=== PATIENT | male | born 1960 | race Caucasian/White ===

== ENCOUNTER 2016-12-27 08:27 | Inpatient (IN) | payer OTHER ==
[2016-12-27] VITALS (23 sets, daily range): BP systolic 111–192; BP diastolic 61–87; PULSE 52–73; RESP 11–21; Ht 154.9 cm; Wt 79.0 kg
[~2016-12-27] VITALS: Ht 154.9 cm; Wt 79.0 kg
[2016-12-27] MEDS ORDERED: LANT3I SC (08:35)
[2016-12-27] MEDS ORDERED: INSU200I SQ (08:36)
[2016-12-27] MEDS ORDERED: METO-448 PO (08:37)
[2016-12-27] MEDS ORDERED: LOSA50TA6 PO (08:37)
[2016-12-27] MEDS ORDERED: ASPI-664 PO (08:37)
[2016-12-27] MEDS ORDERED: METF1000 PO (08:38)
--- NOTE | 2016-12-27 10:00 | RADRPT ---
PROCEDURE: XR Chest 1 View. CLINICAL INDICATION: Abnormal breath sounds, preop. TECHNIQUE: AP view of the chest was obtained. COMPARISON: None. FINDINGS: The cardiomediastinal silhouette is within normal limits. Elevated right hemidiaphragm is identified . Atelectasis is noted at the lung bases. No consolidations are identified. No pneumothorax is seen . Osseous structures are intact. IMPRESSION: Elevated right hemidiaphragm. Atelectasis at the lung bases. RPTAT: AA .Pato Friedman MD, MD Date Time Electronically viewed and signed by .Pato Friedman MD, on 12/27/2016 10:00 .P/
[2016-12-27] MEDS ORDERED: LIDOCAINE 1% (MDV) 20 ML INJ ONE (10:04)
[2016-12-27] MEDS ORDERED: HEPARIN 1000 UNITS/NS (A-LINE) 1,000 ML ONE (10:04)
[2016-12-27] MEDS ORDERED: HEPARIN 1000 UNITS/ML 10 ML INJ ONE (10:04)
[2016-12-27] MEDS ORDERED: MIDAZOLAM 1 MG/ML 2 ML INJ ONE (10:05)
[2016-12-27] MEDS ORDERED: FENTAnyl 50 MCG/ML VIAL ONE (10:05)
[2016-12-27] MEDS ORDERED: VERAPAMIL 5 MG INJ ONE (10:05)
[2016-12-27] MEDS ORDERED: NITROGLYCERIN (IC) 100 MCG/ML INJ ONE (10:05)
[2016-12-27] MEDS: SOD CHLORIDE 0.9% 1,000 ML IV SCH ×2 (10:54→23:43)
--- NOTE | 2016-12-27 11:03 | OPR ---
Date/Time of Note Date/Time of Note DATE: 12/27/16 TIME: 10:56 Operative Report Procedure Date: Dec 27, 2016 Preoperative Diagnosis Coronary artery disease Postoperative Diagnosis Coronary artery disease Operation/Procedure Performed Left heart Catheterization Surgeon see signature line Feed Mixer none Anesthesia Type: moderate sedation Estimated Blood Loss: minimal Transfusion none Specimen none Grafts/Implants none Complications none Pt Condition Post Procedure: stable Disposition: PACU Indications Chest pain Positive stress test Class IV angina Procedure Description DESCRIPTION OF PROCEDURE: The patient placed on pet care assistant, pulse oximetry and supplemental oxygen as necessary. The right wrist was prepped and draped in a sterile fashion and infiltrated with 1% lidocaine. Via the Seldinger technique, the right radia artery was accessed. A 6-Hungarian sheath was inserted and through this the right coronary catheter and left coronary catheter and pigtail were advanced into the right coronary artery and left coronary artery and the left ventricle. Placement confirmed by fluoroscopy and hemodynamics. CATHETERIZATION FINDINGS: 1. Left main: 90% distal disease. 2. LAD: Large caliber vessel with no significant disease. 3. Circumflex: proximal to mid 70-80% diffuse disease 4. Obtuse marginal: Medium caliber vessel with no significant disease. 5. RCA: Large dominant vessel with distal 90% stent re-stenosis; promient left to right collaterals via PDA HEMODYNAMICS: LVEDP 20. 10mmHg gradient on pigtail pull back. TOTAL CONTRAST: 27cc FLUOROSCOPY TIME: 3.0 minutes. COMPLICATIONS: None. FINAL RESULTS: Multi-vessel obstructive coronary artery disease with left main involvement. RECOMMENDATIONS: Admit CABG evaluation (Dr. Pereira notified) Monitor kidney function post cardiac cath as patient high risk for contrast nephropathy given DM. Dr. Dima Coello notified ALISON VICKERS Dec 27, 2016 11:03
--- NOTE | 2016-12-27 11:03 | OPR ---
Date/Time of Note Date/Time of Note DATE: 12/27/16 TIME: 10:56 Operative Report Procedure Date: Dec 27, 2016 Preoperative Diagnosis Coronary artery disease Postoperative Diagnosis Coronary artery disease Operation/Procedure Performed Left heart Catheterization Surgeon see signature line Career Technical Supervisor none Anesthesia Type: moderate sedation Estimated Blood Loss: minimal Transfusion none Specimen none Grafts/Implants none Complications none Pt Condition Post Procedure: stable Disposition: PACU Indications Chest pain Positive stress test Class IV angina Procedure Description DESCRIPTION OF PROCEDURE: The patient placed on school lunch monitor, pulse oximetry and supplemental oxygen as necessary. The right wrist was prepped and draped in a sterile fashion and infiltrated with 1% lidocaine. Via the Seldinger technique, the right radia artery was accessed. A 6-Tamazight sheath was inserted and through this the right coronary catheter and left coronary catheter and pigtail were advanced into the right coronary artery and left coronary artery and the left ventricle. Placement confirmed by fluoroscopy and hemodynamics. CATHETERIZATION FINDINGS: 1. Left main: 90% distal disease. 2. LAD: Large caliber vessel with no significant disease. 3. Circumflex: proximal to mid 70-80% diffuse disease 4. Obtuse marginal: Medium caliber vessel with no significant disease. 5. RCA: Large dominant vessel with distal 90% stent re-stenosis; promient left to right collaterals via PDA HEMODYNAMICS: LVEDP 20. 10mmHg gradient on pigtail pull back. TOTAL CONTRAST: 27cc FLUOROSCOPY TIME: 3.0 minutes. COMPLICATIONS: None. FINAL RESULTS: Multi-vessel obstructive coronary artery disease with left main involvement. RECOMMENDATIONS: Admit CABG evaluation (Dr. Pereira notified) Monitor kidney function post cardiac cath as patient high risk for contrast nephropathy given DM. Dr. Dima Coello notified ALISON VICKERS Dec 27, 2016 11:03
--- NOTE | 2016-12-27 11:03 | OPR ---
Date/Time of Note Date/Time of Note DATE: 12/27/16 TIME: 10:56 Operative Report Procedure Date: Dec 27, 2016 Preoperative Diagnosis Coronary artery disease Postoperative Diagnosis Coronary artery disease Operation/Procedure Performed Left heart Catheterization Surgeon see signature line Nursing Secretary none Anesthesia Type: moderate sedation Estimated Blood Loss: minimal Transfusion none Specimen none Grafts/Implants none Complications none Pt Condition Post Procedure: stable Disposition: PACU Indications Chest pain Positive stress test Class IV angina Procedure Description DESCRIPTION OF PROCEDURE: The patient placed on general internist and physician leader, pulse oximetry and supplemental oxygen as necessary. The right wrist was prepped and draped in a sterile fashion and infiltrated with 1% lidocaine. Via the Seldinger technique, the right radia artery was accessed. A 6-Czech sheath was inserted and through this the right coronary catheter and left coronary catheter and pigtail were advanced into the right coronary artery and left coronary artery and the left ventricle. Placement confirmed by fluoroscopy and hemodynamics. CATHETERIZATION FINDINGS: 1. Left main: 90% distal disease. 2. LAD: Large caliber vessel with no significant disease. 3. Circumflex: proximal to mid 70-80% diffuse disease 4. Obtuse marginal: Medium caliber vessel with no significant disease. 5. RCA: Large dominant vessel with distal 90% stent re-stenosis; promient left to right collaterals via PDA HEMODYNAMICS: LVEDP 20. 10mmHg gradient on pigtail pull back. TOTAL CONTRAST: 27cc FLUOROSCOPY TIME: 3.0 minutes. COMPLICATIONS: None. FINAL RESULTS: Multi-vessel obstructive coronary artery disease with left main involvement. RECOMMENDATIONS: Admit CABG evaluation (Dr. Pereira notified) Monitor kidney function post cardiac cath as patient high risk for contrast nephropathy given DM. Dr. Dima Coello notified ALISON VICKERS Dec 27, 2016 11:03
--- NOTE | 2016-12-27 15:42 | CONS ---
Date/Time of Note Date/Time of Note DATE: 12/27/16 TIME: 15:40 Assessment/Plan Assessment/Plan Chief Complaint/Hosp Course 1. severe angina 2. severe multivessel CAD: including LM disease 3. HTN 4. DM 5. Dyslipidemia 6/ hx RI 7/ HX PCI 8/ Moderate carotid stenosis cont home cardiac meds check carotid u/s and echo awaiting CABG will start lovenox for now until CABG is done Thank you for this referral. We will continue to follow along with you. ROMMEL JIMÉNEZ MD [facility] Problems: Consultation Date/Type/Reason Admit Date/Time Dec 27, 2016 at 11:23 Date of Consultation: Dec 27, 2016 Type of Consultation: CARDIOLOGY Reason for Consultation CAD Referring Provider: LEONARDA CHAMPION MD Hx of Present Illness CC: anginal s/p magalis angio HPI: This is a very pleasant 69-year-old gentleman with history of coronary artery disease status post PCI and RI about a year and a half ago who underwent diagnostic angiography by Dr. jordana Triana due to exertional chest pain and abnormal stress test. His coronary angiogram has shown multivessel disease including the left main coronary artery disease and patient has been admitted for a coronary artery bypass graft. This point he denies any chest pain or pressure to me what his Tuesday when he walks he gets chest pain anteriorly become severe if he walks a lot. Discussed with Dr. 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 His old records reviewed. Allergies no known drug allergies Past medical history history of coronary artery disease status post MIs of hypertension diabetes dyslipidemia history of peripheral vascular disease and moderate carotid stenosis. meds reviewed social has quit smoking 20 years ago family hx: Multiple family members with coronary artery disease. Review of system: As above only. Social History Smoking Status: Former smoker Exam/Review of Systems Vital Signs Vitals Vital Signs Date Time Temp Pulse Resp B/P Pulse Ox O2 Delivery O2 Flow Rate FiO2 12/27/16 15:20 98.0 64 17 153/74 99 12/27/16 14:12 Room Air Exam General: no acute distress HEENT: NC/AT. pupils are equal. round. NECK: NO JVD. no stridor. CV: RRR. systolic murmur; no gallop or rubs. PULM: no wheezing or rhonchi. GI: SOFT, NT, ND, no rebound or guarding Extremity: trace B/L LE edema. no clubbing. neuro: awake and alert, OX3. Psych: calm and pleasant rectal: deferred : normal male magalis angio 12/27/16: 1. Left main: 90% distal disease. 2. LAD: Large caliber vessel with no significant disease. 3. Circumflex: proximal to mid 70-80% diffuse disease 4. Obtuse marginal: Medium caliber vessel with no significant disease. 5. RCA: Large dominant vessel with distal 90% stent re-stenosis; promient left to right collaterals via PDA Results Result Diagram: 12/27/1692112/27/16921 Results 24 hrs Laboratory Tests Test 12/27/16 09:22 White Blood Count 8.0 Red Blood Count 4.63 L Hemoglobin 12.3 L Hematocrit 38.0 L Mean Corpuscular Volume 82.1 Mean Corpuscular Hemoglobin 26.6 L Mean Corpuscular Hemoglobin Concent 32.4 Red Cell Distribution Width 13.9 Platelet Count 323 Mean Platelet Volume 9.3 Neutrophils % 49.0 Lymphocytes % 41.1 Monocytes % 7.0 Eosinophils % 2.0 Basophils % 0.6 Nucleated Red Blood Cells % 0.0 Neutrophils # 3.9 Lymphocytes # 3.3 H Monocytes # 0.6 Eosinophils # 0.2 Basophils # 0.1 Nucleated Red Blood Cells # 0.0 Prothrombin Time 14.3 H Prothrombin Time Ratio 1.1 INR International Normalized Ratio 1.11 Activated Partial Thromboplast Time 33.8 Sodium Level 144 Potassium Level 4.3 Chloride Level 109 Carbon Dioxide Level 24 Anion Gap 15 Blood Urea Nitrogen 13 Creatinine 0.94 Glucose Level 132 Bedside Glucose 130 Calcium Level 8.7 Total Bilirubin 0.3 Direct Bilirubin 0.00 Indirect Bilirubin 0.3 Aspartate Amino Transf (AST/SGOT) 31 Alanine Aminotransferase (ALT/SGPT) 49 Alkaline Phosphatase 66 Total Protein 7.8 Albumin 4.7 Globulin 3.10 Albumin/Globulin Ratio 1.51 Medications Medications Current Medications Miscellaneous Information HOLD all METFORMIN ... ONCE XX ; Start 12/27/16 at 11 :00; Stop 12/29/16 at 10:59 Sodium Chloride (NS) 1,000 ml @ 75 mls/hr [id number] IV Last administered on t 10:54; Admin Dose 75 MLS/HR; Start 12/27/16 at 10:54; Stop 12/28/16 at 00:13 ROMMEL JIMÉNEZ MD Dec 27, 2016 15:42
--- NOTE | 2016-12-27 15:42 | CONS ---
Date/Time of Note Date/Time of Note DATE: 12/27/16 TIME: 15:40 Assessment/Plan Assessment/Plan Chief Complaint/Hosp Course 1. severe angina 2. severe multivessel CAD: including LM disease 3. HTN 4. DM 5. Dyslipidemia 6/ hx PR 7/ HX PCI 8/ Moderate carotid stenosis cont home cardiac meds check carotid u/s and echo awaiting CABG will start lovenox for now until CABG is done Thank you for this referral. We will continue to follow along with you. ROMMEL JIMÉNEZ MD [facility] Problems: Consultation Date/Type/Reason Admit Date/Time Dec 27, 2016 at 11:23 Date of Consultation: Dec 27, 2016 Type of Consultation: CARDIOLOGY Reason for Consultation CAD Referring Provider: LEONARDA CHAMPION MD Hx of Present Illness CC: anginal s/p magalis angio HPI: This is a very pleasant 69-year-old gentleman with history of coronary artery disease status post PCI and PR about a year and a half ago who underwent diagnostic angiography by Dr. jordana Triana due to exertional chest pain and abnormal stress test. His coronary angiogram has shown multivessel disease including the left main coronary artery disease and patient has been admitted for a coronary artery bypass graft. This point he denies any chest pain or pressure to me what his Tuesday when he walks he gets chest pain anteriorly become severe if he walks a lot. Discussed with Dr. Christianson who is the patient's seat pack inspector. His old records reviewed. Allergies no known drug allergies Past medical history history of coronary artery disease status post MIs of hypertension diabetes dyslipidemia history of peripheral vascular disease and moderate carotid stenosis. meds reviewed social has quit smoking 20 years ago family hx: Multiple family members with coronary artery disease. Review of system: As above only. Social History Smoking Status: Former smoker Exam/Review of Systems Vital Signs Vitals Vital Signs Date Time Temp Pulse Resp B/P Pulse Ox O2 Delivery O2 Flow Rate FiO2 12/27/16 15:20 98.0 64 17 153/74 99 12/27/16 14:12 Room Air Exam General: no acute distress HEENT: NC/AT. pupils are equal. round. NECK: NO JVD. no stridor. CV: RRR. systolic murmur; no gallop or rubs. PULM: no wheezing or rhonchi. GI: SOFT, NT, ND, no rebound or guarding Extremity: trace B/L LE edema. no clubbing. neuro: awake and alert, OX3. Psych: calm and pleasant rectal: deferred : normal male magalis angio 12/27/16: 1. Left main: 90% distal disease. 2. LAD: Large caliber vessel with no significant disease. 3. Circumflex: proximal to mid 70-80% diffuse disease 4. Obtuse marginal: Medium caliber vessel with no significant disease. 5. RCA: Large dominant vessel with distal 90% stent re-stenosis; promient left to right collaterals via PDA Results Result Diagram: 12/27/1692112/27/16921 Results 24 hrs Laboratory Tests Test 12/27/16 09:22 White Blood Count 8.0 Red Blood Count 4.63 L Hemoglobin 12.3 L Hematocrit 38.0 L Mean Corpuscular Volume 82.1 Mean Corpuscular Hemoglobin 26.6 L Mean Corpuscular Hemoglobin Concent 32.4 Red Cell Distribution Width 13.9 Platelet Count 323 Mean Platelet Volume 9.3 Neutrophils % 49.0 Lymphocytes % 41.1 Monocytes % 7.0 Eosinophils % 2.0 Basophils % 0.6 Nucleated Red Blood Cells % 0.0 Neutrophils # 3.9 Lymphocytes # 3.3 H Monocytes # 0.6 Eosinophils # 0.2 Basophils # 0.1 Nucleated Red Blood Cells # 0.0 Prothrombin Time 14.3 H Prothrombin Time Ratio 1.1 INR International Normalized Ratio 1.11 Activated Partial Thromboplast Time 33.8 Sodium Level 144 Potassium Level 4.3 Chloride Level 109 Carbon Dioxide Level 24 Anion Gap 15 Blood Urea Nitrogen 13 Creatinine 0.94 Glucose Level 132 Bedside Glucose 130 Calcium Level 8.7 Total Bilirubin 0.3 Direct Bilirubin 0.00 Indirect Bilirubin 0.3 Aspartate Amino Transf (AST/SGOT) 31 Alanine Aminotransferase (ALT/SGPT) 49 Alkaline Phosphatase 66 Total Protein 7.8 Albumin 4.7 Globulin 3.10 Albumin/Globulin Ratio 1.51 Medications Medications Current Medications Miscellaneous Information HOLD all METFORMIN ... ONCE XX ; Start 12/27/16 at 11 :00; Stop 12/29/16 at 10:59 Sodium Chloride (NS) 1,000 ml @ 75 mls/hr [id number] IV Last administered on t 10:54; Admin Dose 75 MLS/HR; Start 12/27/16 at 10:54; Stop 12/28/16 at 00:13 ROMMEL JIMÉNEZ MD Dec 27, 2016 15:42
--- NOTE | 2016-12-27 15:42 | CONS ---
Date/Time of Note Date/Time of Note DATE: 12/27/16 TIME: 15:40 Assessment/Plan Assessment/Plan Chief Complaint/Hosp Course 1. severe angina 2. severe multivessel CAD: including LM disease 3. HTN 4. DM 5. Dyslipidemia 6/ hx [place] 7/ HX PCI 8/ Moderate carotid stenosis cont home cardiac meds check carotid u/s and echo awaiting CABG will start lovenox for now until CABG is done Thank you for this referral. We will continue to follow along with you. ROMMEL JIMÉNEZ MD [facility] Problems: Consultation Date/Type/Reason Admit Date/Time Dec 27, 2016 at 11:23 Date of Consultation: Dec 27, 2016 Type of Consultation: CARDIOLOGY Reason for Consultation CAD Referring Provider: LEONARDA CHAMPION MD Hx of Present Illness CC: anginal s/p magalis angio HPI: This is a very pleasant 69-year-old gentleman with history of coronary artery disease status post PCI and [place] about a year and a half ago who underwent diagnostic angiography by Dr. jordana Triana due to exertional chest pain and abnormal stress test. His coronary angiogram has shown multivessel disease including the left main coronary artery disease and patient has been admitted for a coronary artery bypass graft. This point he denies any chest pain or pressure to me what his Tuesday when he walks he gets chest pain anteriorly become severe if he walks a lot. Discussed with Dr. Christianson who is the patient's marketing communication manager. His old records reviewed. Allergies no known drug allergies Past medical history history of coronary artery disease status post MIs of hypertension diabetes dyslipidemia history of peripheral vascular disease and moderate carotid stenosis. meds reviewed social has quit smoking 20 years ago family hx: Multiple family members with coronary artery disease. Review of system: As above only. Social History Smoking Status: Former smoker Exam/Review of Systems Vital Signs Vitals Vital Signs Date Time Temp Pulse Resp B/P Pulse Ox O2 Delivery O2 Flow Rate FiO2 12/27/16 15:20 98.0 64 17 153/74 99 12/27/16 14:12 Room Air Exam General: no acute distress HEENT: NC/AT. pupils are equal. round. NECK: NO JVD. no stridor. CV: RRR. systolic murmur; no gallop or rubs. PULM: no wheezing or rhonchi. GI: SOFT, NT, ND, no rebound or guarding Extremity: trace B/L LE edema. no clubbing. neuro: awake and alert, OX3. Psych: calm and pleasant rectal: deferred : normal male magalis angio 12/27/16: 1. Left main: 90% distal disease. 2. LAD: Large caliber vessel with no significant disease. 3. Circumflex: proximal to mid 70-80% diffuse disease 4. Obtuse marginal: Medium caliber vessel with no significant disease. 5. RCA: Large dominant vessel with distal 90% stent re-stenosis; promient left to right collaterals via PDA Results Result Diagram: 12/27/1692112/27/16921 Results 24 hrs Laboratory Tests Test 12/27/16 09:22 White Blood Count 8.0 Red Blood Count 4.63 L Hemoglobin 12.3 L Hematocrit 38.0 L Mean Corpuscular Volume 82.1 Mean Corpuscular Hemoglobin 26.6 L Mean Corpuscular Hemoglobin Concent 32.4 Red Cell Distribution Width 13.9 Platelet Count 323 Mean Platelet Volume 9.3 Neutrophils % 49.0 Lymphocytes % 41.1 Monocytes % 7.0 Eosinophils % 2.0 Basophils % 0.6 Nucleated Red Blood Cells % 0.0 Neutrophils # 3.9 Lymphocytes # 3.3 H Monocytes # 0.6 Eosinophils # 0.2 Basophils # 0.1 Nucleated Red Blood Cells # 0.0 Prothrombin Time 14.3 H Prothrombin Time Ratio 1.1 INR International Normalized Ratio 1.11 Activated Partial Thromboplast Time 33.8 Sodium Level 144 Potassium Level 4.3 Chloride Level 109 Carbon Dioxide Level 24 Anion Gap 15 Blood Urea Nitrogen 13 Creatinine 0.94 Glucose Level 132 Bedside Glucose 130 Calcium Level 8.7 Total Bilirubin 0.3 Direct Bilirubin 0.00 Indirect Bilirubin 0.3 Aspartate Amino Transf (AST/SGOT) 31 Alanine Aminotransferase (ALT/SGPT) 49 Alkaline Phosphatase 66 Total Protein 7.8 Albumin 4.7 Globulin 3.10 Albumin/Globulin Ratio 1.51 Medications Medications Current Medications Miscellaneous Information HOLD all METFORMIN ... ONCE XX ; Start 12/27/16 at 11 :00; Stop 12/29/16 at 10:59 Sodium Chloride (NS) 1,000 ml @ 75 mls/hr [id number] IV Last administered on t 10:54; Admin Dose 75 MLS/HR; Start 12/27/16 at 10:54; Stop 12/28/16 at 00:13 ROMMEL JIMÉNEZ MD Dec 27, 2016 15:42
--- NOTE | 2016-12-27 15:58 | RADRPT ---
PROCEDURE: US carotid arteries. CLINICAL INDICATION: Preoperative for CABG. TECHNIQUE: Multiple sonographic images of the carotid arteries and vertebral arteries were obtaine d utilizing rizvi scale, duplex, and color-flow imaging. The images were reviewed on a PACS workstati on. COMPARISON: No prior studies are available for comparison. FINDINGS: Evaluation of the right carotid bifurcation region reveals mild to moderate atherosclerotic disease with turbulent flow noted. Rizvi-scale imaging demonstrates a stenosis measuring approximately 65%. Evaluation of the left carotid bifurcation region reveals mild atherosclerotic disease. There is antegrade flow within the vertebral arteries bilaterally. RIGHT CAROTID MEASUREMENTS: Common Carotid [id number] (cm/sec) Internal Carotid Artery 86 (cm/sec) External Carotid Artery 118 (cm/sec) Vertebral Artery 64 (cm/sec) Internal Carotid/Common Carotid1.3 LEFT CAROTID MEASUREMENTS: Common Carotid [id number] (cm/sec) Internal Carotid Artery 64 (cm/sec) External Carotid Artery 153 (cm/sec) Vertebral Artery 36 (cm/sec) Internal Carotid/Common Carotid0.7 Validated velocity measurements with angiographic measurements. Velocity criteria are extrapolated f rom diameter data as defined by the Society of Radiologists in Ultrasound Consensus Conference. Radi ology 2003; 229;340-346. This study does indirectly reference the measurement of the distal ICA mychal meter as the denominator for stenosis measurement. IMPRESSION: 1. A possible moderate stenosis of the right internal carotid artery. Correlation with CT angiogram of the cervical carotid arteries is advised. 2. Less than 50% stenosis of the left internal carotid artery. 3. Normal antegrade flow in the vertebral arteries bilaterally. RPTAT: QQ SRU Consensus Conference Criteria for the Diagnosis of Carotid Artery Stenosis* Degree of Stenosis, % ICA PSV, cm/sec Plaque Estimate, % ICA/CCA PSV Ratio Normal <125 None <2.0 <50 <125 <50 <2.0 50 69 125-230 >50 2.0-4.0 >70 but less than near occlusion >230 >50 <4.0 Near occlusion High, low, or undetectable Visible Variable Total occlusion Undetectable Visible, no detectable lumen Not applicable *Cartoid artery stenosis: rizvi-scale and Doppler US diagnosis. Society of Radiologists in Ultrasound Consensus Conference. Radiology 2003; 229: 340-346 .Angel Luis Ta MD, MD Date Time Electronically viewed and signed by .Angel Luis Ta MD, on 12/27/2016 15:58 .R/
[2016-12-27] MEDS: ASPIRIN (EC) 81 MG TAB PO SCH (16:00)
--- NOTE | 2016-12-27 17:08 | RADRPT ---
Echocardiogram Report Patient Name: MARGE LAWRENCE Gender: Male Date: 1960 Study Date: 27-Dec-2016 Mobile Home Installer: Steve Garcia [facility] Location: [address] Ref. Physician: ROMMEL LANDRY Quality: Adequate Procedures: Transthoracic echocardiogram with complete 2D, M-Mode, and doppler examination. Indications: CAD, pre-op. 2D/M Mode Doppler Measurement Value Normal Ranges Measurement Value Normal Ranges LVIDd 2D 4.4 3.5 - 5.6 cm AV Peak [place] 1.5 m/sec LVIDs 2D 2.8 2.1 - 4.1 cm AV Peak PG 8.0 mmHg FS 2D 35.5 % LVOT Peak [place] 1.0 m/sec LVPWd 2D 1.2 0.6 - 1.1 cm LVOT Peak PG 4.0 mmHg IVSd 2D 1.2 0.6 - 1.1 cm MV E Peak [place] 1.0 m/sec IVS/LVPW 2D 1.0 MV A Peak [place] 1.2 m/sec AoR Diam 2D 2.3 2.0 - 3.7 cm MV E/A 0.9 LA/Ao 2D 2 0 - 1 MV Decel Time 123 msec EDV 2D 86.4 cm3 MV E/A 0.9 ESV 2D 23.1 cm3 TR Peak [place] 2.7 m/sec LA Dimen 2D 3.7 2.3 - 4.0 cm TR Peak PG 28.0 mmHg RVSP 38.0 mmHg Findings Left Ventricle: Lower limits of normal systolic function. Normal left ventricular cavity size. Left ventricular wall thickness upper limits of normal. Ejection fraction is visually estimated at 50 %. Tissue Doppler/Mitral Doppler indices are consistent with impaired relaxation (Stage I diastolic dysfunction). These segments of the LV are hypokinetic apex. Right Ventricle: Normal right ventricular size. Normal right ventricular systolic function. Left Atrium: The left atrium is normal in size. Right Atrium: The right atrium is normal in size. Mitral Valve: Mild mitral leaflet calcification. Mild mitral annular calcification. Trace mitral regurgitation. Aortic Valve: No significant aortic stenosis. Aortic cusps appear mildly calcified. Trace aortic valve regurgitation. Tricuspid Valve: Normal appearance of the tricuspid valve. Estimated peak PA systolic pressure 38 mmHg. There is mild tricuspid regurgitation. Pulmonic Valve: Pulmonic valve not well visualized. There is trace pulmonic regurgitation. Pericardium: Normal pericardium with no significant pericardial effusion. Aorta: Normal aortic root. IVC: The IVC is not well visualized. Conclusions 1.Lower limits of normal systolic function. Normal left ventricular cavity size. Left ventricular wall thickness upper limits of normal. Ejection fraction is visually estimated at 50 %. Tissue Doppler/Mitral Doppler indices are consistent with impaired relaxation (Stage I diastolic dysfunction). These segments of the LV are hypokinetic apex. 2.Mild mitral leaflet calcification. Mild mitral annular calcification. Trace mitral regurgitation. 3.No significant aortic stenosis. Aortic cusps appear mildly calcified. Trace aortic valve regurgitation. 4.Normal appearance of the tricuspid valve. Estimated peak PA systolic pressure 38 mmHg. There is mild tricuspid regurgitation. Electronically Signed By: Rommel Landry 27-Dec-2016 17:07:32 -0700 Patient Name: MARGE LAWRENCE Study Date: 27-Dec-2016 [id number]
--- NOTE | 2016-12-27 17:08 | RADRPT ---
Echocardiogram Report Patient Name: MARGE LAWRENCE Gender: Male Date: 1960 Study Date: 27-Dec-2016 Powertrain Design Engineer: Steve Garcia [facility] Location: [address] Ref. Physician: ROMMEL LANDRY Quality: Adequate Procedures: Transthoracic echocardiogram with complete 2D, M-Mode, and doppler examination. Indications: CAD, pre-op. 2D/M Mode Doppler Measurement Value Normal Ranges Measurement Value Normal Ranges LVIDd 2D 4.4 3.5 - 5.6 cm AV Peak [place] 1.5 m/sec LVIDs 2D 2.8 2.1 - 4.1 cm AV Peak PG 8.0 mmHg FS 2D 35.5 % LVOT Peak [place] 1.0 m/sec LVPWd 2D 1.2 0.6 - 1.1 cm LVOT Peak PG 4.0 mmHg IVSd 2D 1.2 0.6 - 1.1 cm MV E Peak [place] 1.0 m/sec IVS/LVPW 2D 1.0 MV A Peak [place] 1.2 m/sec AoR Diam 2D 2.3 2.0 - 3.7 cm MV E/A 0.9 LA/Ao 2D 2 0 - 1 MV Decel Time 123 msec EDV 2D 86.4 cm3 MV E/A 0.9 ESV 2D 23.1 cm3 TR Peak [place] 2.7 m/sec LA Dimen 2D 3.7 2.3 - 4.0 cm TR Peak PG 28.0 mmHg RVSP 38.0 mmHg Findings Left Ventricle: Lower limits of normal systolic function. Normal left ventricular cavity size. Left ventricular wall thickness upper limits of normal. Ejection fraction is visually estimated at 50 %. Tissue Doppler/Mitral Doppler indices are consistent with impaired relaxation (Stage I diastolic dysfunction). These segments of the LV are hypokinetic apex. Right Ventricle: Normal right ventricular size. Normal right ventricular systolic function. Left Atrium: The left atrium is normal in size. Right Atrium: The right atrium is normal in size. Mitral Valve: Mild mitral leaflet calcification. Mild mitral annular calcification. Trace mitral regurgitation. Aortic Valve: No significant aortic stenosis. Aortic cusps appear mildly calcified. Trace aortic valve regurgitation. Tricuspid Valve: Normal appearance of the tricuspid valve. Estimated peak PA systolic pressure 38 mmHg. There is mild tricuspid regurgitation. Pulmonic Valve: Pulmonic valve not well visualized. There is trace pulmonic regurgitation. Pericardium: Normal pericardium with no significant pericardial effusion. Aorta: Normal aortic root. IVC: The IVC is not well visualized. Conclusions 1.Lower limits of normal systolic function. Normal left ventricular cavity size. Left ventricular wall thickness upper limits of normal. Ejection fraction is visually estimated at 50 %. Tissue Doppler/Mitral Doppler indices are consistent with impaired relaxation (Stage I diastolic dysfunction). These segments of the LV are hypokinetic apex. 2.Mild mitral leaflet calcification. Mild mitral annular calcification. Trace mitral regurgitation. 3.No significant aortic stenosis. Aortic cusps appear mildly calcified. Trace aortic valve regurgitation. 4.Normal appearance of the tricuspid valve. Estimated peak PA systolic pressure 38 mmHg. There is mild tricuspid regurgitation. Electronically Signed By: Rommel Landry 27-Dec-2016 17:07:32 -0700 Patient Name: MARGE LAWRENCE Study Date: 27-Dec-2016 [id number]
--- NOTE | 2016-12-27 17:08 | RADRPT ---
Echocardiogram Report Patient Name: MARGE LAWRENCE Gender: Male Date: 1960 Study Date: 27-Dec-2016 Pick Up Operator: Steve Garcia [facility] Location: [address] Ref. Physician: ROMMEL LANDRY Quality: Adequate Procedures: Transthoracic echocardiogram with complete 2D, M-Mode, and doppler examination. Indications: CAD, pre-op. 2D/M Mode Doppler Measurement Value Normal Ranges Measurement Value Normal Ranges LVIDd 2D 4.4 3.5 - 5.6 cm AV Peak [place] 1.5 m/sec LVIDs 2D 2.8 2.1 - 4.1 cm AV Peak PG 8.0 mmHg FS 2D 35.5 % LVOT Peak [place] 1.0 m/sec LVPWd 2D 1.2 0.6 - 1.1 cm LVOT Peak PG 4.0 mmHg IVSd 2D 1.2 0.6 - 1.1 cm MV E Peak [place] 1.0 m/sec IVS/LVPW 2D 1.0 MV A Peak [place] 1.2 m/sec AoR Diam 2D 2.3 2.0 - 3.7 cm MV E/A 0.9 LA/Ao 2D 2 0 - 1 MV Decel Time 123 msec EDV 2D 86.4 cm3 MV E/A 0.9 ESV 2D 23.1 cm3 TR Peak [place] 2.7 m/sec LA Dimen 2D 3.7 2.3 - 4.0 cm TR Peak PG 28.0 mmHg RVSP 38.0 mmHg Findings Left Ventricle: Lower limits of normal systolic function. Normal left ventricular cavity size. Left ventricular wall thickness upper limits of normal. Ejection fraction is visually estimated at 50 %. Tissue Doppler/Mitral Doppler indices are consistent with impaired relaxation (Stage I diastolic dysfunction). These segments of the LV are hypokinetic apex. Right Ventricle: Normal right ventricular size. Normal right ventricular systolic function. Left Atrium: The left atrium is normal in size. Right Atrium: The right atrium is normal in size. Mitral Valve: Mild mitral leaflet calcification. Mild mitral annular calcification. Trace mitral regurgitation. Aortic Valve: No significant aortic stenosis. Aortic cusps appear mildly calcified. Trace aortic valve regurgitation. Tricuspid Valve: Normal appearance of the tricuspid valve. Estimated peak PA systolic pressure 38 mmHg. There is mild tricuspid regurgitation. Pulmonic Valve: Pulmonic valve not well visualized. There is trace pulmonic regurgitation. Pericardium: Normal pericardium with no significant pericardial effusion. Aorta: Normal aortic root. IVC: The IVC is not well visualized. Conclusions 1.Lower limits of normal systolic function. Normal left ventricular cavity size. Left ventricular wall thickness upper limits of normal. Ejection fraction is visually estimated at 50 %. Tissue Doppler/Mitral Doppler indices are consistent with impaired relaxation (Stage I diastolic dysfunction). These segments of the LV are hypokinetic apex. 2.Mild mitral leaflet calcification. Mild mitral annular calcification. Trace mitral regurgitation. 3.No significant aortic stenosis. Aortic cusps appear mildly calcified. Trace aortic valve regurgitation. 4.Normal appearance of the tricuspid valve. Estimated peak PA systolic pressure 38 mmHg. There is mild tricuspid regurgitation. Electronically Signed By: Rommel Landry 27-Dec-2016 17:07:32 -0700 Patient Name: MARGE LAWRENCE Study Date: 27-Dec-2016 [id number]
[2016-12-27] MEDS: METOPROLOL 25 MG TAB PO SCH (20:23)
[2016-12-27] MEDS: ENOXAPARIN 80 MG/0.8 ML SYG SC SCH (20:29)
--- NOTE | 2016-12-27 20:50 | CONS ---
DATE OF ADMISSION: 12/27/2016 DATE OF CONSULTATION: 12/27/2016 REASON FOR CONSULTATION: Evaluation for coronary artery bypass grafting. HISTORY OF PRESENT ILLNESS: A 56-year-old male with history of previous MIs, coronary artery diseas e, status post PCI, had chest pain, underwent an angiogram today, which was positive for left main d isease in addition to right coronary artery disease, both 90%. PAST MEDICAL HISTORY: Hypertension, hyperlipidemia, diabetes, dyslipidemia, history of [place], coronary artery disease. PAST SURGICAL HISTORY: PCI. ALLERGIES: NONE. SOCIAL HISTORY: Positive for smoking for 20 years. PHYSICAL EXAMINATION: VITAL SIGNS: Blood pressure is 153/74, pulse is 80, respirations 18. CARDIOVASCULAR: Normal S1, S2. LUNGS: Clear. ABDOMEN: Soft. EXTREMITIES: Warm. LABORATORY VALUES: Significant for a hemoglobin of 12.3, white count 88, platelet count 233. Karie l coagulation factors and a creatinine of 0.94. IMPRESSION: Coronary artery disease. RECOMMENDATIONS: We will proceed with coronary artery bypass grafting. Risks, benefits, complicati ons, alternative therapies explained to the patient. Risks and benefits that were explained to the patient included but not limited to bleeding, infection, stroke, heart attack, , respiratory fa ilure, wound infection, wound dehiscence, and others. All questions answered. Dictated By: TAYLOR FUENTES/AI Conf#: [id number] DID#: [id number]
--- NOTE | 2016-12-27 20:50 | CONS ---
DATE OF ADMISSION: 12/27/2016 DATE OF CONSULTATION: 12/27/2016 REASON FOR CONSULTATION: Evaluation for coronary artery bypass grafting. HISTORY OF PRESENT ILLNESS: A 56-year-old male with history of previous MIs, coronary artery diseas e, status post PCI, had chest pain, underwent an angiogram today, which was positive for left main d isease in addition to right coronary artery disease, both 90%. PAST MEDICAL HISTORY: Hypertension, hyperlipidemia, diabetes, dyslipidemia, history of [place], coronary artery disease. PAST SURGICAL HISTORY: PCI. ALLERGIES: NONE. SOCIAL HISTORY: Positive for smoking for 20 years. PHYSICAL EXAMINATION: VITAL SIGNS: Blood pressure is 153/74, pulse is 80, respirations 18. CARDIOVASCULAR: Normal S1, S2. LUNGS: Clear. ABDOMEN: Soft. EXTREMITIES: Warm. LABORATORY VALUES: Significant for a hemoglobin of 12.3, white count 88, platelet count 233. Karie l coagulation factors and a creatinine of 0.94. IMPRESSION: Coronary artery disease. RECOMMENDATIONS: We will proceed with coronary artery bypass grafting. Risks, benefits, complicati ons, alternative therapies explained to the patient. Risks and benefits that were explained to the patient included but not limited to bleeding, infection, stroke, heart attack, , respiratory fa ilure, wound infection, wound dehiscence, and others. All questions answered. Dictated By: TAYLOR FUENTES/AI Conf#: [id number] DID#: [id number]
--- NOTE | 2016-12-27 20:50 | CONS ---
DATE OF ADMISSION: 12/27/2016 DATE OF CONSULTATION: 12/27/2016 REASON FOR CONSULTATION: Evaluation for coronary artery bypass grafting. HISTORY OF PRESENT ILLNESS: A 56-year-old male with history of previous MIs, coronary artery diseas e, status post PCI, had chest pain, underwent an angiogram today, which was positive for left main d isease in addition to right coronary artery disease, both 90%. PAST MEDICAL HISTORY: Hypertension, hyperlipidemia, diabetes, dyslipidemia, history of [place], coronary artery disease. PAST SURGICAL HISTORY: PCI. ALLERGIES: NONE. SOCIAL HISTORY: Positive for smoking for 20 years. PHYSICAL EXAMINATION: VITAL SIGNS: Blood pressure is 153/74, pulse is 80, respirations 18. CARDIOVASCULAR: Normal S1, S2. LUNGS: Clear. ABDOMEN: Soft. EXTREMITIES: Warm. LABORATORY VALUES: Significant for a hemoglobin of 12.3, white count 88, platelet count 233. Karie l coagulation factors and a creatinine of 0.94. IMPRESSION: Coronary artery disease. RECOMMENDATIONS: We will proceed with coronary artery bypass grafting. Risks, benefits, complicati ons, alternative therapies explained to the patient. Risks and benefits that were explained to the patient included but not limited to bleeding, infection, stroke, heart attack, , respiratory fa ilure, wound infection, wound dehiscence, and others. All questions answered. Dictated By: TAYLOR FUENTES/AI Conf#: [id number] DID#: [id number]
[2016-12-28] VITALS (39 sets, daily range): BP systolic 87–169; BP diastolic 52–82; PULSE 50–128; RESP 14–29; TEMP 96.7–102.5
[2016-12-28] MEDS ORDERED: NITROGLYCERIN 50 MG/D5W 250 ML BTL ONE (07:00)
[2016-12-28] MEDS ORDERED: DOPamine-D5W 1.6 MG/ML 250 ML ONE (07:00)
[2016-12-28] MEDS ORDERED: INSULIN REGULAR, HUMAN 100 UNIT/1 ML 3ML VIAL ONE (07:00)
[2016-12-28] MEDS ORDERED: DEXTROSE 50% 50 ML SYRINGE ONE (07:00)
[2016-12-28] MEDS ORDERED: GELATIN SIZE 100 SPONGE ONE (07:21)
[2016-12-28] MEDS ORDERED: THROMBIN 5000 UNIT VIAL ONE (07:21)
[2016-12-28] MEDS ORDERED: VANCOMYCIN 1 GM INJ ONE ×2 (07:21→08:03)
[2016-12-28] MEDS ORDERED: HEPARIN 1000 UNITS/ML 10 ML INJ ONE ×5 (07:21→13:59)
[2016-12-28] MEDS ORDERED: PAPAVERINE 60 MG INJ ONE (08:03)
[2016-12-28] MEDS: ASPIRIN (EC) 81 MG TAB PO SCH (09:00)
[2016-12-28] MEDS: METOPROLOL 25 MG TAB PO SCH ×2 (09:00→21:00)
[2016-12-28] MEDS ORDERED: INSULIN HUMAN REGULAR 100 UNIT in SOD CHLORIDE 0.9% 99 ML IV SCH (09:00)
[2016-12-28] MEDS ORDERED: PHENYLephrine 20MG IN 250 ML 250 ML IV SCH (09:00)
[2016-12-28] MEDS: LOSARTAN 50 MG TAB PO SCH (09:00)
[2016-12-28] MEDS: ENOXAPARIN 80 MG/0.8 ML SYG SC SCH ×2 (09:00→21:00)
[2016-12-28] MEDS ORDERED: EPINEPHrine 4 MG in DEXTROSE 5% 246 ML IV SCH (09:00)
[2016-12-28] MEDS ORDERED: MIDAZOLAM 5 ML ONE ×3 (09:29→16:06)
[2016-12-28] MEDS ORDERED: POTASSIUM CHLORIDE 40 MEQ INJ ONE (09:30)
[2016-12-28] MEDS ORDERED: ALBUMIN HUMAN 25% 200 ML ONE (09:31)
[2016-12-28] MEDS ORDERED: PHENYLephrine 10 MG INJ ONE ×2 (09:31→09:32)
[2016-12-28] MEDS ORDERED: LIDOCAINE 100 MG SYRINGE ONE (09:32)
[2016-12-28] MEDS ORDERED: MAGNESIUM SULFATE (MG) 50% 10 ML INJ ONE (09:33)
[2016-12-28] MEDS ORDERED: PHENYLephrine (100 MCG/ML) 5ML SYG ONE ×2 (09:34→11:49)
[2016-12-28] MEDS ORDERED: NA BICARBONATE 8.4% 50 ML SYG ONE (09:34)
[2016-12-28] MEDS ORDERED: CA CHLORIDE 10% 10 ML SYRINGE ONE (09:35)
[2016-12-28] MEDS ORDERED: AMINOCAPROIC ACID 5 GM INJ ONE ×4 (09:37→13:19)
[2016-12-28] MEDS ORDERED: MANNITOL 20% 250 ML IV ONE (09:51)
[2016-12-28] MEDS ORDERED: FUROSEMIDE 20 MG INJ ONE (10:50)
[2016-12-28] MEDS ORDERED: CEFAZOLIN 1 GM INJ ONE ×2 (10:55→13:19)
[2016-12-28] MEDS ORDERED: ETOMIDATE 20 MG INJ ONE (14:01)
[2016-12-28] MEDS ORDERED: LIDOCAINE 2% (SDV) 5 ML INJ ONE (14:01)
[2016-12-28] MEDS ORDERED: ROCURONIUM 50 MG INJ ONE (14:01)
[2016-12-28] MEDS ORDERED: PROTAMINE 250 MG INJ ONE (14:04)
--- NOTE | 2016-12-28 14:56 | RADRPT ---
Vent Rate: 53 bpm RR Interval: 0 msec ID Interval: 142 msec QRS Duration: 88 msec QT Interval: 426 msec QTC Interval: 399 msec P-R-T [place]: 48 - 12 - -4 degrees Sinus bradycardia with sinus arrhythmia Nonspecific T wave abnormality Abnormal ECG Electronically Signed By: Duran Rasheed [id number]
--- NOTE | 2016-12-28 14:56 | RADRPT ---
Vent Rate: 53 bpm RR Interval: 0 msec MD Interval: 142 msec QRS Duration: 88 msec QT Interval: 426 msec QTC Interval: 399 msec P-R-T [place]: 48 - 12 - -4 degrees Sinus bradycardia with sinus arrhythmia Nonspecific T wave abnormality Abnormal ECG Electronically Signed By: Duran Rasheed [id number]
--- NOTE | 2016-12-28 14:56 | RADRPT ---
Vent Rate: 53 bpm RR Interval: 0 msec CA Interval: 142 msec QRS Duration: 88 msec QT Interval: 426 msec QTC Interval: 399 msec P-R-T [place]: 48 - 12 - -4 degrees Sinus bradycardia with sinus arrhythmia Nonspecific T wave abnormality Abnormal ECG Electronically Signed By: Duran Rasheed [id number]
[2016-12-28] MEDS ORDERED: MILRINONE 20MG in D5W 100 ML IV SCH (15:00)
--- NOTE | 2016-12-28 16:32 | RADRPT ---
PROCEDURE: XR Chest AP portable CLINICAL INDICATION: Post CABG TECHNIQUE: An AP portable radiograph of the chest was submitted. COMPARISON: 12/27/2016 FINDINGS: Support Hardware: Since the previous study, the patient has been intubated with the tube tip at the level of superior T3. A right jugular [place]-Quiana catheter is evident with the tip projecting to the m ain pulmonary artery segment. A catheter is seen extend from the low with the tip projecting to the left pulmonary artery. Cardiovascular: There is new metallic sternal wiring. The heart size has increased and is now mildly enlarged while the pulmonary vasculature appears unremarkable. Lung Manning: A poor inspiratory effort compresses lung parenchyma exaggerating the pulmonary interst itial markings and subsegmental atelectasis is seen at the lung bases. Pleural Spaces: No pleural fluid accumulation or pneumothorax is evident. Osseous Structures: The osseous structures appear intact. Soft Tissues: The soft tissues appear unremarkable. IMPRESSION: 1. Interval intubation with the tube tip at the level of the inferior T3. 2. A right jugular [place]-Quiana catheter is evident with the tip in the main pulmonary artery. A katie ter appears to extend superiorly from below with the tip projecting to the left pulmonary artery. 3. Interval midline sternotomy with the heart size increased and mildly enlarged but with the pulmo nary vasculature upper normal. 4. Poor inspiratory effort with subsegmental atelectasis now seen at the lung bases. Physician Michael Date Time Electronically viewed and signed by Physician Michael on 12/28/2016 16:31 /
--- NOTE | 2016-12-28 16:32 | RADRPT ---
PROCEDURE: XR Chest AP portable CLINICAL INDICATION: Post CABG TECHNIQUE: An AP portable radiograph of the chest was submitted. COMPARISON: 12/27/2016 FINDINGS: Support Hardware: Since the previous study, the patient has been intubated with the tube tip at the level of superior T3. A right jugular [place]-Quiana catheter is evident with the tip projecting to the m ain pulmonary artery segment. A catheter is seen extend from the low with the tip projecting to the left pulmonary artery. Cardiovascular: There is new metallic sternal wiring. The heart size has increased and is now mildly enlarged while the pulmonary vasculature appears unremarkable. Lung Manning: A poor inspiratory effort compresses lung parenchyma exaggerating the pulmonary interst itial markings and subsegmental atelectasis is seen at the lung bases. Pleural Spaces: No pleural fluid accumulation or pneumothorax is evident. Osseous Structures: The osseous structures appear intact. Soft Tissues: The soft tissues appear unremarkable. IMPRESSION: 1. Interval intubation with the tube tip at the level of the inferior T3. 2. A right jugular [place]-Quiana catheter is evident with the tip in the main pulmonary artery. A katie ter appears to extend superiorly from below with the tip projecting to the left pulmonary artery. 3. Interval midline sternotomy with the heart size increased and mildly enlarged but with the pulmo nary vasculature upper normal. 4. Poor inspiratory effort with subsegmental atelectasis now seen at the lung bases. Physician Michael Date Time Electronically viewed and signed by Physician Michael on 12/28/2016 16:31 /
--- NOTE | 2016-12-28 16:32 | RADRPT ---
PROCEDURE: XR Chest AP portable CLINICAL INDICATION: Post CABG TECHNIQUE: An AP portable radiograph of the chest was submitted. COMPARISON: 12/27/2016 FINDINGS: Support Hardware: Since the previous study, the patient has been intubated with the tube tip at the level of superior T3. A right jugular [place]-Quiana catheter is evident with the tip projecting to the m ain pulmonary artery segment. A catheter is seen extend from the low with the tip projecting to the left pulmonary artery. Cardiovascular: There is new metallic sternal wiring. The heart size has increased and is now mildly enlarged while the pulmonary vasculature appears unremarkable. Lung Manning: A poor inspiratory effort compresses lung parenchyma exaggerating the pulmonary interst itial markings and subsegmental atelectasis is seen at the lung bases. Pleural Spaces: No pleural fluid accumulation or pneumothorax is evident. Osseous Structures: The osseous structures appear intact. Soft Tissues: The soft tissues appear unremarkable. IMPRESSION: 1. Interval intubation with the tube tip at the level of the inferior T3. 2. A right jugular [place]-Quiana catheter is evident with the tip in the main pulmonary artery. A katie ter appears to extend superiorly from below with the tip projecting to the left pulmonary artery. 3. Interval midline sternotomy with the heart size increased and mildly enlarged but with the pulmo nary vasculature upper normal. 4. Poor inspiratory effort with subsegmental atelectasis now seen at the lung bases. Physician Michael Date Time Electronically viewed and signed by Physician Michael on 12/28/2016 16:31 /
[2016-12-28] MEDS ORDERED: DOPamine-D5W 1.6 MG/ML 250 ML IV SCH ×2 (17:00→17:30)
[2016-12-28] MEDS ORDERED: FENTAnyl 50 MCG/ML VIAL IV PRN ×2 (17:00)
[2016-12-28] MEDS ORDERED: MEPERIDINE 25 MG INJ IV PRN (17:00)
[2016-12-28] MEDS ORDERED: ONDANSETRON 4 MG INJ IV PRN ×2 (17:00→17:30)
[2016-12-28] MEDS ORDERED: morphine (1 MG/ML) 10ML SYRINGE IV PRN ×3 (17:00)
[2016-12-28] MEDS ORDERED: EPHEDrine SULFATE 50 MG/5 ML SYG IV PRN (17:00)
[2016-12-28] MEDS ORDERED: DIPHENHYDRAMINE 50 MG INJ IV PRN (17:00)
[2016-12-28] MEDS ORDERED: NITROGLYCERIN 50 MG/D5W (PMX) 250 ML IV SCH ×2 (17:00→17:30)
[2016-12-28] MEDS ORDERED: POTASSIUM CHLORIDE 40 MEQ, CALCIUM CHLORIDE 10% 1 GM in DEXTROSE 5%-0.225% NACL 1,000 ML IV SCH (17:01)
[2016-12-28] MEDS ORDERED: ALBUMIN HUMAN 5% 250 ML ONE (17:29)
[2016-12-28] MEDS ORDERED: MAGNESIUM SULFATE 1 GM/D5W 100 ML IVPB PRN (17:30)
[2016-12-28] MEDS ORDERED: DEXTROSE 50% 50 ML SYRINGE IV PRN ×2 (17:30)
[2016-12-28] MEDS ORDERED: HYDROmorphONE 0.5 MG/0.5 ML SYG IV PRN (17:30)
[2016-12-28] MEDS: ACCU-CHEK XX SCH ×7 (17:30→23:44)
[2016-12-28] MEDS: HYDROmorphONE 0.5 MG/0.5 ML SYG IV PRN ×4 (17:55→22:44)
[2016-12-28] MEDS ORDERED: NORepinephrine 8MG/250 ML (PMX 250 ML ONE (17:56)
--- NOTE | 2016-12-28 17:57 | CONS ---
Date/Time of Note Date/Time of Note DATE: 12/28/16 TIME: 17:52 Consult Date/Type/Reason Admit Date/Time Dec 27, 2016 at 11:23 Initial Consult Date 12/27/16 Type of Consultation: CARDIOLOGY Ordering Provider: LEONARDA CHAMPION MD Subjective cardiology follow up note/ critical care note: S: D/W staff and rhythm was reviewed. pt s/p CABG and is intubated on multiple pressors now. pt is in ICU. O: General: S/P intubation on vent HEENT: NC/AT. pupils are equal. round. NECK: s/p IJ PA catheter placement. no stridor. CV: RRR. systolic murmur; no gallop or rubs. PULM: no wheezing or rhonchi. GI: SOFT, NT, ND, no rebound or guarding Extremity: trace B/L LE edema. no clubbing. neuro: sedated. chest : s/p chest tube. Psych: calm and pleasant rectal: deferred : normal male magalis angio 12/27/16: 1. Left main: 90% distal disease. 2. LAD: Large caliber vessel with no significant disease. 3. Circumflex: proximal to mid 70-80% diffuse disease 4. Obtuse marginal: Medium caliber vessel with no significant disease. 5. RCA: Large dominant vessel with distal 90% stent re-stenosis; prominent left to right collaterals via PDA ECHO: 1. Lower limits of normal systolic function. Normal left ventricular cavity size. Left ventricular wall thickness upper limits of normal. Ejection fraction is visually estimated at 50 %. Tissue Doppler/Mitral Doppler indices are consistent with impaired relaxation (Stage I diastolic dysfunction). These segments of the LV are hypokinetic apex. 2. Mild mitral leaflet calcification. Mild mitral annular calcification. Trace mitral regurgitation. 3. No significant aortic stenosis. Aortic cusps appear mildly calcified. Trace aortic valve regurgitation. 4. Normal appearance of the tricuspid valve. Estimated peak PA systolic pressure 38 mmHg. There is mild tricuspid regurgitation. Objective Vital Signs Date Time Temp Pulse Resp B/P Pulse Ox O2 Delivery O2 Flow Rate FiO2 12/28/16 17:37 100 50 12/28/16 16:32 106 17 12/28/16 08:01 97.9 169/82 12/27/16 14:12 Room Air Intake and Output 1012/27/16 12/28/16 15:00 23:00 07:00 Intake Total 440 ml 300 ml Output Total 400 ml Balance 40 ml 300 ml Results/Medications Result Diagram: 12/28/1623 12/28/1623 Results 24 hrs Laboratory Tests Test 12/28/16 07:23 12/28/16 08:29 12/28/16 16:33 12/28/16 17:05 White Blood Count 7.2 Red Blood Count 4.40 L Hemoglobin 11.9 L Hematocrit 36.4 L Mean Corpuscular Volume 82.7 Mean Corpuscular Hemoglobin 27.0 L Mean Corpuscular Hemoglobin Concent 32.7 Red Cell Distribution Width 13.9 Platelet Count 299 Mean Platelet Volume 9.4 Neutrophils % 44.5 Lymphocytes % 46.0 Monocytes % 6.9 Eosinophils % 1.7 Basophils % 0.6 Nucleated Red Blood Cells % 0.0 Neutrophils # 3.2 Lymphocytes # 3.3 H Monocytes # 0.5 Eosinophils # 0.1 Basophils # 0.0 Nucleated Red Blood Cells # 0.0 Prothrombin Time 13.7 Prothrombin Time Ratio 1.1 INR International Normalized Ratio 1.05 Sodium Level 143 Potassium Level 4.2 Chloride Level 109 Carbon Dioxide Level 25 Anion Gap 13 Blood Urea Nitrogen 12 Creatinine 0.82 Glucose Level 109 Calcium Level 8.8 Magnesium Level 2.0 Total Bilirubin 0.3 Direct Bilirubin 0.00 Indirect Bilirubin 0.3 Aspartate Amino Transf (AST/SGOT) 28 Alanine Aminotransferase (ALT/SGPT) 48 Alkaline Phosphatase 64 Creatine Kinase 93 Creatine Kinase Index 0.7 Creatinine Kinase MB (Mass) 0.62 Troponin I < 0.012 B-Type Natriuretic Peptide 170 H Total Protein 7.3 Albumin 3.7 # Globulin 3.60 H Albumin/Globulin Ratio 1.02 Triglycerides Level 218 H Cholesterol Level 135 LDL Cholesterol, Calculated 60 HDL Cholesterol 31 Cholesterol/HDL Ratio 4.3 Thyroid Stimulating Hormone (TSH) 4.500 Free Thyroxine 0.78 Bedside Glucose 117 109 Blood Gas Specimen Source [facility] Arterial Blood Date Drawn 12/28/2016 4:55:37 PM Arterial Blood pH (Temp corrected) 7.475 H Arterial Blood pCO2 (Temp correct) 31.9 L Arterial Blood pO2 (Temp corrected) 106.4 H Arterial Blood HCO3 23.0 Arterial Blood Base Excess 0 Arterial Blood Oxygen Saturation 97.5 Yuniel Test N/A Arterial Blood Gas Puncture Site A-Line Arterial Blood Carboxyhemoglobin 0.3 Arterial Blood Methemoglobin 0.5 Mixed Venous Blood PO2 34.9 Mixed Venous Blood O2 Saturation 73.0 Mixed Venous Blood Total Hemoglobin 9.3 Mixed Venous Blood Oxyhemoglobin 72.2 Mixed Venous Bld Carboxyhemoglobin 0.3 Mixed Venous Blood Methemoglobin 0.8 Blood Gas A-a O2 Differential 358.4 H Oxyhemoglobin Percent 96.7 Total Hemoglobin 11.4 L Blood Gas Temperature 37.0 Blood Gas Respiration Rate 14.0 Blood Gas Actual Respiration Rate 17 Blood Gas Modality VENT - AC FiO2 70.0 Blood Gas Tidal Volume 500.0 Blood Gas Low PEEP Setting 5.0 Blood Gas Notified Whom M.D. Blood Gas Notified Time 12/28/2016 5:13:41 PM Test 12/28/16 17:19 White Blood Count Pending Red Blood Count Pending Hemoglobin Pending Hematocrit Pending Mean Corpuscular Volume Pending Mean Corpuscular Hemoglobin Pending Mean Corpuscular Hemoglobin Concent Pending Red Cell Distribution Width Pending Platelet Count Pending Mean Platelet Volume Pending Medications Current Medications Miscellaneous Information (* Miscellaneous Pharmacy Order) HOLD all METFORMIN ... ONCE XX ; Start 12/27/16 at 11:00; Stop 12/29/16 at 10:59 Losartan Potassium (Cozaar) 50 mg DAILY PO ; Start 12/28/16 at 09:00 Metoprolol Tartrate (Lopressor) 25 mg BID PO Last administered on 12/27/16 20 :23; Admin Dose 25 MG; Start 12/27/16 at 21:00 Enoxaparin Sodium 80 mg 80 mg Q12 SC Last administered on 12/27/16 20:29; Admin Dose 80 MG; Start 12/27/16 at 21:00 Milrinone Lactate 100 ml @ 8.888 mls/ hr TITRATE IV ; Start 12/28/16 at 15:00 Potassium Chloride/Calcium Chloride/Dextrose/ Sodium Chloride (KCl/Ca Chloride/ D5-1/4ns) 1,030 ml @ 60 mls/hr [id number] IV ; Start 12/28/16 at 17:01 Hydromorphone HCl (Dilaudid) 0.2 mg Q15M PRN IV PAIN LEVEL 1-5; Start at 17:30 Hydromorphone HCl (Dilaudid) 0.4 mg Q15M PRN IV PAIN LEVEL 6-10; Start at 17:30 Hydromorphone HCl (Dilaudid) 0.2 mg Q1H PRN IV PAIN LEVEL 1-5; Start 12/28/16 at 17:30 Hydromorphone HCl (Dilaudid) 0.4 mg Q1H PRN IV PAIN LEVEL 6-10; Start at 17:30 Oxycodone/ Acetaminophen (Percocet (5/ 325)) 1 tab Q3H PRN PO PAIN LEVEL 1-5; Start 12/28/16 at 17:30 Oxycodone/ Acetaminophen (Percocet (5/ 325)) 2 tab Q3H PRN PO PAIN LEVEL 6-10; Start 12/28/16 at 17:30 Ondansetron HCl (Zofran Inj) 4 mg Q6H PRN IV NAUSEA AND/OR VOMITING; Start at 17:30 Famotidine (Pepcid Iv) 20 mg BID@08,20 IV ; Start 12/28/16 at 20:00 Aspirin (Aspirin) 325 mg DAILY PO ; Start 12/29/16 at 09:00 Acetaminophen (Tylenol Tab) 650 mg Q3H PRN PO ELEVATED TEMPERATURE; Start at 17:30 Acetaminophen 650 mg 650 mg Q3H PRN [place] ELEVATED TEMPERATURE; Start 12/28/16 at 17:30 Magnesium Sulfate/ Dextrose (Magnesium Sulfate 1 Gm/D5W) 100 ml @ 100 mls/hr PRN PRN IVPB PENDING LAB VALUE; Start 12/28/16 at 17:30 Diagnostic Test (Pha) (Accu-Chek) 1 ea Q1H XX ; Start 12/28/16 at 17:30 Dextrose (D50w Syringe) 25 ml Q15M PRN IV Till BS 80 mg/dL or above x2; Start 12/28/16 at 17:30 Dextrose 50 ml 50 ml Q15M PRN IV Till BS 80 mg/dL or above x2; Start 12/28/16 at 17:30 Albumin Human 250 ml @ 250 mls/hr PRN PRN IV NOTE; Start 12/28/16 at 17:30 Assessment/Plan Chief Complaint/Hosp Course 1. resp failure: s/p intubation post op now: 2. 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 HTN 4. DM 5. Dyslipidemia 6/ hx [place] 7/ HX PCI 8/ Moderate carotid stenosis 9. shock cont post op care will add levophed as needed. replace lytes prn vent support for now. cont ICU care more than 38 min of critical care time was spent in management and treatment of this critically ill patient excluding any procedures. Thank you for this referral. We will continue to follow along with you. ROMMEL JIMÉNEZ MD [facility] Problems: ROMMEL JIMÉNEZ MD Dec 28, 2016 17:57
[2016-12-28] MEDS: ALBUMIN HUMAN 5% 250 ML IV PRN (17:58)
[2016-12-28] MEDS ORDERED: NORepinephrine 8MG/250 ML (PMX 250 ML IV SCH (18:00)
--- NOTE | 2016-12-28 18:12 | OPR ---
Date/Time of Note Date/Time of Note DATE: 12/28/16 TIME: 18:06 Operative Report Procedure Date: Dec 28, 2016 Preoperative Diagnosis CAD Postoperative Diagnosis same Operation/Procedure Performed CABG times 4 PELAEZ to LAD SVG to PDA to TERE SVG to OM Surgeon see signature line Software Engineering Manager Dr Dorene Worthington Anesthesia Type: general Anesthesiologist: KENDALL RUIZ MD Estimated Blood Loss: none Transfusion none Specimen none Grafts/Implants none Tubes/Drains CT Complications none Pt Condition Post Procedure: critical Disposition: PACU Procedure Description dictated TAYLOR JACQUES MD Dec 28, 2016 18:12
--- NOTE | 2016-12-28 18:12 | OPR ---
Date/Time of Note Date/Time of Note DATE: 12/28/16 TIME: 18:06 Operative Report Procedure Date: Dec 28, 2016 Preoperative Diagnosis CAD Postoperative Diagnosis same Operation/Procedure Performed CABG times 4 PELAEZ to LAD SVG to PDA to TERE SVG to OM Surgeon see signature line Inside Channel Account Manager Dr Dorene Worthington Anesthesia Type: general Anesthesiologist: KENDALL RUIZ MD Estimated Blood Loss: none Transfusion none Specimen none Grafts/Implants none Tubes/Drains CT Complications none Pt Condition Post Procedure: critical Disposition: PACU Procedure Description dictated ATYLOR JACQUES MD Dec 28, 2016 18:12
[2016-12-28] MEDS: POTASSIUM CHLORIDE 50 ML IVPB PRN ×3 (19:00→22:10)
[2016-12-28] MEDS: ACETAMINOPHEN 650 MG SUPP PR PRN (19:15)
[2016-12-28] MEDS: FAMOTIDINE 20 MG INJ IV SCH (20:39)
[2016-12-28] MEDS: INSULIN HUMAN REGULAR 100 UNIT in SOD CHLORIDE 0.9% 99 ML IV SCH (23:20)
[2016-12-29] VITALS (70 sets, daily range): BP systolic 90–133; BP diastolic 56–105; PULSE 99–115; RESP 10–34; TEMP 100.9–102.2
[2016-12-29] MEDS: ACETAMINOPHEN 650 MG SUPP PR PRN (00:30)
[2016-12-29] MEDS: ACCU-CHEK XX SCH ×24 (01:07→23:39)
[2016-12-29] MEDS: HYDROmorphONE 0.5 MG/0.5 ML SYG IV PRN ×2 (01:51→07:27)
--- NOTE | 2016-12-29 02:48 | OPR ---
DATE OF OPERATION: PREOPERATIVE DIAGNOSIS: Coronary artery disease. POSTOPERATIVE DIAGNOSIS: Coronary artery disease. PROCEDURE: Coronary artery bypass grafting. 1. PELAEZ to left anterior descending. 2. Saphenous vein graft to the obtuse marginal branch of the circumflex. 3. Saphenous vein graft to the PDA. 4. Saphenous vein graft to the TERE in a sequential fashion. 5. Thymectomy. 6. Coronary endarterectomy, LAD. 7. Coronary thrombectomy, circumflex/obtuse marginal branch. 8. Saphenous vein harvest from the left lower extremity using endoscopic technique. SURGEON: Taylor Pereira MD METROLOGY SPECIALIST: Ezra Catherine SECOND METROLOGY SPECIALIST: Tatyana ANESTHESIA: General, Dr. Shah CONSENT: Risks, benefits, complications, alternative therapies, high-risk nature of the operation f ully explained to the patient and the family, consent obtained. OPERATIVE TECHNIQUE: The patient was placed in supine position, prepped and draped in usual sterile fashion. Time-out was called, antibiotics were given. Sternotomy incision was made simultaneously with endoscopically removing the saphenous vein from the left lower extremity. The sternum was ope skip. Left internal mammary artery was harvested using titanium clips and electrocautery. Thymectom y was done to gain access to the aorta. The patient was fully heparinized. Pericardium opened. Ca nnulation sutures of 3-0 Prolene with pledgets applied to distal ascending aorta, mid ascending aort a, body of the right atrium, right atrial appendage. After adequate documentation of ACT, aorta was cannulated, followed by 2-stage venous cannula, antegrade and retrograde cardioplegic cannula. Pat ient was placed on a cardiopulmonary bypass. Crossclamp applied. Heart was arrested using anterior and retrograde cardioplegia given every 15 to 20 minutes, supplemented by topical slush to the surf misha of the heart. We proceeded with the above . Saphenous vein was used in a sequential fashi on for the PDA and TERE. Saphenous vein was used in a single graft for obtuse marginal branch of the circumflex. Left internal mammary was anastomosed to the LAD through its diagonal branch because t he diagonal branch appeared to be larger than the LAD, but they both communicated. All distal anast omoses were done to 8 mm longitudinal coronary arteriotomy, end-to-side fashion, 6-0 Prolene continu ous suture technique. The proximal 2 anastomoses were done, same crossclamp, 4.5 mm punches, 6-0 Pr olene in continuous suture technique. All distal anastomoses were done with 7-0 Prolene. Crossclam p removed, grafts were deaired. The circumflex graft appeared to not be completely pulsatile. A sm all opening was made. Thrombectomy of the graft was done using a 2-Danish Yoselyn catheter. He greyson eared to be completely pulsatile. The graft was closed using a [id number]-[id number] 7-0 Prolene. The patient came off cardiopulmonary bypass without any difficulties. Protamine given, cannulas rem edith, sutures tied. Two ventricular pacing wires through the mediastinal chest was there applied, b rought out through a lower stab wound, secured to skin using silk sutures. The sternum was closed u sing a gqfarz-[id number] cable system x4. Linea alba and the deep tissues were irrigated using antibi otic solution and closed in 2 layers of 2-0 Vicryl suture for the deep and 4-0 Monocryl suture for r unning subcuticular skin closure. The leg was closed in a similar fashion. Patient tolerated proce dure well. Dictated By: TAYLOR PEREIRA MD FM/NTS Conf#: [id number] DID#: [id number] CC: EZRA CATHERINE; ALISON VICKERS MD;*EndCC*
--- NOTE | 2016-12-29 02:48 | OPR ---
DATE OF OPERATION: PREOPERATIVE DIAGNOSIS: Coronary artery disease. POSTOPERATIVE DIAGNOSIS: Coronary artery disease. PROCEDURE: Coronary artery bypass grafting. 1. PELAEZ to left anterior descending. 2. Saphenous vein graft to the obtuse marginal branch of the circumflex. 3. Saphenous vein graft to the PDA. 4. Saphenous vein graft to the TERE in a sequential fashion. 5. Thymectomy. 6. Coronary endarterectomy, LAD. 7. Coronary thrombectomy, circumflex/obtuse marginal branch. 8. Saphenous vein harvest from the left lower extremity using endoscopic technique. SURGEON: Taylor Pereira MD YARD CRANE OPERATOR: Ezra Catherine SECOND YARD CRANE OPERATOR: Tatyana ANESTHESIA: General, Dr. Shah CONSENT: Risks, benefits, complications, alternative therapies, high-risk nature of the operation f ully explained to the patient and the family, consent obtained. OPERATIVE TECHNIQUE: The patient was placed in supine position, prepped and draped in usual sterile fashion. Time-out was called, antibiotics were given. Sternotomy incision was made simultaneously with endoscopically removing the saphenous vein from the left lower extremity. The sternum was ope skip. Left internal mammary artery was harvested using titanium clips and electrocautery. Thymectom y was done to gain access to the aorta. The patient was fully heparinized. Pericardium opened. Ca nnulation sutures of 3-0 Prolene with pledgets applied to distal ascending aorta, mid ascending aort a, body of the right atrium, right atrial appendage. After adequate documentation of ACT, aorta was cannulated, followed by 2-stage venous cannula, antegrade and retrograde cardioplegic cannula. Pat ient was placed on a cardiopulmonary bypass. Crossclamp applied. Heart was arrested using anterior and retrograde cardioplegia given every 15 to 20 minutes, supplemented by topical slush to the surf misha of the heart. We proceeded with the above . Saphenous vein was used in a sequential fashi on for the PDA and TERE. Saphenous vein was used in a single graft for obtuse marginal branch of the circumflex. Left internal mammary was anastomosed to the LAD through its diagonal branch because t he diagonal branch appeared to be larger than the LAD, but they both communicated. All distal anast omoses were done to 8 mm longitudinal coronary arteriotomy, end-to-side fashion, 6-0 Prolene continu ous suture technique. The proximal 2 anastomoses were done, same crossclamp, 4.5 mm punches, 6-0 Pr olene in continuous suture technique. All distal anastomoses were done with 7-0 Prolene. Crossclam p removed, grafts were deaired. The circumflex graft appeared to not be completely pulsatile. A sm all opening was made. Thrombectomy of the graft was done using a 2-Ivorian Yoselyn catheter. He greyson eared to be completely pulsatile. The graft was closed using a gqrdzj-vq-tvilb 7-0 Prolene. The patient came off cardiopulmonary bypass without any difficulties. Protamine given, cannulas rem edith, sutures tied. Two ventricular pacing wires through the mediastinal chest was there applied, b rought out through a lower stab wound, secured to skin using silk sutures. The sternum was closed u sing a pujxkd-sa-mkwts cable system x4. Linea alba and the deep tissues were irrigated using antibi otic solution and closed in 2 layers of 2-0 Vicryl suture for the deep and 4-0 Monocryl suture for r unning subcuticular skin closure. The leg was closed in a similar fashion. Patient tolerated proce dure well. Dictated By: TAYLOR PEREIRA MD FM/NTS Conf#: [id number] DID#: [id number] CC: EZRA CATHERINE; ALISON VICKERS MD;*EndCC*
--- NOTE | 2016-12-29 02:48 | OPR ---
DATE OF OPERATION: PREOPERATIVE DIAGNOSIS: Coronary artery disease. POSTOPERATIVE DIAGNOSIS: Coronary artery disease. PROCEDURE: Coronary artery bypass grafting. 1. PELAEZ to left anterior descending. 2. Saphenous vein graft to the obtuse marginal branch of the circumflex. 3. Saphenous vein graft to the PDA. 4. Saphenous vein graft to the TERE in a sequential fashion. 5. Thymectomy. 6. Coronary endarterectomy, LAD. 7. Coronary thrombectomy, circumflex/obtuse marginal branch. 8. Saphenous vein harvest from the left lower extremity using endoscopic technique. SURGEON: Taylor Pereira MD UNION ORGANIZER: Ezra Catherine SECOND UNION ORGANIZER: Tatyana ANESTHESIA: General, Dr. Shah CONSENT: Risks, benefits, complications, alternative therapies, high-risk nature of the operation f ully explained to the patient and the family, consent obtained. OPERATIVE TECHNIQUE: The patient was placed in supine position, prepped and draped in usual sterile fashion. Time-out was called, antibiotics were given. Sternotomy incision was made simultaneously with endoscopically removing the saphenous vein from the left lower extremity. The sternum was ope skip. Left internal mammary artery was harvested using titanium clips and electrocautery. Thymectom y was done to gain access to the aorta. The patient was fully heparinized. Pericardium opened. Ca nnulation sutures of 3-0 Prolene with pledgets applied to distal ascending aorta, mid ascending aort a, body of the right atrium, right atrial appendage. After adequate documentation of ACT, aorta was cannulated, followed by 2-stage venous cannula, antegrade and retrograde cardioplegic cannula. Pat ient was placed on a cardiopulmonary bypass. Crossclamp applied. Heart was arrested using anterior and retrograde cardioplegia given every 15 to 20 minutes, supplemented by topical slush to the surf misha of the heart. We proceeded with the above . Saphenous vein was used in a sequential fashi on for the PDA and TERE. Saphenous vein was used in a single graft for obtuse marginal branch of the circumflex. Left internal mammary was anastomosed to the LAD through its diagonal branch because t he diagonal branch appeared to be larger than the LAD, but they both communicated. All distal anast omoses were done to 8 mm longitudinal coronary arteriotomy, end-to-side fashion, 6-0 Prolene continu ous suture technique. The proximal 2 anastomoses were done, same crossclamp, 4.5 mm punches, 6-0 Pr olene in continuous suture technique. All distal anastomoses were done with 7-0 Prolene. Crossclam p removed, grafts were deaired. The circumflex graft appeared to not be completely pulsatile. A sm all opening was made. Thrombectomy of the graft was done using a 2-Taiwanese Yoselyn catheter. He greyson eared to be completely pulsatile. The graft was closed using a [id number]-ssjjs 7-0 Prolene. The patient came off cardiopulmonary bypass without any difficulties. Protamine given, cannulas rem edith, sutures tied. Two ventricular pacing wires through the mediastinal chest was there applied, b rought out through a lower stab wound, secured to skin using silk sutures. The sternum was closed u sing a cnuzzr-ty-jgsft cable system x4. Linea alba and the deep tissues were irrigated using antibi otic solution and closed in 2 layers of 2-0 Vicryl suture for the deep and 4-0 Monocryl suture for r unning subcuticular skin closure. The leg was closed in a similar fashion. Patient tolerated proce dure well. Dictated By: TAYLOR PEREIRA MD FM/NTS Conf#: [id number] DID#: [id number] CC: EZRA CATHERINE; ALISON VICKERS MD;*EndCC*
[2016-12-29] MEDS: ALBUMIN HUMAN 5% 250 ML IV PRN (05:20)
--- NOTE | 2016-12-29 07:23 | CONS ---
Date/Time of Note Date/Time of Note DATE: 12/29/16 TIME: 07:23 Consult Date/Type/Reason Admit Date/Time Dec 27, 2016 at 11:23 Initial Consult Date 12/27/16 Type of Consultation: CARDIOLOGY Ordering Provider: LEONARDA CHAMPION MD Subjective cardiology follow up note/ critical care note: S: D/W staff and rhythm was reviewed. pt s/p CABG and is intubated on multiple pressors now in ICU pt is in ICU. d/w daughter. O: General: S/P intubation on vent HEENT: NC/AT. pupils are equal. round. NECK: s/p IJ PA catheter placement. no stridor. CV: RRR. systolic murmur; no gallop or rubs. PULM: no wheezing or rhonchi. GI: SOFT, NT, ND, no rebound or guarding Extremity: trace B/L LE edema. no clubbing. neuro: Awake and follows commands. chest : s/p chest tube. Psych: calm and pleasant rectal: deferred : normal male magalis angio 12/27/16: 1. Left main: 90% distal disease. 2. LAD: Large caliber vessel with no significant disease. 3. Circumflex: proximal to mid 70-80% diffuse disease 4. Obtuse marginal: Medium caliber vessel with no significant disease. 5. RCA: Large dominant vessel with distal 90% stent re-stenosis; prominent left to right collaterals via PDA ECHO: 1. Lower limits of normal systolic function. Normal left ventricular cavity size. Left ventricular wall thickness upper limits of normal. Ejection fraction is visually estimated at 50 %. Tissue Doppler/Mitral Doppler indices are consistent with impaired relaxation (Stage I diastolic dysfunction). These segments of the LV are hypokinetic apex. 2. Mild mitral leaflet calcification. Mild mitral annular calcification. Trace mitral regurgitation. 3. No significant aortic stenosis. Aortic cusps appear mildly calcified. Trace aortic valve regurgitation. 4. Normal appearance of the tricuspid valve. Estimated peak PA systolic pressure 38 mmHg. There is mild tricuspid regurgitation. Objective Vital Signs Date Time Temp Pulse Resp B/P Pulse Ox O2 Delivery O2 Flow Rate FiO2 12/29/16 07:00 100.9 99 13 106/61 96 12/29/16 05:11 30 12/27/16 14:12 Room Air Intake and Output 1012/28/16 12/29/16 15:00 23:00 07:00 Intake Total 300 ml 3318.944 ml 889.563 ml Output Total 20 ml 3681 ml 407 ml Balance 280 ml -362.056 ml 482.563 ml Results/Medications Result Diagram: 12/29/16 0445 12/29/16 0430 Results 24 hrs Laboratory Tests Test 12/28/16 08:29 12/28/16 16:33 12/28/16 17:05 12/28/16 17:19 Bedside Glucose 117 109 Blood Gas Specimen Source BLMV Arterial Blood Date Drawn 12/28/2016 4:55:37 PM Arterial Blood pH (Temp corrected) 7.475 H Arterial Blood pCO2 (Temp correct) 31.9 L Arterial Blood pO2 (Temp corrected) 106.4 H Arterial Blood HCO3 23.0 Arterial Blood Base Excess 0 Arterial Blood Oxygen Saturation 97.5 Yuniel Test N/A Arterial Blood Gas Puncture Site A-Line Arterial Blood Carboxyhemoglobin 0.3 Arterial Blood Methemoglobin 0.5 Mixed Venous Blood PO2 34.9 Mixed Venous Blood O2 Saturation 73.0 Mixed Venous Blood Total Hemoglobin 9.3 Mixed Venous Blood Oxyhemoglobin 72.2 Mixed Venous Bld Carboxyhemoglobin 0.3 Mixed Venous Blood Methemoglobin 0.8 Blood Gas A-a O2 Differential 358.4 H Oxyhemoglobin Percent 96.7 Total Hemoglobin 11.4 L Blood Gas Temperature 37.0 Blood Gas Respiration Rate 14.0 Blood Gas Actual Respiration Rate 17 Blood Gas Modality VENT - AC FiO2 70.0 Blood Gas Tidal Volume 500.0 Blood Gas Low PEEP Setting 5.0 Blood Gas Notified Whom Nelson Blood Gas Notified Time 12/28/2016 5:13:41 PM White Blood Count 16.3 #H Red Blood Count 3.73 L Hemoglobin 9.9 L Hematocrit 30.3 L Mean Corpuscular Volume 81.2 L Mean Corpuscular Hemoglobin 26.5 L Mean Corpuscular Hemoglobin Concent 32.7 Red Cell Distribution Width 14.0 Platelet Count 162 # Mean Platelet Volume 9.6 Neutrophils % 63.5 Lymphocytes % 26.6 Monocytes % 8.7 Eosinophils % 0.5 Basophils % 0.2 Nucleated Red Blood Cells % 0.0 Neutrophils # 10.3 H Lymphocytes # 4.3 H Monocytes # 1.4 H Eosinophils # 0.1 Basophils # 0.0 Nucleated Red Blood Cells # 0.0 Prothrombin Time 16.9 #H Prothrombin Time Ratio 1.3 INR International Normalized Ratio 1.37 Activated Partial Thromboplast Time 30.8 Sodium Level 147 H Potassium Level 3.7 Chloride Level 111 H Carbon Dioxide Level 22 Anion Gap 18 H Blood Urea Nitrogen 10 Creatinine 0.95 Glucose Level 82 Calcium Level 8.2 L Magnesium Level 2.4 Test 12/28/16 18:39 12/28/16 20:14 12/28/16 21:16 12/28/16 21:53 Bedside Glucose 79 133 159 145 Test 12/28/16 22:48 12/28/16 23:00 12/28/16 23:43 12/29/16 00:37 Bedside Glucose 182 159 190 Potassium Level 4.9 Test 12/29/16 01:50 12/29/16 02:35 12/29/16 03:32 12/29/16 04:30 Bedside Glucose 152 149 127 Sodium Level 148 H Potassium Level 4.7 Chloride Level 113 H Carbon Dioxide Level 26 Anion Gap 14 Blood Urea Nitrogen 12 Creatinine 1.10 Glucose Level 137 # Calcium Level 8.4 Total Bilirubin 0.5 Direct Bilirubin 0.00 Indirect Bilirubin 0.5 Aspartate Amino Transf (AST/SGOT) 199 #H Alanine Aminotransferase (ALT/SGPT) 51 Alkaline Phosphatase 40 L B-Type Natriuretic Peptide 1040 H Total Protein 5.9 #L Albumin 3.2 L Globulin 2.70 Albumin/Globulin Ratio 1.18 Test 12/29/16 04:45 12/29/16 04:47 12/29/16 04:48 12/29/16 05:38 White Blood Count 11.2 #H Red Blood Count 3.27 L Hemoglobin 8.5 L Hematocrit 27.1 L Mean Corpuscular Volume 82.9 Mean Corpuscular Hemoglobin 26.0 L Mean Corpuscular Hemoglobin Concent 31.4 L Red Cell Distribution Width 14.3 Platelet Count 170 Mean Platelet Volume 9.9 Neutrophils % 78.0 H Lymphocytes % 12.1 L Monocytes % 9.3 Eosinophils % 0.0 Basophils % 0.2 Nucleated Red Blood Cells % 0.0 Neutrophils # 8.7 H Lymphocytes # 1.4 Monocytes # 1.0 H Eosinophils # 0.0 Basophils # 0.0 Nucleated Red Blood Cells # 0.0 Prothrombin Time 15.6 H Prothrombin Time Ratio 1.2 INR International Normalized Ratio 1.23 Activated Partial Thromboplast Time 34.3 Bedside Glucose 151 159 Blood Gas Specimen Source Blood arterial Arterial Blood Date Drawn 12/29/2016 4:46:18 AM Arterial Blood pH (Temp corrected) 7.378 Arterial Blood pCO2 (Temp correct) 34.9 L Arterial Blood pO2 (Temp corrected) 100.7 H Arterial Blood HCO3 20.1 L Arterial Blood Base Excess -4.5 L Arterial Blood Oxygen Saturation 96.7 Yuniel Test N/A Arterial Blood Gas Puncture Site A-Line Arterial Blood Carboxyhemoglobin 0.3 Arterial Blood Methemoglobin 0.5 Blood Gas A-a O2 Differential 72.2 H Oxyhemoglobin Percent 95.9 Total Hemoglobin 9.2 L Blood Gas Temperature 37.0 Blood Gas Modality VENT - AC FiO2 30.0 Blood Gas Tidal Volume 500.0 Blood Gas Low PEEP Setting 5.0 Blood Gas Inspiratory Pressure 25.0 Blood Gas Notified Whom RH Blood Gas Notified Time 12/29/2016 4:57:33 AM Test 12/29/16 06:44 Bedside Glucose 135 Medications Current Medications Miscellaneous Information (* Miscellaneous Pharmacy Order) HOLD all METFORMIN ... ONCE XX ; Start 12/27/16 at 11:00; Stop 12/29/16 at 10:59 Losartan Potassium (Cozaar) 50 mg DAILY PO ; Start 12/28/16 at 09:00 Metoprolol Tartrate (Lopressor) 25 mg BID PO Last administered on 12/27/16 20 :23; Admin Dose 25 MG; Start 12/27/16 at 21:00 Enoxaparin Sodium 80 mg 80 mg Q12 SC Last administered on 12/27/16 20:29; Admin Dose 80 MG; Start 12/27/16 at 21:00 Milrinone Lactate 100 ml @ 8.888 mls/ hr TITRATE IV Last administered on 12/28 22:26; Admin Dose 2.844 MLS/HR; Start 12/28/16 at 15:00 Potassium Chloride/Calcium Chloride/Dextrose/ Sodium Chloride (KCl/Ca Chloride/ D5-1/4ns) 1,030 ml @ 60 mls/hr [id number] IV Last administered on 12/28/16 18: 30; Admin Dose 60 MLS/HR; Start 12/28/16 at 17:01 Hydromorphone HCl (Dilaudid) 0.2 mg Q15M PRN IV PAIN LEVEL 1-5 Last administered on 12/29/16 01:51; Admin Dose 0.2 MG; Start 12/28/16 at 17:30 Hydromorphone HCl (Dilaudid) 0.4 mg Q15M PRN IV PAIN LEVEL 6-10 Last administered on 12/28/16 19:17; Admin Dose 0.4 MG; Start 12/28/16 at 17:30 Hydromorphone HCl (Dilaudid) 0.2 mg Q1H PRN IV PAIN LEVEL 1-5; Start 12/28/16 at 17:30 Hydromorphone HCl (Dilaudid) 0.4 mg Q1H PRN IV PAIN LEVEL 6-10; Start at 17:30 Oxycodone/ Acetaminophen (Percocet (5/ 325)) 1 tab Q3H PRN PO PAIN LEVEL 1-5; Start 12/28/16 at 17:30 Oxycodone/ Acetaminophen (Percocet (5/ 325)) 2 tab Q3H PRN PO PAIN LEVEL 6-10; Start 12/28/16 at 17:30 Ondansetron HCl (Zofran Inj) 4 mg Q6H PRN IV NAUSEA AND/OR VOMITING; Start at 17:30 Famotidine (Pepcid Iv) 20 mg BID@08,20 IV Last administered on 12/28/16 20:39 ; Admin Dose 20 MG; Start 12/28/16 at 20:00 Aspirin (Aspirin) 325 mg DAILY PO ; Start 12/29/16 at 09:00 Acetaminophen (Tylenol Tab) 650 mg Q3H PRN PO ELEVATED TEMPERATURE; Start at 17:30 Acetaminophen 650 mg 650 mg Q3H PRN [place] ELEVATED TEMPERATURE Last administered on 12/29/16 00:30; Admin Dose 650 MG; Start 12/28/16 at 17:30 Magnesium Sulfate/ Dextrose (Magnesium Sulfate 1 Gm/D5W) 100 ml @ 100 mls/hr PRN PRN IVPB PENDING LAB VALUE; Start 12/28/16 at 17:30 Diagnostic Test (Pha) (Accu-Chek) 1 ea Q1H XX Last administered on 12/29/16 06 :45; Admin Dose 1 EA; Start 12/28/16 at 17:30 Dextrose (D50w Syringe) 25 ml Q15M PRN IV Till BS 80 mg/dL or above x2; Start 12/28/16 at 17:30 Dextrose 50 ml 50 ml Q15M PRN IV Till BS 80 mg/dL or above x2; Start 12/28/16 at 17:30 Albumin Human 250 ml @ 250 mls/hr PRN PRN IV NOTE Last administered on 05:20; Admin Dose 250 MLS/HR; Start 12/28/16 at 17:30 Norepinephrine (Levophed) 250 ml @ 1.875 mls/ hr TITRATE IV Last administered on 12/28/16 18:15; Admin Dose 18.75 MLS/HR; Start 12/28/16 at 18:00 Assessment/Plan Chief Complaint/Hosp Course 1. resp failure: s/p intubation post op now: 2. 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 HTN 4. DM 5. Dyslipidemia 6/ hx OR 7/ HX PCI 8/ Moderate carotid stenosis 9. shock 10. post op anemia: stable will monitor for now. cont post op care will try to wean off levophed . replace lytes prn vent support for now. weaning today cont ICU care more than 36 min of critical care time was spent in management and treatment of this critically ill patient excluding any procedures. Thank you for this referral. We will continue to follow along with you. ROMMEL JIMÉNEZ MD [facility] Problems: ROMMEL JIMÉNEZ MD Dec 29, 2016 07:23
--- NOTE | 2016-12-29 08:49 | CONS ---
Date/Time of Note Date/Time of Note DATE: 12/29/16 TIME: 08:49 Assessment/Plan Assessment/Plan Additional Assessment/Plan 1. Acute Hypernatremia 2. CAD s/p CABG on 12/28/16 3. HTN 4. HL 5. DM II Plan: Na trending up BP low, getting IV albumin on Lovenox 1mg/kg SQ BID Conitnue BP meds will follow up Consultation Date/Type/Reason Admit Date/Time Dec 27, 2016 at 11:23 Date of Consultation: Dec 29, 2016 Type of Consultation: NEPHROLOGY Reason for Consultation Hypernatremia, post CABD Referring Provider: ALISON VICKERS Hx of Present Illness 56 M with PMHx of HTN, HL, DM s/p Cardiac cath found to have CAD- now s/p CABG, - required post op ventilator care- s/p Extuatbion, Na trending up Constitutional: no complaints Eyes: no complaints Respiratory: cough, pleuritic pain, shortness of breath Past Medical History Medical History: diabetes, high cholesterol, hypertension Past Surgical History Past Surgical Hx: no surgical history Family History Significant Family History: no pertinent family hx Social History Alcohol Use: none Smoking Status: Former smoker Drug Use: none Exam/Review of Systems Vital Signs Vitals Vital Signs Date Time Temp Pulse Resp B/P Pulse Ox O2 Delivery O2 Flow Rate FiO2 12/29/16 07:40 100 16 99 30 12/29/16 07:00 100.9 106/61 12/27/16 14:12 Room Air Intake and Output 12/28/16 12/28/16 12/29/16 15:00 23:00 07:00 Intake Total 300 ml 3318.944 ml 889.563 ml Output Total 20 ml 3681 ml 407 ml Balance 280 ml -362.056 ml 482.563 ml Exam Constitutional: alert, oriented, well developed Neck: non-tender, supple Respiratory: clear to auscultation, normal air movement Cardiovascular: nl pulses, regular rate and rhythm Gastrointestinal: nl liver, spleen, non-tender, soft Musculoskeletal: nl extremities to inspection Extremities: normal pulses Neurological: [employer] II-XII intact, nl mental status, nl speech, nl strength Results Result Diagram: 12/29/16 0445 12/29/16 0430 Results 24 hrs Laboratory Tests Test 12/28/16 16:33 12/28/16 17:05 12/28/16 17:19 12/28/16 18:39 Bedside Glucose 109 79 Blood Gas Specimen Source BLMV Arterial Blood Date Drawn 12/28/2016 4:55:37 PM Arterial Blood pH (Temp corrected) 7.475 H Arterial Blood pCO2 (Temp correct) 31.9 L Arterial Blood pO2 (Temp corrected) 106.4 H Arterial Blood HCO3 23.0 Arterial Blood Base Excess 0 Arterial Blood Oxygen Saturation 97.5 Yuniel Test N/A Arterial Blood Gas Puncture Site A-Line Arterial Blood Carboxyhemoglobin 0.3 Arterial Blood Methemoglobin 0.5 Mixed Venous Blood PO2 34.9 Mixed Venous Blood O2 Saturation 73.0 Mixed Venous Blood Total Hemoglobin 9.3 Mixed Venous Blood Oxyhemoglobin 72.2 Mixed Venous Bld Carboxyhemoglobin 0.3 Mixed Venous Blood Methemoglobin 0.8 Blood Gas A-a O2 Differential 358.4 H Oxyhemoglobin Percent 96.7 Total Hemoglobin 11.4 L Blood Gas Temperature 37.0 Blood Gas Respiration Rate 14.0 Blood Gas Actual Respiration Rate 17 Blood Gas Modality VENT - AC FiO2 70.0 Blood Gas Tidal Volume 500.0 Blood Gas Low PEEP Setting 5.0 Blood Gas Notified Whom M.D. Blood Gas Notified Time 12/28/2016 5:13:41 PM White Blood Count 16.3 #H Red Blood Count 3.73 L Hemoglobin 9.9 L Hematocrit 30.3 L Mean Corpuscular Volume 81.2 L Mean Corpuscular Hemoglobin 26.5 L Mean Corpuscular Hemoglobin Concent 32.7 Red Cell Distribution Width 14.0 Platelet Count 162 # Mean Platelet Volume 9.6 Neutrophils % 63.5 Lymphocytes % 26.6 Monocytes % 8.7 Eosinophils % 0.5 Basophils % 0.2 Nucleated Red Blood Cells % 0.0 Neutrophils # 10.3 H Lymphocytes # 4.3 H Monocytes # 1.4 H Eosinophils # 0.1 Basophils # 0.0 Nucleated Red Blood Cells # 0.0 Prothrombin Time 16.9 #H Prothrombin Time Ratio 1.3 INR International Normalized Ratio 1.37 Activated Partial Thromboplast Time 30.8 Sodium Level 147 H Potassium Level 3.7 Chloride Level 111 H Carbon Dioxide Level 22 Anion Gap 18 H Blood Urea Nitrogen 10 Creatinine 0.95 Glucose Level 82 Calcium Level 8.2 L Magnesium Level 2.4 Test 12/28/16 20:14 12/28/16 21:16 12/28/16 21:53 12/28/16 22:48 Bedside Glucose 133 159 145 182 Test 12/28/16 23:00 12/28/16 23:43 12/29/16 00:37 12/29/16 01:50 Potassium Level 4.9 Bedside Glucose 159 190 152 Test 12/29/16 02:35 12/29/16 03:32 12/29/16 04:30 12/29/16 04:45 Bedside Glucose 149 127 Sodium Level 148 H Potassium Level 4.7 Chloride Level 113 H Carbon Dioxide Level 26 Anion Gap 14 Blood Urea Nitrogen 12 Creatinine 1.10 Glucose Level 137 # Calcium Level 8.4 Magnesium Level 1.8 Total Bilirubin 0.5 Direct Bilirubin 0.00 Indirect Bilirubin 0.5 Aspartate Amino Transf (AST/SGOT) 199 #H Alanine Aminotransferase (ALT/SGPT) 51 Alkaline Phosphatase 40 L B-Type Natriuretic Peptide 1040 H Total Protein 5.9 #L Albumin 3.2 L Globulin 2.70 Albumin/Globulin Ratio 1.18 White Blood Count 11.2 #H Red Blood Count 3.27 L Hemoglobin 8.5 L Hematocrit 27.1 L Mean Corpuscular Volume 82.9 Mean Corpuscular Hemoglobin 26.0 L Mean Corpuscular Hemoglobin Concent 31.4 L Red Cell Distribution Width 14.3 Platelet Count 170 Mean Platelet Volume 9.9 Neutrophils % 78.0 H Lymphocytes % 12.1 L Monocytes % 9.3 Eosinophils % 0.0 Basophils % 0.2 Nucleated Red Blood Cells % 0.0 Neutrophils # 8.7 H Lymphocytes # 1.4 Monocytes # 1.0 H Eosinophils # 0.0 Basophils # 0.0 Nucleated Red Blood Cells # 0.0 Prothrombin Time 15.6 H Prothrombin Time Ratio 1.2 INR International Normalized Ratio 1.23 Activated Partial Thromboplast Time 34.3 Test 12/29/16 04:47 12/29/16 04:48 12/29/16 05:38 12/29/16 06:44 Bedside Glucose 151 159 135 Blood Gas Specimen Source Blood arterial Arterial Blood Date Drawn 12/29/2016 4:46:18 AM Arterial Blood pH (Temp corrected) 7.378 Arterial Blood pCO2 (Temp correct) 34.9 L Arterial Blood pO2 (Temp corrected) 100.7 H Arterial Blood HCO3 20.1 L Arterial Blood Base Excess -4.5 L Arterial Blood Oxygen Saturation 96.7 Yuniel Test N/A Arterial Blood Gas Puncture Site A-Line Arterial Blood Carboxyhemoglobin 0.3 Arterial Blood Methemoglobin 0.5 Blood Gas A-a O2 Differential 72.2 H Oxyhemoglobin Percent 95.9 Total Hemoglobin 9.2 L Blood Gas Temperature 37.0 Blood Gas Modality VENT - AC FiO2 30.0 Blood Gas Tidal Volume 500.0 Blood Gas Low PEEP Setting 5.0 Blood Gas Inspiratory Pressure 25.0 Blood Gas Notified Whom RH Blood Gas Notified Time 12/29/2016 4:57:33 AM Test 12/29/16 08:15 Blood Gas Specimen Source Blood arterial Arterial Blood Date Drawn 12/29/2016 8:15:20 AM Arterial Blood pH (Temp corrected) 7.391 Arterial Blood pCO2 (Temp correct) 39.1 Arterial Blood pO2 (Temp corrected) 90.1 Arterial Blood HCO3 23.2 Arterial Blood Base Excess -1.6 Arterial Blood Oxygen Saturation 96.0 Yuniel Test N/A Arterial Blood Gas Puncture Site A-Line Arterial Blood Carboxyhemoglobin 0.3 Arterial Blood Methemoglobin 0.4 Blood Gas A-a O2 Differential 77.9 H Oxyhemoglobin Percent 95.3 Total Hemoglobin 9.3 L Blood Gas Temperature 37.0 Blood Gas Actual Respiration Rate 15 Blood Gas Modality VENT - CPAP FiO2 30.0 Blood Gas Low PEEP Setting 5.0 Blood Gas Pressure Support 10 Blood Gas Notified Whom JLD Blood Gas Notified Time 12/29/2016 8:41:55 AM Medications Medications Current Medications Miscellaneous Information (* Miscellaneous Pharmacy Order) HOLD all METFORMIN ... ONCE XX ; Start 12/27/16 at 11:00; Stop 12/29/16 at 10:59 Losartan Potassium (Cozaar) 50 mg DAILY PO ; Start 12/28/16 at 09:00 Metoprolol Tartrate (Lopressor) 25 mg BID PO Last administered on 12/27/16 20 :23; Admin Dose 25 MG; Start 12/27/16 at 21:00 Enoxaparin Sodium 80 mg 80 mg Q12 SC Last administered on 12/27/16 20:29; Admin Dose 80 MG; Start 12/27/16 at 21:00 Milrinone Lactate 100 ml @ 8.888 mls/ hr TITRATE IV Last administered on 10/31 /17at 22:26; Admin Dose 2.844 MLS/HR; Start 12/28/16 at 15:00 Potassium Chloride/Calcium Chloride/Dextrose/ Sodium Chloride (KCl/Ca Chloride/ D5-1/4ns) 1,030 ml @ 60 mls/hr [id number] IV Last administered on 12/28/16 18: 30; Admin Dose 60 MLS/HR; Start 12/28/16 at 17:01 Hydromorphone HCl (Dilaudid) 0.2 mg Q15M PRN IV PAIN LEVEL 1-5 Last administered on 12/29/16 07:27; Admin Dose 0.2 MG; Start 12/28/16 at 17:30 Hydromorphone HCl (Dilaudid) 0.4 mg Q15M PRN IV PAIN LEVEL 6-10 Last administered on 12/28/16 19:17; Admin Dose 0.4 MG; Start 12/28/16 at 17:30 Hydromorphone HCl (Dilaudid) 0.2 mg Q1H PRN IV PAIN LEVEL 1-5; Start 12/28/16 at 17:30 Hydromorphone HCl (Dilaudid) 0.4 mg Q1H PRN IV PAIN LEVEL 6-10; Start at 17:30 Oxycodone/ Acetaminophen (Percocet (5/ 325)) 1 tab Q3H PRN PO PAIN LEVEL 1-5; Start 12/28/16 at 17:30 Oxycodone/ Acetaminophen (Percocet (5/ 325)) 2 tab Q3H PRN PO PAIN LEVEL 6-10; Start 12/28/16 at 17:30 Ondansetron HCl (Zofran Inj) 4 mg Q6H PRN IV NAUSEA AND/OR VOMITING; Start at 17:30 Famotidine (Pepcid Iv) 20 mg BID@08,20 IV Last administered on 12/28/16 20:39 ; Admin Dose 20 MG; Start 12/28/16 at 20:00 Aspirin (Aspirin) 325 mg DAILY PO ; Start 12/29/16 at 09:00 Acetaminophen (Tylenol Tab) 650 mg Q3H PRN PO ELEVATED TEMPERATURE; Start at 17:30 Acetaminophen 650 mg 650 mg Q3H PRN [place] ELEVATED TEMPERATURE Last administered on 12/29/16 00:30; Admin Dose 650 MG; Start 12/28/16 at 17:30 Magnesium Sulfate/ Dextrose (Magnesium Sulfate 1 Gm/D5W) 100 ml @ 100 mls/hr PRN PRN IVPB PENDING LAB VALUE; Start 12/28/16 at 17:30 Diagnostic Test (Pha) (Accu-Chek) 1 ea Q1H XX Last administered on 12/29/16 06 :45; Admin Dose 1 EA; Start 12/28/16 at 17:30 Dextrose (D50w Syringe) 25 ml Q15M PRN IV Till BS 80 mg/dL or above x2; Start 12/28/16 at 17:30 Dextrose 50 ml 50 ml Q15M PRN IV Till BS 80 mg/dL or above x2; Start 12/28/16 at 17:30 Albumin Human 250 ml @ 250 mls/hr PRN PRN IV NOTE Last administered on 05:20; Admin Dose 250 MLS/HR; Start 12/28/16 at 17:30 Norepinephrine (Levophed) 250 ml @ 1.875 mls/ hr TITRATE IV Last administered on 12/28/16 18:15; Admin Dose 18.75 MLS/HR; Start 12/28/16 at 18:00 LEONARDA CHAMPION MD Dec 29, 2016 08:49
--- NOTE | 2016-12-29 08:55 | RADRPT ---
PROCEDURE: XR Chest. CLINICAL INDICATION: Shortness of breath. TECHNIQUE: Single frontal view. COMPARISON: 12/28/2016 FINDINGS: The endotracheal tube should be advanced approximately 4 cm as the tip is 7.5 cm above the raymond. T he right internal jugular vein [place]iana catheter is in satisfactory position with the tip in the ri ght main pulmonary artery. Left chest tube and mediastinal drains are noted. There is mild atelectas is at the lung bases. The lungs are otherwise clear. The heart is enlarged. There are sternal wires. There is no pleural effusion. There is no pneumothorax. IMPRESSION: 1. The endotracheal tube should be advanced. 2. No other change from the 12/28/2016 chest radiograph. RPTAT: QQ .Angel Luis Ta MD, Date Time Electronically viewed and signed by .Angel Luis Ta MD, on 12/29/2016 08:55 .R/
--- NOTE | 2016-12-29 08:55 | RADRPT ---
PROCEDURE: XR Chest. CLINICAL INDICATION: Shortness of breath. TECHNIQUE: Single frontal view. COMPARISON: 12/28/2016 FINDINGS: The endotracheal tube should be advanced approximately 4 cm as the tip is 7.5 cm above the raymond. T he right internal jugular vein [place]-Quiana catheter is in satisfactory position with the tip in the ri ght main pulmonary artery. Left chest tube and mediastinal drains are noted. There is mild atelectas is at the lung bases. The lungs are otherwise clear. The heart is enlarged. There are sternal wires. There is no pleural effusion. There is no pneumothorax. IMPRESSION: 1. The endotracheal tube should be advanced. 2. No other change from the 12/28/2016 chest radiograph. RPTAT: QQ .Angel Luis Ta MD, Date Time Electronically viewed and signed by .Angel Luis Ta MD, on 12/29/2016 08:55 .R/
--- NOTE | 2016-12-29 08:55 | RADRPT ---
PROCEDURE: XR Chest. CLINICAL INDICATION: Shortness of breath. TECHNIQUE: Single frontal view. COMPARISON: 12/28/2016 FINDINGS: The endotracheal tube should be advanced approximately 4 cm as the tip is 7.5 cm above the raymond. T he right internal jugular vein [place]-Quiana catheter is in satisfactory position with the tip in the ri ght main pulmonary artery. Left chest tube and mediastinal drains are noted. There is mild atelectas is at the lung bases. The lungs are otherwise clear. The heart is enlarged. There are sternal wires. There is no pleural effusion. There is no pneumothorax. IMPRESSION: 1. The endotracheal tube should be advanced. 2. No other change from the 12/28/2016 chest radiograph. RPTAT: QQ .Angel Luis Ta MD, Date Time Electronically viewed and signed by .Angel Luis Ta MD, on 12/29/2016 08:55 .R/
[2016-12-29] MEDS: LOSARTAN 50 MG TAB PO SCH (09:00)
[2016-12-29] MEDS: METOPROLOL 25 MG TAB PO SCH ×2 (09:00→20:20)
[2016-12-29] MEDS: ASPIRIN 325 MG TAB PO SCH (09:00)
[2016-12-29] MEDS: ENOXAPARIN 80 MG/0.8 ML SYG SC SCH ×2 (09:00→20:21)
[2016-12-29] MEDS: FAMOTIDINE 20 MG INJ IV SCH ×2 (09:54→20:20)
[2016-12-29] MEDS: ACETAMINOPHEN 325 MG TAB PO PRN (10:17)
[2016-12-29] MEDS ORDERED: DEXTROSE 5% 1,000 ML IV ONE (11:30)
[2016-12-29] MEDS: OXYCODONE/ACETAMINOPHEN (5/325) TAB PO PRN ×3 (11:33→20:52)
--- NOTE | 2016-12-29 15:37 | HP ---
Date/Time of Note Date/Time of Note DATE: 12/29/16 TIME: 15:35 Assessment/Plan VTE Prophylaxis VTE Prophylaxis Intervention: heparin Lines/Catheters IV Catheter Type (from Nrs): Cordis Urinary Cath still in place: Yes Reason Cath still needed: urinary retention Assessment/Plan Chief Complaint/Hosp Course 56 yo male with CAD s/p CABG - Aspirin and statin indefinitely - BP control - EF wnl on TTE Hypernatremia: - Correct FW deficit Blurry vision: - NCHCT to r/o perioperative CVA Dispo per CV surgery Problems: HPI/ROS Admit Date/Time Admit Date/Time Dec 27, 2016 at 11:23 Hx of Present Illness 56 yo male with CAD, referred for CABG after found to have LM disease. CABG done yesterday, remained intubated overnight. Extubated this AM, complained of blurry vision, otherwise doing well. ROS Eyes: no complaints Respiratory: cough, pleuritic pain, shortness of breath PMH/Family/Social Social History Smoking Status: Former smoker Exam/Review of Systems Vital Signs Vitals Vital Signs Date Time Temp Pulse Resp B/P Pulse Ox O2 Delivery O2 Flow Rate FiO2 12/29/16 14:00 101.9 107 33 90/57 99 12/29/16 09:00 Nasal Cannula 3.0 12/29/16 08:00 30 Intake and Output 12/28/16 12/28/16 12/29/16 14:59 22:59 06:59 Intake Total 300 ml 3085.475 ml 1053.407 ml Output Total 20 ml 3594 ml 447 ml Balance 280 ml -508.525 ml 606.407 ml Exam Constitutional: alert, oriented, well developed Psych: nl mood/affect, no complaints Head: atraumatic, normocephalic Eyes: EOMI, PERRL, nl conjunctiva, nl lids, nl sclera ENMT: nl external ears & nose, nl lips & teeth, nl nasal mucosa & septum Neck: non-tender, supple Respiratory: clear to auscultation, normal air movement Cardiovascular: nl pulses, regular rate and rhythm Gastrointestinal: nl liver, spleen, non-tender, soft Musculoskeletal: nl extremities to inspection Extremities: normal pulses Neurological: [employer] II-XII intact, nl mental status, nl speech, nl strength Skin: nl turgor, No rash or lesions Lymph: nl lymph nodes Labs Result Diagram: 12/29/16 0445 12/29/16 0430 Medications Medications Current Medications Losartan Potassium (Cozaar) 50 mg DAILY PO ; Start 12/28/16 at 09:00 Metoprolol Tartrate (Lopressor) 25 mg BID PO Last administered on 12/27/16 20 :23; Admin Dose 25 MG; Start 12/27/16 at 21:00 Enoxaparin Sodium 80 mg 80 mg Q12 SC Last administered on 12/27/16 20:29; Admin Dose 80 MG; Start 12/27/16 at 21:00 Milrinone Lactate 100 ml @ 8.888 mls/ hr TITRATE IV Last administered on 12/28 22:26; Admin Dose 2.844 MLS/HR; Start 12/28/16 at 15:00 Potassium Chloride/Calcium Chloride/Dextrose/ Sodium Chloride (KCl/Ca Chloride/ D5-1/4ns) 1,030 ml @ 60 mls/hr [id number] IV Last administered on 12/28/16 18: 30; Admin Dose 60 MLS/HR; Start 12/28/16 at 17:01 Hydromorphone HCl (Dilaudid) 0.2 mg Q15M PRN IV PAIN LEVEL 1-5 Last administered on 12/29/16 07:27; Admin Dose 0.2 MG; Start 12/28/16 at 17:30 Hydromorphone HCl (Dilaudid) 0.4 mg Q15M PRN IV PAIN LEVEL 6-10 Last administered on 12/28/16 19:17; Admin Dose 0.4 MG; Start 12/28/16 at 17:30 Hydromorphone HCl (Dilaudid) 0.2 mg Q1H PRN IV PAIN LEVEL 1-5; Start 12/28/16 at 17:30 Hydromorphone HCl (Dilaudid) 0.4 mg Q1H PRN IV PAIN LEVEL 6-10; Start at 17:30 Oxycodone/ Acetaminophen (Percocet (5/ 325)) 1 tab Q3H PRN PO PAIN LEVEL 1-5 Last administered on 12/29/16 14:06; Admin Dose 1 TAB; Start 12/28/16 at 17:30 Oxycodone/ Acetaminophen (Percocet (5/ 325)) 2 tab Q3H PRN PO PAIN LEVEL 6-10 Last administered on 12/29/16 11:33; Admin Dose 2 TAB; Start 12/28/16 at 17:30 Ondansetron HCl (Zofran Inj) 4 mg Q6H PRN IV NAUSEA AND/OR VOMITING; Start at 17:30 Famotidine (Pepcid Iv) 20 mg BID@08,20 IV Last administered on 12/29/16 09:54 ; Admin Dose 20 MG; Start 12/28/16 at 20:00 Aspirin (Aspirin) 325 mg DAILY PO ; Start 12/29/16 at 09:00 Acetaminophen (Tylenol Tab) 650 mg Q3H PRN PO ELEVATED TEMPERATURE Last administered on 12/29/16 10:17; Admin Dose 650 MG; Start 12/28/16 at 17:30 Acetaminophen 650 mg 650 mg Q3H PRN IN ELEVATED TEMPERATURE Last administered on 12/29/16 00:30; Admin Dose 650 MG; Start 12/28/16 at 17:30 Magnesium Sulfate/ Dextrose (Magnesium Sulfate 1 Gm/D5W) 100 ml @ 100 mls/hr PRN PRN IVPB PENDING LAB VALUE; Start 12/28/16 at 17:30 Diagnostic Test (Pha) (Accu-Chek) 1 ea Q1H XX Last administered on 12/29/16 14 :11; Admin Dose 1 EA; Start 12/28/16 at 17:30 Dextrose (D50w Syringe) 25 ml Q15M PRN IV Till BS 80 mg/dL or above x2; Start 12/28/16 at 17:30 Dextrose 50 ml 50 ml Q15M PRN IV Till BS 80 mg/dL or above x2; Start 12/28/16 at 17:30 Albumin Human 250 ml @ 250 mls/hr PRN PRN IV NOTE Last administered on 05:20; Admin Dose 250 MLS/HR; Start 12/28/16 at 17:30 Norepinephrine (Levophed) 250 ml @ 1.875 mls/ hr TITRATE IV Last administered on 12/28/16 18:15; Admin Dose 18.75 MLS/HR; Start 12/28/16 at 18:00 Lorazepam (Ativan) 1 mg Q8H PRN PO ANXIETY; Start 12/29/16 at 14:30 JH MEZA MD Dec 29, 2016 15:37
--- NOTE | 2016-12-29 15:40 | RADRPT ---
PROCEDURE: CT Brain without contrast. CLINICAL INDICATION: Blurred vision status post CABG. TECHNIQUE: A CT of the brain was performed on multidetector high-resolution CT scanner utilizing a xial sections from the skull base through the vertex without contrast. The scan was reviewed in sof t tissue brain and high frequency resolution bone algorithm windows. Images were reviewed on a high -resolution PACS workstation. One or more the following does reduction techniques were utilized: Aut omated exposure control, adjustment of the mA/ or kV according to patient's size, or use of iterativ e reconstruction technique. The exam CTDI = 44.03 mGy and the DLP = 638.2 mGy-cm. COMPARISON: None available. FINDINGS: There is area of hypoattenuation with loss of ng-white matter differentiation in the medial right occipital lobe and posterior right temporal lobe concerning for acute/recent infarct, likely in the right posterior cerebral artery distribution. The ventricles and sulci are mildly prominent indicative of volume loss. There is no intracranial h emorrhage, mass effect or midline shift. No abnormal intra-axial or extra-axial fluid collections a re seen. There are mild scattered foci of hypoattenuation in the white matter, which are nonspecific in etiol ogy but likely reflect chronic small vessel ischemic changes. There are mild intracranial vascular calcifications consistent with atherosclerosis. The visualized paranasal sinuses demonstrate mild sc attered mucosal thickening more pronounced in the sphenoid sinuses. The mastoid air cells are underp neumatized. IMPRESSION: 1. Suspect an acute/recent infarct in the medial right occipital lobe and posterior right temporal lobe, likely in the right posterior cerebral artery distribution. Consider brain MRI for further ev aluation. 2. No acute intracranial hemorrhage. 3. Mild intracranial atherosclerosis and chronic small vessel ischemic changes. 4. Mild generalized cerebral volume loss. A call report was made and above findings were discussed and acknowledged by patient's nurse RN Bradley cunningham on 12/29/2016 3:34 PM to relay to responsible physician. RPTAT: GG .Jackie Schwab MD, MD Date Time Electronically viewed and signed by .Jackie Schwab MD, on 12/29/2016 15:39 .N/
--- NOTE | 2016-12-29 18:42 | PN ---
Date/Time of Note Date/Time of Note DATE: 12/29/16 TIME: 18:40 Assessment/Plan Lines/Catheters IV Catheter Type (from Nrsg): Cordis Vogel in Place (from Nrsg): Yes Assessment/Plan Chief Complaint/Hosp Course Status post coronary artery bypass grafting Hemodynamically stable Stable blood pressure and urine output Chest tube output minimal CT of the brain. Suspect an acute/recent infarct in the medial right occipital lobe and posterior right temporal lobe, likely in the right posterior cerebral artery distribution. Consider brain MRI for further evaluation. We will continue supportive Chest tube suction MRI of the brain when stable Problems: Subjective 24 Hr Interval Summary Constitutional: improved Pain Control: mild Exam/Review of Systems Vital Signs Vitals Vital Signs Date Time Temp Pulse Resp B/P Pulse Ox O2 Delivery O2 Flow Rate FiO2 12/29/16 17:00 101.6 103 31 94/65 99 12/29/16 09:00 Nasal Cannula 3.0 12/29/16 08:00 30 Intake and Output 12/28/16 12/28/16 12/29/16 15:00 23:00 07:00 Intake Total 300 ml 3318.944 ml 889.563 ml Output Total 20 ml 3681 ml 407 ml Balance 280 ml -362.056 ml 482.563 ml Exam ENMT: mucosa pink and moist, nl external ears & nose, nl lips & teeth, nl nasal mucosa & septum Neck: non-tender, supple Respiratory: clear to auscultation, normal air movement Cardiovascular: nl pulses, regular rate and rhythm Results Result Diagram: 12/29/16 1701 12/29/16 0430 TAYLOR JACQUES MD Dec 29, 2016 18:42
--- NOTE | 2016-12-29 19:31 | RADRPT ---
Vent Rate: 99 bpm RR Interval: 0 msec MT Interval: 118 msec QRS Duration: 72 msec QT Interval: 348 msec QTC Interval: 446 msec P-R-T [place]: 48 - 46 - 7 degrees Normal sinus rhythm Nonspecific T wave abnormality Abnormal ECG Electronically Signed By: Duran Rasheed [id number]
--- NOTE | 2016-12-29 19:31 | RADRPT ---
Vent Rate: 111 bpm RR Interval: 0 msec DC Interval: 118 msec QRS Duration: 74 msec QT Interval: 326 msec QTC Interval: 443 msec P-R-T [place]: 44 - 19 - 8 degrees Sinus tachycardia Otherwise normal ECG Electronically Signed By: Duran Rasheed [id number]
--- NOTE | 2016-12-29 19:31 | RADRPT ---
Vent Rate: 111 bpm RR Interval: 0 msec [place] Interval: 118 msec QRS Duration: 74 msec QT Interval: 326 msec QTC Interval: 443 msec P-R-T [place]: 44 - 19 - 8 degrees Sinus tachycardia Otherwise normal ECG Electronically Signed By: Duran Rasheed [id number]
--- NOTE | 2016-12-29 19:31 | RADRPT ---
Vent Rate: 111 bpm RR Interval: 0 msec SD Interval: 118 msec QRS Duration: 74 msec QT Interval: 326 msec QTC Interval: 443 msec P-R-T [place]: 44 - 19 - 8 degrees Sinus tachycardia Otherwise normal ECG Electronically Signed By: Duran Rasheed [id number]
--- NOTE | 2016-12-29 19:31 | RADRPT ---
Vent Rate: 99 bpm RR Interval: 0 msec VT Interval: 118 msec QRS Duration: 72 msec QT Interval: 348 msec QTC Interval: 446 msec P-R-T [place]: 48 - 46 - 7 degrees Normal sinus rhythm Nonspecific T wave abnormality Abnormal ECG Electronically Signed By: Duran Rasheed [id number]
--- NOTE | 2016-12-29 19:31 | RADRPT ---
Vent Rate: 99 bpm RR Interval: 0 msec [place] Interval: 118 msec QRS Duration: 72 msec QT Interval: 348 msec QTC Interval: 446 msec P-R-T [place]: 48 - 46 - 7 degrees Normal sinus rhythm Nonspecific T wave abnormality Abnormal ECG Electronically Signed By: Duran Rasheed [id number]
[2016-12-29] MEDS: INSULIN HUMAN REGULAR 100 UNIT in SOD CHLORIDE 0.9% 99 ML IV SCH (20:23)
[2016-12-30] VITALS (25 sets, daily range): BP systolic 92–128; BP diastolic 60–89; PULSE 90–110; RESP 14–31
[2016-12-30] MEDS: ACCU-CHEK XX SCH ×8 (00:36→07:44)
[2016-12-30] MEDS ORDERED: SOD CHLORIDE 0.9% 1,000 ML IV ONE (07:00)
--- NOTE | 2016-12-30 07:17 | CONS ---
Date/Time of Note Date/Time of Note DATE: 12/30/16 TIME: 07:12 Consult Date/Type/Reason Admit Date/Time Dec 27, 2016 at 11:23 Initial Consult Date 12/27/16 Type of Consultation: cardiology Ordering Provider: JH MEZA MD Subjective cardiology follow up note/ critical care note: S: D/W staff and rhythm was reviewed. pt s/p CABG pt is extubated but still in ICU. off of pressors. pt with c/o blurred vision post extubation. CT has shown evidence of possible acute/ subacute CVA O: General: NO acute distress HEENT: NC/AT. pupils are equal. round. NECK: s/p IJ catheter . no stridor. CV: RRR. systolic murmur; no gallop or rubs. PULM: no wheezing or rhonchi. GI: SOFT, NT, ND, no rebound or guarding Extremity: trace B/L LE edema. no clubbing. neuro: Awake and follows commands. chest : s/p chest tube. s/p sternotomy Psych: calm and pleasant rectal: deferred : normal male magalis angio 12/27/16: 1. Left main: 90% distal disease. 2. LAD: Large caliber vessel with no significant disease. 3. Circumflex: proximal to mid 70-80% diffuse disease 4. Obtuse marginal: Medium caliber vessel with no significant disease. 5. RCA: Large dominant vessel with distal 90% stent re-stenosis; prominent left to right collaterals via PDA ECHO: 1. Lower limits of normal systolic function. Normal left ventricular cavity size. Left ventricular wall thickness upper limits of normal. Ejection fraction is visually estimated at 50 %. Tissue Doppler/Mitral Doppler indices are consistent with impaired relaxation (Stage I diastolic dysfunction). These segments of the LV are hypokinetic apex. 2. Mild mitral leaflet calcification. Mild mitral annular calcification. Trace mitral regurgitation. 3. No significant aortic stenosis. Aortic cusps appear mildly calcified. Trace aortic valve regurgitation. 4. Normal appearance of the tricuspid valve. Estimated peak PA systolic pressure 38 mmHg. There is mild tricuspid regurgitation. CT HEAD 12/29/16: IMPRESSION: 1. Suspect an acute/recent infarct in the medial right occipital lobe and posterior right temporal lobe, likely in the right posterior cerebral artery distribution. Consider brain MRI for further evaluation. 2. No acute intracranial hemorrhage. 3. Mild intracranial atherosclerosis and chronic small vessel ischemic changes. 4. Mild generalized cerebral volume loss. Objective Vital Signs Date Time Temp Pulse Resp B/P Pulse Ox O2 Delivery O2 Flow Rate FiO2 12/30/16 06:00 96 14 122/83 97 12/30/16 04:00 100.5 12/30/16 03:49 2.0 12/29/16 20:00 Nasal Cannula 12/29/16 08:00 30 Intake and Output 12/29/16 12/29/16 12/30/16 15:00 23:00 07:00 Intake Total 1801.8 ml 1002 ml 568 ml Output Total 303 ml 366 ml 157 ml Balance 1498.8 ml 636 ml 411 ml Results/Medications Result Diagram: 12/30/16 0434 12/30/16 0434 Results 24 hrs Laboratory Tests Test 12/29/16 08:15 12/29/16 09:15 12/29/16 11:36 12/29/16 13:41 Blood Gas Specimen Source Blood arterial Arterial Blood Date Drawn 12/29/2016 8:15:20 AM Arterial Blood pH (Temp corrected) 7.391 Arterial Blood pCO2 (Temp correct) 39.1 Arterial Blood pO2 (Temp corrected) 90.1 Arterial Blood HCO3 23.2 Arterial Blood Base Excess -1.6 Arterial Blood Oxygen Saturation 96.0 Yuniel Test N/A Arterial Blood Gas Puncture Site A-Line Arterial Blood Carboxyhemoglobin 0.3 Arterial Blood Methemoglobin 0.4 Blood Gas A-a O2 Differential 77.9 H Oxyhemoglobin Percent 95.3 Total Hemoglobin 9.3 L Blood Gas Temperature 37.0 Blood Gas Actual Respiration Rate 15 Blood Gas Modality VENT - CPAP FiO2 30.0 Blood Gas Low PEEP Setting 5.0 Blood Gas Pressure Support 10 Blood Gas Notified Whom JLD Blood Gas Notified Time 12/29/2016 8:41:55 AM Bedside Glucose 141 115 131 Test 12/29/16 15:57 12/29/16 17:01 12/29/16 18:10 12/29/16 19:24 Bedside Glucose 145 169 Hematocrit 24.9 L 23.9 L White Blood Count 14.7 #H Red Blood Count 2.87 L Hemoglobin 7.7 L Mean Corpuscular Volume 83.3 Mean Corpuscular Hemoglobin 26.8 L Mean Corpuscular Hemoglobin Concent 32.2 Red Cell Distribution Width 14.5 Platelet Count 116 #L Mean Platelet Volume 9.1 Neutrophils % Segmented Neutrophils % (Manual) 82 H Lymphocytes % (Manual) 14 L Reactive Lymphocytes % (Manual) 1 H Monocytes % (Manual) 4 Eosinophils % Nucleated Red Blood Cells % 0.0 Neutrophils # Absolute Lymphocytes (Manual) 2.0 Reactive Lymphocytes # 0.1 H Absolute Monocytes (Manual) 0.5 Eosinophils # Giant Platelets 1 H Platelet Morphology Comment @See below Hypochromasia 1+ Anisocytosis 1+ Macrocytosis 1+ Test 12/29/16 20:19 12/29/16 21:59 12/29/16 23:07 12/30/16 00:36 Bedside Glucose 175 178 159 132 Test 12/30/16 02:26 12/30/16 04:34 12/30/16 04:43 12/30/16 05:01 Bedside Glucose 134 123 White Blood Count 15.5 H Red Blood Count 3.26 L Hemoglobin 9.1 L Hematocrit 27.6 L Mean Corpuscular Volume 84.7 Mean Corpuscular Hemoglobin 27.9 L Mean Corpuscular Hemoglobin Concent 33.0 Red Cell Distribution Width 14.5 Platelet Count 133 L Mean Platelet Volume 9.8 Neutrophils % 78.2 H Lymphocytes % 14.1 L Monocytes % 7.0 Eosinophils % 0.0 Basophils % 0.2 Nucleated Red Blood Cells % 0.0 Neutrophils # 12.1 H Lymphocytes # 2.2 Monocytes # 1.1 H Eosinophils # 0.0 Basophils # 0.0 Nucleated Red Blood Cells # 0.0 Sodium Level 142 Potassium Level 4.2 Chloride Level 106 Carbon Dioxide Level 25 Anion Gap 15 Blood Urea Nitrogen 15 Creatinine 0.88 Glucose Level 96 # Calcium Level 8.6 Magnesium Level 2.0 Total Bilirubin 1.1 Direct Bilirubin 0.00 Indirect Bilirubin 1.1 Aspartate Amino Transf (AST/SGOT) 170 H Alanine Aminotransferase (ALT/SGPT) 49 Alkaline Phosphatase 45 B-Type Natriuretic Peptide 2160 H Total Protein 6.7 Albumin 3.9 Globulin 2.80 Albumin/Globulin Ratio 1.39 Lab Scanned Report BLOOD TRANSFUSION Test 12/30/16 06:02 Bedside Glucose 112 Medications Current Medications Losartan Potassium (Cozaar) 50 mg DAILY PO ; Start 12/28/16 at 09:00 Metoprolol Tartrate (Lopressor) 25 mg BID PO Last administered on 12/27/16t 20 :23; Admin Dose 25 MG; Start 12/27/16 at 21:00 Enoxaparin Sodium 80 mg 80 mg Q12 SC Last administered on 12/27/16 20:29; Admin Dose 80 MG; Start 12/27/16 at 21:00 Milrinone Lactate (Primacor) 100 ml @ 8.888 mls/ hr TITRATE IV Last administered on 12/28/16 22:26; Admin Dose 2.844 MLS/HR; Start 12/28/16 at 15 :00 Hydromorphone HCl (Dilaudid) 0.2 mg Q15M PRN IV PAIN LEVEL 1-5 Last administered on 12/29/16 07:27; Admin Dose 0.2 MG; Start 12/28/16 at 17:30 Hydromorphone HCl (Dilaudid) 0.4 mg Q15M PRN IV PAIN LEVEL 6-10 Last administered on 12/28/16 19:17; Admin Dose 0.4 MG; Start 12/28/16 at 17:30 Hydromorphone HCl (Dilaudid) 0.2 mg Q1H PRN IV PAIN LEVEL 1-5; Start 12/28/16 at 17:30 Hydromorphone HCl (Dilaudid) 0.4 mg Q1H PRN IV PAIN LEVEL 6-10; Start at 17:30 Oxycodone/ Acetaminophen (Percocet (5/ 325)) 1 tab Q3H PRN PO PAIN LEVEL 1-5 Last administered on 12/29/16 14:06; Admin Dose 1 TAB; Start 12/28/16 at 17:30 Oxycodone/ Acetaminophen (Percocet (5/ 325)) 2 tab Q3H PRN PO PAIN LEVEL 6-10 Last administered on 12/29/16 20:52; Admin Dose 2 TAB; Start 12/28/16 at 17:30 Ondansetron HCl (Zofran Inj) 4 mg Q6H PRN IV NAUSEA AND/OR VOMITING; Start at 17:30 Famotidine (Pepcid Iv) 20 mg BID@08,20 IV Last administered on 12/29/16 20:20 ; Admin Dose 20 MG; Start 12/28/16 at 20:00 Aspirin (Aspirin) 325 mg DAILY PO ; Start 12/29/16 at 09:00 Acetaminophen (Tylenol Tab) 650 mg Q3H PRN PO ELEVATED TEMPERATURE Last administered on 12/29/16 10:17; Admin Dose 650 MG; Start 12/28/16 at 17:30 Acetaminophen 650 mg 650 mg Q3H PRN [place] ELEVATED TEMPERATURE Last administered on 12/29/16 00:30; Admin Dose 650 MG; Start 12/28/16 at 17:30 Magnesium Sulfate/ Dextrose (Magnesium Sulfate 1 Gm/D5W) 100 ml @ 100 mls/hr PRN PRN IVPB PENDING LAB VALUE; Start 12/28/16 at 17:30 Diagnostic Test (Pha) (Accu-Chek) 1 ea Q1H XX Last administered on 12/30/16 06 :13; Admin Dose 1 EA; Start 12/28/16 at 17:30 Dextrose (D50w Syringe) 25 ml Q15M PRN IV Till BS 80 mg/dL or above x2; Start 12/28/16 at 17:30 Dextrose 50 ml 50 ml Q15M PRN IV Till BS 80 mg/dL or above x2; Start 12/28/16 at 17:30 Albumin Human 250 ml @ 250 mls/hr PRN PRN IV NOTE Last administered on 05:20; Admin Dose 250 MLS/HR; Start 12/28/16 at 17:30 Norepinephrine (Levophed) 250 ml @ 1.875 mls/ hr TITRATE IV Last administered on 12/28/16 18:15; Admin Dose 18.75 MLS/HR; Start 12/28/16 at 18:00 Lorazepam 1 mg 1 mg Q8H PRN PO ANXIETY; Start 12/29/16 at 14:30 Sodium Chloride (NS) 1,000 ml @ 1,000 mls/hr Q1H ONCE IV Last administered on 12/30/16 07:02; Admin Dose 1,000 MLS/HR; Start 12/30/16 at 07:00; Stop at 07:59 Assessment/Plan Chief Complaint/Hosp Course 1. S/P resp failure: s/p intubation post op now pt is extubated. 2. 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 HTN 4. DM 5. Dyslipidemia 6/ hx [place] 7/ HX PCI 8/ Moderate carotid stenosis 9. shock 10. post op anemia: stable will monitor for now. 11. post op CVA cont post op care replace lytes prn cont ICU care ASA Statin permissive HTN. will hold off on any BP meds for now. neurology consultations/ evaluation and treatment as per IM. more than 37 min of critical care time was spent in management and treatment of this critically ill patient excluding any procedures. Thank you for this referral. We will continue to follow along with you. ROMMEL JIMÉNEZ MD [facility] Problems: ROMMEL JIMÉNEZ MD Dec 30, 2016 07:17
[2016-12-30] MEDS: OXYCODONE/ACETAMINOPHEN (5/325) TAB PO PRN ×2 (07:41→14:43)
[2016-12-30] MEDS: ENOXAPARIN 80 MG/0.8 ML SYG SC SCH (08:03)
[2016-12-30] MEDS: METOPROLOL 25 MG TAB PO SCH ×2 (08:04→19:58)
[2016-12-30] MEDS: ASPIRIN 325 MG TAB PO SCH (08:04)
[2016-12-30] MEDS: FAMOTIDINE 20 MG INJ IV SCH ×2 (08:04→19:57)
[2016-12-30] MEDS: LOSARTAN 50 MG TAB PO SCH (08:04)
[2016-12-30] MEDS: ALBUMIN HUMAN 5% 250 ML IV PRN (08:06)
--- NOTE | 2016-12-30 08:14 | RADRPT ---
PROCEDURE: XR Chest. CLINICAL INDICATION: Chest tube check TECHNIQUE: AP Portable chest. COMPARISON: CHEST 12/29/2016; CHEST 12/28/2016 FINDINGS: The [place] catheter and endotracheal tube have been removed. Right IJ sheath, mediastinal drain a nd left chest tube remain in place. Sternotomy wires are visualized. The cardiomediastinal silhouette is enlarged. The lung volumes are low with mild right basilar atele ctasis. There is increased retrocardiac opacity and probable small left pleural effusion. No pneumot horax is identified. The osseous structures are intact. IMPRESSION: Interval removal of the ET tube and [place] catheter . Mediastinal drain and chest tube in place. Low lung volumes. Increase left basilar opacity and small pleural effusion. Physician Becky Date Time Electronically viewed and signed by Jeffery Hardwick Physician on 12/30/2016 08:14 /
--- NOTE | 2016-12-30 08:14 | RADRPT ---
PROCEDURE: XR Chest. CLINICAL INDICATION: Chest tube check TECHNIQUE: AP Portable chest. COMPARISON: CHEST 12/29/2016; CHEST 12/28/2016 FINDINGS: The [place] catheter and endotracheal tube have been removed. Right IJ sheath, mediastinal drain a nd left chest tube remain in place. Sternotomy wires are visualized. The cardiomediastinal silhouette is enlarged. The lung volumes are low with mild right basilar atele ctasis. There is increased retrocardiac opacity and probable small left pleural effusion. No pneumot horax is identified. The osseous structures are intact. IMPRESSION: Interval removal of the ET tube and [place] catheter . Mediastinal drain and chest tube in place. Low lung volumes. Increase left basilar opacity and small pleural effusion. Physician Becky Date Time Electronically viewed and signed by Jeffery Hardwick Physician on 12/30/2016 08:14 /
--- NOTE | 2016-12-30 08:14 | RADRPT ---
PROCEDURE: XR Chest. CLINICAL INDICATION: Chest tube check TECHNIQUE: AP Portable chest. COMPARISON: CHEST 12/29/2016; CHEST 12/28/2016 FINDINGS: The [place] catheter and endotracheal tube have been removed. Right IJ sheath, mediastinal drain a nd left chest tube remain in place. Sternotomy wires are visualized. The cardiomediastinal silhouette is enlarged. The lung volumes are low with mild right basilar atele ctasis. There is increased retrocardiac opacity and probable small left pleural effusion. No pneumot horax is identified. The osseous structures are intact. IMPRESSION: Interval removal of the ET tube and [place] catheter . Mediastinal drain and chest tube in place. Low lung volumes. Increase left basilar opacity and small pleural effusion. Physician Becky Date Time Electronically viewed and signed by Jeffery Hardwick Physician on 12/30/2016 08:14 /
[2016-12-30] MEDS ORDERED: GLUCOSE GEL 15 GRAM TUBE BUCCAL PRN (10:00)
[2016-12-30] MEDS ORDERED: GLUCAGON 1 MG INJ IM PRN (10:00)
[2016-12-30] MEDS ORDERED: GLUCOSE GEL 15 GRAM TUBE PO PRN ×2 (10:00)
[2016-12-30] MEDS ORDERED: DEXTROSE 50% 50 ML SYRINGE IV PRN ×2 (10:00)
[2016-12-30] MEDS: HYDROmorphONE 0.5 MG/0.5 ML SYG IV PRN ×3 (10:08→23:01)
[2016-12-30] MEDS: INSULIN ASPART [NOVOLOG] 3 ML PEN SC SCH ×2 (11:37→17:23)
--- NOTE | 2016-12-30 12:17 | CONS ---
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 Recommendations: SBP less than 140/90 Continue ICU monitoring MRI Brain w/o contrast MRA Head/Neck ordered Aspirin 325 mg may continue daily LDL: 60 at goal for secondary stroke prevention continue optimization of diabetes goal less than 7.0% check HBA1C to ensure at target c/o left arm pain on exam- recommended repeat troponins EKG and consideration of UE doppler continue frequent neuro checks DVT ppx PT/OT/Speech will request Dr. Kennedy to follow Problems: Consultation Date/Type/Reason Admit Date/Time Dec 27, 2016 at 11:23 Date of Consultation: Dec 30, 2016 Type of Consultation: Neurology Reason for Consultation Right LOADING UNIT OPERATOR POWDER CHARGING Stroke Referring Provider: JH MEZA MD Hx of Present Illness 69 yo male with hx of CAD s/p PCI and MS over a year ago, over 20 year hx of smoking p/w exertional chest pain, recent abnormal stress test with multivessel disease including Left main coronary artery admitted for CABG s/p on 12/28. Upon awakening from surgery he c/o blurred vision. Head CT shows a recent/acute infarct in medial right occipital lobe and posterior right temporal lobe. Right LOADING UNIT OPERATOR POWDER CHARGING distribution. Exam concerning for Left Visual Field Cut. Constitutional: no complaints Eyes: no complaints Respiratory: cough, pleuritic pain, shortness of breath Psychological: nl mood/affect, no complaints Past Medical History Medical History: diabetes, high cholesterol, hypertension Past Surgical History Past Surgical Hx: no surgical history Social History Alcohol Use: none Smoking Status: Former smoker Drug Use: none Exam/Review of Systems Vital Signs Vitals Vital Signs Date Time Temp Pulse Resp B/P Pulse Ox O2 Delivery O2 Flow Rate FiO2 12/30/16 11:45 1.0 12/30/16 11:00 93 18 106/64 99 Nasal Cannula 12/30/16 08:00 98.7 12/29/16 08:00 30 Intake and Output 12/29/16 12/29/16 12/30/16 15:00 23:00 07:00 Intake Total 1801.8 ml 1002 ml 568 ml Output Total 303 ml 366 ml 165 ml Balance 1498.8 ml 636 ml 403 ml Exam awake and alert oriented to self hospital to family follows commands well no obvious aphasia left visuospatial neglect CN: AUDREY, VFF left field cut no facial asymmetry Motor: 5/5 UE and LE Sensory intact throughout Reflexes 1+ throughout Coordination: ataxia is present on exam likely due to visual neglect Results Result Diagram: 12/30/16 0434 12/30/16 0434 Results 24 hrs Laboratory Tests Test 12/29/16 13:41 12/29/16 15:57 12/29/16 17:01 12/29/16 18:10 Bedside Glucose 131 145 169 Hematocrit 24.9 L Test 12/29/16 19:24 12/29/16 20:19 12/29/16 21:59 12/29/16 23:07 White Blood Count 14.7 #H Red Blood Count 2.87 L Hemoglobin 7.7 L Hematocrit 23.9 L Mean Corpuscular Volume 83.3 Mean Corpuscular Hemoglobin 26.8 L Mean Corpuscular Hemoglobin Concent 32.2 Red Cell Distribution Width 14.5 Platelet Count 116 #L Mean Platelet Volume 9.1 Neutrophils % Segmented Neutrophils % (Manual) 82 H Lymphocytes % (Manual) 14 L Reactive Lymphocytes % (Manual) 1 H Monocytes % (Manual) 4 Eosinophils % Nucleated Red Blood Cells % 0.0 Neutrophils # Absolute Lymphocytes (Manual) 2.0 Reactive Lymphocytes # 0.1 H Absolute Monocytes (Manual) 0.5 Eosinophils # Giant Platelets 1 H Platelet Morphology Comment @See below Hypochromasia 1+ Anisocytosis 1+ Macrocytosis 1+ Bedside Glucose 175 178 159 Test 12/30/16 00:36 12/30/16 02:26 12/30/16 04:34 12/30/16 04:43 Bedside Glucose 132 134 123 White Blood Count 15.5 H Red Blood Count 3.26 L Hemoglobin 9.1 L Hematocrit 27.6 L Mean Corpuscular Volume 84.7 Mean Corpuscular Hemoglobin 27.9 L Mean Corpuscular Hemoglobin Concent 33.0 Red Cell Distribution Width 14.5 Platelet Count 133 L Mean Platelet Volume 9.8 Neutrophils % 78.2 H Lymphocytes % 14.1 L Monocytes % 7.0 Eosinophils % 0.0 Basophils % 0.2 Nucleated Red Blood Cells % 0.0 Neutrophils # 12.1 H Lymphocytes # 2.2 Monocytes # 1.1 H Eosinophils # 0.0 Basophils # 0.0 Nucleated Red Blood Cells # 0.0 Sodium Level 142 Potassium Level 4.2 Chloride Level 106 Carbon Dioxide Level 25 Anion Gap 15 Blood Urea Nitrogen 15 Creatinine 0.88 Glucose Level 96 # Calcium Level 8.6 Magnesium Level 2.0 Total Bilirubin 1.1 Direct Bilirubin 0.00 Indirect Bilirubin 1.1 Aspartate Amino Transf (AST/SGOT) 170 H Alanine Aminotransferase (ALT/SGPT) 49 Alkaline Phosphatase 45 B-Type Natriuretic Peptide 2160 H Total Protein 6.7 Albumin 3.9 Globulin 2.80 Albumin/Globulin Ratio 1.39 Test 12/30/16 05:01 12/30/16 06:02 12/30/16 07:44 12/30/16 09:10 Lab Scanned Report BLOOD TRANSFUSION Bedside Glucose 112 80 147 Test 12/30/16 11:32 Bedside Glucose 186 Medications Medications Current Medications Losartan Potassium (Cozaar) 50 mg DAILY PO Last administered on 12/30/16 08:04 ; Admin Dose 50 MG; Start 12/28/16 at 09:00 Metoprolol Tartrate (Lopressor) 25 mg BID PO Last administered on 12/30/16 08: 04; Admin Dose 25 MG; Start 12/27/16 at 21:00 Hydromorphone HCl (Dilaudid) 0.2 mg Q15M PRN IV PAIN LEVEL 1-5 Last administered on 12/30/16 10:08; Admin Dose 0.2 MG; Start 12/28/16 at 17:30 Hydromorphone HCl (Dilaudid) 0.4 mg Q15M PRN IV PAIN LEVEL 6-10 Last administered on 12/28/16 19:17; Admin Dose 0.4 MG; Start 12/28/16 at 17:30 Hydromorphone HCl (Dilaudid) 0.2 mg Q1H PRN IV PAIN LEVEL 1-5; Start 12/28/16 at 17:30 Hydromorphone HCl (Dilaudid) 0.4 mg Q1H PRN IV PAIN LEVEL 6-10; Start at 17:30 Oxycodone/ Acetaminophen (Percocet (5/ 325)) 1 tab Q3H PRN PO PAIN LEVEL 1-5 Last administered on 12/29/16 14:06; Admin Dose 1 TAB; Start 12/28/16 at 17:30 Oxycodone/ Acetaminophen (Percocet (5/ 325)) 2 tab Q3H PRN PO PAIN LEVEL 6-10 Last administered on 12/30/16 07:41; Admin Dose 2 TAB; Start 12/28/16 at 17:30 Ondansetron HCl (Zofran Inj) 4 mg Q6H PRN IV NAUSEA AND/OR VOMITING; Start at 17:30 Famotidine (Pepcid Iv) 20 mg BID@08,20 IV Last administered on 12/30/16 08:04 ; Admin Dose 20 MG; Start 12/28/16 at 20:00 Aspirin (Aspirin) 325 mg DAILY PO Last administered on 12/30/16 08:04; Admin Dose 325 MG; Start 12/29/16 at 09:00 Acetaminophen (Tylenol Tab) 650 mg Q3H PRN PO ELEVATED TEMPERATURE Last administered on 12/29/16 10:17; Admin Dose 650 MG; Start 12/28/16 at 17:30 Acetaminophen 650 mg 650 mg Q3H PRN [place] ELEVATED TEMPERATURE Last administered on 12/29/16 00:30; Admin Dose 650 MG; Start 12/28/16 at 17:30 Magnesium Sulfate/ Dextrose 100 ml @ 100 mls/hr PRN PRN IVPB PENDING LAB VALUE ; Start 12/28/16 at 17:30 Albumin Human 250 ml @ 250 mls/hr PRN PRN IV NOTE Last administered on 08:06; Admin Dose 250 MLS/HR; Start 12/28/16 at 17:30 Lorazepam (Ativan) 1 mg Q8H PRN PO ANXIETY; Start 12/29/16 at 14:30 Diagnostic Test (Pha) (Accu-Chek) 1 ea 02 XX ; Start 12/31/16 at 02:00 Insulin Glargine (Lantus) 12 unit DAILY@08 SC ; Start 12/31/16 at 08:00 Miscellaneous Information 1 ea NOTE XX ; Start 12/30/16 at 10:00 Glucose (Glutose) 15 gm Q15M PRN PO DECREASED GLUCOSE; Start 12/30/16 at 10:00 Glucose (Glutose) 22.5 gm Q15M PRN PO DECREASED GLUCOSE; Start 12/30/16 at 10: 00 Dextrose (D50w Syringe) 25 ml Q15M PRN IV DECREASED GLUCOSE; Start 12/30/16 at 10:00 Dextrose (D50w Syringe) 50 ml Q15M PRN IV DECREASED GLUCOSE; Start 12/30/16 at 10:00 Glucagon (Glucagen) 1 mg Q15M PRN IM DECREASED GLUCOSE; Start 12/30/16 at 10:00 Glucose (Glutose) 15 gm Q15M PRN BUCCAL DECREASED GLUCOSE; Start 12/30/16 at 10 :00 DANNIE ARGUELLO MD Dec 30, 2016 12:17
[2016-12-30] MEDS ORDERED: ALBUMIN HUMAN 25% 100 ML IV STA (12:31)
--- NOTE | 2016-12-30 12:31 | CONS ---
Date/Time of Note Date/Time of Note DATE: 12/30/16 TIME: 12:30 Assessment/Plan Assessment/Plan Additional Assessment/Plan 1. Acute Hypernatremia 2. CAD s/p CABG on 12/28/16 3. HTN 4. HL 5. DM II Plan: pt becomes oliguric, U/O significantly dropped, will give albumin 25% 100ml IV x 1 followed up by NS bolus 500 cc IV x 1 then Lasix 40mg iV x 1 today BP low, getting IV albumin on Lovenox 1mg/kg SQ BID Conitnue BP meds will follow up Consultation Date/Type/Reason Admit Date/Time Dec 27, 2016 at 11:23 Initial Consult Date 12/30/16 Type of Consultation: NEPHROLOGY Referring Provider: JH MEZA MD 24 HR Interval Summary Free Text/Dictation Urine out put dropping down , BP stable , less than 10 cc/hr Exam/Review of Systems Vital Signs Vitals Vital Signs Date Time Temp Pulse Resp B/P Pulse Ox O2 Delivery O2 Flow Rate FiO2 12/30/16 11:45 1.0 12/30/16 11:00 93 18 106/64 99 Nasal Cannula 12/30/16 08:00 98.7 12/29/16 08:00 30 Intake and Output 12/29/16 12/29/16 12/30/16 15:00 23:00 07:00 Intake Total 1801.8 ml 1002 ml 568 ml Output Total 303 ml 366 ml 165 ml Balance 1498.8 ml 636 ml 403 ml Exam Constitutional: alert, oriented, well developed Neck: non-tender, supple Respiratory: clear to auscultation, normal air movement Cardiovascular: nl pulses, regular rate and rhythm Gastrointestinal: nl liver, spleen, non-tender, soft Musculoskeletal: nl extremities to inspection Extremities: normal pulses Neurological: WIRE DROPPER II-XII intact, nl mental status, nl speech, nl strength Results Result Diagram: 12/30/16 0434 12/30/16 0434 Results 24 hrs Laboratory Tests Test 12/29/16 13:41 12/29/16 15:57 12/29/16 17:01 12/29/16 18:10 Bedside Glucose 131 145 169 Hematocrit 24.9 L Test 12/29/16 19:24 12/29/16 20:19 12/29/16 21:59 12/29/16 23:07 White Blood Count 14.7 #H Red Blood Count 2.87 L Hemoglobin 7.7 L Hematocrit 23.9 L Mean Corpuscular Volume 83.3 Mean Corpuscular Hemoglobin 26.8 L Mean Corpuscular Hemoglobin Concent 32.2 Red Cell Distribution Width 14.5 Platelet Count 116 #L Mean Platelet Volume 9.1 Neutrophils % Segmented Neutrophils % (Manual) 82 H Lymphocytes % (Manual) 14 L Reactive Lymphocytes % (Manual) 1 H Monocytes % (Manual) 4 Eosinophils % Nucleated Red Blood Cells % 0.0 Neutrophils # Absolute Lymphocytes (Manual) 2.0 Reactive Lymphocytes # 0.1 H Absolute Monocytes (Manual) 0.5 Eosinophils # Giant Platelets 1 H Platelet Morphology Comment @See below Hypochromasia 1+ Anisocytosis 1+ Macrocytosis 1+ Bedside Glucose 175 178 159 Test 12/30/16 00:36 12/30/16 02:26 12/30/16 04:34 12/30/16 04:43 Bedside Glucose 132 134 123 White Blood Count 15.5 H Red Blood Count 3.26 L Hemoglobin 9.1 L Hematocrit 27.6 L Mean Corpuscular Volume 84.7 Mean Corpuscular Hemoglobin 27.9 L Mean Corpuscular Hemoglobin Concent 33.0 Red Cell Distribution Width 14.5 Platelet Count 133 L Mean Platelet Volume 9.8 Neutrophils % 78.2 H Lymphocytes % 14.1 L Monocytes % 7.0 Eosinophils % 0.0 Basophils % 0.2 Nucleated Red Blood Cells % 0.0 Neutrophils # 12.1 H Lymphocytes # 2.2 Monocytes # 1.1 H Eosinophils # 0.0 Basophils # 0.0 Nucleated Red Blood Cells # 0.0 Sodium Level 142 Potassium Level 4.2 Chloride Level 106 Carbon Dioxide Level 25 Anion Gap 15 Blood Urea Nitrogen 15 Creatinine 0.88 Glucose Level 96 # Calcium Level 8.6 Magnesium Level 2.0 Total Bilirubin 1.1 Direct Bilirubin 0.00 Indirect Bilirubin 1.1 Aspartate Amino Transf (AST/SGOT) 170 H Alanine Aminotransferase (ALT/SGPT) 49 Alkaline Phosphatase 45 B-Type Natriuretic Peptide 2160 H Total Protein 6.7 Albumin 3.9 Globulin 2.80 Albumin/Globulin Ratio 1.39 Test 12/30/16 05:01 12/30/16 06:02 12/30/16 07:44 12/30/16 09:10 Lab Scanned Report BLOOD TRANSFUSION Bedside Glucose 112 80 147 Test 12/30/16 11:32 Bedside Glucose 186 Medications Medications Current Medications Losartan Potassium (Cozaar) 50 mg DAILY PO Last administered on 12/30/16 08:04 ; Admin Dose 50 MG; Start 12/28/16 at 09:00 Metoprolol Tartrate (Lopressor) 25 mg BID PO Last administered on 12/30/16 08: 04; Admin Dose 25 MG; Start 12/27/16 at 21:00 Hydromorphone HCl (Dilaudid) 0.2 mg Q15M PRN IV PAIN LEVEL 1-5 Last administered on 12/30/16 10:08; Admin Dose 0.2 MG; Start 12/28/16 at 17:30 Hydromorphone HCl (Dilaudid) 0.4 mg Q15M PRN IV PAIN LEVEL 6-10 Last administered on 12/28/16 19:17; Admin Dose 0.4 MG; Start 12/28/16 at 17:30 Hydromorphone HCl (Dilaudid) 0.2 mg Q1H PRN IV PAIN LEVEL 1-5; Start 12/28/16 at 17:30 Hydromorphone HCl (Dilaudid) 0.4 mg Q1H PRN IV PAIN LEVEL 6-10; Start at 17:30 Oxycodone/ Acetaminophen (Percocet (5/ 325)) 1 tab Q3H PRN PO PAIN LEVEL 1-5 Last administered on 12/29/16 14:06; Admin Dose 1 TAB; Start 12/28/16 at 17:30 Oxycodone/ Acetaminophen (Percocet (5/ 325)) 2 tab Q3H PRN PO PAIN LEVEL 6-10 Last administered on 12/30/16 07:41; Admin Dose 2 TAB; Start 12/28/16 at 17:30 Ondansetron HCl (Zofran Inj) 4 mg Q6H PRN IV NAUSEA AND/OR VOMITING; Start at 17:30 Famotidine (Pepcid Iv) 20 mg BID@08,20 IV Last administered on 12/30/16 08:04 ; Admin Dose 20 MG; Start 12/28/16 at 20:00 Aspirin (Aspirin) 325 mg DAILY PO Last administered on 12/30/16 08:04; Admin Dose 325 MG; Start 12/29/16 at 09:00 Acetaminophen (Tylenol Tab) 650 mg Q3H PRN PO ELEVATED TEMPERATURE Last administered on 12/29/16 10:17; Admin Dose 650 MG; Start 12/28/16 at 17:30 Acetaminophen 650 mg 650 mg Q3H PRN [place] ELEVATED TEMPERATURE Last administered on 12/29/16 00:30; Admin Dose 650 MG; Start 12/28/16 at 17:30 Magnesium Sulfate/ Dextrose 100 ml @ 100 mls/hr PRN PRN IVPB PENDING LAB VALUE ; Start 12/28/16 at 17:30 Albumin Human 250 ml @ 250 mls/hr PRN PRN IV NOTE Last administered on 08:06; Admin Dose 250 MLS/HR; Start 12/28/16 at 17:30 Lorazepam (Ativan) 1 mg Q8H PRN PO ANXIETY; Start 12/29/16 at 14:30 Diagnostic Test (Pha) (Accu-Chek) 1 ea 02 XX ; Start 12/31/16 at 02:00 Insulin Glargine (Lantus) 12 unit DAILY@08 SC ; Start 12/31/16 at 08:00 Miscellaneous Information 1 ea NOTE XX ; Start 12/30/16 at 10:00 Glucose (Glutose) 15 gm Q15M PRN PO DECREASED GLUCOSE; Start 12/30/16 at 10:00 Glucose (Glutose) 22.5 gm Q15M PRN PO DECREASED GLUCOSE; Start 12/30/16 at 10: 00 Dextrose (D50w Syringe) 25 ml Q15M PRN IV DECREASED GLUCOSE; Start 12/30/16 at 10:00 Dextrose (D50w Syringe) 50 ml Q15M PRN IV DECREASED GLUCOSE; Start 12/30/16 at 10:00 Glucagon (Glucagen) 1 mg Q15M PRN IM DECREASED GLUCOSE; Start 12/30/16 at 10:00 Glucose (Glutose) 15 gm Q15M PRN BUCCAL DECREASED GLUCOSE; Start 12/30/16 at 10 :00 LEONARDA CHAMPION MD Dec 30, 2016 12:31
[2016-12-30] MEDS ORDERED: SOD CHLORIDE 0.9% 500 ML IV ONE (13:00)
[2016-12-30] MEDS ORDERED: FUROSEMIDE 40 MG INJ IV ONE (14:00)
--- NOTE | 2016-12-30 14:19 | PN ---
Date/Time of Note Date/Time of Note DATE: 12/30/16 TIME: 14:17 Assessment/Plan VTE Prophylaxis VTE Prophylaxis Intervention: LMWH Lines/Catheters IV Catheter Type (from Nrs): Cordis Urinary Cath still in place: Yes Reason Cath still needed: urinary retention Assessment/Plan Chief Complaint/Hosp Course 56 yo male with CAD s/p CABG - Aspirin and statin indefinitely - BP control - EF wnl on TTE Hypernatremia: - Correct FW deficit CVA: - NCHCT suggests APPAREL STOCK CHECKER stroke, 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 MRI pending - Monitor for A Fib Dispo per CV surgery Problems: Subjective 24 Hr Interval Summary Free Text/Dictation CT suggestive of stroke in APPAREL STOCK CHECKER distribution, likely cardioembolic, MRI pending Feels well Vision seems to have improved Daughter notes memory impairment over past few months Exam/Review of Systems Vital Signs Vitals Vital Signs Date Time Temp Pulse Resp B/P Pulse Ox O2 Delivery O2 Flow Rate FiO2 12/30/16 13:00 91 26 97/68 100 Nasal Cannula 1.0 12/30/16 12:00 99.8 12/29/16 08:00 30 Intake and Output 12/29/16 12/29/16 12/30/16 15:00 23:00 07:00 Intake Total 1801.8 ml 1002 ml 568 ml Output Total 303 ml 366 ml 165 ml Balance 1498.8 ml 636 ml 403 ml Exam Constitutional: alert, oriented, well developed Psych: nl mood/affect, no complaints Head: atraumatic, normocephalic Eyes: EOMI, PERRL, nl conjunctiva, nl lids, nl sclera ENMT: nl external ears & nose, nl lips & teeth, nl nasal mucosa & septum Neck: non-tender, supple Respiratory: clear to auscultation, normal air movement Cardiovascular: nl pulses, regular rate and rhythm Gastrointestinal: nl liver, spleen, non-tender, soft Musculoskeletal: nl extremities to inspection, nl gait and stance Extremities: normal pulses Neurological: 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 II-XII intact, nl mental status, nl speech, nl strength Skin: nl turgor, No rash or lesions Lymph: nl lymph nodes Results Result Diagram: 12/30/16 0434 12/30/16 0434 Results 24 hrs Laboratory Tests Test 12/29/16 15:57 12/29/16 17:01 12/29/16 18:10 12/29/16 19:24 Bedside Glucose 145 169 Hematocrit 24.9 L 23.9 L White Blood Count 14.7 #H Red Blood Count 2.87 L Hemoglobin 7.7 L Mean Corpuscular Volume 83.3 Mean Corpuscular Hemoglobin 26.8 L Mean Corpuscular Hemoglobin Concent 32.2 Red Cell Distribution Width 14.5 Platelet Count 116 #L Mean Platelet Volume 9.1 Neutrophils % Segmented Neutrophils % (Manual) 82 H Lymphocytes % (Manual) 14 L Reactive Lymphocytes % (Manual) 1 H Monocytes % (Manual) 4 Eosinophils % Nucleated Red Blood Cells % 0.0 Neutrophils # Absolute Lymphocytes (Manual) 2.0 Reactive Lymphocytes # 0.1 H Absolute Monocytes (Manual) 0.5 Eosinophils # Giant Platelets 1 H Platelet Morphology Comment @See below Hypochromasia 1+ Anisocytosis 1+ Macrocytosis 1+ Test 12/29/16 20:19 12/29/16 21:59 12/29/16 23:07 12/30/16 00:36 Bedside Glucose 175 178 159 132 Test 12/30/16 02:26 12/30/16 04:34 12/30/16 04:43 12/30/16 05:01 Bedside Glucose 134 123 White Blood Count 15.5 H Red Blood Count 3.26 L Hemoglobin 9.1 L Hematocrit 27.6 L Mean Corpuscular Volume 84.7 Mean Corpuscular Hemoglobin 27.9 L Mean Corpuscular Hemoglobin Concent 33.0 Red Cell Distribution Width 14.5 Platelet Count 133 L Mean Platelet Volume 9.8 Neutrophils % 78.2 H Lymphocytes % 14.1 L Monocytes % 7.0 Eosinophils % 0.0 Basophils % 0.2 Nucleated Red Blood Cells % 0.0 Neutrophils # 12.1 H Lymphocytes # 2.2 Monocytes # 1.1 H Eosinophils # 0.0 Basophils # 0.0 Nucleated Red Blood Cells # 0.0 Sodium Level 142 Potassium Level 4.2 Chloride Level 106 Carbon Dioxide Level 25 Anion Gap 15 Blood Urea Nitrogen 15 Creatinine 0.88 Glucose Level 96 # Calcium Level 8.6 Magnesium Level 2.0 Total Bilirubin 1.1 Direct Bilirubin 0.00 Indirect Bilirubin 1.1 Aspartate Amino Transf (AST/SGOT) 170 H Alanine Aminotransferase (ALT/SGPT) 49 Alkaline Phosphatase 45 B-Type Natriuretic Peptide 2160 H Total Protein 6.7 Albumin 3.9 Globulin 2.80 Albumin/Globulin Ratio 1.39 Lab Scanned Report BLOOD TRANSFUSION Test 12/30/16 06:02 12/30/16 07:44 12/30/16 09:10 12/30/16 11:32 Bedside Glucose 112 80 147 186 Medications Medications Current Medications Losartan Potassium (Cozaar) 50 mg DAILY PO Last administered on 12/30/16 08:04 ; Admin Dose 50 MG; Start 12/28/16 at 09:00 Metoprolol Tartrate (Lopressor) 25 mg BID PO Last administered on 12/30/16 08: 04; Admin Dose 25 MG; Start 12/27/16 at 21:00 Hydromorphone HCl (Dilaudid) 0.2 mg Q15M PRN IV PAIN LEVEL 1-5 Last administered on 12/30/16 10:08; Admin Dose 0.2 MG; Start 12/28/16 at 17:30 Hydromorphone HCl (Dilaudid) 0.4 mg Q15M PRN IV PAIN LEVEL 6-10 Last administered on 12/28/16 19:17; Admin Dose 0.4 MG; Start 12/28/16 at 17:30 Hydromorphone HCl (Dilaudid) 0.2 mg Q1H PRN IV PAIN LEVEL 1-5; Start 12/28/16 at 17:30 Hydromorphone HCl (Dilaudid) 0.4 mg Q1H PRN IV PAIN LEVEL 6-10; Start at 17:30 Oxycodone/ Acetaminophen (Percocet (5/ 325)) 1 tab Q3H PRN PO PAIN LEVEL 1-5 Last administered on 12/29/16 14:06; Admin Dose 1 TAB; Start 12/28/16 at 17:30 Oxycodone/ Acetaminophen (Percocet (5/ 325)) 2 tab Q3H PRN PO PAIN LEVEL 6-10 Last administered on 12/30/16 07:41; Admin Dose 2 TAB; Start 12/28/16 at 17:30 Ondansetron HCl (Zofran Inj) 4 mg Q6H PRN IV NAUSEA AND/OR VOMITING; Start at 17:30 Famotidine (Pepcid Iv) 20 mg BID@08,20 IV Last administered on 12/30/16 08:04 ; Admin Dose 20 MG; Start 12/28/16 at 20:00 Aspirin (Aspirin) 325 mg DAILY PO Last administered on 12/30/16 08:04; Admin Dose 325 MG; Start 12/29/16 at 09:00 Acetaminophen (Tylenol Tab) 650 mg Q3H PRN PO ELEVATED TEMPERATURE Last administered on 12/29/16 10:17; Admin Dose 650 MG; Start 12/28/16 at 17:30 Acetaminophen 650 mg 650 mg Q3H PRN [place] ELEVATED TEMPERATURE Last administered on 12/29/16 00:30; Admin Dose 650 MG; Start 12/28/16 at 17:30 Magnesium Sulfate/ Dextrose 100 ml @ 100 mls/hr PRN PRN IVPB PENDING LAB VALUE ; Start 12/28/16 at 17:30 Albumin Human 250 ml @ 250 mls/hr PRN PRN IV NOTE Last administered on 08:06; Admin Dose 250 MLS/HR; Start 12/28/16 at 17:30 Lorazepam (Ativan) 1 mg Q8H PRN PO ANXIETY; Start 12/29/16 at 14:30 Diagnostic Test (Pha) (Accu-Chek) 1 ea 02 XX ; Start 12/31/16 at 02:00 Insulin Glargine (Lantus) 12 unit DAILY@08 SC ; Start 12/31/16 at 08:00 Miscellaneous Information 1 ea NOTE XX ; Start 12/30/16 at 10:00 Glucose (Glutose) 15 gm Q15M PRN PO DECREASED GLUCOSE; Start 12/30/16 at 10:00 Glucose (Glutose) 22.5 gm Q15M PRN PO DECREASED GLUCOSE; Start 12/30/16 at 10: 00 Dextrose (D50w Syringe) 25 ml Q15M PRN IV DECREASED GLUCOSE; Start 12/30/16 at 10:00 Dextrose (D50w Syringe) 50 ml Q15M PRN IV DECREASED GLUCOSE; Start 12/30/16 at 10:00 Glucagon (Glucagen) 1 mg Q15M PRN IM DECREASED GLUCOSE; Start 12/30/16 at 10:00 Glucose (Glutose) 15 gm Q15M PRN BUCCAL DECREASED GLUCOSE; Start 12/30/16 at 10 :00 JH MEZA MD Dec 30, 2016 14:19
--- NOTE | 2016-12-30 18:16 | RADRPT ---
PROCEDURE: Bilateral upper extremity venous ultrasound CLINICAL INDICATION: Bilateral upper extremity pain and swelling. Deep venous thrombosis. TECHNIQUE: Rizvi scale, color doppler, spectral doppler ultrasound imaging of the venous system of the bilateral upper extremities. Augmentation maneuvers were utilized. COMPARISON: No prior studies are available for comparison. FINDINGS: RIGHT: Internal jugular vein: Patent. Central line is present. Subclavian vein: Patent. Axillary vein: Patent. Brachial vein: Patent. Basilic vein: Patent. Cephalic vein: Patent. Radial vein: Patent. Ulnar vein: Patent. LEFT: Internal jugular vein: Patent. Subclavian vein: Patent. Axillary vein: Patent. Brachial vein: Patent. Basilic vein: Patent. Cephalic vein: Patent. Radial vein: Patent. Ulnar vein: Patent. IMPRESSION: No evidence of a deep vein thrombosis involving the bilateral upper extremities. RPTAT: AADD .Avinash Jarquin MD, MD Date Time Electronically viewed and signed by .Avinash Jarquin MD, on 12/30/2016 18:15 .B/
[2016-12-30] MEDS ORDERED: ALTEPLASE (CATHFLO) 2 MG INJ CATHETER PRN (19:30)
[2016-12-30] MEDS: ACETAMINOPHEN 325 MG TAB PO PRN ×2 (19:58→23:41)
--- NOTE | 2016-12-30 20:05 | PN ---
Date/Time of Note Date/Time of Note DATE: 12/30/16 TIME: 20:04 Assessment/Plan Lines/Catheters IV Catheter Type (from Nrsg): Cordis Vogel in Place (from Nrsg): Yes Assessment/Plan Chief Complaint/Hosp Course Status post coronary artery bypass grafting Hemodynamically stable Stable blood pressure and urine output Chest tube output minimal CT of the brain. Suspect an acute/recent infarct in the medial right occipital lobe and posterior right temporal lobe, likely in the right posterior cerebral artery distribution. Consider brain MRI for further evaluation. clinically improving We will continue supportive Chest tube suction MRI of the brain when stable discussed with the daughter Problems: Subjective 24 Hr Interval Summary Constitutional: improved Pain Control: mild Exam/Review of Systems Vital Signs Vitals Vital Signs Date Time Temp Pulse Resp B/P Pulse Ox O2 Delivery O2 Flow Rate FiO2 12/30/16 19:58 101.5 12/30/16 19:00 101 16 111/77 93 Nasal Cannula 2.0 12/29/16 08:00 30 Intake and Output 12/29/16 12/29/16 12/30/16 15:00 23:00 07:00 Intake Total 1801.8 ml 1002 ml 568 ml Output Total 303 ml 366 ml 165 ml Balance 1498.8 ml 636 ml 403 ml Exam ENMT: mucosa pink and moist, nl external ears & nose, nl lips & teeth, nl nasal mucosa & septum Neck: non-tender, supple Respiratory: clear to auscultation, normal air movement Cardiovascular: nl pulses, regular rate and rhythm Results Result Diagram: 12/30/16 0434 12/30/16 0434 TAYLOR JACQUES MD Dec 30, 2016 20:05
[2016-12-31] VITALS (49 sets, daily range): BP systolic 106–168; BP diastolic 51–108; PULSE 85–106; RESP 9–27
[2016-12-31] MEDS: HYDROmorphONE 0.5 MG/0.5 ML SYG IV PRN ×3 (00:43→20:44)
[2016-12-31] MEDS: ACCU-CHEK XX SCH (02:00)
--- NOTE | 2016-12-31 04:38 | RADRPT ---
AMENDMENT: 12/31/2016 8:32:58 AM Jenni Hardwick M.d Results were called to Jaspreet Richards at 12/31/2016 5:30 AM PROCEDURE: MR Brain without contrast. CLINICAL INDICATION: Severe CAD, recent open-heart surgery, stroke. TECHNIQUE: An MRI of the brain was performed on a GE short bore high-definition 1.5 nicko scanner utilizing the following sequences: Sagittal and axial T1 weighted, axial T2 weighted, coronal GRE, axial diffusion weighted with ADC mapping, and axial FLAIR. COMPARISON: CT BRAIN 12/29/2016 FINDINGS: The exam is degraded by motion. Linear T2, FLAIR hyperintensity is seen in the posterior left fronta l lobe. Right temporal occipital lobe hyperintensity is also seen with effacement of the sulci and mass effect on the posterior right lateral ventricle. There is associated restricted diffusion. Smal l subcortical hypodensities are seen in the posterior right parietal lobe on the diffusion weighted images. No hypointense signal abnormalities are seen on the GRE images to suggest the presence of blood degradation products. There is no evidence of intracranial hemorrhage or midline shift.. No extra-axial fluid collections are seen. The ventricles and sulci are normal in size.. The signal in tensity is normal throughout the brainstem, and cerebellum. Normal flow voids are visible in the pr oximal intracranial arteries and dural sinuses, indicating patency. The sellar, parasellar regions a re normal. The craniocervical junction is normal. There is mild mucosal thickening in the ethmoid and sphenoid sinuses. IMPRESSION: Small acute infarcts in the posterior left frontal and posterior right parietal lobe. Subacute right temporal occipital lobe infarct. No evidence of acute intercranial hemorrhage. Mild chronic ethmoid sphenoid sinusitis. Physician Becky Date Time Electronically viewed and signed by Physician Becky on 12/31/2016 05:33 /
--- NOTE | 2016-12-31 07:30 | RADRPT ---
PROCEDURE: XR Chest. CLINICAL INDICATION: Chest pain. TECHNIQUE: AP Portable chest. COMPARISON: No pertinent prior examinations were submitted for comparison. FINDINGS: There are multiple wires overlying the chest. Right IJ sheath, mediastinal drain and left chest tube remain in place. Sternotomy wires are visualized. The cardiomediastinal silhouette is enlarged. The lung volumes are low. There is increased perihilar interstitial densities. Retrocardiac opacity and pleural effusion are again demonstrated. The left hemidiaphragm is obscured.. No pneumothorax is identified. The osseous structures are intact. IMPRESSION: Mediastinal drain and chest tube in place. Low lung volumes. Increase edema. Small left pleural effusion and basilar opacity, likely atelectasi s. Cardiomegaly. Physician Becky Date Time Electronically viewed and signed by Physician Becky on 12/31/2016 07:29 /
[2016-12-31] MEDS: INSULIN ASPART [NOVOLOG] 3 ML PEN SC SCH ×3 (08:20→17:29)
[2016-12-31] MEDS: LOSARTAN 50 MG TAB PO SCH (08:27)
[2016-12-31] MEDS: METOPROLOL 25 MG TAB PO SCH ×2 (08:28→22:14)
[2016-12-31] MEDS: ASPIRIN 325 MG TAB PO SCH (08:28)
[2016-12-31] MEDS: FAMOTIDINE 20 MG INJ IV SCH ×2 (08:31→20:36)
[2016-12-31] MEDS: INSULIN GLARGINE [LANtus] 3 ML PEN SC SCH (08:32)
[2016-12-31] MEDS: POTASSIUM CHLORIDE 50 ML IVPB PRN (08:44)
[2016-12-31] MEDS: LORAZEPAM 1 MG TAB PO PRN (09:22)
[2016-12-31] MEDS ORDERED: VANCOMYCIN IV PER PHARMACY XX SCH (09:30)
[2016-12-31] MEDS ORDERED: PIPER-TAZO 3.375 GM IV (PMX) 50 ML IVPB SCH (10:00)
--- NOTE | 2016-12-31 10:05 | CONS ---
Date/Time of Note Date/Time of Note DATE: 12/31/16 TIME: 10:05 Assessment/Plan Assessment/Plan Additional Assessment/Plan ASSESSMENT: 1. Acute Hypernatremia 2. CAD s/p CABG on 12/28/16 3. HTN 4. HL 5. DM II Plan: s/p albumin 25% 100ml IV x 1 followed up by NS bolus 500 cc IV x 1 then Lasix 40mg iV x 1 yesteday, urine output More t snow 1 liter, will give another lasix 40 mg IV x 1 today Na improved to 138, Cr improved to normal, on Lovenox 1mg/kg SQ BID Conitnue BP meds Monitor electrolytes and replace as needed. will follow up Consultation Date/Type/Reason Admit Date/Time Dec 27, 2016 at 11:23 Initial Consult Date 12/30/16 Type of Consultation: NEPHROLOGY Referring Provider: JH MEZA MD 24 HR Interval Summary Free Text/Dictation Hb dropped to 6.7, BP stable, afebrile Exam/Review of Systems Vital Signs Vitals Vital Signs Date Time Temp Pulse Resp B/P Pulse Ox O2 Delivery O2 Flow Rate FiO2 12/31/16 07:00 90 9 115/83 100 Nasal Cannula 3.0 12/31/16 04:00 99.8 12/29/16 08:00 30 Intake and Output 12/30/16 12/30/16 12/31/16 15:00 23:00 07:00 Intake Total 2331 ml 300 ml 240 ml Output Total 153 ml 694 ml 355 ml Balance 2178 ml -394 ml -115 ml Exam Constitutional: alert, oriented, well developed Neck: non-tender, supple Respiratory: clear to auscultation, normal air movement Cardiovascular: nl pulses, regular rate and rhythm Gastrointestinal: nl liver, spleen, non-tender, soft Musculoskeletal: nl extremities to inspection Extremities: normal pulses Neurological: C.O.D. 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 CLERK II-XII intact, nl mental status, nl speech, nl strength Results Result Diagram: 12/31/1639912/31/16399 Results 24 hrs Laboratory Tests Test 12/30/16 11:32 12/30/16 17:18 12/31/16 01:29 12/31/16 04:00 Bedside Glucose 186 163 136 White Blood Count 11.3 #H Red Blood Count 2.42 #L Hemoglobin 6.7 #*L Hematocrit 20.8 #L Mean Corpuscular Volume 86.0 Mean Corpuscular Hemoglobin 27.7 L Mean Corpuscular Hemoglobin Concent 32.2 Red Cell Distribution Width 14.6 H Platelet Count 93 #L Mean Platelet Volume 10.3 Neutrophils % 77.4 H Lymphocytes % 16.7 Monocytes % 5.1 Eosinophils % 0.2 Basophils % 0.1 Nucleated Red Blood Cells % 0.2 H Neutrophils # 8.8 H Lymphocytes # 1.9 Monocytes # 0.6 Eosinophils # 0.0 Basophils # 0.0 Nucleated Red Blood Cells # 0.0 Sodium Level 138 Potassium Level 4.6 Chloride Level 104 Carbon Dioxide Level 21 Anion Gap 18 H Blood Urea Nitrogen 23 H Creatinine 0.87 Glucose Level 130 Hemoglobin A1c 6.4 H Calcium Level 8.2 L Magnesium Level 2.0 Medications Medications Current Medications Losartan Potassium (Cozaar) 50 mg DAILY PO Last administered on 12/31/16 08:27 ; Admin Dose 50 MG; Start 12/28/16 at 09:00 Metoprolol Tartrate (Lopressor) 25 mg BID PO Last administered on 12/31/16 08: 28; Admin Dose 25 MG; Start 12/27/16 at 21:00 Hydromorphone HCl (Dilaudid) 0.2 mg Q15M PRN IV PAIN LEVEL 1-5 Last administered on 12/30/16 10:08; Admin Dose 0.2 MG; Start 12/28/16 at 17:30 Hydromorphone HCl (Dilaudid) 0.4 mg Q15M PRN IV PAIN LEVEL 6-10 Last administered on 12/28/16 19:17; Admin Dose 0.4 MG; Start 12/28/16 at 17:30 Hydromorphone HCl (Dilaudid) 0.2 mg Q1H PRN IV PAIN LEVEL 1-5; Start 12/28/16 at 17:30 Hydromorphone HCl (Dilaudid) 0.4 mg Q1H PRN IV PAIN LEVEL 6-10 Last administered on 12/31/16 04:35; Admin Dose 0.4 MG; Start 12/28/16 at 17:30 Oxycodone/ Acetaminophen (Percocet (5/ 325)) 1 tab Q3H PRN PO PAIN LEVEL 1-5 Last administered on 12/29/16 14:06; Admin Dose 1 TAB; Start 12/28/16 at 17:30 Oxycodone/ Acetaminophen (Percocet (5/ 325)) 2 tab Q3H PRN PO PAIN LEVEL 6-10 Last administered on 12/30/16 14:43; Admin Dose 2 TAB; Start 12/28/16 at 17:30 Ondansetron HCl (Zofran Inj) 4 mg Q6H PRN IV NAUSEA AND/OR VOMITING; Start at 17:30 Famotidine (Pepcid Iv) 20 mg BID@08,20 IV Last administered on 12/31/16 08:31 ; Admin Dose 20 MG; Start 12/28/16 at 20:00 Aspirin (Aspirin) 325 mg DAILY PO Last administered on 12/31/16 08:28; Admin Dose 325 MG; Start 12/29/16 at 09:00 Acetaminophen (Tylenol Tab) 650 mg Q3H PRN PO ELEVATED TEMPERATURE Last administered on 12/30/16 23:41; Admin Dose 650 MG; Start 12/28/16 at 17:30 Acetaminophen 650 mg 650 mg Q3H PRN [place] ELEVATED TEMPERATURE Last administered on 12/29/16 00:30; Admin Dose 650 MG; Start 12/28/16 at 17:30 Magnesium Sulfate/ Dextrose 100 ml @ 100 mls/hr PRN PRN IVPB PENDING LAB VALUE ; Start 12/28/16 at 17:30 Albumin Human 250 ml @ 250 mls/hr PRN PRN IV NOTE Last administered on 08:06; Admin Dose 250 MLS/HR; Start 12/28/16 at 17:30 Lorazepam (Ativan) 1 mg Q8H PRN PO ANXIETY Last administered on 12/31/16 09:22 ; Admin Dose 1 MG; Start 12/29/16 at 14:30 Diagnostic Test (Pha) (Accu-Chek) 1 ea 02 XX ; Start 12/31/16 at 02:00 Insulin Glargine (Lantus) 12 unit DAILY@08 SC Last administered on 12/31/16 08 :32; Admin Dose 12 UNIT; Start 12/31/16 at 08:00 Miscellaneous Information 1 ea NOTE XX ; Start 12/30/16 at 10:00 Glucose (Glutose) 15 gm Q15M PRN PO DECREASED GLUCOSE; Start 12/30/16 at 10:00 Glucose (Glutose) 22.5 gm Q15M PRN PO DECREASED GLUCOSE; Start 12/30/16 at 10: 00 Dextrose (D50w Syringe) 25 ml Q15M PRN IV DECREASED GLUCOSE; Start 12/30/16 at 10:00 Dextrose (D50w Syringe) 50 ml Q15M PRN IV DECREASED GLUCOSE; Start 12/30/16 at 10:00 Glucagon (Glucagen) 1 mg Q15M PRN IM DECREASED GLUCOSE; Start 12/30/16 at 10:00 Glucose 15 gm 15 gm Q15M PRN BUCCAL DECREASED GLUCOSE; Start 12/30/16 at 10:00 Piperacillin Sod/ Tazobactam Sod 50 ml @ 25 mls/hr TID@,,18 IVPB ; Start at 10:00 Vancomycin HCl 1.5 gm/Sodium Chloride 250 ml @ 83.333 mls/ hr ONCE IVPB ; Start 12/31/16 at 10:30; Stop 12/31/16 at 13:29 Vancomycin HCl 750 mg/Dextrose/ Water 150 ml @ 75 mls/hr Q12H IVPB ; Start 12/31/16 at 22:00 Magnesium Sulfate/ Dextrose (Magnesium Sulfate/D5W) 106 ml @ 35.333 mls/ hr Q1H IV ; Start 12/31/16 at 10:30; Stop 12/31/16 at 12:29 LEONARDA CHAMPION MD Dec 31, 2016 10:05
[2016-12-31] MEDS ORDERED: POTASSIUM CHLORIDE 20 MEQ in DEXTROSE 5% 100 ML IV SCH (10:30)
[2016-12-31] MEDS ORDERED: MAGNESIUM SULFATE 3 GM in DEXTROSE 5% 100 ML IV SCH (10:30)
[2016-12-31] MEDS ORDERED: VANCOMYCIN 1.5 GM in SOD CHLORIDE 0.9% 250 ML IVPB SCH (10:30)
[2016-12-31] MEDS: OXYCODONE/ACETAMINOPHEN (5/325) TAB PO PRN (12:16)
--- NOTE | 2016-12-31 14:07 | RADRPT ---
Vent Rate: 98 bpm RR Interval: 0 msec [place] Interval: 116 msec QRS Duration: 86 msec QT Interval: 354 msec QTC Interval: 451 msec P-R-T [place]: 41 - 24 - -11 degrees Normal sinus rhythm ST elevations, consider lateral injury, possibly acute Nonspecific T wave abnormality Abnormal ECG Electronically Signed By: Duran Rasheed [id number]
--- NOTE | 2016-12-31 14:07 | RADRPT ---
Vent Rate: 98 bpm RR Interval: 0 msec [place] Interval: 116 msec QRS Duration: 86 msec QT Interval: 354 msec QTC Interval: 451 msec P-R-T [place]: 41 - 24 - -11 degrees Normal sinus rhythm ST elevations, consider lateral injury, possibly acute Nonspecific T wave abnormality Abnormal ECG Electronically Signed By: Duran Rasheed [id number]
--- NOTE | 2016-12-31 14:07 | RADRPT ---
Vent Rate: 98 bpm RR Interval: 0 msec [place] Interval: 116 msec QRS Duration: 86 msec QT Interval: 354 msec QTC Interval: 451 msec P-R-T [place]: 41 - 24 - -11 degrees Normal sinus rhythm ST elevations, consider lateral injury, possibly acute Nonspecific T wave abnormality Abnormal ECG Electronically Signed By: Duran Rasheed [id number]
--- NOTE | 2016-12-31 14:10 | RADRPT ---
Vent Rate: 92 bpm RR Interval: 0 msec [place] Interval: 114 msec QRS Duration: 78 msec QT Interval: 350 msec QTC Interval: 432 msec P-R-T [place]: 55 - 54 - 1 degrees Normal sinus rhythm ST elevation, consider lateral and inferior injury ACUTE [place] Abnormal ECG Electronically Signed By: Duran Rasheed [id number]
--- NOTE | 2016-12-31 14:10 | RADRPT ---
Vent Rate: 92 bpm RR Interval: 0 msec [place] Interval: 114 msec QRS Duration: 78 msec QT Interval: 350 msec QTC Interval: 432 msec P-R-T [place]: 55 - 54 - 1 degrees Normal sinus rhythm ST elevation, consider lateral and inferior injury ACUTE [place] Abnormal ECG Electronically Signed By: Duran Rasheed [id number]
--- NOTE | 2016-12-31 14:10 | RADRPT ---
Vent Rate: 92 bpm RR Interval: 0 msec [place] Interval: 114 msec QRS Duration: 78 msec QT Interval: 350 msec QTC Interval: 432 msec P-R-T [place]: 55 - 54 - 1 degrees Normal sinus rhythm ST elevation, consider lateral and inferior injury ACUTE [place] Abnormal ECG Electronically Signed By: Duran Rasheed [id number]
[2016-12-31] MEDS ORDERED: FUROSEMIDE 40 MG INJ IV ONE (14:30)
--- NOTE | 2016-12-31 15:00 | RADRPT ---
PROCEDURE: MRA Neck without contrast. CLINICAL INDICATION: Blurred vision. Stroke. TECHNIQUE: An MRA of the major cervical arteries was performed on the 1.5 nicko scanner utilizing axial 2D time of flight. No IV contrast was given as ordered. Source and MIPPED images were reviewe d. COMPARISON: No prior studies are available for comparison. FINDINGS: Study was extremely limited due to patient cooperation and motion. The the patient refused to contin ue or study. Best possible images were obtained. The common carotid arteries are patent and normal in caliber. The right carotid artery bulb appears mildly narrowed likely secondary to atherosclerotic plaque. Th is results in less than 50% maximal luminal stenosis by NASCET criteria. The distal right internal c arotid artery appears grossly normal in course and caliber. The right external carotid artery and it s branches appear grossly patent. The left internal carotid artery bulb and internal carotid artery appear grossly patent and normal in caliber. The left external carotid artery and its branches appear grossly patent. The vertebral arteries are patent and normal in caliber bilaterally. No evidence of vascular occlusi on. Dominant left vertebral artery. IMPRESSION: 1. Markedly limited study demonstrating gross patency of intracranial neck vessels with mild narrowi ng of the right internal carotid artery bulb as described above. 2. CT angiography, if not contraindicated, is recommended for further evaluation. Otherwise imaging with sedation may be considered. RPTAT:AAJJ Physician Elisabeth Date Time Electronically viewed and signed by Physician Elisabeth on 12/31/2016 14:59 AKBAR/
--- NOTE | 2016-12-31 15:33 | PN ---
Date/Time of Note Date/Time of Note DATE: 12/31/16 TIME: 15:31 Assessment/Plan VTE Prophylaxis VTE Prophylaxis Intervention: LMWH Lines/Catheters IV Catheter Type (from Nrsg): Cordis Urinary Cath still in place: Yes Reason Cath still needed: urinary retention Assessment/Plan Chief Complaint/Hosp Course 56 yo male with CAD s/p CABG CAD s/p CABG: - Aspirin and statin indefinitely - BP control - EF wnl on TTE - Management of chest drain/tube per CV surg Fever: - Maybe be a simple post-op fever, but given persistence of fever I have started trial of empiric abx, dc in coming 2 days if cultures neg or no effect Hypernatremia: - Correct FW deficit CVA: - 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 MRI pending - Monitor for A Fib Dispo per CV surgery Problems: Subjective 24 Hr Interval Summary Free Text/Dictation Still with persistent fever, started on empiric abx Tranfsused PRBCs for anemia, lovenox stopped A bit confused Denies CP, denies SOB Exam/Review of Systems Vital Signs Vitals Vital Signs Date Time Temp Pulse Resp B/P Pulse Ox O2 Delivery O2 Flow Rate FiO2 12/31/16 12:45 97 25 137/91 99 12/31/16 12:30 98.7 12/31/16 10:14 2.0 12/31/16 07:00 Nasal Cannula 12/29/16 08:00 30 Intake and Output 12/30/16 12/30/16 12/31/16 15:00 23:00 07:00 Intake Total 2331 ml 300 ml 240 ml Output Total 153 ml 694 ml 355 ml Balance 2178 ml -394 ml -115 ml Results Result Diagram: 12/31/16 0400 12/31/16 0400 Results 24 hrs Laboratory Tests Test 12/30/16 17:18 12/31/16 01:29 12/31/16 04:00 Bedside Glucose 163 136 White Blood Count 11.3 #H Red Blood Count 2.42 #L Hemoglobin 6.7 #*L Hematocrit 20.8 #L Mean Corpuscular Volume 86.0 Mean Corpuscular Hemoglobin 27.7 L Mean Corpuscular Hemoglobin Concent 32.2 Red Cell Distribution Width 14.6 H Platelet Count 93 #L Mean Platelet Volume 10.3 Neutrophils % 77.4 H Lymphocytes % 16.7 Monocytes % 5.1 Eosinophils % 0.2 Basophils % 0.1 Nucleated Red Blood Cells % 0.2 H Neutrophils # 8.8 H Lymphocytes # 1.9 Monocytes # 0.6 Eosinophils # 0.0 Basophils # 0.0 Nucleated Red Blood Cells # 0.0 Sodium Level 138 Potassium Level 4.6 Chloride Level 104 Carbon Dioxide Level 21 Anion Gap 18 H Blood Urea Nitrogen 23 H Creatinine 0.87 Glucose Level 130 Hemoglobin A1c 6.4 H Calcium Level 8.2 L Magnesium Level 2.0 Medications Medications Current Medications Losartan Potassium (Cozaar) 50 mg DAILY PO Last administered on 12/31/16 08:27 ; Admin Dose 50 MG; Start 12/28/16 at 09:00 Metoprolol Tartrate (Lopressor) 25 mg BID PO Last administered on 12/31/16 08: 28; Admin Dose 25 MG; Start 12/27/16 at 21:00 Hydromorphone HCl (Dilaudid) 0.2 mg Q15M PRN IV PAIN LEVEL 1-5 Last administered on 12/30/16 10:08; Admin Dose 0.2 MG; Start 12/28/16 at 17:30 Hydromorphone HCl (Dilaudid) 0.4 mg Q15M PRN IV PAIN LEVEL 6-10 Last administered on 12/28/16 19:17; Admin Dose 0.4 MG; Start 12/28/16 at 17:30 Hydromorphone HCl (Dilaudid) 0.2 mg Q1H PRN IV PAIN LEVEL 1-5; Start 12/28/16 at 17:30 Hydromorphone HCl (Dilaudid) 0.4 mg Q1H PRN IV PAIN LEVEL 6-10 Last administered on 12/31/16 04:35; Admin Dose 0.4 MG; Start 12/28/16 at 17:30 Oxycodone/ Acetaminophen (Percocet (5/ 325)) 1 tab Q3H PRN PO PAIN LEVEL 1-5 Last administered on 12/31/16 12:16; Admin Dose 1 TAB; Start 12/28/16 at 17:30 Oxycodone/ Acetaminophen (Percocet (5/ 325)) 2 tab Q3H PRN PO PAIN LEVEL 6-10 Last administered on 12/30/16 14:43; Admin Dose 2 TAB; Start 12/28/16 at 17:30 Ondansetron HCl (Zofran Inj) 4 mg Q6H PRN IV NAUSEA AND/OR VOMITING; Start at 17:30 Famotidine (Pepcid Iv) 20 mg BID@08,20 IV Last administered on 12/31/16 08:31 ; Admin Dose 20 MG; Start 12/28/16 at 20:00 Aspirin (Aspirin) 325 mg DAILY PO Last administered on 12/31/16 08:28; Admin Dose 325 MG; Start 12/29/16 at 09:00 Acetaminophen (Tylenol Tab) 650 mg Q3H PRN PO ELEVATED TEMPERATURE Last administered on 12/30/16 23:41; Admin Dose 650 MG; Start 12/28/16 at 17:30 Acetaminophen 650 mg 650 mg Q3H PRN [place] ELEVATED TEMPERATURE Last administered on 12/29/16 00:30; Admin Dose 650 MG; Start 12/28/16 at 17:30 Magnesium Sulfate/ Dextrose 100 ml @ 100 mls/hr PRN PRN IVPB PENDING LAB VALUE ; Start 12/28/16 at 17:30 Albumin Human 250 ml @ 250 mls/hr PRN PRN IV NOTE Last administered on 08:06; Admin Dose 250 MLS/HR; Start 12/28/16 at 17:30 Lorazepam (Ativan) 1 mg Q8H PRN PO ANXIETY Last administered on 12/31/16 09:22 ; Admin Dose 1 MG; Start 12/29/16 at 14:30 Diagnostic Test (Pha) (Accu-Chek) 1 ea 02 XX ; Start 12/31/16 at 02:00 Insulin Glargine (Lantus) 12 unit DAILY@08 SC Last administered on 12/31/16 08 :32; Admin Dose 12 UNIT; Start 12/31/16 at 08:00 Miscellaneous Information 1 ea NOTE XX ; Start 12/30/16 at 10:00 Glucose (Glutose) 15 gm Q15M PRN PO DECREASED GLUCOSE; Start 12/30/16 at 10:00 Glucose (Glutose) 22.5 gm Q15M PRN PO DECREASED GLUCOSE; Start 12/30/16 at 10: 00 Dextrose (D50w Syringe) 25 ml Q15M PRN IV DECREASED GLUCOSE; Start 12/30/16 at 10:00 Dextrose (D50w Syringe) 50 ml Q15M PRN IV DECREASED GLUCOSE; Start 12/30/16 at 10:00 Glucagon (Glucagen) 1 mg Q15M PRN IM DECREASED GLUCOSE; Start 12/30/16 at 10:00 Glucose 15 gm 15 gm Q15M PRN BUCCAL DECREASED GLUCOSE; Start 12/30/16 at 10:00 Piperacillin Sod/ Tazobactam Sod 50 ml @ 200 mls/hr Q8 IVPB ; Start 12/31/16 at 22:00 Vancomycin HCl (Vancocin) 250 ml @ 125 mls/hr Q12H IVPB ; Start 12/31/16 at 20: 00 JH MEZA MD Dec 31, 2016 15:33
--- NOTE | 2016-12-31 15:49 | CONS ---
Date/Time of Note Date/Time of Note DATE: 12/31/16 TIME: 15:47 Consult Date/Type/Reason Admit Date/Time Dec 27, 2016 at 11:23 Initial Consult Date 12/27/16 Type of Consultation: cardiology Ordering Provider: JH MEZA MD Subjective cardiology follow up note/ critical care note: S: D/W staff and rhythm was reviewed. d/w daughter. pt s/p CABG pt is extubated but still in ICU. off of pressors. pt with more confusion today CT has shown evidence of possible acute/ subacute CVA MRI is still pending O: General: NO acute distress HEENT: NC/AT. pupils are equal. round. NECK: s/p IJ catheter . no stridor. CV: RRR. systolic murmur; no gallop or rubs. PULM: no wheezing or rhonchi. GI: SOFT, NT, ND, no rebound or guarding Extremity: trace B/L LE edema. no clubbing. neuro: Awake and follows commands. Ox 2 with slurred speech chest : s/p chest tube. s/p sternotomy Psych: calm and pleasant rectal: deferred : normal male magalis angio 12/27/16: 1. Left main: 90% distal disease. 2. LAD: Large caliber vessel with no significant disease. 3. Circumflex: proximal to mid 70-80% diffuse disease 4. Obtuse marginal: Medium caliber vessel with no significant disease. 5. RCA: Large dominant vessel with distal 90% stent re-stenosis; prominent left to right collaterals via PDA ECHO: 1. Lower limits of normal systolic function. Normal left ventricular cavity size. Left ventricular wall thickness upper limits of normal. Ejection fraction is visually estimated at 50 %. Tissue Doppler/Mitral Doppler indices are consistent with impaired relaxation (Stage I diastolic dysfunction). These segments of the LV are hypokinetic apex. 2. Mild mitral leaflet calcification. Mild mitral annular calcification. Trace mitral regurgitation. 3. No significant aortic stenosis. Aortic cusps appear mildly calcified. Trace aortic valve regurgitation. 4. Normal appearance of the tricuspid valve. Estimated peak PA systolic pressure 38 mmHg. There is mild tricuspid regurgitation. CT HEAD 12/29/16: IMPRESSION: 1. Suspect an acute/recent infarct in the medial right occipital lobe and posterior right temporal lobe, likely in the right posterior cerebral artery distribution. Consider brain MRI for further evaluation. 2. No acute intracranial hemorrhage. 3. Mild intracranial atherosclerosis and chronic small vessel ischemic changes. 4. Mild generalized cerebral volume loss. Objective Vital Signs Date Time Temp Pulse Resp B/P Pulse Ox O2 Delivery O2 Flow Rate FiO2 12/31/16 12:45 97 25 137/91 99 12/31/16 12:30 98.7 12/31/16 10:14 2.0 12/31/16 07:00 Nasal Cannula 12/29/16 08:00 30 Intake and Output 12/30/16 12/30/16 12/31/16 15:00 23:00 07:00 Intake Total 2331 ml 300 ml 240 ml Output Total 153 ml 694 ml 355 ml Balance 2178 ml -394 ml -115 ml Results/Medications Result Diagram: 12/31/160 12/31/16 0400 Results 24 hrs Laboratory Tests Test 12/30/16 17:18 12/31/16 01:29 12/31/16 04:00 Bedside Glucose 163 136 White Blood Count 11.3 #H Red Blood Count 2.42 #L Hemoglobin 6.7 #*L Hematocrit 20.8 #L Mean Corpuscular Volume 86.0 Mean Corpuscular Hemoglobin 27.7 L Mean Corpuscular Hemoglobin Concent 32.2 Red Cell Distribution Width 14.6 H Platelet Count 93 #L Mean Platelet Volume 10.3 Neutrophils % 77.4 H Lymphocytes % 16.7 Monocytes % 5.1 Eosinophils % 0.2 Basophils % 0.1 Nucleated Red Blood Cells % 0.2 H Neutrophils # 8.8 H Lymphocytes # 1.9 Monocytes # 0.6 Eosinophils # 0.0 Basophils # 0.0 Nucleated Red Blood Cells # 0.0 Sodium Level 138 Potassium Level 4.6 Chloride Level 104 Carbon Dioxide Level 21 Anion Gap 18 H Blood Urea Nitrogen 23 H Creatinine 0.87 Glucose Level 130 Hemoglobin A1c 6.4 H Calcium Level 8.2 L Magnesium Level 2.0 Medications Current Medications Losartan Potassium (Cozaar) 50 mg DAILY PO Last administered on 12/31/16 08:27 ; Admin Dose 50 MG; Start 12/28/16 at 09:00 Metoprolol Tartrate (Lopressor) 25 mg BID PO Last administered on 12/31/16 08: 28; Admin Dose 25 MG; Start 12/27/16 at 21:00 Hydromorphone HCl (Dilaudid) 0.2 mg Q15M PRN IV PAIN LEVEL 1-5 Last administered on 12/30/16 10:08; Admin Dose 0.2 MG; Start 12/28/16 at 17:30 Hydromorphone HCl (Dilaudid) 0.4 mg Q15M PRN IV PAIN LEVEL 6-10 Last administered on 12/28/16 19:17; Admin Dose 0.4 MG; Start 12/28/16 at 17:30 Hydromorphone HCl (Dilaudid) 0.2 mg Q1H PRN IV PAIN LEVEL 1-5; Start 12/28/16 at 17:30 Hydromorphone HCl (Dilaudid) 0.4 mg Q1H PRN IV PAIN LEVEL 6-10 Last administered on 12/31/16 04:35; Admin Dose 0.4 MG; Start 12/28/16 at 17:30 Oxycodone/ Acetaminophen (Percocet (5/ 325)) 1 tab Q3H PRN PO PAIN LEVEL 1-5 Last administered on 12/31/16 12:16; Admin Dose 1 TAB; Start 12/28/16 at 17:30 Oxycodone/ Acetaminophen (Percocet (5/ 325)) 2 tab Q3H PRN PO PAIN LEVEL 6-10 Last administered on 12/30/16 14:43; Admin Dose 2 TAB; Start 12/28/16 at 17:30 Ondansetron HCl (Zofran Inj) 4 mg Q6H PRN IV NAUSEA AND/OR VOMITING; Start at 17:30 Famotidine (Pepcid Iv) 20 mg BID@08,20 IV Last administered on 12/31/16 08:31 ; Admin Dose 20 MG; Start 12/28/16 at 20:00 Aspirin (Aspirin) 325 mg DAILY PO Last administered on 12/31/16 08:28; Admin Dose 325 MG; Start 12/29/16 at 09:00 Acetaminophen (Tylenol Tab) 650 mg Q3H PRN PO ELEVATED TEMPERATURE Last administered on 12/30/16 23:41; Admin Dose 650 MG; Start 12/28/16 at 17:30 Acetaminophen 650 mg 650 mg Q3H PRN [place] ELEVATED TEMPERATURE Last administered on 12/29/16 00:30; Admin Dose 650 MG; Start 12/28/16 at 17:30 Magnesium Sulfate/ Dextrose 100 ml @ 100 mls/hr PRN PRN IVPB PENDING LAB VALUE ; Start 12/28/16 at 17:30 Albumin Human 250 ml @ 250 mls/hr PRN PRN IV NOTE Last administered on 08:06; Admin Dose 250 MLS/HR; Start 12/28/16 at 17:30 Lorazepam (Ativan) 1 mg Q8H PRN PO ANXIETY Last administered on 12/31/16 09:22 ; Admin Dose 1 MG; Start 12/29/16 at 14:30 Diagnostic Test (Pha) (Accu-Chek) 1 ea 02 XX ; Start 12/31/16 at 02:00 Insulin Glargine (Lantus) 12 unit DAILY@08 SC Last administered on 12/31/16 08 :32; Admin Dose 12 UNIT; Start 12/31/16 at 08:00 Miscellaneous Information 1 ea NOTE XX ; Start 12/30/16 at 10:00 Glucose (Glutose) 15 gm Q15M PRN PO DECREASED GLUCOSE; Start 12/30/16 at 10:00 Glucose (Glutose) 22.5 gm Q15M PRN PO DECREASED GLUCOSE; Start 12/30/16 at 10: 00 Dextrose (D50w Syringe) 25 ml Q15M PRN IV DECREASED GLUCOSE; Start 12/30/16 at 10:00 Dextrose (D50w Syringe) 50 ml Q15M PRN IV DECREASED GLUCOSE; Start 12/30/16 at 10:00 Glucagon (Glucagen) 1 mg Q15M PRN IM DECREASED GLUCOSE; Start 12/30/16 at 10:00 Glucose 15 gm 15 gm Q15M PRN BUCCAL DECREASED GLUCOSE; Start 12/30/16 at 10:00 Piperacillin Sod/ Tazobactam Sod 50 ml @ 200 mls/hr Q8 IVPB ; Start 12/31/16 at 22:00 Vancomycin HCl (Vancocin) 250 ml @ 125 mls/hr Q12H IVPB ; Start 12/31/16 at 20: 00 Assessment/Plan Chief Complaint/Hosp Course 1. S/P resp failure: s/p intubation post op now pt is extubated. 2. 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 HTN 4. DM 5. Dyslipidemia 6/ hx VA 7/ HX PCI 8/ Moderate carotid stenosis 9. shock 10. post op anemia: stable will monitor for now. 11. post op CVA cont post op care replace lytes prn cont ICU care ASA Statin permissive HTN for next couple of days . neurology consultations/ evaluation and treatment as per IM. more than 36 min of critical care time was spent in management and treatment of this critically ill patient excluding any procedures. Thank you for this referral. We will continue to follow along with you. ROMMEL JIMÉNEZ MD [facility] Problems: ROMMEL JIMÉNEZ MD Dec 31, 2016 15:49
--- NOTE | 2016-12-31 18:55 | PN ---
Date/Time of Note Date/Time of Note DATE: 12/31/16 TIME: 18:53 Assessment/Plan Lines/Catheters IV Catheter Type (from Nrsg): Cordis Vogel in Place (from Nrsg): Yes Assessment/Plan Chief Complaint/Hosp Course Status post coronary artery bypass grafting Hemodynamically stable Stable blood pressure and urine output Chest tube output minimal CT of the brain. Suspect an acute/recent infarct in the medial right occipital lobe and posterior right temporal lobe, likely in the right posterior cerebral artery distribution. Consider brain MRI for further evaluation. clinically improving We will continue supportive Chest tube suction MRA The right carotid artery bulb appears mildly narrowed likely secondary to atherosclerotic plaque. This results in less than 50% maximal luminal stenosis by NASCET criteria. discussed with the daughter Problems: Subjective 24 Hr Interval Summary Constitutional: improved Pain Control: mild Exam/Review of Systems Vital Signs Vitals Vital Signs Date Time Temp Pulse Resp B/P Pulse Ox O2 Delivery O2 Flow Rate FiO2 12/31/16 17:30 98 24 130/91 97 12/31/16 17:00 98.9 12/31/16 10:14 2.0 12/31/16 08:00 Nasal Cannula 12/29/16 08:00 30 Intake and Output 12/30/16 12/30/16 12/31/16 15:00 23:00 07:00 Intake Total 2331 ml 300 ml 240 ml Output Total 153 ml 694 ml 376 ml Balance 2178 ml -394 ml -136 ml Exam ENMT: mucosa pink and moist, nl external ears & nose, nl lips & teeth, nl nasal mucosa & septum Neck: non-tender, supple Respiratory: clear to auscultation, normal air movement Cardiovascular: nl pulses, regular rate and rhythm Results Result Diagram: 12/31/16 0400 12/31/160 TAYLOR JACQUES MD Dec 31, 2016 18:55
[2016-12-31] MEDS: VANCOMYCIN 1 GM in NS 250 ML IVPB SCH (20:36)
[2016-12-31] MEDS ORDERED: VANCOMYCIN 750 MG in DEXTROSE 5% 150 ML IVPB SCH (22:00)
[2016-12-31] MEDS: PIPER-TAZO 3.375 GM IV (PMX) 50 ML IVPB SCH (22:14)
[2017-01-01] VITALS (14 sets, daily range): BP systolic 116–154; BP diastolic 66–99; PULSE 84–102; RESP 12–22
[2017-01-01] MEDS: ACCU-CHEK XX SCH (02:00)
[2017-01-01] MEDS: HYDROmorphONE 0.5 MG/0.5 ML SYG IV PRN ×2 (02:17→05:56)
[2017-01-01] MEDS: PIPER-TAZO 3.375 GM IV (PMX) 50 ML IVPB SCH ×3 (05:47→21:51)
[2017-01-01] MEDS: ASPIRIN 325 MG TAB PO SCH (08:31)
[2017-01-01] MEDS: VANCOMYCIN 1 GM in NS 250 ML IVPB SCH ×2 (08:31→20:29)
[2017-01-01] MEDS: FAMOTIDINE 20 MG INJ IV SCH (08:31)
[2017-01-01] MEDS: METOPROLOL 25 MG TAB PO SCH ×2 (08:31→20:47)
[2017-01-01] MEDS: LOSARTAN 50 MG TAB PO SCH (08:31)
[2017-01-01] MEDS: INSULIN GLARGINE [LANtus] 3 ML PEN SC SCH (08:46)
[2017-01-01] MEDS: INSULIN ASPART [NOVOLOG] 3 ML PEN SC SCH ×3 (08:46→18:11)
--- NOTE | 2017-01-01 09:05 | RADRPT ---
PROCEDURE: XR Chest. CLINICAL INDICATION: Daily chest x-ray TECHNIQUE: Single frontal view of the chest was obtained COMPARISON: 12/31/2016 FINDINGS: Stable right internal jugular approach central venous catheter, mediastinal drain and left chest tub e. Minimally improved lung volumes. Interval decrease in the interstitial pulmonary edema. Small left pleural effusion. Bibasilar atelectasis. Stable large cardiomediastinal silhouette. No acute osseous abnormality. Median sternotomy changes spray IMPRESSION: Interval decrease in the interstitial pulmonary edema, which is now mild and minimally improved lung volumes. Otherwise, no convincing interval change compared to chest radiograph from prior day. RPTAT: EE Physician Sandeep Date Time Electronically viewed and signed by Physician Sandeep on 01/01/2017 09:05 /
--- NOTE | 2017-01-01 09:24 | PN ---
DATE: 12/31/2016 HISTORY OF PRESENT ILLNESS: The patient is a 56-year-old male who has left-sided weakness and we go t a call about him for more evaluation and treatment. Placed the patient under aspirin for treatmen t for possible underlying stroke. MRI was ordered that showed small acute infarction in the left fr ontal and posterior right parietal lobe, subacute right temporal occipital lobe infarction. PHYSICAL EXAMINATION: GENERAL: Today, the patient is alert, awake, oriented, following simple commands without difficulty . CRANIAL NERVES: Cranial nerve II: Pupils equal on both sides. Cranial nerve III, IV and : Extr aocular muscles intact. Cranial nerve V and VII: Intact cornea reflex. Cranial nerve VIII: Decre ased hearing bilaterally. Cranial nerves IX, X: Elevated . Cranial nerve XI: Elevates shou lder 5/5. tongue. MOTOR: Left side is 4/5, right side 5/5. HEART: Regular rate and rhythm. LUNGS: Equal breath sounds. ABDOMEN: Soft, relaxed, nondistended, nontender. ASSESSMENT AND PLAN: 1. The patient is 56 years old status post left-sided weakness. We will follow up the patient with physical therapy and occupational therapy for bedside rehabilitation and then advance as the patien t tolerates. 2. We will continue the patient on aspirin 81 mg or 325 mg once a day for stroke prophylaxis. 3. Follow up the patient with lipid panel and maximize his statin. 4. Keep the patient's blood pressure level at 140/90 to avoid any extension of the stroke. 5. History of diabetes. Follow up the patient with Accu-Chek and sliding scale insulin and keep un ester good control. 6. History of smoking. Advised the patient not to go back to smoking. 7. We will consider the patient for acute rehabilitation upon discharge from ICU. Dictated By: ZACHARY SAPP/AI Conf#: [id number] DID#: [id number]
[2017-01-01] MEDS: OXYCODONE/ACETAMINOPHEN (5/325) TAB PO PRN ×3 (11:08→20:48)
--- NOTE | 2017-01-01 12:50 | CONS ---
Date/Time of Note Date/Time of Note DATE: 01/01/17 TIME: 12:48 Assessment/Plan Assessment/Plan Additional Assessment/Plan 1. Acute Hypernatremia 2. CAD s/p CABG on 12/28/16 3. HTN 4. HL 5. DM II Plan: s/p lasix 40 mg IV x 2 days in a row, Urine output 3.5 liter, BP stable, Na improved to normal , Cr improved to normal, on Lovenox 1mg/kg SQ BID Conitnue BP meds Monitor electrolytes and replace as needed. will follow up Consultation Date/Type/Reason Admit Date/Time Dec 27, 2016 at 11:23 Initial Consult Date 12/30/16 Type of Consultation: NEPHROLOGY Referring Provider: JH MEZA MD 24 HR Interval Summary Free Text/Dictation cr better, s/p IV lasix yeserday - 3.5 L urine output Exam/Review of Systems Vital Signs Vitals Vital Signs Date Time Temp Pulse Resp B/P Pulse Ox O2 Delivery O2 Flow Rate FiO2 01/01/17 12:08 84 01/01/17 11:15 98.9 19 127/71 97 01/01/17 08:23 Nasal Cannula 3.0 12/29/16 08:00 30 Intake and Output 12/31/16 12/31/16 01/01/17 15:00 23:00 07:00 Intake Total 370 ml 420 ml 480 ml Output Total 526 ml 2180 ml 840 ml Balance -156 ml -1760 ml -360 ml Exam Constitutional: alert, oriented, well developed Neck: non-tender, supple Respiratory: clear to auscultation, normal air movement Cardiovascular: nl pulses, regular rate and rhythm Gastrointestinal: nl liver, spleen, non-tender, soft Musculoskeletal: nl extremities to inspection Extremities: normal pulses Neurological: [employer] II-XII intact, nl mental status, nl speech, nl strength Results Result Diagram: 01/01/17 0510 01/01/17 0510 Results 24 hrs Laboratory Tests Test 12/31/16 17:00 01/01/17 05:01 01/01/17 05:10 01/01/17 07:58 Urine Color STRAW Urine Clarity CLEAR Urine pH 6.0 Urine Specific [place] 1.004 Urine Ketones NEGATIVE Urine Nitrite NEGATIVE Urine Bilirubin NEGATIVE Urine Urobilinogen NEGATIVE Urine Leukocyte Esterase NEGATIVE Urine Microscopic RBC 28 H Urine Microscopic WBC 4 Urine Bacteria FEW A Urine Hemoglobin 1+ H Urine Glucose NEGATIVE Urine Total Protein NEGATIVE Lab Scanned Report BLOOD TRANSFUSION White Blood Count 10.9 H Red Blood Count 3.52 #L Hemoglobin 10.0 #L Hematocrit 29.5 #L Mean Corpuscular Volume 83.8 Mean Corpuscular Hemoglobin 28.4 L Mean Corpuscular Hemoglobin Concent 33.9 Red Cell Distribution Width 14.6 H Platelet Count 154 # Mean Platelet Volume 9.9 Neutrophils % 74.1 Lymphocytes % 17.7 Monocytes % 6.6 Eosinophils % 0.6 Basophils % 0.4 Nucleated Red Blood Cells % 0.9 H Neutrophils # 8.1 H Lymphocytes # 1.9 Monocytes # 0.7 Eosinophils # 0.1 Basophils # 0.0 Nucleated Red Blood Cells # 0.1 H Sodium Level 140 Potassium Level 3.7 Chloride Level 106 Carbon Dioxide Level 27 Anion Gap 11 # Blood Urea Nitrogen 18 Creatinine 0.82 Glucose Level 119 Calcium Level 8.0 L Total Bilirubin 0.7 Direct Bilirubin 0.00 Indirect Bilirubin 0.7 Aspartate Amino Transf (AST/SGOT) 290 H Alanine Aminotransferase (ALT/SGPT) 335 H Alkaline Phosphatase 66 Total Protein 6.4 Albumin 3.2 L Globulin 3.20 Albumin/Globulin Ratio 1.00 Bedside Glucose 128 Test 01/01/17 12:17 Bedside Glucose 188 Medications Medications Current Medications Losartan Potassium (Cozaar) 50 mg DAILY PO Last administered on 01/01/17 08:31 ; Admin Dose 50 MG; Start 12/28/16 at 09:00 Metoprolol Tartrate (Lopressor) 25 mg BID PO Last administered on 01/01/17 08: 31; Admin Dose 25 MG; Start 12/27/16 at 21:00 Oxycodone/ Acetaminophen (Percocet (5/ 325)) 1 tab Q3H PRN PO PAIN LEVEL 1-5 Last administered on 01/01/17 11:08; Admin Dose 1 TAB; Start 12/28/16 at 17:30 Oxycodone/ Acetaminophen (Percocet (5/ 325)) 2 tab Q3H PRN PO PAIN LEVEL 6-10 Last administered on 12/30/16 14:43; Admin Dose 2 TAB; Start 12/28/16 at 17:30 Ondansetron HCl (Zofran Inj) 4 mg Q6H PRN IV NAUSEA AND/OR VOMITING; Start at 17:30 Aspirin (Aspirin) 325 mg DAILY PO Last administered on 01/01/17 08:31; Admin Dose 325 MG; Start 12/29/16 at 09:00 Lorazepam (Ativan) 1 mg Q8H PRN PO ANXIETY Last administered on 12/31/16 09:22 ; Admin Dose 1 MG; Start 12/29/16 at 14:30 Insulin Glargine (Lantus) 12 unit DAILY@08 SC Last administered on 01/01/17 08 :46; Admin Dose 12 UNIT; Start 12/31/16 at 08:00 Miscellaneous Information 1 ea NOTE XX ; Start 12/30/16 at 10:00 Glucose (Glutose) 15 gm Q15M PRN PO DECREASED GLUCOSE; Start 12/30/16 at 10:00 Glucose (Glutose) 22.5 gm Q15M PRN PO DECREASED GLUCOSE; Start 12/30/16 at 10: 00 Dextrose (D50w Syringe) 25 ml Q15M PRN IV DECREASED GLUCOSE; Start 12/30/16 at 10:00 Dextrose (D50w Syringe) 50 ml Q15M PRN IV DECREASED GLUCOSE; Start 12/30/16 at 10:00 Glucagon (Glucagen) 1 mg Q15M PRN IM DECREASED GLUCOSE; Start 12/30/16 at 10:00 Glucose 15 gm 15 gm Q15M PRN BUCCAL DECREASED GLUCOSE; Start 12/30/16 at 10:00 Piperacillin Sod/ Tazobactam Sod 50 ml @ 200 mls/hr Q8 IVPB Last administered on 01/01/17 05:47; Admin Dose 200 MLS/HR; Start 12/31/16 at 22:00 Vancomycin HCl (Vancocin) 250 ml @ 125 mls/hr Q12H IVPB Last administered on 01/01/17 08:31; Admin Dose 125 MLS/HR; Start 12/31/16 at 20:00 LEONARDA CHAMPION MD Jan 01, 2017 12:50
--- NOTE | 2017-01-01 13:43 | PN ---
Date/Time of Note Date/Time of Note DATE: 01/01/17 TIME: 13:41 Assessment/Plan VTE Prophylaxis VTE Prophylaxis Intervention: SCD's Lines/Catheters IV Catheter Type (from Nrs): Cordis Urinary Cath still in place: Yes Reason Cath still needed: urinary retention Assessment/Plan Assessment/Plan 1. S/P resp failure: s/p intubation post op now pt is extubated. 2. 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 HTN 4. DM 5. Dyslipidemia 6/ hx VA 7/ HX PCI 10. post op anemia: stable will monitor for now. 11. post op CVA cont post op care ASA Statin permissive HTN for next couple of days . neurology consultations/ evaluation and treatment as per IM. Subjective 24 Hr Interval Summary Free Text/Dictation The patient with no change overnight Exam/Review of Systems Vital Signs Vitals Vital Signs Date Time Temp Pulse Resp B/P Pulse Ox O2 Delivery O2 Flow Rate FiO2 01/01/17 12:08 84 01/01/17 11:15 98.9 19 127/71 97 01/01/17 08:23 Nasal Cannula 3.0 12/29/16 08:00 30 Intake and Output 12/31/16 12/31/16 01/01/17 15:00 23:00 07:00 Intake Total 370 ml 420 ml 480 ml Output Total 526 ml 2180 ml 840 ml Balance -156 ml -1760 ml -360 ml Results Result Diagram: 01/01/17 0510 01/01/17 0510 Results 24 hrs Laboratory Tests Test 12/31/16 17:00 01/01/17 05:01 01/01/17 05:10 01/01/17 07:58 Urine Color STRAW Urine Clarity CLEAR Urine pH 6.0 Urine Specific [place] 1.004 Urine Ketones NEGATIVE Urine Nitrite NEGATIVE Urine Bilirubin NEGATIVE Urine Urobilinogen NEGATIVE Urine Leukocyte Esterase NEGATIVE Urine Microscopic RBC 28 H Urine Microscopic WBC 4 Urine Bacteria FEW A Urine Hemoglobin 1+ H Urine Glucose NEGATIVE Urine Total Protein NEGATIVE Lab Scanned Report BLOOD TRANSFUSION White Blood Count 10.9 H Red Blood Count 3.52 #L Hemoglobin 10.0 #L Hematocrit 29.5 #L Mean Corpuscular Volume 83.8 Mean Corpuscular Hemoglobin 28.4 L Mean Corpuscular Hemoglobin Concent 33.9 Red Cell Distribution Width 14.6 H Platelet Count 154 # Mean Platelet Volume 9.9 Neutrophils % 74.1 Lymphocytes % 17.7 Monocytes % 6.6 Eosinophils % 0.6 Basophils % 0.4 Nucleated Red Blood Cells % 0.9 H Neutrophils # 8.1 H Lymphocytes # 1.9 Monocytes # 0.7 Eosinophils # 0.1 Basophils # 0.0 Nucleated Red Blood Cells # 0.1 H Sodium Level 140 Potassium Level 3.7 Chloride Level 106 Carbon Dioxide Level 27 Anion Gap 11 # Blood Urea Nitrogen 18 Creatinine 0.82 Glucose Level 119 Calcium Level 8.0 L Total Bilirubin 0.7 Direct Bilirubin 0.00 Indirect Bilirubin 0.7 Aspartate Amino Transf (AST/SGOT) 290 H Alanine Aminotransferase (ALT/SGPT) 335 H Alkaline Phosphatase 66 Total Protein 6.4 Albumin 3.2 L Globulin 3.20 Albumin/Globulin Ratio 1.00 Bedside Glucose 128 Test 01/01/17 12:17 Bedside Glucose 188 Medications Medications Current Medications Losartan Potassium (Cozaar) 50 mg DAILY PO Last administered on 01/01/17 08:31 ; Admin Dose 50 MG; Start 12/28/16 at 09:00 Metoprolol Tartrate (Lopressor) 25 mg BID PO Last administered on 01/01/17 08: 31; Admin Dose 25 MG; Start 12/27/16 at 21:00 Oxycodone/ Acetaminophen (Percocet (5/ 325)) 1 tab Q3H PRN PO PAIN LEVEL 1-5 Last administered on 01/01/17 11:08; Admin Dose 1 TAB; Start 12/28/16 at 17:30 Oxycodone/ Acetaminophen (Percocet (5/ 325)) 2 tab Q3H PRN PO PAIN LEVEL 6-10 Last administered on 12/30/16 14:43; Admin Dose 2 TAB; Start 12/28/16 at 17:30 Ondansetron HCl (Zofran Inj) 4 mg Q6H PRN IV NAUSEA AND/OR VOMITING; Start at 17:30 Aspirin (Aspirin) 325 mg DAILY PO Last administered on 01/01/17 08:31; Admin Dose 325 MG; Start 12/29/16 at 09:00 Lorazepam (Ativan) 1 mg Q8H PRN PO ANXIETY Last administered on 12/31/16 09:22 ; Admin Dose 1 MG; Start 12/29/16 at 14:30 Insulin Glargine (Lantus) 12 unit DAILY@08 SC Last administered on 01/01/17 08 :46; Admin Dose 12 UNIT; Start 12/31/16 at 08:00 Miscellaneous Information 1 ea NOTE XX ; Start 12/30/16 at 10:00 Glucose (Glutose) 15 gm Q15M PRN PO DECREASED GLUCOSE; Start 12/30/16 at 10:00 Glucose (Glutose) 22.5 gm Q15M PRN PO DECREASED GLUCOSE; Start 12/30/16 at 10: 00 Dextrose (D50w Syringe) 25 ml Q15M PRN IV DECREASED GLUCOSE; Start 12/30/16 at 10:00 Dextrose (D50w Syringe) 50 ml Q15M PRN IV DECREASED GLUCOSE; Start 12/30/16 at 10:00 Glucagon (Glucagen) 1 mg Q15M PRN IM DECREASED GLUCOSE; Start 12/30/16 at 10:00 Glucose 15 gm 15 gm Q15M PRN BUCCAL DECREASED GLUCOSE; Start 12/30/16 at 10:00 Piperacillin Sod/ Tazobactam Sod 50 ml @ 200 mls/hr Q8 IVPB Last administered on 01/01/17 05:47; Admin Dose 200 MLS/HR; Start 12/31/16 at 22:00 Vancomycin HCl (Vancocin) 250 ml @ 125 mls/hr Q12H IVPB Last administered on 01/01/17 08:31; Admin Dose 125 MLS/HR; Start 12/31/16 at 20:00 Miscellaneous Information (*Rx Drug Level Order Reminder*) VANCOMYCIN TROUGH AT 1900 ONCE ONCE XX ; Start 01/01/17 at 19:00; Stop 01/01/17 at 19:01 FREDY MOSS MD Jan 01, 2017 13:43
--- NOTE | 2017-01-01 13:54 | PN ---
Date/Time of Note Date/Time of Note DATE: 01/01/17 TIME: 13:54 Assessment/Plan VTE Prophylaxis VTE Prophylaxis Intervention: LMWH Lines/Catheters IV Catheter Type (from Nrs): Cordis Urinary Cath still in place: Yes Reason Cath still needed: urinary retention Assessment/Plan Chief Complaint/Hosp Course 56 yo male with CAD s/p CABG CAD s/p CABG: - Aspirin and statin indefinitely - BP control - EF wnl on TTE - Management of chest drain/tube per CV surg Fever: - Maybe be a simple post-op fever, but given persistence of fever I have started trial of empiric abx, dc in coming 2 days if cultures neg or no effect Hypernatremia: - Correct FW deficit CVA: - 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 MRI confimrs - Monitor for A Fib Dispo per CV surgery Problems: Subjective 24 Hr Interval Summary Free Text/Dictation Respiratory status improved since yesterday w elinor, comfrtable on RA CT inplaced about 60 cc since yesterday Exam/Review of Systems Vital Signs Vitals Vital Signs Date Time Temp Pulse Resp B/P Pulse Ox O2 Delivery O2 Flow Rate FiO2 01/01/17 12:08 84 01/01/17 11:15 98.9 19 127/71 97 01/01/17 08:23 Nasal Cannula 3.0 12/29/16 08:00 30 Intake and Output 12/31/16 12/31/16 01/01/17 14:59 22:59 06:59 Intake Total 370 ml 420 ml 480 ml Output Total 497 ml 2230 ml 840 ml Balance -127 ml -1810 ml -360 ml Results Result Diagram: 01/01/17 0510 01/01/17 0510 Results 24 hrs Laboratory Tests Test 12/31/16 17:00 01/01/17 05:01 01/01/17 05:10 01/01/17 07:58 Urine Color STRAW Urine Clarity CLEAR Urine pH 6.0 Urine Specific [place] 1.004 Urine Ketones NEGATIVE Urine Nitrite NEGATIVE Urine Bilirubin NEGATIVE Urine Urobilinogen NEGATIVE Urine Leukocyte Esterase NEGATIVE Urine Microscopic RBC 28 H Urine Microscopic WBC 4 Urine Bacteria FEW A Urine Hemoglobin 1+ H Urine Glucose NEGATIVE Urine Total Protein NEGATIVE Lab Scanned Report BLOOD TRANSFUSION White Blood Count 10.9 H Red Blood Count 3.52 #L Hemoglobin 10.0 #L Hematocrit 29.5 #L Mean Corpuscular Volume 83.8 Mean Corpuscular Hemoglobin 28.4 L Mean Corpuscular Hemoglobin Concent 33.9 Red Cell Distribution Width 14.6 H Platelet Count 154 # Mean Platelet Volume 9.9 Neutrophils % 74.1 Lymphocytes % 17.7 Monocytes % 6.6 Eosinophils % 0.6 Basophils % 0.4 Nucleated Red Blood Cells % 0.9 H Neutrophils # 8.1 H Lymphocytes # 1.9 Monocytes # 0.7 Eosinophils # 0.1 Basophils # 0.0 Nucleated Red Blood Cells # 0.1 H Sodium Level 140 Potassium Level 3.7 Chloride Level 106 Carbon Dioxide Level 27 Anion Gap 11 # Blood Urea Nitrogen 18 Creatinine 0.82 Glucose Level 119 Calcium Level 8.0 L Total Bilirubin 0.7 Direct Bilirubin 0.00 Indirect Bilirubin 0.7 Aspartate Amino Transf (AST/SGOT) 290 H Alanine Aminotransferase (ALT/SGPT) 335 H Alkaline Phosphatase 66 Total Protein 6.4 Albumin 3.2 L Globulin 3.20 Albumin/Globulin Ratio 1.00 Bedside Glucose 128 Test 01/01/17 12:17 Bedside Glucose 188 Medications Medications Current Medications Losartan Potassium (Cozaar) 50 mg DAILY PO Last administered on 01/01/17 08:31 ; Admin Dose 50 MG; Start 12/28/16 at 09:00 Metoprolol Tartrate (Lopressor) 25 mg BID PO Last administered on 01/01/17 08: 31; Admin Dose 25 MG; Start 12/27/16 at 21:00 Oxycodone/ Acetaminophen (Percocet (5/ 325)) 1 tab Q3H PRN PO PAIN LEVEL 1-5 Last administered on 01/01/17 11:08; Admin Dose 1 TAB; Start 12/28/16 at 17:30 Oxycodone/ Acetaminophen (Percocet (5/ 325)) 2 tab Q3H PRN PO PAIN LEVEL 6-10 Last administered on 12/30/16 14:43; Admin Dose 2 TAB; Start 12/28/16 at 17:30 Ondansetron HCl (Zofran Inj) 4 mg Q6H PRN IV NAUSEA AND/OR VOMITING; Start at 17:30 Aspirin (Aspirin) 325 mg DAILY PO Last administered on 01/01/17 08:31; Admin Dose 325 MG; Start 12/29/16 at 09:00 Lorazepam (Ativan) 1 mg Q8H PRN PO ANXIETY Last administered on 12/31/16 09:22 ; Admin Dose 1 MG; Start 12/29/16 at 14:30 Insulin Glargine (Lantus) 12 unit DAILY@08 SC Last administered on 01/01/17 08 :46; Admin Dose 12 UNIT; Start 12/31/16 at 08:00 Miscellaneous Information 1 ea NOTE XX ; Start 12/30/16 at 10:00 Glucose (Glutose) 15 gm Q15M PRN PO DECREASED GLUCOSE; Start 12/30/16 at 10:00 Glucose (Glutose) 22.5 gm Q15M PRN PO DECREASED GLUCOSE; Start 12/30/16 at 10: 00 Dextrose (D50w Syringe) 25 ml Q15M PRN IV DECREASED GLUCOSE; Start 12/30/16 at 10:00 Dextrose (D50w Syringe) 50 ml Q15M PRN IV DECREASED GLUCOSE; Start 12/30/16 at 10:00 Glucagon (Glucagen) 1 mg Q15M PRN IM DECREASED GLUCOSE; Start 12/30/16 at 10:00 Glucose 15 gm 15 gm Q15M PRN BUCCAL DECREASED GLUCOSE; Start 12/30/16 at 10:00 Piperacillin Sod/ Tazobactam Sod 50 ml @ 200 mls/hr Q8 IVPB Last administered on 01/01/17 05:47; Admin Dose 200 MLS/HR; Start 12/31/16 at 22:00 Vancomycin HCl (Vancocin) 250 ml @ 125 mls/hr Q12H IVPB Last administered on 01/01/17 08:31; Admin Dose 125 MLS/HR; Start 12/31/16 at 20:00 Miscellaneous Information (*Rx Drug Level Order Reminder*) VANCOMYCIN TROUGH AT 1900 ONCE ONCE XX ; Start 01/01/17 at 19:00; Stop 01/01/17 at 19:01 JH MEZA MD Jan 01, 2017 13:54
--- NOTE | 2017-01-01 14:51 | PN ---
Date/Time of Note Date/Time of Note DATE: 01/01/17 TIME: 14:49 Assessment/Plan Lines/Catheters IV Catheter Type (from Nrsg): Cordis Vogel in Place (from Nrsg): Yes Assessment/Plan Chief Complaint/Hosp Course Status post coronary artery bypass grafting Hemodynamically stable Stable blood pressure and urine output Chest tube output minimal CT of the brain. Suspect an acute/recent infarct in the medial right occipital lobe and posterior right temporal lobe, likely in the right posterior cerebral artery distribution. Consider brain MRI for further evaluation. clinically improving We will continue supportive DC CT follow neurology recc discussed with the daughter Problems: Subjective 24 Hr Interval Summary Constitutional: improved Pain Control: mild Exam/Review of Systems Vital Signs Vitals Vital Signs Date Time Temp Pulse Resp B/P Pulse Ox O2 Delivery O2 Flow Rate FiO2 01/01/17 12:08 84 01/01/17 11:15 98.9 19 127/71 97 01/01/17 08:23 Nasal Cannula 3.0 12/29/16 08:00 30 Intake and Output 12/31/16 12/31/16 01/01/17 15:00 23:00 07:00 Intake Total 370 ml 420 ml 480 ml Output Total 526 ml 2180 ml 840 ml Balance -156 ml -1760 ml -360 ml Exam Neck: non-tender, supple Respiratory: clear to auscultation, normal air movement Cardiovascular: nl pulses, regular rate and rhythm Results Result Diagram: 01/01/17 0510 01/01/17 0510 MALETAYLOR ESPARZA MD Jan 01, 2017 14:51
[2017-01-01] MEDS: VANCOMYCIN 1.5 GM in SOD CHLORIDE 0.9% 250 ML IVPB SCH (21:49)
[2017-01-01] MEDS ORDERED: VANCOMYCIN 500MG/NS (PMX) 100 ML IVPB SCH (22:00)
[2017-01-02] VITALS (14 sets, daily range): BP systolic 134–165; BP diastolic 67–89; PULSE 89–100; RESP 18–22
--- NOTE | 2017-01-02 00:52 | PN ---
Date/Time of Note Date/Time of Note DATE: 01/02/17 TIME: 00:51 Assessment/Plan Lines/Catheters IV Catheter Type (from Nrsg): Saline Lock Vogel in Place (from Nrsg): Yes Assessment/Plan Chief Complaint/Hosp Course Status post coronary artery bypass grafting Hemodynamically stable Stable blood pressure and urine output Chest tube output minimal CT of the brain. Suspect an acute/recent infarct in the medial right occipital lobe and posterior right temporal lobe, likely in the right posterior cerebral artery distribution. Consider brain MRI for further evaluation. clinically improving We will continue supportive CT DCed follow neurology recc discussed with the daughter Problems: Subjective 24 Hr Interval Summary Constitutional: improved Pain Control: mild Exam/Review of Systems Vital Signs Vitals Vital Signs Date Time Temp Pulse Resp B/P Pulse Ox O2 Delivery O2 Flow Rate FiO2 01/02/17 00:10 Nasal Cannula 3.0 01/02/17 00:06 98.4 90 20 137/78 96 12/29/16 08:00 30 Intake and Output 01/01/17 01/01/17 01/02/17 15:00 23:00 07:00 Intake Total 250 ml 1000 ml Output Total 600 ml Balance 250 ml 400 ml Exam ENMT: mucosa pink and moist, nl external ears & nose, nl lips & teeth, nl nasal mucosa & septum Neck: non-tender, supple Respiratory: clear to auscultation, normal air movement Cardiovascular: nl pulses, regular rate and rhythm Gastrointestinal: nl liver, spleen, non-tender, soft Results Result Diagram: 01/01/17 0510 01/01/17 0510 TAYLOR JACQUES MD Jan 02, 2017 00:51
--- NOTE | 2017-01-02 03:13 | HKNOTE ---
DATE OF SERVICE: HISTORY OF PRESENT ILLNESS: Patient is 56 years old with left-sided weakness. He has a small lacunar infarction in the left frontal and posterior right parietal lobe. PHYSICAL EXAMINATION: GENERAL: The patient is alert, awake, oriented to time, place and person. Normal speech and normal language. CRANIAL NERVES: Cranial nerve II: Pupils equal on both sides. Cranial nerves III, IV and : Extraocular muscles intact. Cranial nerve V: Equal sensation to face. Cranial nerve VII: Decreased nasolabial fold on the left side. Cranial nerve VIII: Decreased hearing bilaterally. Cranial nerves IX and X: Elevates palate. Cranial nerve XI: Elevates shoulder 5/5. Cranial nerve XII: Straight tongue. MOTOR: Left side is 4/5, right side is 5/5. Sensation decreased on the left side . Coordination: Totygs-ax-gxkk is intact. HEART: Regular rate and rhythm. LUNGS: Equal breath sounds. ABDOMEN: Soft, relaxed, nondistended, nontender. ASSESSMENT AND PLAN: 1. Patient is 56 years old status post left-sided weakness. Follow up the patient with bedside rehabilitation in the form of physical therapy and occupational therapy. 2. Continue the patient on aspirin 81 mg once a day for stroke prophylaxis. 3. Hypertension. Keep the blood pressure less than 140/90 to avoid any extension of the stroke. 4. Diabetes. Follow up the patient with Accu-Chek and sliding scale insulin. 5. History of smoking. We shall advise the patient not to smoke. 6. Consider acute rehabilitation facility. Dictated By: ZACHARY RIZVI MD NA/NTS Conf#: [id number] DID#: [id number] CC: ALISON VICKERS MD;*EndCC* MTDD
[2017-01-02] MEDS: PIPER-TAZO 3.375 GM IV (PMX) 50 ML IVPB SCH ×2 (05:19→15:00)
[2017-01-02] MEDS: OXYCODONE/ACETAMINOPHEN (5/325) TAB PO PRN (05:19)
[2017-01-02] MEDS: ASPIRIN 325 MG TAB PO SCH (08:25)
[2017-01-02] MEDS: LOSARTAN 50 MG TAB PO SCH (08:26)
[2017-01-02] MEDS: METOPROLOL 25 MG TAB PO SCH ×2 (08:26→21:00)
[2017-01-02] MEDS: INSULIN GLARGINE [LANtus] 3 ML PEN SC SCH (08:33)
[2017-01-02] MEDS: INSULIN ASPART [NOVOLOG] 3 ML PEN SC SCH ×3 (08:33→17:47)
[2017-01-02] MEDS: VANCOMYCIN 1.5 GM in SOD CHLORIDE 0.9% 250 ML IVPB SCH (08:42)
--- NOTE | 2017-01-02 10:14 | RADRPT ---
PROCEDURE: XR Chest. CLINICAL INDICATION: Today and daily while CTube in and in am after CTube dc'd. TECHNIQUE: Single portable view of the chest was obtained COMPARISON: 01/01/2017. FINDINGS: Right internal jugular sheath is present. Low lung volumes with lower lobe crowding. Stable cardiome tonia with median sternotomy changes. Persistent left retrocardiac dense opacification and left perih ilar parenchymal opacities. No evidence of a pneumothorax. IMPRESSION: 1. Dense left retrocardiac opacification. 2. Ill-defined left perihilar lower lobe parenchymal opacities similar to prior examination. 3. Cardiomegaly with median sternotomy changes. 4. Low lung volumes. 5. Right internal jugular sheath. RPTAT: HRSR Physician Sanaz Date Time Electronically viewed and signed by Physician Sanaz on 01/02/2017 10:13 RR/
--- NOTE | 2017-01-02 12:33 | CONS ---
Date/Time of Note Date/Time of Note DATE: 01/02/17 TIME: 12:33 Assessment/Plan Assessment/Plan Additional Assessment/Plan Assessment/Plan 1. S/P resp failure: s/p intubation post op now pt is extubated. 2. 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 HTN 4. DM 5. Dyslipidemia 6/ hx GA 7/ HX PCI 10. post op anemia: stable will monitor for now. 11. post op CVA cont post op care ASA Statin neurology recommendations appreciated Consultation Date/Type/Reason Admit Date/Time Dec 27, 2016 at 11:23 Initial Consult Date 12/30/16 Type of Consultation: NEPHROLOGY Referring Provider: JH MEZA MD 24 HR Interval Summary Free Text/Dictation alert Exam/Review of Systems Vital Signs Vitals Vital Signs Date Time Temp Pulse Resp B/P Pulse Ox O2 Delivery O2 Flow Rate FiO2 01/02/17 12:11 91 01/02/17 07:52 98.4 18 159/89 99 01/02/17 02:02 3.0 01/02/17 00:10 Nasal Cannula 12/29/16 08:00 30 Intake and Output 01/01/17 01/01/17 01/02/17 15:00 23:00 07:00 Intake Total 250 ml 1000 ml 800 ml Output Total 700 ml 450 ml Balance 250 ml 300 ml 350 ml Results Result Diagram: 01/01/17 0510 01/01/17 0510 Results 24 hrs Laboratory Tests Test 01/01/17 17:49 01/01/17 19:03 01/02/17 07:44 01/02/17 12:10 Bedside Glucose 143 128 117 Vancomycin Level Trough 7.2 L Medications Medications Current Medications Losartan Potassium (Cozaar) 50 mg DAILY PO Last administered on 01/02/17 08:26 ; Admin Dose 50 MG; Start 12/28/16 at 09:00 Metoprolol Tartrate (Lopressor) 25 mg BID PO Last administered on 01/01/17 20: 47; Admin Dose 25 MG; Start 12/27/16 at 21:00 Oxycodone/ Acetaminophen (Percocet (5/ 325)) 1 tab Q3H PRN PO PAIN LEVEL 1-5 Last administered on 01/01/17 11:08; Admin Dose 1 TAB; Start 12/28/16 at 17:30 Oxycodone/ Acetaminophen (Percocet (5/ 325)) 2 tab Q3H PRN PO PAIN LEVEL 6-10 Last administered on 01/02/17 05:19; Admin Dose 2 TAB; Start 12/28/16 at 17:30 Ondansetron HCl (Zofran Inj) 4 mg Q6H PRN IV NAUSEA AND/OR VOMITING; Start at 17:30 Aspirin (Aspirin) 325 mg DAILY PO Last administered on 01/02/17 08:25; Admin Dose 325 MG; Start 12/29/16 at 09:00 Lorazepam (Ativan) 1 mg Q8H PRN PO ANXIETY Last administered on 12/31/16 09:22 ; Admin Dose 1 MG; Start 12/29/16 at 14:30 Insulin Glargine (Lantus) 12 unit DAILY@08 SC Last administered on 01/02/17 08 :33; Admin Dose 12 UNIT; Start 12/31/16 at 08:00 Miscellaneous Information 1 ea NOTE XX ; Start 12/30/16 at 10:00 Glucose (Glutose) 15 gm Q15M PRN PO DECREASED GLUCOSE; Start 12/30/16 at 10:00 Glucose (Glutose) 22.5 gm Q15M PRN PO DECREASED GLUCOSE; Start 12/30/16 at 10: 00 Dextrose (D50w Syringe) 25 ml Q15M PRN IV DECREASED GLUCOSE; Start 12/30/16 at 10:00 Dextrose (D50w Syringe) 50 ml Q15M PRN IV DECREASED GLUCOSE; Start 12/30/16 at 10:00 Glucagon (Glucagen) 1 mg Q15M PRN IM DECREASED GLUCOSE; Start 12/30/16 at 10:00 Glucose 15 gm 15 gm Q15M PRN BUCCAL DECREASED GLUCOSE; Start 12/30/16 at 10:00 Piperacillin Sod/ Tazobactam Sod 50 ml @ 200 mls/hr Q8 IVPB Last administered on 01/02/17 05:19; Admin Dose 200 MLS/HR; Start 12/31/16 at 22:00 Vancomycin HCl/ Sodium Chloride (Vancocin/NS) 250 ml @ 83.333 mls/ hr Q12H IVPB Last administered on 01/02/17 08:42; Admin Dose 83.333 MLS/HR; Start 01/02/17 at 08:30 CK COTTRELL MD Jan 02, 2017 12:33
--- NOTE | 2017-01-02 15:57 | PN ---
Date/Time of Note Date/Time of Note DATE: 01/02/17 TIME: 15:55 Assessment/Plan VTE Prophylaxis VTE Prophylaxis Intervention: LMWH Lines/Catheters IV Catheter Type (from Nrsg): Cordis Urinary Cath still in place: Yes Reason Cath still needed: urinary retention Assessment/Plan Chief Complaint/Hosp Course 56 yo male with CAD s/p CABG CAD s/p CABG: - Aspirin and statin indefinitely - BP control - EF wnl on TTE - Management of chest drain/tube per CV surg Fever: - dc vanco/zosyn as cultures negative and no source identified, though fevers did resolve. 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 MRI confimrs - Monitor for A Fib Dispo to acute rehab Problems: Subjective 24 Hr Interval Summary Free Text/Dictation Fevers resolved, cultures negative Feels well PT recommends ARU Exam/Review of Systems Vital Signs Vitals Vital Signs Date Time Temp Pulse Resp B/P Pulse Ox O2 Delivery O2 Flow Rate FiO2 01/02/17 15:44 99.5 98 22 162/84 97 01/02/17 02:02 3.0 01/02/17 00:10 Nasal Cannula 12/29/16 08:00 30 Intake and Output 01/01/17 01/01/17 01/02/17 15:00 23:00 07:00 Intake Total 250 ml 1000 ml 800 ml Output Total 700 ml 450 ml Balance 250 ml 300 ml 350 ml Exam Constitutional: alert, oriented, well developed Psych: nl mood/affect, no complaints Head: atraumatic, normocephalic Eyes: EOMI, PERRL, nl conjunctiva, nl lids, nl sclera ENMT: nl external ears & nose, nl lips & teeth, nl nasal mucosa & septum Neck: non-tender, supple Respiratory: clear to auscultation, normal air movement Cardiovascular: nl pulses, regular rate and rhythm Gastrointestinal: nl liver, spleen, non-tender, soft Musculoskeletal: nl extremities to inspection, nl gait and stance Extremities: normal pulses Neurological: 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 SPECIALIST II-XII intact, nl mental status, nl speech, nl strength Skin: nl turgor, No rash or lesions Lymph: nl lymph nodes Results Result Diagram: 11/4/17 0510 11/4/17 0510 Results 24 hrs Laboratory Tests Test 01/01/17 17:49 01/01/17 19:03 01/02/17 07:44 01/02/17 12:10 Bedside Glucose 143 128 117 Vancomycin Level Trough 7.2 L Medications Medications Current Medications Losartan Potassium (Cozaar) 50 mg DAILY PO Last administered on 01/02/17 08:26 ; Admin Dose 50 MG; Start 12/28/16 at 09:00 Metoprolol Tartrate (Lopressor) 25 mg BID PO Last administered on 01/01/17 20: 47; Admin Dose 25 MG; Start 12/27/16 at 21:00 Oxycodone/ Acetaminophen (Percocet (5/ 325)) 1 tab Q3H PRN PO PAIN LEVEL 1-5 Last administered on 01/01/17 11:08; Admin Dose 1 TAB; Start 12/28/16 at 17:30 Oxycodone/ Acetaminophen (Percocet (5/ 325)) 2 tab Q3H PRN PO PAIN LEVEL 6-10 Last administered on 01/02/17 05:19; Admin Dose 2 TAB; Start 12/28/16 at 17:30 Ondansetron HCl (Zofran Inj) 4 mg Q6H PRN IV NAUSEA AND/OR VOMITING; Start at 17:30 Aspirin (Aspirin) 325 mg DAILY PO Last administered on 01/02/17 08:25; Admin Dose 325 MG; Start 12/29/16 at 09:00 Lorazepam (Ativan) 1 mg Q8H PRN PO ANXIETY Last administered on 12/31/16 09:22 ; Admin Dose 1 MG; Start 12/29/16 at 14:30 Insulin Glargine (Lantus) 12 unit DAILY@08 SC Last administered on 01/02/17 08 :33; Admin Dose 12 UNIT; Start 12/31/16 at 08:00 Miscellaneous Information 1 ea NOTE XX ; Start 12/30/16 at 10:00 Glucose (Glutose) 15 gm Q15M PRN PO DECREASED GLUCOSE; Start 12/30/16 at 10:00 Glucose (Glutose) 22.5 gm Q15M PRN PO DECREASED GLUCOSE; Start 12/30/16 at 10: 00 Dextrose (D50w Syringe) 25 ml Q15M PRN IV DECREASED GLUCOSE; Start 12/30/16 at 10:00 Dextrose (D50w Syringe) 50 ml Q15M PRN IV DECREASED GLUCOSE; Start 12/30/16 at 10:00 Glucagon (Glucagen) 1 mg Q15M PRN IM DECREASED GLUCOSE; Start 12/30/16 at 10:00 Glucose 15 gm 15 gm Q15M PRN BUCCAL DECREASED GLUCOSE; Start 12/30/16 at 10:00 Piperacillin Sod/ Tazobactam Sod (Zosyn 3.375gm/ 50 ml (Pmx)) 50 ml @ 200 mls/ hr Q8 IVPB Last administered on 01/02/17 15:00; Admin Dose 200 MLS/HR; Start 12/31/16 at 22:00 JH MEZA MD Jan 02, 2017 15:57
[2017-01-02] MEDS: ATORVASTATIN 40 MG TAB PO SCH (21:07)
--- NOTE | 2017-01-02 22:10 | CONS ---
Date/Time of Note Date/Time of Note DATE: 01/02/17 TIME: 22:09 Assessment/Plan Assessment/Plan Additional Assessment/Plan 1. Acute Hypernatremia 2. CAD s/p CABG on 12/28/16 3. HTN 4. HL 5. DM II Plan: No chemisty availabel today to review Monitor electrolytes and replace as needed. will follow up Consultation Date/Type/Reason Admit Date/Time Dec 27, 2016 at 11:23 Initial Consult Date 12/30/16 Type of Consultation: NEPHROLOGY Referring Provider: JH MEZA MD 24 HR Interval Summary Free Text/Dictation no chemistry available today, s/p PRBC, Hb stable now Exam/Review of Systems Vital Signs Vitals Vital Signs Date Time Temp Pulse Resp B/P Pulse Ox O2 Delivery O2 Flow Rate FiO2 01/02/17 20:11 3.0 01/02/17 20:01 100 01/02/17 20:00 100.3 21 165/89 99 01/02/17 00:10 Nasal Cannula 12/29/16 08:00 30 Intake and Output 01/01/17 01/01/17 01/02/17 15:00 23:00 07:00 Intake Total 250 ml 1000 ml 800 ml Output Total 700 ml 450 ml Balance 250 ml 300 ml 350 ml Exam Constitutional: alert, oriented, well developed Neck: non-tender, supple Respiratory: clear to auscultation, normal air movement Cardiovascular: nl pulses, regular rate and rhythm Gastrointestinal: nl liver, spleen, non-tender, soft Musculoskeletal: nl extremities to inspection Extremities: normal pulses Neurological: 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 II-XII intact, nl mental status, nl speech, nl strength Results Result Diagram: 01/01/17 0510 01/01/17 0510 Results 24 hrs Laboratory Tests Test 01/02/17 07:44 01/02/17 12:10 01/02/17 16:55 01/02/17 17:07 Bedside Glucose 128 117 134 Triglycerides Level 130 Cholesterol Level 96 L LDL Cholesterol, Calculated 53 HDL Cholesterol 17 L Cholesterol/HDL Ratio 5.6 Medications Medications Current Medications Losartan Potassium (Cozaar) 50 mg DAILY PO Last administered on 01/02/17 08:26 ; Admin Dose 50 MG; Start 12/28/16 at 09:00 Metoprolol Tartrate (Lopressor) 25 mg BID PO Last administered on 01/01/17 20: 47; Admin Dose 25 MG; Start 12/27/16 at 21:00 Oxycodone/ Acetaminophen (Percocet (5/ 325)) 1 tab Q3H PRN PO PAIN LEVEL 1-5 Last administered on 01/01/17 11:08; Admin Dose 1 TAB; Start 12/28/16 at 17:30 Oxycodone/ Acetaminophen (Percocet (5/ 325)) 2 tab Q3H PRN PO PAIN LEVEL 6-10 Last administered on 01/02/17 05:19; Admin Dose 2 TAB; Start 12/28/16 at 17:30 Ondansetron HCl (Zofran Inj) 4 mg Q6H PRN IV NAUSEA AND/OR VOMITING; Start at 17:30 Aspirin (Aspirin) 325 mg DAILY PO Last administered on 01/02/17 08:25; Admin Dose 325 MG; Start 12/29/16 at 09:00 Lorazepam (Ativan) 1 mg Q8H PRN PO ANXIETY Last administered on 12/31/16 09:22 ; Admin Dose 1 MG; Start 12/29/16 at 14:30 Insulin Glargine (Lantus) 12 unit DAILY@08 SC Last administered on 01/02/17 08 :33; Admin Dose 12 UNIT; Start 12/31/16 at 08:00 Miscellaneous Information 1 ea NOTE XX ; Start 12/30/16 at 10:00 Glucose (Glutose) 15 gm Q15M PRN PO DECREASED GLUCOSE; Start 12/30/16 at 10:00 Glucose (Glutose) 22.5 gm Q15M PRN PO DECREASED GLUCOSE; Start 12/30/16 at 10: 00 Dextrose (D50w Syringe) 25 ml Q15M PRN IV DECREASED GLUCOSE; Start 12/30/16 at 10:00 Dextrose (D50w Syringe) 50 ml Q15M PRN IV DECREASED GLUCOSE; Start 12/30/16 at 10:00 Glucagon (Glucagen) 1 mg Q15M PRN IM DECREASED GLUCOSE; Start 12/30/16 at 10:00 Glucose (Glutose) 15 gm Q15M PRN BUCCAL DECREASED GLUCOSE; Start 12/30/16 at 10 :00 Enoxaparin Sodium (Lovenox) 40 mg DAILY SC ; Start 01/03/17 at 09:00 Atorvastatin Calcium (Lipitor) 40 mg HS PO Last administered on 01/02/17t 21:07 ; Admin Dose 40 MG; Start 01/02/17 at 21:00 LEONARDA CHAMPION MD Jan 02, 2017 22:10
[2017-01-03] VITALS (11 sets, daily range): BP systolic 110–165; BP diastolic 66–95; PULSE 88–110; RESP 17–24
[2017-01-03] MEDS ORDERED: hydrALAzine 20 MG INJ IV ONE (06:30)
--- NOTE | 2017-01-03 07:45 | CONS ---
DATE OF ADMISSION: 12/27/2016 DATE OF CONSULTATION: HISTORY OF PRESENT ILLNESS: Patient is 56 years old with left-sided weakness. He has a small lacun ar infarction in the left frontal and posterior right parietal lobe. PHYSICAL EXAMINATION: GENERAL: The patient is alert, awake, oriented to time, place and person. Normal speech and normal language. CRANIAL NERVES: Cranial nerve II: Pupils equal on both sides. Cranial nerves III, IV and : Ext raocular muscles intact. Cranial nerve V: Equal sensation to face. Cranial nerve VII: Decreased nasolabial fold on the left side. Cranial nerve VIII: Decreased hearing bilaterally. Cranial nerv es IX and X: Elevates palate. Cranial nerve XI: Elevates shoulder 5/5. Cranial nerve XII: Strai ght tongue. MOTOR: Left side is 4/5, right side is 5/5. Sensation decreased on the left side . Coordinat ion: Orblgw-bv-wzcy is intact. HEART: Regular rate and rhythm. LUNGS: Equal breath sounds. ABDOMEN: Soft, relaxed, nondistended, nontender. ASSESSMENT AND PLAN: 1. Patient is 56 years old status post left-sided weakness. Follow up the patient with bedside vidhi abilitation in the form of physical therapy and occupational therapy. 2. Continue the patient on aspirin 81 mg once a day for stroke prophylaxis. 3. Hypertension. Keep the blood pressure less than 140/90 to avoid any extension of the stroke. 4. Diabetes. Follow up the patient with Accu-Chek and sliding scale insulin. 5. History of smoking. We shall advise the patient not to smoke. 6. Consider acute rehabilitation facility. Dictated By: ZACHARY RIZVI MD NA/NTS Conf#: [id number] DID#: [id number] CC: ALISON VICKERS MD;*EndCC*
[2017-01-03] MEDS: ASPIRIN 325 MG TAB PO SCH (08:18)
[2017-01-03] MEDS: LOSARTAN 50 MG TAB PO SCH (08:18)
[2017-01-03] MEDS: ENOXAPARIN 40 MG/0.4 ML SYG SC SCH (08:19)
[2017-01-03] MEDS: INSULIN GLARGINE [LANtus] 3 ML PEN SC SCH (08:26)
[2017-01-03] MEDS: METOPROLOL 25 MG TAB PO SCH ×2 (08:27→21:00)
[2017-01-03] MEDS: INSULIN ASPART [NOVOLOG] 3 ML PEN SC SCH ×3 (08:28→22:31)
--- NOTE | 2017-01-03 10:04 | RADRPT ---
PROCEDURE: XR Chest. CLINICAL INDICATION: Shortness of breath. TECHNIQUE: Single frontal view. COMPARISON: 01/02/2017. FINDINGS: The right internal jugular vein sheath catheter has been removed. The right lung is clear. There is left basilar air space disease consistent with atelectasis or pneumonia. The left lung is otherwise clear. The heart is enlarged. There is calcification in the aorta consistent with atherosclerosis. There is no pleural effusion. There is no pneumothorax. IMPRESSION: 1. Right IJ catheter removed. 2. Left basilar atelectasis or pneumonia, unchanged. 3. Cardiomegaly and atherosclerosis. 4. Otherwise no change from the 01/02/2017 chest radiograph. RPTAT: QQ .Angel Luis Ta MD, MD Date Time Electronically viewed and signed by .Angel Luis Ta MD, on 01/03/2017 10:04 .R/
--- NOTE | 2017-01-03 11:31 | CONS ---
Date/Time of Note Date/Time of Note DATE: 01/03/17 TIME: 11:29 Assessment/Plan Assessment/Plan Additional Assessment/Plan 1. Acute Hypernatremia- Resolved 2. CAD s/p CABG on 12/28/16 3. HTN 4. HL 5. DM II 6. Elevated LFTs Plan: Cr and electrolytes stable today, BP stable LFTs mildly elevated Monitor electrolytes and replace as needed. will follow up Consultation Date/Type/Reason Admit Date/Time Dec 27, 2016 at 11:23 Initial Consult Date 12/30/16 Type of Consultation: NEPHROLOGY Referring Provider: JH MEZA MD 24 HR Interval Summary Free Text/Dictation Cr and electrolytes stable, Bp stable, LFTs are rising Exam/Review of Systems Vital Signs Vitals Vital Signs Date Time Temp Pulse Resp B/P Pulse Ox O2 Delivery O2 Flow Rate FiO2 01/03/17 08:10 88 01/03/17 07:31 98.3 19 159/75 99 01/02/17 20:47 Room Air 01/02/17 20:11 3.0 Intake and Output 01/02/17 01/02/17 01/03/17 15:00 23:00 07:00 Intake Total 250 ml 670 ml 800 ml Output Total 420 ml 800 ml Balance 250 ml 250 ml 0 ml Exam Constitutional: alert, oriented, well developed Neck: non-tender, supple Respiratory: clear to auscultation, normal air movement Cardiovascular: nl pulses, regular rate and rhythm Gastrointestinal: nl liver, spleen, non-tender, soft Musculoskeletal: nl extremities to inspection Extremities: normal pulses Neurological: [employer] II-XII intact, nl mental status, nl speech, nl strength Results Result Diagram: 01/03/17 0607 01/03/17 0607 Results 24 hrs Laboratory Tests Test 01/02/17 12:10 01/02/17 16:55 01/02/17 17:07 01/03/17 06:07 Bedside Glucose 117 134 Triglycerides Level 130 Cholesterol Level 96 L LDL Cholesterol, Calculated 53 HDL Cholesterol 17 L Cholesterol/HDL Ratio 5.6 White Blood Count 11.9 H Red Blood Count 3.73 L Hemoglobin 10.5 L Hematocrit 31.5 L Mean Corpuscular Volume 84.5 Mean Corpuscular Hemoglobin 28.2 L Mean Corpuscular Hemoglobin Concent 33.3 Red Cell Distribution Width 15.0 H Platelet Count 263 # Mean Platelet Volume 9.4 Neutrophils % 73.3 Lymphocytes % 16.8 Monocytes % 7.3 Eosinophils % 1.3 Basophils % 0.3 Nucleated Red Blood Cells % 0.3 H Neutrophils # 8.8 H Lymphocytes # 2.0 Monocytes # 0.9 Eosinophils # 0.2 Basophils # 0.0 Nucleated Red Blood Cells # 0.0 Sodium Level 142 Potassium Level 3.7 Chloride Level 106 Carbon Dioxide Level 25 Anion Gap 15 Blood Urea Nitrogen 10 Creatinine 0.69 Glucose Level 128 Calcium Level 8.3 L Total Bilirubin 0.8 Direct Bilirubin 0.00 Indirect Bilirubin 0.8 Aspartate Amino Transf (AST/SGOT) 176 H Alanine Aminotransferase (ALT/SGPT) 319 H Alkaline Phosphatase 151 H Total Protein 6.6 Albumin 3.4 Globulin 3.20 Albumin/Globulin Ratio 1.06 Test 01/03/17 08:16 Bedside Glucose 130 Medications Medications Current Medications Losartan Potassium (Cozaar) 50 mg DAILY PO Last administered on 01/03/17 08:18 ; Admin Dose 50 MG; Start 12/28/16 at 09:00 Metoprolol Tartrate (Lopressor) 25 mg BID PO Last administered on 01/01/17 20: 47; Admin Dose 25 MG; Start 12/27/16 at 21:00 Oxycodone/ Acetaminophen (Percocet (5/ 325)) 1 tab Q3H PRN PO PAIN LEVEL 1-5 Last administered on 01/01/17 11:08; Admin Dose 1 TAB; Start 12/28/16 at 17:30 Oxycodone/ Acetaminophen (Percocet (5/ 325)) 2 tab Q3H PRN PO PAIN LEVEL 6-10 Last administered on 01/02/17 05:19; Admin Dose 2 TAB; Start 12/28/16 at 17:30 Ondansetron HCl (Zofran Inj) 4 mg Q6H PRN IV NAUSEA AND/OR VOMITING; Start at 17:30 Aspirin (Aspirin) 325 mg DAILY PO Last administered on 01/03/17 08:18; Admin Dose 325 MG; Start 12/29/16 at 09:00 Lorazepam (Ativan) 1 mg Q8H PRN PO ANXIETY Last administered on 12/31/16 09:22 ; Admin Dose 1 MG; Start 12/29/16 at 14:30 Insulin Glargine (Lantus) 12 unit DAILY@08 SC Last administered on 01/03/17 08 :26; Admin Dose 12 UNIT; Start 12/31/16 at 08:00 Miscellaneous Information 1 ea NOTE XX ; Start 12/30/16 at 10:00 Glucose (Glutose) 15 gm Q15M PRN PO DECREASED GLUCOSE; Start 12/30/16 at 10:00 Glucose (Glutose) 22.5 gm Q15M PRN PO DECREASED GLUCOSE; Start 12/30/16 at 10: 00 Dextrose (D50w Syringe) 25 ml Q15M PRN IV DECREASED GLUCOSE; Start 12/30/16 at 10:00 Dextrose (D50w Syringe) 50 ml Q15M PRN IV DECREASED GLUCOSE; Start 12/30/16 at 10:00 Glucagon (Glucagen) 1 mg Q15M PRN IM DECREASED GLUCOSE; Start 12/30/16 at 10:00 Glucose (Glutose) 15 gm Q15M PRN BUCCAL DECREASED GLUCOSE; Start 12/30/16 at 10 :00 Enoxaparin Sodium (Lovenox) 40 mg DAILY SC Last administered on 01/03/17 08:19 ; Admin Dose 40 MG; Start 01/03/17 at 09:00 Atorvastatin Calcium (Lipitor) 40 mg HS PO Last administered on 01/02/17 21:07 ; Admin Dose 40 MG; Start 01/02/17 at 21:00 LEONARDA CHAMPION MD Jan 03, 2017 11:31
--- NOTE | 2017-01-03 15:07 | CONS ---
Date/Time of Note Date/Time of Note DATE: 01/03/17 TIME: 15:04 Consult Date/Type/Reason Admit Date/Time Dec 27, 2016 at 11:23 Initial Consult Date 12/27/16 Type of Consultation: card Ordering Provider: JH MEZA MD Subjective cardiology follow up note S: D/W staff and rhythm was reviewed. 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 no chest pain or pressure he still has blurred vision but improving O: General: NO acute distress HEENT: NC/AT. pupils are equal. round. NECK: s/p IJ catheter . no stridor. CV: RRR. systolic murmur; no gallop or rubs. PULM: no wheezing or rhonchi. GI: SOFT, NT, ND, no rebound or guarding Extremity: trace B/L LE edema. no clubbing. neuro: Awake and follows commands. chest : s/p sternotomy Psych: calm and pleasant rectal: deferred : normal male magalis angio 12/27/16: 1. Left main: 90% distal disease. 2. LAD: Large caliber vessel with no significant disease. 3. Circumflex: proximal to mid 70-80% diffuse disease 4. Obtuse marginal: Medium caliber vessel with no significant disease. 5. RCA: Large dominant vessel with distal 90% stent re-stenosis; prominent left to right collaterals via PDA ECHO: 1. Lower limits of normal systolic function. Normal left ventricular cavity size. Left ventricular wall thickness upper limits of normal. Ejection fraction is visually estimated at 50 %. Tissue Doppler/Mitral Doppler indices are consistent with impaired relaxation (Stage I diastolic dysfunction). These segments of the LV are hypokinetic apex. 2. Mild mitral leaflet calcification. Mild mitral annular calcification. Trace mitral regurgitation. 3. No significant aortic stenosis. Aortic cusps appear mildly calcified. Trace aortic valve regurgitation. 4. Normal appearance of the tricuspid valve. Estimated peak PA systolic pressure 38 mmHg. There is mild tricuspid regurgitation. CT HEAD 12/29/16: IMPRESSION: 1. Suspect an acute/recent infarct in the medial right occipital lobe and posterior right temporal lobe, likely in the right posterior cerebral artery distribution. Consider brain MRI for further evaluation. 2. No acute intracranial hemorrhage. 3. Mild intracranial atherosclerosis and chronic small vessel ischemic changes. 4. Mild generalized cerebral volume loss. Objective Vital Signs Date Time Temp Pulse Resp B/P Pulse Ox O2 Delivery O2 Flow Rate FiO2 01/03/17 12:11 97.6 69 24 137/83 97 01/02/17 20:47 Room Air 01/02/17 20:11 3.0 Intake and Output 01/02/17 01/02/17 01/03/17 15:00 23:00 07:00 Intake Total 250 ml 670 ml 800 ml Output Total 420 ml 800 ml Balance 250 ml 250 ml 0 ml Results/Medications Result Diagram: 01/03/1707 01/03/17 06 Results 24 hrs Laboratory Tests Test 01/02/17 16:55 01/02/17 17:07 01/03/17 06:07 01/03/17 08:16 Triglycerides Level 130 Cholesterol Level 96 L LDL Cholesterol, Calculated 53 HDL Cholesterol 17 L Cholesterol/HDL Ratio 5.6 Bedside Glucose 134 130 White Blood Count 11.9 H Red Blood Count 3.73 L Hemoglobin 10.5 L Hematocrit 31.5 L Mean Corpuscular Volume 84.5 Mean Corpuscular Hemoglobin 28.2 L Mean Corpuscular Hemoglobin Concent 33.3 Red Cell Distribution Width 15.0 H Platelet Count 263 # Mean Platelet Volume 9.4 Neutrophils % 73.3 Lymphocytes % 16.8 Monocytes % 7.3 Eosinophils % 1.3 Basophils % 0.3 Nucleated Red Blood Cells % 0.3 H Neutrophils # 8.8 H Lymphocytes # 2.0 Monocytes # 0.9 Eosinophils # 0.2 Basophils # 0.0 Nucleated Red Blood Cells # 0.0 Sodium Level 142 Potassium Level 3.7 Chloride Level 106 Carbon Dioxide Level 25 Anion Gap 15 Blood Urea Nitrogen 10 Creatinine 0.69 Glucose Level 128 Calcium Level 8.3 L Total Bilirubin 0.8 Direct Bilirubin 0.00 Indirect Bilirubin 0.8 Aspartate Amino Transf (AST/SGOT) 176 H Alanine Aminotransferase (ALT/SGPT) 319 H Alkaline Phosphatase 151 H Total Protein 6.6 Albumin 3.4 Globulin 3.20 Albumin/Globulin Ratio 1.06 Test 01/03/17 12:09 Bedside Glucose 143 Medications Current Medications Losartan Potassium (Cozaar) 50 mg DAILY PO Last administered on 01/03/17 08:18 ; Admin Dose 50 MG; Start 12/28/16 at 09:00 Metoprolol Tartrate (Lopressor) 25 mg BID PO Last administered on 01/01/17 20: 47; Admin Dose 25 MG; Start 12/27/16 at 21:00 Oxycodone/ Acetaminophen (Percocet (5/ 325)) 1 tab Q3H PRN PO PAIN LEVEL 1-5 Last administered on 01/01/17 11:08; Admin Dose 1 TAB; Start 12/28/16 at 17:30 Oxycodone/ Acetaminophen (Percocet (5/ 325)) 2 tab Q3H PRN PO PAIN LEVEL 6-10 Last administered on 01/02/17 05:19; Admin Dose 2 TAB; Start 12/28/16 at 17:30 Ondansetron HCl (Zofran Inj) 4 mg Q6H PRN IV NAUSEA AND/OR VOMITING; Start at 17:30 Aspirin (Aspirin) 325 mg DAILY PO Last administered on 01/03/17 08:18; Admin Dose 325 MG; Start 12/29/16 at 09:00 Lorazepam (Ativan) 1 mg Q8H PRN PO ANXIETY Last administered on 12/31/16 09:22 ; Admin Dose 1 MG; Start 12/29/16 at 14:30 Insulin Glargine (Lantus) 12 unit DAILY@08 SC Last administered on 01/03/17 08 :26; Admin Dose 12 UNIT; Start 12/31/16 at 08:00 Miscellaneous Information 1 ea NOTE XX ; Start 12/30/16 at 10:00 Glucose (Glutose) 15 gm Q15M PRN PO DECREASED GLUCOSE; Start 12/30/16 at 10:00 Glucose (Glutose) 22.5 gm Q15M PRN PO DECREASED GLUCOSE; Start 12/30/16 at 10: 00 Dextrose (D50w Syringe) 25 ml Q15M PRN IV DECREASED GLUCOSE; Start 12/30/16 at 10:00 Dextrose (D50w Syringe) 50 ml Q15M PRN IV DECREASED GLUCOSE; Start 12/30/16 at 10:00 Glucagon (Glucagen) 1 mg Q15M PRN IM DECREASED GLUCOSE; Start 12/30/16 at 10:00 Glucose (Glutose) 15 gm Q15M PRN BUCCAL DECREASED GLUCOSE; Start 12/30/16 at 10 :00 Enoxaparin Sodium (Lovenox) 40 mg DAILY SC Last administered on 01/03/17 08:19 ; Admin Dose 40 MG; Start 01/03/17 at 09:00 Atorvastatin Calcium (Lipitor) 40 mg HS PO Last administered on 01/02/17t 21:07 ; Admin Dose 40 MG; Start 01/02/17 at 21:00 Assessment/Plan Chief Complaint/Hosp Course 1. S/P resp failure: s/p intubation post op now pt is extubated. 2. 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 HTN 4. DM 5. Dyslipidemia 6/ hx OK 7/ HX PCI 8/ Moderate carotid stenosis 9. shock 10. post op anemia: stable will monitor for now. 11. post op CVA cont post op care replace lytes prn cont ICU care ASA Statin betablocker. neurology consultations/ evaluation and treatment as per IM. Thank you for this referral. We will continue to follow along with you. ROMMEL JIMÉNEZ MD [facility] Problems: ROMMEL JIMÉNEZ MD Jan 03, 2017 15:07
--- NOTE | 2017-01-03 15:16 | PN ---
Date/Time of Note Date/Time of Note DATE: 01/03/17 TIME: 15:15 Assessment/Plan Lines/Catheters IV Catheter Type (from Nrsg): Saline Lock Vogel in Place (from Nrsg): Yes Assessment/Plan Chief Complaint/Hosp Course Status post coronary artery bypass grafting Hemodynamically stable Stable blood pressure and urine output Chest tube output minimal CT of the brain. Suspect an acute/recent infarct in the medial right occipital lobe and posterior right temporal lobe, likely in the right posterior cerebral artery distribution. Consider brain MRI for further evaluation. clinically improving We will continue supportive follow neurology recc Rehab again Problems: Subjective 24 Hr Interval Summary Constitutional: improved Pain Control: mild Exam/Review of Systems Vital Signs Vitals Vital Signs Date Time Temp Pulse Resp B/P Pulse Ox O2 Delivery O2 Flow Rate FiO2 01/03/17 12:11 97.6 69 24 137/83 97 01/02/17 20:47 Room Air 01/02/17 20:11 3.0 Intake and Output 01/02/17 01/02/17 01/03/17 15:00 23:00 07:00 Intake Total 250 ml 670 ml 800 ml Output Total 420 ml 800 ml Balance 250 ml 250 ml 0 ml Exam Neck: non-tender, supple Respiratory: clear to auscultation, normal air movement Cardiovascular: nl pulses, regular rate and rhythm Gastrointestinal: nl liver, spleen, non-tender, soft Results Result Diagram: 01/03/17 0607 01/03/17 0607 MALETAYLOR ESPARZA MD Jan 03, 2017 15:16
[2017-01-03] MEDS: OXYCODONE/ACETAMINOPHEN (5/325) TAB PO PRN ×2 (15:41→23:14)
--- NOTE | 2017-01-03 15:52 | PN ---
Date/Time of Note Date/Time of Note DATE: 01/03/17 TIME: 15:50 Assessment/Plan VTE Prophylaxis VTE Prophylaxis Intervention: LMWH Lines/Catheters IV Catheter Type (from Nrs): Saline Lock Assessment/Plan Chief Complaint/Hosp Course 1. CAD s/p CABG - Aspirin and statin indefinitely - BP control - EF wnl on TTE - Management of chest drain/tube per CV surg 2. Fever: -DC Vanco/zosyn as cultures negative and no source identified, though fevers did resolve. If recur, restart abx 3. Hypernatremia: - Corrected FW deficit 4. CVA: - NCHCT suggests [employer] stroke, 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 MRI confirms - Monitor for A Fib -DC to rehab Prophylaxis: Lovenox Problems: Subjective 24 Hr Interval Summary Neurologic: dizziness Exam/Review of Systems Vital Signs Vitals Vital Signs Date Time Temp Pulse Resp B/P Pulse Ox O2 Delivery O2 Flow Rate FiO2 01/03/17 12:11 97.6 69 24 137/83 97 01/02/17 20:47 Room Air 01/02/17 20:11 3.0 Intake and Output 01/02/17 01/02/17 01/03/17 15:00 23:00 07:00 Intake Total 250 ml 670 ml 800 ml Output Total 420 ml 800 ml Balance 250 ml 250 ml 0 ml Exam Constitutional: alert, oriented Respiratory: clear to auscultation Cardiovascular: regular rate and rhythm Gastrointestinal: soft, No distended Musculoskeletal: nl extremities to inspection Results Result Diagram: 01/03/17 0607 01/03/17 0607 Results 24 hrs Laboratory Tests Test 01/02/17 16:55 01/02/17 17:07 01/03/17 06:07 01/03/17 08:16 Triglycerides Level 130 Cholesterol Level 96 L LDL Cholesterol, Calculated 53 HDL Cholesterol 17 L Cholesterol/HDL Ratio 5.6 Bedside Glucose 134 130 White Blood Count 11.9 H Red Blood Count 3.73 L Hemoglobin 10.5 L Hematocrit 31.5 L Mean Corpuscular Volume 84.5 Mean Corpuscular Hemoglobin 28.2 L Mean Corpuscular Hemoglobin Concent 33.3 Red Cell Distribution Width 15.0 H Platelet Count 263 # Mean Platelet Volume 9.4 Neutrophils % 73.3 Lymphocytes % 16.8 Monocytes % 7.3 Eosinophils % 1.3 Basophils % 0.3 Nucleated Red Blood Cells % 0.3 H Neutrophils # 8.8 H Lymphocytes # 2.0 Monocytes # 0.9 Eosinophils # 0.2 Basophils # 0.0 Nucleated Red Blood Cells # 0.0 Sodium Level 142 Potassium Level 3.7 Chloride Level 106 Carbon Dioxide Level 25 Anion Gap 15 Blood Urea Nitrogen 10 Creatinine 0.69 Glucose Level 128 Calcium Level 8.3 L Total Bilirubin 0.8 Direct Bilirubin 0.00 Indirect Bilirubin 0.8 Aspartate Amino Transf (AST/SGOT) 176 H Alanine Aminotransferase (ALT/SGPT) 319 H Alkaline Phosphatase 151 H Total Protein 6.6 Albumin 3.4 Globulin 3.20 Albumin/Globulin Ratio 1.06 Test 01/03/17 12:09 Bedside Glucose 143 Medications Medications Current Medications Losartan Potassium (Cozaar) 50 mg DAILY PO Last administered on 01/03/17 08:18 ; Admin Dose 50 MG; Start 12/28/16 at 09:00 Metoprolol Tartrate (Lopressor) 25 mg BID PO Last administered on 01/01/17 20: 47; Admin Dose 25 MG; Start 12/27/16 at 21:00 Oxycodone/ Acetaminophen (Percocet (5/ 325)) 1 tab Q3H PRN PO PAIN LEVEL 1-5 Last administered on 01/01/17 11:08; Admin Dose 1 TAB; Start 12/28/16 at 17:30 Oxycodone/ Acetaminophen (Percocet (5/ 325)) 2 tab Q3H PRN PO PAIN LEVEL 6-10 Last administered on 01/03/17 15:41; Admin Dose 2 TAB; Start 12/28/16 at 17:30 Ondansetron HCl (Zofran Inj) 4 mg Q6H PRN IV NAUSEA AND/OR VOMITING; Start at 17:30 Aspirin (Aspirin) 325 mg DAILY PO Last administered on 01/03/17 08:18; Admin Dose 325 MG; Start 12/29/16 at 09:00 Lorazepam (Ativan) 1 mg Q8H PRN PO ANXIETY Last administered on 12/31/16 09:22 ; Admin Dose 1 MG; Start 12/29/16 at 14:30 Insulin Glargine (Lantus) 12 unit DAILY@08 SC Last administered on 01/03/17 08 :26; Admin Dose 12 UNIT; Start 12/31/16 at 08:00 Miscellaneous Information 1 ea NOTE XX ; Start 12/30/16 at 10:00 Glucose (Glutose) 15 gm Q15M PRN PO DECREASED GLUCOSE; Start 12/30/16 at 10:00 Glucose (Glutose) 22.5 gm Q15M PRN PO DECREASED GLUCOSE; Start 12/30/16 at 10: 00 Dextrose (D50w Syringe) 25 ml Q15M PRN IV DECREASED GLUCOSE; Start 12/30/16 at 10:00 Dextrose (D50w Syringe) 50 ml Q15M PRN IV DECREASED GLUCOSE; Start 12/30/16 at 10:00 Glucagon (Glucagen) 1 mg Q15M PRN IM DECREASED GLUCOSE; Start 12/30/16 at 10:00 Glucose (Glutose) 15 gm Q15M PRN BUCCAL DECREASED GLUCOSE; Start 12/30/16 at 10 :00 Enoxaparin Sodium (Lovenox) 40 mg DAILY SC Last administered on 01/03/17 08:19 ; Admin Dose 40 MG; Start 01/03/17 at 09:00 Atorvastatin Calcium (Lipitor) 40 mg HS PO Last administered on 01/02/17 21:07 ; Admin Dose 40 MG; Start 01/02/17 at 21:00 ABRAHAM MARIE Jan 03, 2017 15:52
[2017-01-03] MEDS: ATORVASTATIN 40 MG TAB PO SCH (21:00)
[2017-01-03] MEDS ORDERED: hydrALAzine 20 MG INJ IV PRN (23:00)
[2017-01-03] MEDS: LORAZEPAM 1 MG TAB PO PRN (23:48)
[2017-01-04] VITALS (8 sets, daily range): BP systolic 116–163; BP diastolic 70–91; PULSE 92–96; RESP 18–19
--- NOTE | 2017-01-04 08:04 | RADRPT ---
PROCEDURE: XR Chest. CLINICAL INDICATION: Shortness of breath. TECHNIQUE: Single frontal view. COMPARISON: 01/03/2017. FINDINGS: There is air space disease in the left mid and lower lung zones consistent with atelectasis or pneum onia, worse than seen previously. The lungs are otherwise clear. The heart is enlarged. There is calcification in the aorta consistent with atherosclerosis. There ar e sternal wires. There is no pleural effusion. There is no pneumothorax. IMPRESSION: 1. Worse appearance of the left mid and lower lung zones. 2. Cardiomegaly and atherosclerosis. 3. Previous median sternotomy. 4. No other change from the 01/03/2017 chest radiograph. RPTAT: QQ .Angel Luis Ta MD, MD Date Time Electronically viewed and signed by .Angel Luis Ta MD, MD on 01/04/2017 08:04 .R/
[2017-01-04] MEDS: INSULIN GLARGINE [LANtus] 3 ML PEN SC SCH (08:54)
[2017-01-04] MEDS: INSULIN ASPART [NOVOLOG] 3 ML PEN SC SCH ×2 (08:56→12:46)
[2017-01-04] MEDS: METOPROLOL 25 MG TAB PO SCH (09:34)
[2017-01-04] MEDS: ASPIRIN 325 MG TAB PO SCH (09:34)
[2017-01-04] MEDS: LOSARTAN 50 MG TAB PO SCH (09:34)
[2017-01-04] MEDS: ENOXAPARIN 40 MG/0.4 ML SYG SC SCH (09:38)
--- NOTE | 2017-01-04 10:07 | CONS ---
Date/Time of Note Date/Time of Note DATE: 01/04/17 TIME: 10:05 Consult Date/Type/Reason Admit Date/Time Dec 27, 2016 at 11:23 Initial Consult Date 12/27/16 Type of Consultation: card Ordering Provider: JH MEZA MD Subjective cardiology follow up note (covering DR Hdez) S: D/W staff and rhythm was reviewed. no chest pain or pressure he still has blurred vision but improving pt is able to ambulate O: General: NO acute distress HEENT: NC/AT. pupils are equal. round. NECK: s/p IJ catheter . no stridor. CV: RRR. systolic murmur; no gallop or rubs. PULM: no wheezing or rhonchi. GI: SOFT, NT, ND, no rebound or guarding Extremity: trace B/L LE edema. no clubbing. neuro: Awake and follows commands. chest : s/p sternotomy Psych: calm and pleasant rectal: deferred : normal male magalis angio 12/27/16: 1. Left main: 90% distal disease. 2. LAD: Large caliber vessel with no significant disease. 3. Circumflex: proximal to mid 70-80% diffuse disease 4. Obtuse marginal: Medium caliber vessel with no significant disease. 5. RCA: Large dominant vessel with distal 90% stent re-stenosis; prominent left to right collaterals via PDA ECHO: 1. Lower limits of normal systolic function. Normal left ventricular cavity size. Left ventricular wall thickness upper limits of normal. Ejection fraction is visually estimated at 50 %. Tissue Doppler/Mitral Doppler indices are consistent with impaired relaxation (Stage I diastolic dysfunction). These segments of the LV are hypokinetic apex. 2. Mild mitral leaflet calcification. Mild mitral annular calcification. Trace mitral regurgitation. 3. No significant aortic stenosis. Aortic cusps appear mildly calcified. Trace aortic valve regurgitation. 4. Normal appearance of the tricuspid valve. Estimated peak PA systolic pressure 38 mmHg. There is mild tricuspid regurgitation. CT HEAD 12/29/16: IMPRESSION: 1. Suspect an acute/recent infarct in the medial right occipital lobe and posterior right temporal lobe, likely in the right posterior cerebral artery distribution. Consider brain MRI for further evaluation. 2. No acute intracranial hemorrhage. 3. Mild intracranial atherosclerosis and chronic small vessel ischemic changes. 4. Mild generalized cerebral volume loss. Objective Vital Signs Date Time Temp Pulse Resp B/P Pulse Ox O2 Delivery O2 Flow Rate FiO2 01/04/17 08:00 96 01/04/17 07:40 98.1 19 116/70 95 01/03/17 20:00 Nasal Cannula 01/02/17 20:11 3.0 Intake and Output 01/03/17 01/03/17 01/04/17 15:00 23:00 07:00 Intake Total 120 ml Output Total 450 ml Balance -330 ml Results/Medications Result Diagram: 01/04/1762001/04/1721 Results 24 hrs Laboratory Tests Test 01/03/17 12:09 01/03/17 17:21 01/03/17 20:59 01/04/17 06:21 Bedside Glucose 143 104 125 White Blood Count 9.9 Red Blood Count 3.69 L Hemoglobin 10.1 L Hematocrit 31.2 L Mean Corpuscular Volume 84.6 Mean Corpuscular Hemoglobin 27.4 L Mean Corpuscular Hemoglobin Concent 32.4 Red Cell Distribution Width 15.6 H Platelet Count 317 # Mean Platelet Volume 9.3 Neutrophils % 64.0 Lymphocytes % 24.8 Monocytes % 7.7 Eosinophils % 2.0 Basophils % 0.3 Nucleated Red Blood Cells % 0.0 Neutrophils # 6.3 Lymphocytes # 2.4 Monocytes # 0.8 Eosinophils # 0.2 Basophils # 0.0 Nucleated Red Blood Cells # 0.0 Sodium Level 141 Potassium Level 3.6 Chloride Level 106 Carbon Dioxide Level 25 Anion Gap 14 Blood Urea Nitrogen 11 Creatinine 0.73 Glucose Level 103 Calcium Level 8.1 L Test 01/04/17 07:43 Bedside Glucose 90 Medications Current Medications Losartan Potassium (Cozaar) 50 mg DAILY PO Last administered on 01/04/17 09:34 ; Admin Dose 50 MG; Start 12/28/16 at 09:00 Metoprolol Tartrate (Lopressor) 25 mg BID PO Last administered on 01/04/17 09: 34; Admin Dose 25 MG; Start 12/27/16 at 21:00 Oxycodone/ Acetaminophen (Percocet (5/ 325)) 1 tab Q3H PRN PO PAIN LEVEL 1-5 Last administered on 01/01/17 11:08; Admin Dose 1 TAB; Start 12/28/16 at 17:30 Oxycodone/ Acetaminophen (Percocet (5/ 325)) 2 tab Q3H PRN PO PAIN LEVEL 6-10 Last administered on 01/03/17 23:14; Admin Dose 2 TAB; Start 12/28/16 at 17:30 Ondansetron HCl (Zofran Inj) 4 mg Q6H PRN IV NAUSEA AND/OR VOMITING; Start at 17:30 Aspirin (Aspirin) 325 mg DAILY PO Last administered on 01/04/17 09:34; Admin Dose 325 MG; Start 12/29/16 at 09:00 Lorazepam (Ativan) 1 mg Q8H PRN PO ANXIETY Last administered on 01/03/17 23:48 ; Admin Dose 1 MG; Start 12/29/16 at 14:30 Insulin Glargine (Lantus) 12 unit DAILY@08 SC Last administered on 01/04/17 08 :54; Admin Dose 12 UNIT; Start 12/31/16 at 08:00 Miscellaneous Information 1 ea NOTE XX ; Start 12/30/16 at 10:00 Glucose (Glutose) 15 gm Q15M PRN PO DECREASED GLUCOSE; Start 12/30/16 at 10:00 Glucose (Glutose) 22.5 gm Q15M PRN PO DECREASED GLUCOSE; Start 12/30/16 at 10: 00 Dextrose (D50w Syringe) 25 ml Q15M PRN IV DECREASED GLUCOSE; Start 12/30/16 at 10:00 Dextrose (D50w Syringe) 50 ml Q15M PRN IV DECREASED GLUCOSE; Start 12/30/16 at 10:00 Glucagon (Glucagen) 1 mg Q15M PRN IM DECREASED GLUCOSE; Start 12/30/16 at 10:00 Glucose (Glutose) 15 gm Q15M PRN BUCCAL DECREASED GLUCOSE; Start 12/30/16 at 10 :00 Enoxaparin Sodium (Lovenox) 40 mg DAILY SC Last administered on 01/04/17 09:38 ; Admin Dose 40 MG; Start 01/03/17 at 09:00 Atorvastatin Calcium (Lipitor) 40 mg HS PO Last administered on 01/03/17 21:00 ; Admin Dose 40 MG; Start 01/02/17 at 21:00 Hydralazine HCl (Apresoline) 10 mg Q4H PRN IV SBP > 160 Last administered on 23:10; Admin Dose 10 MG; Start 01/03/17 at 23:00 Assessment/Plan Chief Complaint/Hosp Course 1. S/P resp failure: s/p intubation post op now pt is extubated. 2. 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 HTN 4. DM 5. Dyslipidemia 6/ hx NV 7/ HX PCI 8/ Moderate carotid stenosis 9. shock 10. post op anemia: stable will monitor for now. 11. post op CVA cont post op care replace lytes prn ASA Statin betablocker. neurology consultations/ evaluation and treatment as per IM/ neuro dc planning when ok with CT surgery and neurology Thank you for this referral. We will continue to follow along with you. ROMMEL JIMÉNEZ MD [facility] Problems: ROMMEL JIMÉNEZ MD Jan 04, 2017 10:07
--- NOTE | 2017-01-04 17:00 | CONS ---
Date/Time of Note Date/Time of Note DATE: 01/04/17 TIME: 16:59 Assessment/Plan Assessment/Plan Additional Assessment/Plan 1. Acute Hypernatremia- Resolved 2. CAD s/p CABG on 12/28/16 3. HTN 4. HL 5. DM II 6. Elevated LFTs Plan: Cr and electrolytes stable today, BP stable LFTs mildly elevated Monitor electrolytes and replace as needed. will follow up Consultation Date/Type/Reason Admit Date/Time Dec 27, 2016 at 11:23 Initial Consult Date 12/30/16 Type of Consultation: NEPHROLOGY Referring Provider: JH MEZA MD 24 HR Interval Summary Free Text/Dictation pt was seen in AM, Bp stable, Cr normal Exam/Review of Systems Vital Signs Vitals Vital Signs Date Time Temp Pulse Resp B/P Pulse Ox O2 Delivery O2 Flow Rate FiO2 01/04/17 15:18 98.4 79 19 163/91 98 01/03/17 20:00 Nasal Cannula 01/02/17 20:11 3.0 Intake and Output 01/03/17 01/03/17 01/04/17 15:00 23:00 07:00 Intake Total 120 ml Output Total 450 ml Balance -330 ml Exam Constitutional: alert, oriented, well developed Neck: non-tender, supple Respiratory: clear to auscultation, normal air movement Cardiovascular: nl pulses, regular rate and rhythm Gastrointestinal: nl liver, spleen, non-tender, soft Musculoskeletal: nl extremities to inspection Extremities: normal pulses Neurological: NON LICENSED OPERATOR II-XII intact, nl mental status, nl speech, nl strength Results Result Diagram: 01/04/17 0621 01/04/17 0621 Results 24 hrs Laboratory Tests Test 01/03/17 17:21 01/03/17 20:59 01/04/17 06:21 01/04/17 07:43 Bedside Glucose 104 125 90 White Blood Count 9.9 Red Blood Count 3.69 L Hemoglobin 10.1 L Hematocrit 31.2 L Mean Corpuscular Volume 84.6 Mean Corpuscular Hemoglobin 27.4 L Mean Corpuscular Hemoglobin Concent 32.4 Red Cell Distribution Width 15.6 H Platelet Count 317 # Mean Platelet Volume 9.3 Neutrophils % 64.0 Lymphocytes % 24.8 Monocytes % 7.7 Eosinophils % 2.0 Basophils % 0.3 Nucleated Red Blood Cells % 0.0 Neutrophils # 6.3 Lymphocytes # 2.4 Monocytes # 0.8 Eosinophils # 0.2 Basophils # 0.0 Nucleated Red Blood Cells # 0.0 Sodium Level 141 Potassium Level 3.6 Chloride Level 106 Carbon Dioxide Level 25 Anion Gap 14 Blood Urea Nitrogen 11 Creatinine 0.73 Glucose Level 103 Calcium Level 8.1 L Test 01/04/17 12:01 Bedside Glucose 126 LEONARDA CHAMPION MD Jan 04, 2017 17:00
--- NOTE | 2017-01-04 17:40 | DS ---
Date/Time of Note Date/Time of Note DATE: 01/04/17 TIME: 17:32 Discharge Summary Admission/Discharge Info Admit Date/Time Dec 27, 2016 at 11:23 Discharge Date/Time Jan 04, 2017 at 16:31 Discharge Diagnosis 1. CAD s/p CABG - Aspirin and statin indefinitely - BP control - EF wnl on TTE 2. Fever: -DC Vanco/zosyn as cultures negative and no source identified, though fevers did resolve 3. Hypernatremia- resolved - Corrected FW deficit 4. CVA: -MRI brain shows small acute infarcts in the posterior left frontal and posterior right parietal lobe. Subacute right temporal occipital lobe infarct. - likely perioperative cardioembolic -DC to rehab Patient Condition: Good Hx of Present Illness Hospital Course Patient is a 56 yo male with CAD, referred for CABG after found to have LM disease. After CABG patient reported blurry vision and dizziness with difficulty ambulating. MRI of the brain was done and showed small acute infarcts in the posterior left frontal and posterior right parietal lobe as well as subacute right temporal occipital lobe infarct. Patient was improving with PT and was felt to be an appropriate rehab candidate. Patient was clear for DC per cardiothoracic surgery, on day of discharge patient vitals labs physical exam are stable, patient had no further acute complaints questions answered. Home Meds Reported Medications Metformin Hcl* (Metformin Hcl*) 1,000 Mg Tablet, 1000 MG PO WITH BREAKFAST DINNE , #30 TAB 12/27/16 Aspirin (Low Dose Aspirin) 81 Mg Tablet.dr, 81 MG PO DAILY, #30 TAB 12/27/16 Losartan Potassium* (Losartan Potassium*) 50 Mg Tablet, 50 MG PO DAILY, TAB 12/27/16 Metoprolol Tartrate* (Lopressor*) 25 Mg Tab, 25 MG PO DAILY, #60 TAB 12/27/16 Insulin Lispro (Humalog Kwikpen) 200 Unit/1 Ml Insuln.pen, 5 UNIT SQ AC MEALS, EA 12/27/16 Insulin Glargine* (Lantus*) 100 Unit/Ml Soln, 15 UNIT SC QAM, #1 VIAL 12/27/16 Follow-up Plan Follow-up with physicians at acute rehab Primary Care Provider Not On Staff Doctor Time spent on discharge: > 30 minutes ABRAHAM MARIE Jan 04, 2017 17:40
== END 2017-01-04 16:31 | DRG 228 ==
LOC: SDS 08:27 → REC 11:23 → TEL 14:50 → ICU 12-28 08:45 → TEL 01-01 05:20
PROVIDERS: ADMIT Internal Medicine; ATTEND Internal Medicine
PROC: 4A023N7 Measurement of Cardiac Sampling and Pressure, Left Heart, Percutaneous Approach (ICD-10-PCS; 2016-12-27)
PROC: B2011ZZ Plain Radiography of Multiple Coronary Arteries using Low Osmolar Contrast (ICD-10-PCS; 2016-12-27)
PROC: 5A1221Z Performance of Cardiac Output, Continuous (ICD-10-PCS; 2016-12-27)
PROC: 02C00ZZ Extirpation of Matter from Coronary Artery, One Artery, Open Approach (ICD-10-PCS; 2016-12-28)
PROC: 021209W Bypass Coronary Artery, Three Arteries from Aorta with Autologous Venous Tissue, Open Approach (ICD-10-PCS; 2016-12-28)
PROC: 06BQ4ZZ Excision of Left Saphenous Vein, Percutaneous Endoscopic Approach (ICD-10-PCS; 2016-12-28)
PROC: 07BM0ZZ Excision of Thymus, Open Approach (ICD-10-PCS; 2016-12-28)
PROC: 5A1221Z Performance of Cardiac Output, Continuous (ICD-10-PCS; 2016-12-28)
PROC: 02100A9 Bypass Coronary Artery, One Artery from Left Internal Mammary with Autologous Arterial Tissue, Open Approach (ICD-10-PCS; principal; 2016-12-28 09:00)
PROC: 30233N1 Transfusion of Nonautologous Red Blood Cells into Peripheral Vein, Percutaneous Approach (ICD-10-PCS; 2016-12-29)
DX: I25.118 Atherosclerotic heart disease of native coronary artery with other forms of angina pectoris (principal); R57.0 Cardiogenic shock; I63.431 Cerebral infarction due to embolism of right posterior cerebral artery; I63.49 Cerebral infarction due to embolism of other cerebral artery; E87.0 Hyperosmolality and hypernatremia; I10 Essential (primary) hypertension; E11.9 Type 2 diabetes mellitus without complications; D64.9 Anemia, unspecified; I97.820 Postprocedural cerebrovascular infarction following cardiac surgery; G81.94 Hemiplegia, unspecified affecting left nondominant side; I73.9 Peripheral vascular disease, unspecified; I65.29 Occlusion and stenosis of unspecified carotid artery; Z95.5 Presence of coronary angioplasty implant and graft; Z95.1 Presence of aortocoronary bypass graft; E78.5 Hyperlipidemia, unspecified; H53.8 Other visual disturbances; Z72.0 Tobacco use; I25.2 Old myocardial infarction; R50.82 Postprocedural fever; H91.93 Unspecified hearing loss, bilateral
CPT/HCPCS: 36430; 36592; 36600; 70450; 70544; 70549; 70551; 71010; 80048; 80053; 80061; 80202; 81001; 82550; 82553; 82803; 82962; 83036; 83735; 83880; 84132; 84439; 84443; 84484; 85014; 85025; 85610; 85730; 86850; 86900; 86901; 86920; 87040; 87081; 87086; 92526; 92610; 93005; 93306; 93312; 93325; 93458; 93880; 93970; 94002; 94003; 94770; 97116; 97163; 97530; J1940; C1887; J0171; J0360; J0690; J1170; J1265; J1644; J1650; J1815; J2001; J2250; J2260; J2370; J2440; J2543; J2720; J3010; J3370; J3475; J3480; J7030; J7040; J7050; J7070; P9016; P9045; P9047

== ENCOUNTER 2017-01-04 14:52 | Inpatient (IN) | payer OTHER ==
[~2017-01-04] VITALS: Ht 154.9 cm; Wt 78.0 kg
[~2017-01-04 14:52] MED LIST: ASPI-664 PO; INSU200I SQ; LANT3I SC; LOSA50TA6 PO; METF1000 PO; METO-448 PO
[2017-01-04 18:00] VITALS: BP 179/93; RESP 20
[2017-01-04 18:11] VITALS: Ht 154.9 cm; Wt 78.0 kg
[2017-01-04] MEDS ORDERED: BISACODYL 10 MG SUPP PR PRN (18:30)
[2017-01-04] MEDS ORDERED: GLUCAGON 1 MG INJ IM PRN (18:30)
[2017-01-04] MEDS ORDERED: MAGNESIUM HYDROXIDE 30ML CUP PO PRN (18:30)
[2017-01-04] MEDS ORDERED: GLUCOSE GEL 15 GRAM TUBE PO PRN ×2 (18:30)
[2017-01-04] MEDS ORDERED: GLUCOSE GEL 15 GRAM TUBE BUCCAL PRN (18:30)
[2017-01-04] MEDS ORDERED: LORAZEPAM 1 MG TAB PO PRN (18:30)
[2017-01-04] MEDS ORDERED: OXYCODONE/ACETAMINOPHEN (5/325) TAB PO PRN (18:30)
[2017-01-04] MEDS ORDERED: DEXTROSE 50% 50 ML SYRINGE IV PRN ×2 (18:30)
[2017-01-04] MEDS ORDERED: ONDANSETRON 4 MG INJ IV PRN (18:30)
[2017-01-04] MEDS ORDERED: ALTEPLASE (CATHFLO) 2 MG INJ CATHETER PRN (19:00)
[2017-01-04] MEDS: INSULIN ASPART [NOVOLOG] 3 ML PEN SC SCH (19:30)
[2017-01-04 20:00] VITALS: BP 156/79; RESP 20
[2017-01-04] MEDS: METOPROLOL 25 MG TAB PO SCH (20:23)
[2017-01-04] MEDS: ATORVASTATIN 40 MG TAB PO SCH (20:23)
[2017-01-05 02:00] VITALS: BP 160/90; RESP 20
[2017-01-05 03:51] LABS: ADD UMIC YES; UR ASCORBIC ACID NEGATIVE (NEGATIVE); UR BILIRUBIN (Dip) NEGATIVE (NEGATIVE); UR BLOOD (Dip) 1+ mg/dL (NEGATIVE); UR CLARITY CLEAR (CLEAR); UR COLOR YELLOW (YELLOW); UR GLUCOSE (Dip) NEGATIVE (NEGATIVE); UR KETONES (Dip) NEGATIVE (NEGATIVE); UR LEUKOCYTE ESTERASE (Dip) NEGATIVE Leu/ul (NEGATIVE); UR NITRITE (Dip) NEGATIVE (NEGATIVE); UR RBC 5 /HPF (0-5); UR SPECIFIC GRAVITY (Dip) 1.014 (1.003-1.030); UR TOTAL PROTEIN (Dip) NEGATIVE (NEGATIVE); UR UROBILINOGEN (Dip) 2+ mg/dL (NEGATIVE)
[2017-01-05 07:10] LABS: BASOPHILS % 0.2 % (0.0-2.0); EOSINOPHILS # 0.2 10^3/ul (0.0-0.5); EOSINOPHILS % 1.7 % (0.0-7.0); HEMATOCRIT 32.4 % (42.0-52.0); LYMPHOCYTES # 1.8 10^3/ul (0.8-2.9); LYMPHOCYTES % 19.3 % (15.0-51.0); MEAN CORPUSCULAR HEMOGLOBIN 28.6 pg (29.0-33.0); MEAN CORPUSCULAR VOLUME 84.2 fl (82.0-101.0); MONOCYTE # 0.7 10^3/ul (0.3-0.9); MONOCYTES % 7.3 % (0.0-11.0); NEUTROPHIL # 6.6 10^3/ul (1.6-7.5); NEUTROPHILS % 70.3 % (39.0-77.0); PLATELET COUNT 416 10^3/UL (140-415); RED BLOOD COUNT 3.85 10^6/ul (4.70-6.10); WHITE BLOOD COUNT 9.4 10^3/ul (4.8-10.8)
[2017-01-05 07:29] LABS: ALBUMIN 3.5 g/dl (3.3-4.9); ALBUMIN/GLOBULIN RATIO 1.02; BILIRUBIN,INDIRECT 0.6 mg/dl (0-1.1); BILIRUBIN,TOTAL 0.6 mg/dl (0.2-1.3); CALCIUM 8.5 mg/dl (8.4-10.2); CREATININE 0.71 mg/dl (0.61-1.24); POTASSIUM 3.8 mmol/L (3.5-5.1); TOTAL PROTEIN 6.9 g/dl (6.1-8.1)
[2017-01-05 08:00] VITALS: BP 156/84; RESP 18
[2017-01-05] MEDS: INSULIN ASPART [NOVOLOG] 3 ML PEN SC SCH ×5 (08:20→21:00)
[2017-01-05] MEDS: INSULIN GLARGINE [LANtus] 3 ML PEN SC SCH (08:21)
[2017-01-05] MEDS: ENOXAPARIN 40 MG/0.4 ML SYG SC SCH (08:22)
[2017-01-05] MEDS: ASPIRIN 325 MG TAB PO SCH (08:22)
[2017-01-05] MEDS: LOSARTAN 50 MG TAB PO SCH (08:22)
[2017-01-05] MEDS: METOPROLOL 25 MG TAB PO SCH ×2 (08:23→21:07)
--- NOTE | 2017-01-05 13:14 | CONS ---
DATE OF ADMISSION: 01/04/2017 DATE OF CONSULTATION: 01/05/2017 REHABILITATION POST ADMISSION PHYSICIAN EVALUATION REHABILITATION IMPAIRMENT CATEGORY: Right occipital infarct cerebrovascular accident with left-side d weakness. ACTIVE COMORBIDITIES: 1. Coronary artery disease status post coronary artery bypass graft. 2. Dysphagia. 3. Hypertension. 4. Hyperlipidemia. 5. Diabetes mellitus. 6. Coronary artery disease. 7. Impairments in self-care, mobility and cognition. HISTORY OF PRESENT ILLNESS: The patient is a 56-year-old right-handed gentleman who was noted to rehman ve chest pain. Workup did reveal a multilevel coronary artery disease and the patient underwent 4-v essel CABG on 12/28/2016. His postoperative course was notable for visual disturbance in addition t o weakness. A head CT did reveal recent acute right occipital lobe and posterior right temporal lob e infarct cerebrovascular accident. MRI of the brain also demonstrated small acute infarct in the p osterior left frontal, right parietal, right temporal occipital lobe. The patient is also noted to have dysphagia, on pureed diet with nectar-thick liquids. The patient has been cleared to transfer to the rehabilitation unit for comprehensive interdisciplinary rehab care. FUNCTIONAL HISTORY: Prior to recent events, he was independent in self-care tasks and mobility. Cu rrently, the patient requires moderate assist for self-care and mobility tasks. I have reviewed the preadmission screen and the patient's current functional status is consistent wi th the preadmission screen. SOCIAL HISTORY: The patient lives at home with family and hopes to return there upon discharge. PAST MEDICAL HISTORY: 1. Coronary artery disease. 2. Hypertension. 3. Hyperlipidemia. 4. Diabetes mellitus. CURRENT MEDICATIONS: 1. Aspirin 325 p.o. daily. 2. Lipitor 40 once p.o. at bedtime. 3. Insulin sliding scale. 4. Lovenox 40 mg subcutaneous daily. 5. Lantus 12 units subcutaneous daily. 6. Ativan p.r.n. 7. Cozaar 50 mg p.o. daily. 8. Lopressor 25 mg p.o. b.i.d. 9. Percocet p.r.n. ALLERGIES: THE PATIENT WITH NO KNOWN DRUG ALLERGIES. PHYSICAL EXAMINATION: VITAL SIGNS: The patient is currently afebrile with stable vital signs. HEENT: Extraocular motion intact. Oropharynx clear. NECK: Supple. LUNGS: Clear anteriorly. CARDIAC: S1, S2. ABDOMEN: Soft, nontender, positive bowel sounds. NEUROLOGIC: He is awake, alert, oriented to person and hospital. He will follow simple 1-step comm ands. He demonstrates antigravity strength in bilateral upper extremity and lower extremity. He do es have impaired dynamic balance. PLAN: The patient has been admitted for comprehensive interdisciplinary acute rehab and is anticipa clint to tolerate 3 hours of daily therapy in divided doses for at least 5/7 days a week. Treatment p amelie will include: 1. Physical therapy to focus on bed mobility, transfers, and household ambulation with the goal of having the patient reach standby assist level. 2. Occupational therapy to focus on hygiene, grooming, dressing, bathing, and toileting activities with the goal of having patient reach standby assist level. 3. Rehabilitation nursing for carryover of therapeutic interventions, the goal of continent of shadia l and bladder, and the goal of patient and family education with regard to the aforementioned issues . 4. Speech therapy for full cognitive assessment and retraining with the goal of having the patient return to baseline cognition and meet nutritional needs by mouth on a regular diet. REHABILITATION BARRIER: Dysphagia. INTERVENTION FOR BARRIER: Speech therapy. ESTIMATED LENGTH OF STAY: 14 days. DISPOSITION GOAL: Home. I acknowledge that I performed a full physical examination on this patient within 24 hours of admiss ion to the rehabilitation unit and believe the patient is a good candidate for comprehensive interdi sciplinary rehab care and is anticipated to make reasonable goals in a reasonable period of time as outlined above. Dictated By: JUSTIN MAYNARD/AI Conf#: [id number] DID#: [id number]
--- NOTE | 2017-01-05 13:27 | CONS ---
Date/Time of Note Date/Time of Note DATE: 01/05/17 TIME: 13:27 Assessment/Plan Assessment/Plan Chief Complaint/Hosp Course This is a 56-year-old male with multivessel coronary artery disease, who apparently underwent CABG and postoperatively found to have acute CVA, transferred to ARU for further physical therapy and rehabilitation. 1. Acute CVA, involving posterior left frontal ,posterior right parietal lobe and right temporal occipital lobe infarct. - Continue aspirin. -PT/OT/ST eval and treatment. 2. Multivessel coronary artery disease. Status post coronary artery bypass graft on 12/28/2016. -Continue medical management. 3. Dysphagia. -Continue with ST evaluation. Continue./Sawyer thick diet. 4. Hypertension. -Continue antihypertensives. 5. Hyperlipidemia. -Continue statin. 6. Type 2 Diabetes mellitus. -Continue Accu-Cheks/ISS/pre-meal/Lantus. 7. Transaminase elevation. Patient asymptomatic. -Abdominal ultrasound. 8. Mild anemia. -Obtain iron panel and treat accordingly Prophylaxis: Lovenox. Approximately 60 minutes was spent on this consultation. Patient was seen in collaboration with . Problems: Consultation Date/Type/Reason Admit Date/Time Jan 04, 2017 at 17:27 Reason for Consultation Internal medicine Hx of Present Illness This is a 56-year-old male who was admitted at [facility] with chest pain, found to have a multivessel coronary artery disease. Patient underwent coronary artery bypass grafting on 12/28/2016. Postoperatively, patient had blurry vision with new onset of weakness and dysphagia. CT with acute right occipital lobe and posterior right temporal lobe infarct. MRI also showed small acute infarct in the posterior left frontal, right parietal, right temporal occipital lobe. Therefore, patient was transferred to [facility] acute rehabilitation unit for further complex rehabilitation. At my encounter with the patient, he denied any chest pain, palpitation, nausea , vomiting, abdominal pain, shortness of breath, headache, new weakness, dizziness, dysarthria, numbness or tingling. Patient continued to have blurry vision on left eye. BMB showed elevated AST 66, ALT 208 and alkaline phosphatase 131. CBC with hemoglobin 11, hematocrit 32.4 and platelet 416. Otherwise unremarkable. A 12 point review of system was assessed and is negative other than what is mentioned in the HPI. Past Medical History See HPI Past Surgical History See HPI Social History Former smoker. No history of alcohol or illicit drug use. Smoking Status: Former smoker Exam/Review of Systems Vital Signs Vitals Vital Signs Date Time Temp Pulse Resp B/P Pulse Ox O2 Delivery O2 Flow Rate FiO2 01/05/17 08:00 98.5 96 18 156/84 97 01/04/17 23:52 Nasal Cannula 2.0 Intake and Output 01/04/17 01/04/17 01/05/17 14:59 22:59 06:59 Intake Total 240 ml 100 ml Output Total 200 ml 650 ml Balance 40 ml -550 ml Exam General: Well developed,adequately built, not in any acute distress . HEENT: Normocephalic, Atraumatic, No laceration or hematoma; Eyes: Reports blurred vision to left eye. PEERL, Conjunctiva clear, Anicteric sclera Neck: Supple without any lymphadenopathy, nontender, no JVD, no carotid bruits, trachea midline, no thyromegaly Cardiac: S1, S2 auscultated, regular rhythm and rate, no mumurs or gallop Pulmonary: Normal respiratory effort. Chest clear to auscultation bilaterally, no adventitious breath sounds GI: Abdomen normal to inspection. Soft, non tender, non- distended, no masses, no rebound tenderness or guarding. Bowel sounds active on all four quadrants Genitourinary: Deferred Extremities: No cyanosis, clubbing, or edema. Pulses [2+] bilaterally. Full ROM on all four extremities. No focal weakness appreciated. Neurologic: Alert to person, place, time, and situation. Affect appropriate, intact sensation. Skin: Mediastinal incision with intact dressing. Graft site on lower extremity intact. Results Result Diagram: 01/05/1761601/05/17616 Results 24 hrs Laboratory Tests Test 01/04/17 20:21 01/04/17 23:00 01/05/17 06:17 01/05/17 07:52 Bedside Glucose 184 127 Urine Color YELLOW Urine Clarity CLEAR Urine pH 6.0 Urine Specific [place] 1.014 Urine Ketones NEGATIVE Urine Nitrite NEGATIVE Urine Bilirubin NEGATIVE Urine Urobilinogen 2+ H Urine Leukocyte Esterase NEGATIVE Urine Microscopic RBC 5 Urine Microscopic WBC 1 Urine Hemoglobin 1+ H Urine Glucose NEGATIVE Urine Total Protein NEGATIVE White Blood Count 9.4 Red Blood Count 3.85 L Hemoglobin 11.0 L Hematocrit 32.4 L Mean Corpuscular Volume 84.2 Mean Corpuscular Hemoglobin 28.6 L Mean Corpuscular Hemoglobin Concent 34.0 Red Cell Distribution Width 15.0 H Platelet Count 416 #H Mean Platelet Volume 9.0 Neutrophils % 70.3 Lymphocytes % 19.3 Monocytes % 7.3 Eosinophils % 1.7 Basophils % 0.2 Nucleated Red Blood Cells % 0.0 Neutrophils # 6.6 Lymphocytes # 1.8 Monocytes # 0.7 Eosinophils # 0.2 Basophils # 0.0 Nucleated Red Blood Cells # 0.0 Sodium Level 141 Potassium Level 3.8 Chloride Level 106 Carbon Dioxide Level 24 Anion Gap 15 Blood Urea Nitrogen 9 Creatinine 0.71 Glucose Level 118 Calcium Level 8.5 Total Bilirubin 0.6 Direct Bilirubin 0.00 Indirect Bilirubin 0.6 Aspartate Amino Transf (AST/SGOT) 66 H Alanine Aminotransferase (ALT/SGPT) 208 H Alkaline Phosphatase 131 H Total Protein 6.9 Albumin 3.5 Globulin 3.40 H Albumin/Globulin Ratio 1.02 Test 01/05/17 12:17 Bedside Glucose 164 Medications Medications Current Medications Magnesium Hydroxide (Milk Of Mag) 30 ml BID PRN PO CONSTIPATION; Start at 18:30 Bisacodyl (Dulcolax Supp) 10 mg DAILY PRN [place] CONSTIPATION; Start 01/04/17 at 18 :30 Lactulose (Enulose) 20 gm DAILY PRN PO CONSTIPATION; Start 01/04/17 at 18:30 Ondansetron HCl (Zofran Inj) 4 mg Q6H PRN IV NAUSEA AND/OR VOMITING; Start 01/04/17 at 18:30 Oxycodone/ Acetaminophen (Percocet (5/ 325)) 1 tab Q3H PRN PO PAIN LEVEL 1-5; Start 01/04/17 at 18:30 Oxycodone/ Acetaminophen (Percocet (5/ 325)) 1 tab Q3H PRN PO PAIN LEVEL 6-10; Start 01/04/17 at 18:30 Insulin Glargine (Lantus) 12 unit DAILY@08 SC Last administered on 01/05/17 08 :21; Admin Dose 12 UNIT; Start 01/05/17 at 08:00 Lorazepam (Ativan) 1 mg Q8H PRN PO ANXIETY; Start 01/04/17 at 18:30 Losartan Potassium (Cozaar) 50 mg DAILY PO Last administered on 01/05/17 08:22 ; Admin Dose 50 MG; Start 01/05/17 at 09:00 Metoprolol Tartrate (Lopressor) 25 mg BID PO Last administered on 01/05/17 08: 23; Admin Dose 25 MG; Start 01/04/17 at 21:00 Miscellaneous Information 1 ea NOTE XX ; Start 01/04/17 at 18:30 Glucose (Glutose) 15 gm Q15M PRN PO DECREASED GLUCOSE; Start 01/04/17 at 18:30 Glucose (Glutose) 22.5 gm Q15M PRN PO DECREASED GLUCOSE; Start 01/04/17 at 18: 30 Dextrose (D50w Syringe) 25 ml Q15M PRN IV DECREASED GLUCOSE; Start 01/04/17 at 18:30 Dextrose (D50w Syringe) 50 ml Q15M PRN IV DECREASED GLUCOSE; Start 01/04/17 at 18:30 Glucagon (Glucagen) 1 mg Q15M PRN IM DECREASED GLUCOSE; Start 01/04/17 at 18:30 Glucose (Glutose) 15 gm Q15M PRN BUCCAL DECREASED GLUCOSE; Start 01/04/17 at 18 :30 Aspirin (Aspirin) 325 mg DAILY PO Last administered on 01/05/17 08:22; Admin Dose 325 MG; Start 01/05/17 at 09:00 Atorvastatin Calcium (Lipitor) 40 mg HS PO Last administered on 01/04/17 20:23 ; Admin Dose 40 MG; Start 01/04/17 at 21:00 Enoxaparin Sodium (Lovenox) 40 mg DAILY SC Last administered on 01/05/17 08:22 ; Admin Dose 40 MG; Start 01/05/17 at 09:00 MYKE RICKS NP Jan 05, 2017 13:27
[2017-01-05 15:02] LABS: IRON 29 ug/dl (35-150)
[2017-01-05 15:11] LABS: TOTAL IRON BINDING CAPACITY 253 ug/dl (241-421)
[2017-01-05 16:00] VITALS: BP 179/89; RESP 19
[2017-01-05] MEDS: OXYCODONE/ACETAMINOPHEN (5/325) TAB PO PRN (17:57)
[2017-01-05] MEDS: ACETAMINOPHEN 325 MG TAB PO PRN ×2 (17:57→21:10)
[2017-01-05 20:00] VITALS: BP 128/64; RESP 19
[2017-01-05] MEDS: DOCUSATE SODIUM 100 MG CAP PO SCH (21:06)
[2017-01-05] MEDS: ATORVASTATIN 40 MG TAB PO SCH (21:07)
--- NOTE | 2017-01-05 22:13 | RADRPT ---
PROCEDURE: US Abdomen and Retroperitoneum. CLINICAL INDICATION: Elevated liver function tests. TECHNIQUE: Multiple real-time longitudinal and transverse images were acquired of the patient's ab domen and retroperitoneum utilizing a curved array transducer. COMPARISON: No prior studies are available for comparison. FINDINGS: The liver is normal in size and normal in echogenicity. The liver has a normal smooth surface. Ther e is no focal hepatic lesion. Color Doppler and pulsed Doppler sonography demonstrate normal antegra de flow in the portal vein. The gallbladder is normal with no stones or wall thickening. The bile ducts are normal with the common bile duct measuring 3.0 mm in diameter. The spleen is normal in size. There is no focal splenic lesion. The pancreas is not visualized due to overlying bowel gas. There is no free fluid. The right kidney measures 11.4 x 5.2 x 5.2 cm and the left kidney measures 10.7 x 5.2 x 5.2 cm. There is no renal mass. There is no hydronephrosis or calculus. The abdominal aorta is not dilated. The inferior vena cava is unremarkable. IMPRESSION: 1. Pancreas not visualized. 2. Otherwise unremarkable abdomen and retroperitoneum ultrasound. RPTAT: QQ .Angel Luis Ta MD, MD Date Time Electronically viewed and signed by .Angel Luis Ta MD, on 01/05/2017 22:13 .R/
[2017-01-06 02:00] VITALS: BP 132/60; RESP 19
[2017-01-06] MEDS ORDERED: ACCU-CHEK XX SCH (02:00)
[2017-01-06] MEDS: ACCU-CHEK XX SCH (02:00)
[2017-01-06 07:00] VITALS: BP 179/91; RESP 18
[2017-01-06] MEDS: INSULIN ASPART [NOVOLOG] 3 ML PEN SC SCH ×7 (07:35→20:26)
[2017-01-06] MEDS: OXYCODONE/ACETAMINOPHEN (5/325) TAB PO PRN ×4 (07:48→20:23)
[2017-01-06] MEDS: METOPROLOL 25 MG TAB PO SCH ×2 (07:50→20:22)
[2017-01-06] MEDS: LOSARTAN 50 MG TAB PO SCH (07:51)
[2017-01-06] MEDS: INSULIN GLARGINE [LANtus] 3 ML PEN SC SCH (07:57)
[2017-01-06 08:07] VITALS: BP 179/91; PULSE 104; RESP 20
[2017-01-06] MEDS: DOCUSATE SODIUM 100 MG CAP PO SCH ×2 (09:14→20:23)
[2017-01-06] MEDS: ASPIRIN 325 MG TAB PO SCH (09:14)
[2017-01-06] MEDS: ENOXAPARIN 40 MG/0.4 ML SYG SC SCH (09:14)
[2017-01-06] MEDS: SENNA TAB PO SCH (09:15)
[2017-01-06] MEDS: FERROUS SULFATE (EC) 325 MG TAB PO SCH (09:15)
--- NOTE | 2017-01-06 09:34 | CONS ---
Date/Time of Note Date/Time of Note DATE: 01/06/17 TIME: 09:34 Consult Date/Type/Reason Admit Date/Time Jan 04, 2017 at 17:27 Initial Consult Date Subjective Tired today Objective Contact-guard assist Vital Signs Date Time Temp Pulse Resp B/P Pulse Ox O2 Delivery O2 Flow Rate FiO2 01/06/17 08:07 101.1 104 20 179/91 93 Room Air 01/05/17 19:49 2.0 Intake and Output 01/05/17 01/05/17 01/06/17 15:00 23:00 07:00 Intake Total 1200 ml Output Total 1002 ml Balance 198 ml Results/Medications Result Diagram: 01/05/1761601/05/17616 Results 24 hrs Laboratory Tests Test 01/05/17 12:17 01/05/17 17:19 01/05/17 21:05 01/06/17 07:56 Bedside Glucose 164 112 108 135 Medications Current Medications Magnesium Hydroxide (Milk Of Mag) 30 ml BID PRN PO CONSTIPATION; Start at 18:30 Bisacodyl (Dulcolax Supp) 10 mg DAILY PRN [place] CONSTIPATION; Start 01/04/17 at 18 :30 Lactulose (Enulose) 20 gm DAILY PRN PO CONSTIPATION; Start 01/04/17 at 18:30 Ondansetron HCl (Zofran Inj) 4 mg Q6H PRN IV NAUSEA AND/OR VOMITING; Start 01/04/17 at 18:30 Oxycodone/ Acetaminophen (Percocet (5/ 325)) 1 tab Q3H PRN PO PAIN LEVEL 1-5 Last administered on 01/06/17 07:48; Admin Dose 1 TAB; Start 01/04/17 at 18:30 Oxycodone/ Acetaminophen (Percocet (5/ 325)) 1 tab Q3H PRN PO PAIN LEVEL 6-10; Start 01/04/17 at 18:30 Insulin Glargine (Lantus) 12 unit DAILY@08 SC Last administered on 01/06/17 07 :57; Admin Dose 12 UNIT; Start 01/05/17 at 08:00 Lorazepam (Ativan) 1 mg Q8H PRN PO ANXIETY; Start 01/04/17 at 18:30 Losartan Potassium (Cozaar) 50 mg DAILY PO Last administered on 01/06/17 07:51 ; Admin Dose 50 MG; Start 01/05/17 at 09:00 Metoprolol Tartrate (Lopressor) 25 mg BID PO Last administered on 01/06/17 07: 50; Admin Dose 25 MG; Start 01/04/17 at 21:00 Miscellaneous Information 1 ea NOTE XX ; Start 01/04/17 at 18:30 Glucose (Glutose) 15 gm Q15M PRN PO DECREASED GLUCOSE; Start 01/04/17 at 18:30 Glucose (Glutose) 22.5 gm Q15M PRN PO DECREASED GLUCOSE; Start 01/04/17 at 18: 30 Dextrose (D50w Syringe) 25 ml Q15M PRN IV DECREASED GLUCOSE; Start 01/04/17 at 18:30 Dextrose (D50w Syringe) 50 ml Q15M PRN IV DECREASED GLUCOSE; Start 01/04/17 at 18:30 Glucagon (Glucagen) 1 mg Q15M PRN IM DECREASED GLUCOSE; Start 01/04/17 at 18:30 Glucose (Glutose) 15 gm Q15M PRN BUCCAL DECREASED GLUCOSE; Start 01/04/17 at 18 :30 Aspirin (Aspirin) 325 mg DAILY PO Last administered on 01/06/17 09:14; Admin Dose 325 MG; Start 01/05/17 at 09:00 Atorvastatin Calcium (Lipitor) 40 mg HS PO Last administered on 01/05/17 21:07 ; Admin Dose 40 MG; Start 01/04/17 at 21:00 Enoxaparin Sodium (Lovenox) 40 mg DAILY SC Last administered on 01/06/17 09:14 ; Admin Dose 40 MG; Start 01/05/17 at 09:00 Diagnostic Test (Pha) (Accu-Chek) 1 ea 02 XX ; Start 01/06/17 at 02:00 Ferrous Sulfate (Ferrous Sulfate (Ec)) 325 mg DAILY PO Last administered on 09:15; Admin Dose 325 MG; Start 01/06/17 at 09:00 Docusate Sodium (Colace) 100 mg BID PO Last administered on 01/06/17 09:14; Admin Dose 100 MG; Start 01/05/17 at 21:00 Senna (Senokot) 1 tab DAILY PO Last administered on 01/06/17 09:15; Admin Dose 1 TAB; Start 01/06/17 at 09:00 Acetaminophen (Tylenol Tab) 650 mg Q4H PRN PO PAIN AND OR ELEVATED TEMP Last administered on 01/05/17t 21:10; Admin Dose 650 MG; Start 01/05/17 at 15:30 Assessment/Plan Additional Assessment/Plan Rehab- Right occipital infarct cerebrovascular accident with left-sided weakness. Continue interdisciplinary rehab Coronary artery disease status post coronary artery bypass graft. Dysphagia. Hypertension. Hyperlipidemia. Diabetes mellitus. Coronary artery disease. JUSTIN SRINIVASAN MD Jan 06, 2017 09:34
[2017-01-06 10:17] VITALS: BP 157/81
[2017-01-06 12:20] LABS: ALBUMIN 3.8 g/dl (3.3-4.9); ALBUMIN/GLOBULIN RATIO 0.97; BILIRUBIN,INDIRECT 0.5 mg/dl (0-1.1); BILIRUBIN,TOTAL 0.5 mg/dl (0.2-1.3); CALCIUM 9.1 mg/dl (8.4-10.2); CREATININE 0.83 mg/dl (0.61-1.24); POTASSIUM 4.4 mmol/L (3.5-5.1); TOTAL PROTEIN 7.7 g/dl (6.1-8.1)
--- NOTE | 2017-01-06 15:03 | RADRPT ---
PROCEDURE: XR Chest. CLINICAL INDICATION: Fever. TECHNIQUE: Single frontal view. COMPARISON: 01/04/2017. FINDINGS: There is air space disease bilaterally in the mid and lower lung zones consistent with atelectasis o r pneumonia, worse than seen previously. Left is worse than right. The heart is enlarged. There is calcification in the aorta consistent with atherosclerosis. There ar e sternal wires. There are probable small bilateral pleural effusions. There is no pneumothorax. IMPRESSION: 1. Worse appearance of the lungs. 2. Cardiomegaly and atherosclerosis. 3. Previous median sternotomy. 4. Probable small bilateral pleural effusions. 5. Otherwise unremarkable chest radiograph. RPTAT: QQ .Angel Luis Ta MD, MD Date Time Electronically viewed and signed by .Angel Luis Ta MD, MD on 01/06/2017 15:03 .R/
--- NOTE | 2017-01-06 15:39 | CONS ---
Date/Time of Note Date/Time of Note DATE: 01/06/17 TIME: 15:37 Assessment/Plan Assessment/Plan Chief Complaint/Hosp Course This is a 56-year-old male with multivessel coronary artery disease, who apparently underwent CABG and postoperatively found to have acute CVA, transferred to ARU for further physical therapy and rehabilitation. 1. Acute CVA, involving posterior left frontal ,posterior right parietal lobe and right temporal occipital lobe infarct. - Continue aspirin. -PT/OT/ST eval and treatment. 2. Multivessel coronary artery disease. Status post coronary artery bypass graft on 12/28/2016. -Continue medical management. 3. SIRS, likely early pneumonia. Chest Xray reviewed. Rule out sepsis. -Give NS bolus. Start Levaquin. Obtain cultures lactate level. 4. Dysphagia. -Continue with ST evaluation. Continue./[place] thick diet. 5. Hypertension. -Continue antihypertensives. 6. Hyperlipidemia. -Continue statin. 7. Type 2 Diabetes mellitus. -Continue Accu-Cheks/ISS/pre-meal/Lantus. 8. Transaminase elevation. Patient asymptomatic. -Abdominal ultrasound. 9. Mild anemia. -Obtain iron panel and treat accordingly Prophylaxis: Lovenox. Patient was seen in collaboration with . Problems: Consultation Date/Type/Reason Admit Date/Time Jan 04, 2017 at 17:27 Initial Consult Date 24 HR Interval Summary Free Text/Dictation Today patient with a temperature 101. He denied any chills, shortness of breath , chest pain or other difficulties. Has been participating in physical therapy. Exam/Review of Systems Vital Signs Vitals Vital Signs Date Time Temp Pulse Resp B/P Pulse Ox O2 Delivery O2 Flow Rate FiO2 01/06/17 10:17 98.8 157/81 01/06/17 08:07 104 20 93 Room Air 01/05/17 19:49 2.0 Intake and Output 01/05/17 01/05/17 01/06/17 15:00 23:00 07:00 Intake Total 1200 ml Output Total 1002 ml Balance 198 ml Exam General: Well developed,adequately built, not in any acute distress . HEENT: Normocephalic, Atraumatic, No laceration or hematoma; Eyes: Reports blurred vision to left eye. PEERL, Conjunctiva clear, Anicteric sclera Neck: Supple without any lymphadenopathy, nontender, no JVD, no carotid bruits, trachea midline, no thyromegaly Cardiac: S1, S2 auscultated, regular rhythm and rate, no mumurs or gallop Pulmonary: Normal respiratory effort. Chest clear to auscultation bilaterally, no adventitious breath sounds GI: Abdomen normal to inspection. Soft, non tender, non- distended, no masses, no rebound tenderness or guarding. Bowel sounds active on all four quadrants Genitourinary: Deferred Extremities: No cyanosis, clubbing, or edema. Pulses [2+] bilaterally. Full ROM on all four extremities. No focal weakness appreciated. Neurologic: Alert to person, place, time, and situation. Affect appropriate, intact sensation. Skin: Mediastinal incision with SEROUS DRAINAGE. Graft site on lower extremity intact. Results Result Diagram: 01/05/17 0617 01/06/17 1127 Results 24 hrs Laboratory Tests Test 01/05/17 17:19 01/05/17 21:05 01/06/17 07:56 01/06/17 11:27 Bedside Glucose 112 108 135 Sodium Level 142 Potassium Level 4.4 Chloride Level 103 Carbon Dioxide Level 27 Anion Gap 16 Blood Urea Nitrogen 12 Creatinine 0.83 Glucose Level 194 Calcium Level 9.1 Total Bilirubin 0.5 Direct Bilirubin 0.00 Indirect Bilirubin 0.5 Aspartate Amino Transf (AST/SGOT) 102 #H Alanine Aminotransferase (ALT/SGPT) 209 H Alkaline Phosphatase 118 Total Protein 7.7 Albumin 3.8 Globulin 3.90 H Albumin/Globulin Ratio 0.97 Test 01/06/17 12:08 Bedside Glucose 164 Medications Medications Current Medications Magnesium Hydroxide (Milk Of Mag) 30 ml BID PRN PO CONSTIPATION; Start at 18:30 Bisacodyl (Dulcolax Supp) 10 mg DAILY PRN [place] CONSTIPATION; Start 01/04/17 at 18 :30 Lactulose (Enulose) 20 gm DAILY PRN PO CONSTIPATION; Start 01/04/17 at 18:30 Ondansetron HCl (Zofran Inj) 4 mg Q6H PRN IV NAUSEA AND/OR VOMITING; Start 01/04/17 at 18:30 Oxycodone/ Acetaminophen (Percocet (5/ 325)) 1 tab Q3H PRN PO PAIN LEVEL 1-5 Last administered on 01/06/17t 12:35; Admin Dose 1 TAB; Start 01/04/17 at 18:30 Insulin Glargine (Lantus) 12 unit DAILY@08 SC Last administered on 01/06/17 07 :57; Admin Dose 12 UNIT; Start 01/05/17 at 08:00 Lorazepam (Ativan) 1 mg Q8H PRN PO ANXIETY; Start 01/04/17 at 18:30 Losartan Potassium (Cozaar) 50 mg DAILY PO Last administered on 01/06/17 07:51 ; Admin Dose 50 MG; Start 01/05/17 at 09:00 Metoprolol Tartrate (Lopressor) 25 mg BID PO Last administered on 01/06/17 07: 50; Admin Dose 25 MG; Start 01/04/17 at 21:00 Miscellaneous Information 1 ea NOTE XX ; Start 01/04/17 at 18:30 Glucose (Glutose) 15 gm Q15M PRN PO DECREASED GLUCOSE; Start 01/04/17 at 18:30 Glucose (Glutose) 22.5 gm Q15M PRN PO DECREASED GLUCOSE; Start 01/04/17 at 18: 30 Dextrose (D50w Syringe) 25 ml Q15M PRN IV DECREASED GLUCOSE; Start 01/04/17 at 18:30 Dextrose (D50w Syringe) 50 ml Q15M PRN IV DECREASED GLUCOSE; Start 01/04/17 at 18:30 Glucagon (Glucagen) 1 mg Q15M PRN IM DECREASED GLUCOSE; Start 01/04/17 at 18:30 Glucose (Glutose) 15 gm Q15M PRN BUCCAL DECREASED GLUCOSE; Start 01/04/17 at 18 :30 Aspirin (Aspirin) 325 mg DAILY PO Last administered on 01/06/17 09:14; Admin Dose 325 MG; Start 01/05/17 at 09:00 Atorvastatin Calcium (Lipitor) 40 mg HS PO Last administered on 01/05/17 21:07 ; Admin Dose 40 MG; Start 01/04/17 at 21:00 Enoxaparin Sodium (Lovenox) 40 mg DAILY SC Last administered on 01/06/17 09:14 ; Admin Dose 40 MG; Start 01/05/17 at 09:00 Diagnostic Test (Pha) (Accu-Chek) 1 ea 02 XX ; Start 01/06/17 at 02:00 Ferrous Sulfate (Ferrous Sulfate (Ec)) 325 mg DAILY PO Last administered on 09:15; Admin Dose 325 MG; Start 01/06/17 at 09:00 Docusate Sodium (Colace) 100 mg BID PO Last administered on 01/06/17 09:14; Admin Dose 100 MG; Start 01/05/17 at 21:00 Senna (Senokot) 1 tab DAILY PO Last administered on 01/06/17 09:15; Admin Dose 1 TAB; Start 01/06/17 at 09:00 Acetaminophen (Tylenol Tab) 650 mg Q4H PRN PO PAIN AND OR ELEVATED TEMP Last administered on 01/05/17 21:10; Admin Dose 650 MG; Start 01/05/17 at 15:30 Oxycodone/ Acetaminophen (Percocet (5/ 325)) 2 tab Q3H PRN PO PAIN LEVEL 6-10; Start 01/06/17 at 12:30 MYKE RICKS NP Jan 06, 2017 15:39
[2017-01-06] MEDS ORDERED: SOD CHLORIDE 0.9% 500 ML IV ONE (16:00)
[2017-01-06] MEDS ORDERED: LEVOFLOXACIN 500MG/D5W (PMX) 100 ML IVPB SCH (17:00)
[2017-01-06 19:32] VITALS: BP 177/94; RESP 20
[2017-01-06] MEDS: ATORVASTATIN 40 MG TAB PO SCH (20:23)
[2017-01-06] MEDS ORDERED: VANCOMYCIN IV PER PHARMACY XX SCH (21:00)
[2017-01-06] MEDS: CEFEPIME 1GM/50 ML (PMX) 50 ML IVPB SCH (22:33)
[2017-01-06] MEDS: VANCOMYCIN 1.5 GM in SOD CHLORIDE 0.9% 250 ML IVPB SCH (23:51)
[2017-01-07] MEDS: ACCU-CHEK XX SCH (02:00)
[2017-01-07 03:15] VITALS: BP 173/88; RESP 19
[2017-01-07] MEDS: OXYCODONE/ACETAMINOPHEN (5/325) TAB PO PRN ×3 (03:47→16:02)
[2017-01-07 06:40] LABS: BASOPHIL # 0.1 10^3/ul (0.0-0.1); BASOPHILS % 0.4 % (0.0-2.0); EOSINOPHILS # 0.1 10^3/ul (0.0-0.5); HEMATOCRIT 32.5 % (42.0-52.0); HEMOGLOBIN 10.5 g/dl (14.0-18.0); LYMPHOCYTES % 14.4 % (15.0-51.0); MEAN CORPUSCULAR HEMOGLOBIN 27.1 pg (29.0-33.0); MEAN CORPUSCULAR HGB CONC 32.3 g/dl (32.0-37.0); MEAN CORPUSCULAR VOLUME 83.8 fl (82.0-101.0); MEAN PLATELET VOLUME 8.8 fl (7.4-10.4); MONOCYTE # 0.9 10^3/ul (0.3-0.9); MONOCYTES % 6.6 % (0.0-11.0); NEUTROPHIL # 10.4 10^3/ul (1.6-7.5); NEUTROPHILS % 76.8 % (39.0-77.0); PLATELET COUNT 572 10^3/UL (140-415); RED BLOOD COUNT 3.88 10^6/ul (4.70-6.10); RED CELL DISTRIBUTION WIDTH 15.1 % (11.5-14.5); WHITE BLOOD COUNT 13.6 10^3/ul (4.8-10.8)
[2017-01-07 07:07] LABS: CALCIUM 8.4 mg/dl (8.4-10.2); CREATININE 0.73 mg/dl (0.61-1.24); POTASSIUM 4.7 mmol/L (3.5-5.1)
[2017-01-07 07:30] VITALS: BP 157/81; RESP 18
[2017-01-07] MEDS: INSULIN ASPART [NOVOLOG] 3 ML PEN SC SCH ×7 (07:35→21:00)
[2017-01-07] MEDS: INSULIN GLARGINE [LANtus] 3 ML PEN SC SCH (07:54)
[2017-01-07] MEDS: CEFEPIME 1GM/50 ML (PMX) 50 ML IVPB SCH ×2 (08:44→21:06)
[2017-01-07] MEDS: SENNA TAB PO SCH (08:51)
[2017-01-07] MEDS: FERROUS SULFATE (EC) 325 MG TAB PO SCH (08:51)
[2017-01-07] MEDS: DOCUSATE SODIUM 100 MG CAP PO SCH ×2 (08:51→21:08)
[2017-01-07] MEDS: ASPIRIN 325 MG TAB PO SCH (08:51)
[2017-01-07] MEDS: LOSARTAN 50 MG TAB PO SCH (08:52)
[2017-01-07] MEDS: METOPROLOL 25 MG TAB PO SCH ×2 (08:52→21:12)
[2017-01-07] MEDS: ENOXAPARIN 40 MG/0.4 ML SYG SC SCH (08:53)
--- NOTE | 2017-01-07 11:03 | CONS ---
Date/Time of Note Date/Time of Note DATE: 01/07/17 TIME: 11:02 Consult Date/Type/Reason Admit Date/Time Jan 04, 2017 at 17:27 Subjective Feels tired Objective Min assist Vital Signs Date Time Temp Pulse Resp B/P Pulse Ox O2 Delivery O2 Flow Rate FiO2 01/07/17 07:30 98.9 102 18 157/81 96 01/06/17 20:00 Nasal Cannula 2.0 Intake and Output 01/06/17 01/06/17 01/07/17 15:00 23:00 07:00 Intake Total 2900 ml 50 ml Output Total 2000 ml 400 ml Balance 900 ml -350 ml Results/Medications Result Diagram: 01/07/17 0603 01/07/17 0603 Results 24 hrs Laboratory Tests Test 01/06/17 11:27 01/06/17 12:08 01/06/17 16:27 01/06/17 17:21 Sodium Level 142 Potassium Level 4.4 Chloride Level 103 Carbon Dioxide Level 27 Anion Gap 16 Blood Urea Nitrogen 12 Creatinine 0.83 Glucose Level 194 Calcium Level 9.1 Total Bilirubin 0.5 Direct Bilirubin 0.00 Indirect Bilirubin 0.5 Aspartate Amino Transf (AST/SGOT) 102 #H Alanine Aminotransferase (ALT/SGPT) 209 H Alkaline Phosphatase 118 Total Protein 7.7 Albumin 3.8 Globulin 3.90 H Albumin/Globulin Ratio 0.97 Bedside Glucose 164 112 Lactic Acid Level 2.1 H Test 01/06/17 20:25 01/07/17 00:40 01/07/17 05:56 01/07/17 06:03 Bedside Glucose 124 Lactic Acid Level 0.8 1.1 White Blood Count 13.6 #H Red Blood Count 3.88 L Hemoglobin 10.5 L Hematocrit 32.5 L Mean Corpuscular Volume 83.8 Mean Corpuscular Hemoglobin 27.1 L Mean Corpuscular Hemoglobin Concent 32.3 Red Cell Distribution Width 15.1 H Platelet Count 572 #H Mean Platelet Volume 8.8 Neutrophils % 76.8 Lymphocytes % 14.4 L Monocytes % 6.6 Eosinophils % 1.0 Basophils % 0.4 Nucleated Red Blood Cells % 0.0 Neutrophils # 10.4 H Lymphocytes # 2.0 Monocytes # 0.9 Eosinophils # 0.1 Basophils # 0.1 Nucleated Red Blood Cells # 0.0 Sodium Level 138 Potassium Level 4.7 Chloride Level 104 Carbon Dioxide Level 22 Anion Gap 17 H Blood Urea Nitrogen 9 Creatinine 0.73 Glucose Level 132 # Calcium Level 8.4 Test 01/07/17 07:43 Bedside Glucose 112 Medications Current Medications Magnesium Hydroxide (Milk Of Mag) 30 ml BID PRN PO CONSTIPATION; Start at 18:30 Bisacodyl (Dulcolax Supp) [address] CONSTIPATION; Start 01/04/17 at 18 :30 Lactulose (Enulose) 20 gm DAILY PRN PO CONSTIPATION; Start 01/04/17 at 18:30 Ondansetron HCl (Zofran Inj) 4 mg Q6H PRN IV NAUSEA AND/OR VOMITING; Start 01/04/17 at 18:30 Oxycodone/ Acetaminophen (Percocet (5/ 325)) 1 tab Q3H PRN PO PAIN LEVEL 1-5 Last administered on 01/06/17 12:35; Admin Dose 1 TAB; Start 01/04/17 at 18:30 Insulin Glargine (Lantus) 12 unit DAILY@08 SC Last administered on 01/07/17 07:54; Admin Dose 12 UNIT; Start 01/05/17 at 08:00 Lorazepam (Ativan) 1 mg Q8H PRN PO ANXIETY; Start 01/04/17 at 18:30 Losartan Potassium (Cozaar) 50 mg DAILY PO Last administered on 01/07/17 08: 52; Admin Dose 50 MG; Start 01/05/17 at 09:00 Metoprolol Tartrate (Lopressor) 25 mg BID PO Last administered on 01/07/17 08 :52; Admin Dose 25 MG; Start 01/04/17 at 21:00 Miscellaneous Information 1 ea NOTE XX ; Start 01/04/17 at 18:30 Glucose (Glutose) 15 gm Q15M PRN PO DECREASED GLUCOSE; Start 01/04/17 at 18:30 Glucose (Glutose) 22.5 gm Q15M PRN PO DECREASED GLUCOSE; Start 01/04/17 at 18: 30 Dextrose (D50w Syringe) 25 ml Q15M PRN IV DECREASED GLUCOSE; Start 01/04/17 at 18:30 Dextrose (D50w Syringe) 50 ml Q15M PRN IV DECREASED GLUCOSE; Start 01/04/17 at 18:30 Glucagon (Glucagen) 1 mg Q15M PRN IM DECREASED GLUCOSE; Start 01/04/17 at 18:30 Glucose (Glutose) 15 gm Q15M PRN BUCCAL DECREASED GLUCOSE; Start 01/04/17 at 18 :30 Aspirin (Aspirin) 325 mg DAILY PO Last administered on 01/07/17 08:51; Admin Dose 325 MG; Start 01/05/17 at 09:00 Atorvastatin Calcium (Lipitor) 40 mg HS PO Last administered on 01/06/17 20:23 ; Admin Dose 40 MG; Start 01/04/17 at 21:00 Enoxaparin Sodium (Lovenox) 40 mg DAILY SC Last administered on 01/07/17 08: 53; Admin Dose 40 MG; Start 01/05/17 at 09:00 Diagnostic Test (Pha) (Accu-Chek) 1 ea 02 XX ; Start 01/06/17 at 02:00 Ferrous Sulfate (Ferrous Sulfate (Ec)) 325 mg DAILY PO Last administered on 08:51; Admin Dose 325 MG; Start 01/06/17 at 09:00 Docusate Sodium (Colace) 100 mg BID PO Last administered on 01/07/17 08:51; Admin Dose 100 MG; Start 01/05/17 at 21:00 Senna (Senokot) 1 tab DAILY PO Last administered on 01/07/17 08:51; Admin Dose 1 TAB; Start 01/06/17 at 09:00 Acetaminophen (Tylenol Tab) 650 mg Q4H PRN PO PAIN AND OR ELEVATED TEMP Last administered on 01/05/17 21:10; Admin Dose 650 MG; Start 01/05/17 at 15:30 Oxycodone/ Acetaminophen 2 tab 2 tab Q3H PRN PO PAIN LEVEL 6-10 Last administered on 01/07/17 08:45; Admin Dose 2 TAB; Start 01/06/17 at 12:30 Cefepime HCl 50 ml @ 100 mls/hr Q12 IVPB Last administered on 01/07/17 08:44 ; Admin Dose 100 MLS/HR; Start 01/06/17 at 21:00 Vancomycin HCl/ Sodium Chloride (Vancocin/NS) 250 ml @ 83.333 mls/ hr Q12H IVPB Last administered on 01/06/17 23:51; Admin Dose 83.333 MLS/HR; Start 01/06/17 at 22:30 Assessment/Plan Additional Assessment/Plan Rehab- Right occipital infarct cerebrovascular accident with left-sided weakness. Continue activities as tolerated Coronary artery disease status post coronary artery bypass graft. Dysphagia. Hypertension. Hyperlipidemia. Diabetes mellitus. Coronary artery disease. JUSTIN SRINIVASAN MD Jan 07, 2017 11:03
[2017-01-07] MEDS: VANCOMYCIN 1.5 GM in SOD CHLORIDE 0.9% 250 ML IVPB SCH ×2 (11:58→22:37)
--- NOTE | 2017-01-07 14:16 | CONS ---
Date/Time of Note Date/Time of Note DATE: 01/07/17 TIME: 14:13 Assessment/Plan Assessment/Plan Chief Complaint/Hosp Course This is a 56-year-old male with multivessel coronary artery disease, who apparently underwent CABG and postoperatively found to have acute CVA, transferred to ARU for further physical therapy and rehabilitation. 1. Acute CVA, involving posterior left frontal ,posterior right parietal lobe and right temporal occipital lobe infarct. - Continue aspirin. -PT/OT/ST eval and treatment. 2. Multivessel coronary artery disease. Status post coronary artery bypass graft on 12/28/2016. -Continue medical management. 3. Possible sepsis with pneumonia. Improving. -Continue IV fluids, antibiotics, cough suppressant, as needed bronchodilators and follow-up cultures. 4. Dysphagia. -Continue with ST evaluation. Tolerates mechanical soft diet. 5. Hypertension. -Continue antihypertensives. 6. Hyperlipidemia. -Continue statin. 7. Type 2 Diabetes mellitus. -Continue Accu-Cheks/ISS/pre-meal/Lantus. 8. Transaminase elevation. Patient asymptomatic. -Abdominal ultrasound. 9. Mild anemia with iron deficiency. -Continue iron replacement. Prophylaxis: Lovenox. Patient was seen in collaboration with . Problems: Consultation Date/Type/Reason Admit Date/Time Jan 04, 2017 at 17:27 24 HR Interval Summary Free Text/Dictation No acute distress. Temperature 100.5 overnight. Patient also has occasional cough, nonproductive. Exam/Review of Systems Vital Signs Vitals Vital Signs Date Time Temp Pulse Resp B/P Pulse Ox O2 Delivery O2 Flow Rate FiO2 01/07/17 08:00 Nasal Cannula 2.0 01/07/17 07:30 98.9 102 18 157/81 96 Intake and Output 01/06/17 01/06/17 01/07/17 15:00 23:00 07:00 Intake Total 2900 ml 50 ml Output Total 2000 ml 400 ml Balance 900 ml -350 ml Exam General: Well developed,adequately built, not in any acute distress . HEENT: Normocephalic, Atraumatic, No laceration or hematoma; Eyes: Reports blurred vision to left eye. PEERL, Conjunctiva clear, Anicteric sclera Neck: Supple without any lymphadenopathy, nontender, no JVD, no carotid bruits, trachea midline, no thyromegaly Cardiac: S1, S2 auscultated, regular rhythm and rate, no mumurs or gallop Pulmonary: Normal respiratory effort. Chest clear to auscultation bilaterally, no adventitious breath sounds GI: Abdomen normal to inspection. Soft, non tender, non- distended, no masses, no rebound tenderness or guarding. Bowel sounds active on all four quadrants Genitourinary: Deferred Extremities: No cyanosis, clubbing, or edema. Pulses [2+] bilaterally. Full ROM on all four extremities. No focal weakness appreciated. Neurologic: Alert to person, place, time, and situation. Affect appropriate, intact sensation. Skin: Mediastinal incision with SEROUS DRAINAGE. Graft site on lower extremity intact. Results Result Diagram: 01/07/17 0603 01/07/17 0603 Results 24 hrs Laboratory Tests Test 01/06/17 16:27 01/06/17 17:21 01/06/17 20:25 01/07/17 00:40 Lactic Acid Level 2.1 H 0.8 Bedside Glucose 112 124 Test 01/07/17 05:56 01/07/17 06:03 01/07/17 07:43 01/07/17 12:03 Lactic Acid Level 1.1 White Blood Count 13.6 #H Red Blood Count 3.88 L Hemoglobin 10.5 L Hematocrit 32.5 L Mean Corpuscular Volume 83.8 Mean Corpuscular Hemoglobin 27.1 L Mean Corpuscular Hemoglobin Concent 32.3 Red Cell Distribution Width 15.1 H Platelet Count 572 #H Mean Platelet Volume 8.8 Neutrophils % 76.8 Lymphocytes % 14.4 L Monocytes % 6.6 Eosinophils % 1.0 Basophils % 0.4 Nucleated Red Blood Cells % 0.0 Neutrophils # 10.4 H Lymphocytes # 2.0 Monocytes # 0.9 Eosinophils # 0.1 Basophils # 0.1 Nucleated Red Blood Cells # 0.0 Sodium Level 138 Potassium Level 4.7 Chloride Level 104 Carbon Dioxide Level 22 Anion Gap 17 H Blood Urea Nitrogen 9 Creatinine 0.73 Glucose Level 132 # Calcium Level 8.4 Bedside Glucose 112 133 Medications Medications Current Medications Magnesium Hydroxide (Milk Of Mag) 30 ml BID PRN PO CONSTIPATION; Start at 18:30 Bisacodyl (Dulcolax Supp) 10 mg DAILY PRN [place] CONSTIPATION; Start 01/04/17 at 18 :30 Lactulose (Enulose) 20 gm DAILY PRN PO CONSTIPATION; Start 01/04/17 at 18:30 Ondansetron HCl (Zofran Inj) 4 mg Q6H PRN IV NAUSEA AND/OR VOMITING; Start 01/04/17 at 18:30 Oxycodone/ Acetaminophen (Percocet (5/ 325)) 1 tab Q3H PRN PO PAIN LEVEL 1-5 Last administered on 01/06/17 12:35; Admin Dose 1 TAB; Start 01/04/17 at 18:30 Insulin Glargine (Lantus) 12 unit DAILY@08 SC Last administered on 01/07/17 07:54; Admin Dose 12 UNIT; Start 01/05/17 at 08:00 Lorazepam (Ativan) 1 mg Q8H PRN PO ANXIETY; Start 01/04/17 at 18:30 Losartan Potassium (Cozaar) 50 mg DAILY PO Last administered on 01/07/17 08: 52; Admin Dose 50 MG; Start 01/05/17 at 09:00 Metoprolol Tartrate (Lopressor) 25 mg BID PO Last administered on 01/07/17 08 :52; Admin Dose 25 MG; Start 01/04/17 at 21:00 Miscellaneous Information 1 ea NOTE XX ; Start 01/04/17 at 18:30 Glucose (Glutose) 15 gm Q15M PRN PO DECREASED GLUCOSE; Start 01/04/17 at 18:30 Glucose (Glutose) 22.5 gm Q15M PRN PO DECREASED GLUCOSE; Start 01/04/17 at 18: 30 Dextrose (D50w Syringe) 25 ml Q15M PRN IV DECREASED GLUCOSE; Start 01/04/17 at 18:30 Dextrose (D50w Syringe) 50 ml Q15M PRN IV DECREASED GLUCOSE; Start 01/04/17 at 18:30 Glucagon (Glucagen) 1 mg Q15M PRN IM DECREASED GLUCOSE; Start 01/04/17 at 18:30 Glucose (Glutose) 15 gm Q15M PRN BUCCAL DECREASED GLUCOSE; Start 01/04/17 at 18 :30 Aspirin (Aspirin) 325 mg DAILY PO Last administered on 01/07/17 08:51; Admin Dose 325 MG; Start 01/05/17 at 09:00 Atorvastatin Calcium (Lipitor) 40 mg HS PO Last administered on 01/06/17 20:23 ; Admin Dose 40 MG; Start 01/04/17 at 21:00 Enoxaparin Sodium (Lovenox) 40 mg DAILY SC Last administered on 01/07/17 08: 53; Admin Dose 40 MG; Start 01/05/17 at 09:00 Diagnostic Test (Pha) (Accu-Chek) 1 ea 02 XX ; Start 01/06/17 at 02:00 Ferrous Sulfate (Ferrous Sulfate (Ec)) 325 mg DAILY PO Last administered on 08:51; Admin Dose 325 MG; Start 01/06/17 at 09:00 Docusate Sodium (Colace) 100 mg BID PO Last administered on 01/07/17 08:51; Admin Dose 100 MG; Start 01/05/17 at 21:00 Senna (Senokot) 1 tab DAILY PO Last administered on 01/07/17 08:51; Admin Dose 1 TAB; Start 01/06/17 at 09:00 Acetaminophen (Tylenol Tab) 650 mg Q4H PRN PO PAIN AND OR ELEVATED TEMP Last administered on 01/05/17 21:10; Admin Dose 650 MG; Start 01/05/17 at 15:30 Oxycodone/ Acetaminophen 2 tab 2 tab Q3H PRN PO PAIN LEVEL 6-10 Last administered on 01/07/17 08:45; Admin Dose 2 TAB; Start 01/06/17 at 12:30 Cefepime HCl 50 ml @ 100 mls/hr Q12 IVPB Last administered on 01/07/17 08:44 ; Admin Dose 100 MLS/HR; Start 01/06/17 at 21:00 Vancomycin HCl/ Sodium Chloride (Vancocin/NS) 250 ml @ 83.333 mls/ hr Q12H IVPB Last administered on 01/07/17 11:58; Admin Dose 83.333 MLS/HR; Start at 22:30 Miscellaneous Information (*Rx Drug Level Order Reminder*) 1 ONCE ONCE XX ; Start 01/08/17 at 09:30; Stop 01/08/17 at 09:31 MYKE RICKS NP Jan 07, 2017 14:16
[2017-01-07] MEDS ORDERED: ALBUTEROL/IPRATROPIUM (NEB) 3 ML AMP HHN PRN (14:30)
[2017-01-07 20:00] VITALS: BP 144/87; RESP 18
[2017-01-07] MEDS: ATORVASTATIN 40 MG TAB PO SCH (21:08)
[2017-01-08 02:00] VITALS: BP 138/85; RESP 18
[2017-01-08] MEDS: ACCU-CHEK XX SCH ×2 (02:00→20:28)
[2017-01-08] MEDS: OXYCODONE/ACETAMINOPHEN (5/325) TAB PO PRN ×4 (03:17→21:18)
[2017-01-08 07:30] VITALS: BP 129/92; RESP 20
[2017-01-08] MEDS: INSULIN ASPART [NOVOLOG] 3 ML PEN SC SCH ×7 (07:35→20:28)
[2017-01-08 08:29] LABS: BASOPHIL # 0.1 10^3/ul (0.0-0.1); BASOPHILS % 0.4 % (0.0-2.0); EOSINOPHILS # 0.1 10^3/ul (0.0-0.5); EOSINOPHILS % 0.5 % (0.0-7.0); HEMATOCRIT 34.9 % (42.0-52.0); HEMOGLOBIN 11.5 g/dl (14.0-18.0); LYMPHOCYTES # 2.7 10^3/ul (0.8-2.9); LYMPHOCYTES % 18.2 % (15.0-51.0); MEAN CORPUSCULAR HEMOGLOBIN 28.1 pg (29.0-33.0); MEAN CORPUSCULAR VOLUME 85.3 fl (82.0-101.0); MONOCYTE # 0.9 10^3/ul (0.3-0.9); MONOCYTES % 6.3 % (0.0-11.0); NEUTROPHIL # 10.8 10^3/ul (1.6-7.5); NEUTROPHILS % 73.7 % (39.0-77.0); PLATELET COUNT 617 10^3/UL (140-415); RED BLOOD COUNT 4.09 10^6/ul (4.70-6.10); RED CELL DISTRIBUTION WIDTH 14.8 % (11.5-14.5); WHITE BLOOD COUNT 14.7 10^3/ul (4.8-10.8)
[2017-01-08] MEDS: INSULIN GLARGINE [LANtus] 3 ML PEN SC SCH (09:22)
[2017-01-08] MEDS: CEFEPIME 1GM/50 ML (PMX) 50 ML IVPB SCH ×2 (09:23→20:25)
--- NOTE | 2017-01-08 09:24 | CONS ---
Date/Time of Note Date/Time of Note DATE: 01/08/17 TIME: 09:23 Consult Date/Type/Reason Admit Date/Time Jan 04, 2017 at 17:27 Subjective Feeling better this morning Objective pulm-cta min assist Vital Signs Date Time Temp Pulse Resp B/P Pulse Ox O2 Delivery O2 Flow Rate FiO2 01/08/17 02:00 98.5 85 18 138/85 95 01/07/17 08:00 Nasal Cannula 2.0 Intake and Output 01/07/17 01/07/17 01/08/17 15:00 23:00 07:00 Intake Total 300 ml 2370 ml 1100 ml Output Total 1480 ml 1200 ml Balance 300 ml 890 ml -100 ml Results/Medications Result Diagram: 01/08/17 0648 01/07/17 0603 Results 24 hrs Laboratory Tests Test 01/07/17 12:03 01/07/17 17:26 01/07/17 21:08 01/08/17 06:48 Bedside Glucose 133 160 144 White Blood Count 14.7 H Red Blood Count 4.09 L Hemoglobin 11.5 L Hematocrit 34.9 L Mean Corpuscular Volume 85.3 Mean Corpuscular Hemoglobin 28.1 L Mean Corpuscular Hemoglobin Concent 33.0 Red Cell Distribution Width 14.8 H Platelet Count 617 H Mean Platelet Volume 9.0 Neutrophils % 73.7 Lymphocytes % 18.2 Monocytes % 6.3 Eosinophils % 0.5 Basophils % 0.4 Nucleated Red Blood Cells % 0.0 Neutrophils # 10.8 H Lymphocytes # 2.7 Monocytes # 0.9 Eosinophils # 0.1 Basophils # 0.1 Nucleated Red Blood Cells # 0.0 Test 01/08/17 08:01 01/08/17 09:12 Bedside Glucose 128 136 Medications Current Medications Magnesium Hydroxide (Milk Of Mag) 30 ml BID PRN PO CONSTIPATION Last administered on 01/08/17t 00:47; Admin Dose 30 ML; Start 01/04/17 at 18:30 Bisacodyl (Dulcolax Supp) 10 mg DAILY PRN [place] CONSTIPATION; Start 01/04/17 at 18 :30 Lactulose (Enulose) 20 gm DAILY PRN PO CONSTIPATION; Start 01/04/17 at 18:30 Ondansetron HCl (Zofran Inj) 4 mg Q6H PRN IV NAUSEA AND/OR VOMITING; Start 01/04/17 at 18:30 Oxycodone/ Acetaminophen (Percocet (5/ 325)) 1 tab Q3H PRN PO PAIN LEVEL 1-5 Last administered on 01/06/17 12:35; Admin Dose 1 TAB; Start 01/04/17 at 18:30 Insulin Glargine (Lantus) 12 unit DAILY@08 SC Last administered on 01/07/17 07:54; Admin Dose 12 UNIT; Start 01/05/17 at 08:00 Lorazepam (Ativan) 1 mg Q8H PRN PO ANXIETY; Start 01/04/17 at 18:30 Losartan Potassium (Cozaar) 50 mg DAILY PO Last administered on 01/07/17 08: 52; Admin Dose 50 MG; Start 01/05/17 at 09:00 Metoprolol Tartrate (Lopressor) 25 mg BID PO Last administered on 01/07/17 21 :12; Admin Dose 25 MG; Start 01/04/17 at 21:00 Miscellaneous Information 1 ea NOTE XX ; Start 01/04/17 at 18:30 Glucose (Glutose) 15 gm Q15M PRN PO DECREASED GLUCOSE; Start 01/04/17 at 18:30 Glucose (Glutose) 22.5 gm Q15M PRN PO DECREASED GLUCOSE; Start 01/04/17 at 18: 30 Dextrose (D50w Syringe) 25 ml Q15M PRN IV DECREASED GLUCOSE; Start 01/04/17 at 18:30 Dextrose (D50w Syringe) 50 ml Q15M PRN IV DECREASED GLUCOSE; Start 01/04/17 at 18:30 Glucagon (Glucagen) 1 mg Q15M PRN IM DECREASED GLUCOSE; Start 01/04/17 at 18:30 Glucose (Glutose) 15 gm Q15M PRN BUCCAL DECREASED GLUCOSE; Start 01/04/17 at 18 :30 Aspirin (Aspirin) 325 mg DAILY PO Last administered on 01/07/17 08:51; Admin Dose 325 MG; Start 01/05/17 at 09:00 Atorvastatin Calcium (Lipitor) 40 mg HS PO Last administered on 01/07/17 21: 08; Admin Dose 40 MG; Start 01/04/17 at 21:00 Enoxaparin Sodium (Lovenox) 40 mg DAILY SC Last administered on 01/07/17 08: 53; Admin Dose 40 MG; Start 01/05/17 at 09:00 Diagnostic Test (Pha) (Accu-Chek) 1 ea 02 XX ; Start 01/06/17 at 02:00 Ferrous Sulfate (Ferrous Sulfate (Ec)) 325 mg DAILY PO Last administered on 08:51; Admin Dose 325 MG; Start 01/06/17 at 09:00 Docusate Sodium (Colace) 100 mg BID PO Last administered on 01/07/17 21:08; Admin Dose 100 MG; Start 01/05/17 at 21:00 Senna (Senokot) 1 tab DAILY PO Last administered on 01/07/17 08:51; Admin Dose 1 TAB; Start 01/06/17 at 09:00 Acetaminophen (Tylenol Tab) 650 mg Q4H PRN PO PAIN AND OR ELEVATED TEMP Last administered on 01/05/17 21:10; Admin Dose 650 MG; Start 01/05/17 at 15:30 Oxycodone/ Acetaminophen 2 tab 2 tab Q3H PRN PO PAIN LEVEL 6-10 Last administered on 01/08/17 03:17; Admin Dose 2 TAB; Start 01/06/17 at 12:30 Cefepime HCl 50 ml @ 100 mls/hr Q12 IVPB Last administered on 01/07/17 21:06 ; Admin Dose 100 MLS/HR; Start 01/06/17 at 21:00 Vancomycin HCl/ Sodium Chloride (Vancocin/NS) 250 ml @ 83.333 mls/ hr Q12H IVPB Last administered on 01/07/17 22:37; Admin Dose 83.333 MLS/HR; Start at 22:30 Miscellaneous Information (*Rx Drug Level Order Reminder*) 1 ONCE ONCE XX ; Start 01/08/17 at 09:30; Stop 01/08/17 at 09:31 Guaifenesin/ Dextromethorphan (Robitussin Dm Liquid Cup) 10 ml Q4H PRN PO cough ; Start 01/07/17 at 14:30 Assessment/Plan Additional Assessment/Plan Rehab- Right occipital infarct cerebrovascular accident with left-sided weakness. Continue activities as tolerated Coronary artery disease status post coronary artery bypass graft. ID- continue abx Integ- woundcare Dysphagia. Hypertension. Hyperlipidemia. Diabetes mellitus. Coronary artery disease. JUSTIN SRINIVASAN MD Jan 08, 2017 09:24
[2017-01-08] MEDS: ENOXAPARIN 40 MG/0.4 ML SYG SC SCH (09:25)
[2017-01-08] MEDS: LACTULOSE 30ML CUP PO PRN (09:25)
[2017-01-08] MEDS: ASPIRIN 325 MG TAB PO SCH (09:26)
[2017-01-08] MEDS: SENNA TAB PO SCH (09:26)
[2017-01-08] MEDS: ACETAMINOPHEN 325 MG TAB PO PRN (09:26)
[2017-01-08] MEDS: DOCUSATE SODIUM 100 MG CAP PO SCH ×2 (09:27→20:26)
[2017-01-08] MEDS: FERROUS SULFATE (EC) 325 MG TAB PO SCH (09:27)
[2017-01-08] MEDS: METOPROLOL 25 MG TAB PO SCH ×2 (09:27→20:26)
[2017-01-08] MEDS: LOSARTAN 50 MG TAB PO SCH (09:28)
--- NOTE | 2017-01-08 11:36 | CONS ---
Date/Time of Note Date/Time of Note DATE: 01/08/17 TIME: 11:33 Assessment/Plan Assessment/Plan Chief Complaint/Hosp Course This is a 56-year-old male with multivessel coronary artery disease, who apparently underwent CABG and postoperatively found to have acute CVA, transferred to ARU for further physical therapy and rehabilitation. 1. Acute CVA, involving posterior left frontal ,posterior right parietal lobe and right temporal occipital lobe infarct. - Continue aspirin. -PT/OT/ST eval and treatment. 2. Multivessel coronary artery disease. Status post coronary artery bypass graft on 12/28/2016. -Continue medical management. 3. Possible sepsis with pneumonia. Improving. -Continue IV fluids, antibiotics, cough suppressant, as needed bronchodilators and follow-up cultures. 4. Dysphagia. -Continue with ST evaluation. Tolerates mechanical soft diet. 5. Hypertension. -Continue antihypertensives. 6. Hyperlipidemia. -Continue statin. 7. Type 2 Diabetes mellitus. -Continue Accu-Cheks/ISS/pre-meal/Lantus. 8. Transaminase elevation, likely concurrent. Patient asymptomatic. -Stable abdominal ultrasound. 9. Mild anemia with iron deficiency. -Continue iron replacement. Prophylaxis: Lovenox. Patient was seen in collaboration with . Problems: Consultation Date/Type/Reason Admit Date/Time Jan 04, 2017 at 17:27 24 HR Interval Summary Free Text/Dictation No acute distress. Has been participating in physical therapy well. Exam/Review of Systems Vital Signs Vitals Vital Signs Date Time Temp Pulse Resp B/P Pulse Ox O2 Delivery O2 Flow Rate FiO2 01/08/17 07:30 99.9 107 20 129/92 94 01/07/17 08:00 Nasal Cannula 2.0 Intake and Output 01/07/17 01/07/17 01/08/17 15:00 23:00 07:00 Intake Total 300 ml 2370 ml 1100 ml Output Total 1480 ml 1200 ml Balance 300 ml 890 ml -100 ml Exam General: Well developed,adequately built, not in any acute distress . HEENT: Normocephalic, Atraumatic, No laceration or hematoma; Eyes: Reports blurred vision to left eye. PEERL, Conjunctiva clear, Anicteric sclera Neck: Supple without any lymphadenopathy, nontender, no JVD, no carotid bruits, trachea midline, no thyromegaly Cardiac: S1, S2 auscultated, regular rhythm and rate, no mumurs or gallop Pulmonary: Normal respiratory effort. Chest clear to auscultation bilaterally, no adventitious breath sounds GI: Abdomen normal to inspection. Soft, non tender, non- distended, no masses, no rebound tenderness or guarding. Bowel sounds active on all four quadrants Genitourinary: Deferred Extremities: No cyanosis, clubbing, or edema. Pulses [2+] bilaterally. Full ROM on all four extremities. No focal weakness appreciated. Neurologic: Alert to person, place, time, and situation. Affect appropriate, intact sensation. Skin: Mediastinal incision with SEROUS DRAINAGE. Graft site on lower extremity intact. Results Result Diagram: 01/08/17 0648 01/07/17 0603 Results 24 hrs Laboratory Tests Test 01/07/17 12:03 01/07/17 17:26 01/07/17 21:08 01/08/17 06:48 Bedside Glucose 133 160 144 White Blood Count 14.7 H Red Blood Count 4.09 L Hemoglobin 11.5 L Hematocrit 34.9 L Mean Corpuscular Volume 85.3 Mean Corpuscular Hemoglobin 28.1 L Mean Corpuscular Hemoglobin Concent 33.0 Red Cell Distribution Width 14.8 H Platelet Count 617 H Mean Platelet Volume 9.0 Neutrophils % 73.7 Lymphocytes % 18.2 Monocytes % 6.3 Eosinophils % 0.5 Basophils % 0.4 Nucleated Red Blood Cells % 0.0 Neutrophils # 10.8 H Lymphocytes # 2.7 Monocytes # 0.9 Eosinophils # 0.1 Basophils # 0.1 Nucleated Red Blood Cells # 0.0 Test 01/08/17 08:01 01/08/17 09:12 01/08/17 09:53 Bedside Glucose 128 136 Vancomycin Level Trough 10.5 Medications Medications Current Medications Magnesium Hydroxide (Milk Of Mag) 30 ml BID PRN PO CONSTIPATION Last administered on 01/08/17 00:47; Admin Dose 30 ML; Start 01/04/17 at 18:30 Bisacodyl (Dulcolax Supp) 10 mg DAILY PRN [place] CONSTIPATION; Start 01/04/17 at 18 :30 Lactulose (Enulose) 20 gm DAILY PRN PO CONSTIPATION Last administered on 09:25; Admin Dose 20 GM; Start 01/04/17 at 18:30 Ondansetron HCl (Zofran Inj) 4 mg Q6H PRN IV NAUSEA AND/OR VOMITING; Start 01/04/17 at 18:30 Oxycodone/ Acetaminophen (Percocet (5/ 325)) 1 tab Q3H PRN PO PAIN LEVEL 1-5 Last administered on 01/08/17 09:26; Admin Dose 1 TAB; Start 01/04/17 at 18:30 Insulin Glargine (Lantus) 12 unit DAILY@08 SC Last administered on 01/08/17 09:22; Admin Dose 12 UNIT; Start 01/05/17 at 08:00 Lorazepam (Ativan) 1 mg Q8H PRN PO ANXIETY; Start 01/04/17 at 18:30 Losartan Potassium (Cozaar) 50 mg DAILY PO Last administered on 01/08/17 09: 28; Admin Dose 50 MG; Start 01/05/17 at 09:00 Metoprolol Tartrate (Lopressor) 25 mg BID PO Last administered on 01/08/17 09 :27; Admin Dose 25 MG; Start 01/04/17 at 21:00 Miscellaneous Information 1 ea NOTE XX ; Start 01/04/17 at 18:30 Glucose (Glutose) 15 gm Q15M PRN PO DECREASED GLUCOSE; Start 01/04/17 at 18:30 Glucose (Glutose) 22.5 gm Q15M PRN PO DECREASED GLUCOSE; Start 01/04/17 at 18: 30 Dextrose (D50w Syringe) 25 ml Q15M PRN IV DECREASED GLUCOSE; Start 01/04/17 at 18:30 Dextrose (D50w Syringe) 50 ml Q15M PRN IV DECREASED GLUCOSE; Start 01/04/17 at 18:30 Glucagon (Glucagen) 1 mg Q15M PRN IM DECREASED GLUCOSE; Start 01/04/17 at 18:30 Glucose (Glutose) 15 gm Q15M PRN BUCCAL DECREASED GLUCOSE; Start 01/04/17 at 18 :30 Aspirin (Aspirin) 325 mg DAILY PO Last administered on 01/08/17 09:26; Admin Dose 325 MG; Start 01/05/17 at 09:00 Atorvastatin Calcium (Lipitor) 40 mg HS PO Last administered on 01/07/17 21: 08; Admin Dose 40 MG; Start 01/04/17 at 21:00 Enoxaparin Sodium (Lovenox) 40 mg DAILY SC Last administered on 01/08/17 09: 25; Admin Dose 40 MG; Start 01/05/17 at 09:00 Diagnostic Test (Pha) (Accu-Chek) 1 ea 02 XX ; Start 01/06/17 at 02:00 Ferrous Sulfate (Ferrous Sulfate (Ec)) 325 mg DAILY PO Last administered on 09:27; Admin Dose 325 MG; Start 01/06/17 at 09:00 Docusate Sodium (Colace) 100 mg BID PO Last administered on 01/08/17 09:27; Admin Dose 100 MG; Start 01/05/17 at 21:00 Senna (Senokot) 1 tab DAILY PO Last administered on 01/08/17 09:26; Admin Dose 1 TAB; Start 01/06/17 at 09:00 Acetaminophen (Tylenol Tab) 650 mg Q4H PRN PO PAIN AND OR ELEVATED TEMP Last administered on 01/08/17 09:26; Admin Dose 650 MG; Start 01/05/17 at 15:30 Oxycodone/ Acetaminophen 2 tab 2 tab Q3H PRN PO PAIN LEVEL 6-10 Last administered on 01/08/17 03:17; Admin Dose 2 TAB; Start 01/06/17 at 12:30 Cefepime HCl 50 ml @ 100 mls/hr Q12 IVPB Last administered on 01/08/17 09:23 ; Admin Dose 100 MLS/HR; Start 01/06/17 at 21:00 Vancomycin HCl/ Sodium Chloride (Vancocin/NS) 250 ml @ 83.333 mls/ hr Q12H IVPB Last administered on 01/07/17 22:37; Admin Dose 83.333 MLS/HR; Start at 22:30 Guaifenesin/ Dextromethorphan 10 ml 10 ml Q4H PRN PO cough; Start 01/07/17 at 14:30 Sodium Chloride (NS) 1,000 ml @ 75 mls/hr [id number] IV ; Start 01/08/17 at 11:30 MYKE RICKS NP Jan 08, 2017 11:36
[2017-01-08] MEDS: SOD CHLORIDE 0.9% 1,000 ML IV SCH (11:57)
[2017-01-08] MEDS: VANCOMYCIN 1.5 GM in SOD CHLORIDE 0.9% 250 ML IVPB SCH (12:04)
[2017-01-08 14:00] VITALS: BP 107/58; RESP 18
[2017-01-08 19:49] VITALS: BP 130/70; RESP 18
[2017-01-08] MEDS: GUAIFENESIN/DM 5ML CUP PO PRN (20:25)
[2017-01-08] MEDS: ATORVASTATIN 40 MG TAB PO SCH (20:25)
[2017-01-08] MEDS: VANCOMYCIN 1.25 GM in SOD CHLORIDE 0.9% 250 ML IVPB SCH (21:18)
[2017-01-09] MEDS: SOD CHLORIDE 0.9% 1,000 ML IV SCH ×2 (00:50→17:15)
[2017-01-09] MEDS: OXYCODONE/ACETAMINOPHEN (5/325) TAB PO PRN ×5 (01:05→23:36)
[2017-01-09] MEDS: GUAIFENESIN/DM 5ML CUP PO PRN ×4 (01:05→16:52)
[2017-01-09 02:21] VITALS: BP 128/72; PULSE 88; RESP 18
[2017-01-09] MEDS: VANCOMYCIN 1.25 GM in SOD CHLORIDE 0.9% 250 ML IVPB SCH ×2 (04:08→12:36)
[2017-01-09 07:00] VITALS: BP 128/78; RESP 18
[2017-01-09] MEDS: INSULIN ASPART [NOVOLOG] 3 ML PEN SC SCH ×7 (08:00→20:12)
[2017-01-09] MEDS: INSULIN GLARGINE [LANtus] 3 ML PEN SC SCH (08:05)
[2017-01-09 08:45] LABS: BASOPHILS % 0.3 % (0.0-2.0); EOSINOPHILS # 0.1 10^3/ul (0.0-0.5); EOSINOPHILS % 0.9 % (0.0-7.0); HEMATOCRIT 30.1 % (42.0-52.0); HEMOGLOBIN 9.9 g/dl (14.0-18.0); LYMPHOCYTES # 1.5 10^3/ul (0.8-2.9); LYMPHOCYTES % 10.9 % (15.0-51.0); MEAN CORPUSCULAR HGB CONC 32.9 g/dl (32.0-37.0); MEAN CORPUSCULAR VOLUME 85.3 fl (82.0-101.0); MEAN PLATELET VOLUME 9.1 fl (7.4-10.4); MONOCYTE # 0.9 10^3/ul (0.3-0.9); MONOCYTES % 6.7 % (0.0-11.0); NEUTROPHIL # 10.8 10^3/ul (1.6-7.5); NEUTROPHILS % 80.4 % (39.0-77.0); PLATELET COUNT 574 10^3/UL (140-415); RED BLOOD COUNT 3.53 10^6/ul (4.70-6.10); RED CELL DISTRIBUTION WIDTH 14.9 % (11.5-14.5); WHITE BLOOD COUNT 13.5 10^3/ul (4.8-10.8)
[2017-01-09] MEDS: CEFEPIME 1GM/50 ML (PMX) 50 ML IVPB SCH ×2 (10:06→20:07)
[2017-01-09] MEDS: ASPIRIN 325 MG TAB PO SCH (10:06)
[2017-01-09] MEDS: LOSARTAN 50 MG TAB PO SCH (10:07)
[2017-01-09] MEDS: METOPROLOL 25 MG TAB PO SCH ×2 (10:07→20:08)
[2017-01-09] MEDS: SENNA TAB PO SCH (10:07)
[2017-01-09] MEDS: FERROUS SULFATE (EC) 325 MG TAB PO SCH (10:08)
[2017-01-09] MEDS: ENOXAPARIN 40 MG/0.4 ML SYG SC SCH (10:08)
[2017-01-09] MEDS: DOCUSATE SODIUM 100 MG CAP PO SCH ×2 (10:09→20:08)
--- NOTE | 2017-01-09 11:00 | CONS ---
Date/Time of Note Date/Time of Note DATE: 01/09/17 TIME: 10:57 Assessment/Plan Assessment/Plan Chief Complaint/Hosp Course This is a 56-year-old male with multivessel coronary artery disease, who apparently underwent CABG and postoperatively found to have acute CVA, transferred to ARU for further physical therapy and rehabilitation. 1. Acute CVA, involving posterior left frontal ,posterior right parietal lobe and right temporal occipital lobe infarct. - Continue aspirin. -PT/OT/ST eval and treatment. 2. Multivessel coronary artery disease. Status post coronary artery bypass graft on 12/28/2016. -Continue medical management. 3. Possible sepsis with pneumonia. Improving. -Continue IV fluids, antibiotics, cough suppressant, as needed bronchodilators and follow-up cultures. -Repeat chest Xray in AM. 4. Dysphagia. -Continue with ST evaluation. Tolerates mechanical soft diet. 5. Hypertension. -Continue antihypertensives. 6. Hyperlipidemia. -Continue statin. 7. Type 2 Diabetes mellitus. -Continue Accu-Cheks/ISS/pre-meal/Lantus. 8. Transaminase elevation, likely concurrent. Patient asymptomatic. -Stable abdominal ultrasound. 9. Mild anemia with iron deficiency. -Continue iron replacement. Prophylaxis: Lovenox. Patient was seen in collaboration with . Problems: Consultation Date/Type/Reason Admit Date/Time Jan 04, 2017 at 17:27 24 HR Interval Summary Free Text/Dictation No acute distress. Exam/Review of Systems Vital Signs Vitals Vital Signs Date Time Temp Pulse Resp B/P Pulse Ox O2 Delivery O2 Flow Rate FiO2 01/09/17 07:00 99.6 112 18 128/78 95 01/09/17 02:21 Room Air 01/07/17 08:00 2.0 Intake and Output 01/08/17 01/08/17 01/09/17 15:00 23:00 07:00 Intake Total 50 ml 1030 ml 1800 ml Output Total 820 ml 1000 ml Balance 50 ml 210 ml 800 ml Exam General: Well developed,adequately built, not in any acute distress . HEENT: Normocephalic, Atraumatic, No laceration or hematoma; Eyes: Reports blurred vision to left eye. PEERL, Conjunctiva clear, Anicteric sclera Neck: Supple without any lymphadenopathy, nontender, no JVD, no carotid bruits, trachea midline, no thyromegaly Cardiac: S1, S2 auscultated, regular rhythm and rate, no mumurs or gallop Pulmonary: Normal respiratory effort. Chest clear to auscultation bilaterally, no adventitious breath sounds GI: Abdomen normal to inspection. Soft, non tender, non- distended, no masses, no rebound tenderness or guarding. Bowel sounds active on all four quadrants Genitourinary: Deferred Extremities: No cyanosis, clubbing, or edema. Pulses [2+] bilaterally. Full ROM on all four extremities. No focal weakness appreciated. Neurologic: Alert to person, place, time, and situation. Affect appropriate, intact sensation. Skin: Mediastinal incision with SEROUS DRAINAGE circled on dressing. Graft site on lower extremity intact. Results Result Diagram: 01/09/17 0725 01/07/17 0603 Results 24 hrs Laboratory Tests Test 01/08/17 12:13 01/08/17 17:29 01/08/17 20:27 01/09/17 07:25 Bedside Glucose 178 131 180 White Blood Count 13.5 H Red Blood Count 3.53 L Hemoglobin 9.9 L Hematocrit 30.1 L Mean Corpuscular Volume 85.3 Mean Corpuscular Hemoglobin 28.0 L Mean Corpuscular Hemoglobin Concent 32.9 Red Cell Distribution Width 14.9 H Platelet Count 574 H Mean Platelet Volume 9.1 Neutrophils % 80.4 H Lymphocytes % 10.9 L Monocytes % 6.7 Eosinophils % 0.9 Basophils % 0.3 Nucleated Red Blood Cells % 0.0 Neutrophils # 10.8 H Lymphocytes # 1.5 Monocytes # 0.9 Eosinophils # 0.1 Basophils # 0.0 Nucleated Red Blood Cells # 0.0 Test 01/09/17 07:56 Bedside Glucose 157 Medications Medications Current Medications Magnesium Hydroxide (Milk Of Mag) 30 ml BID PRN PO CONSTIPATION Last administered on 01/08/17 00:47; Admin Dose 30 ML; Start 01/04/17 at 18:30 Bisacodyl (Dulcolax Supp) 10 mg DAILY PRN [place] CONSTIPATION; Start 01/04/17 at 18 :30 Lactulose (Enulose) 20 gm DAILY PRN PO CONSTIPATION Last administered on 09:25; Admin Dose 20 GM; Start 01/04/17 at 18:30 Ondansetron HCl (Zofran Inj) 4 mg Q6H PRN IV NAUSEA AND/OR VOMITING; Start 01/04/17 at 18:30 Oxycodone/ Acetaminophen (Percocet (5/ 325)) 1 tab Q3H PRN PO PAIN LEVEL 1-5 Last administered on 01/09/17 06:00; Admin Dose 1 TAB; Start 01/04/17 at 18:30 Insulin Glargine (Lantus) 12 unit DAILY@08 SC Last administered on 01/09/17 08:05; Admin Dose 12 UNIT; Start 01/05/17 at 08:00 Lorazepam (Ativan) 1 mg Q8H PRN PO ANXIETY; Start 01/04/17 at 18:30 Losartan Potassium (Cozaar) 50 mg DAILY PO Last administered on 01/09/17 10: 07; Admin Dose 50 MG; Start 01/05/17 at 09:00 Metoprolol Tartrate (Lopressor) 25 mg BID PO Last administered on 01/09/17 10 :07; Admin Dose 25 MG; Start 01/04/17 at 21:00 Miscellaneous Information 1 ea NOTE XX ; Start 01/04/17 at 18:30 Glucose (Glutose) 15 gm Q15M PRN PO DECREASED GLUCOSE; Start 01/04/17 at 18:30 Glucose (Glutose) 22.5 gm Q15M PRN PO DECREASED GLUCOSE; Start 01/04/17 at 18: 30 Dextrose (D50w Syringe) 25 ml Q15M PRN IV DECREASED GLUCOSE; Start 01/04/17 at 18:30 Dextrose (D50w Syringe) 50 ml Q15M PRN IV DECREASED GLUCOSE; Start 01/04/17 at 18:30 Glucagon (Glucagen) 1 mg Q15M PRN IM DECREASED GLUCOSE; Start 01/04/17 at 18:30 Glucose (Glutose) 15 gm Q15M PRN BUCCAL DECREASED GLUCOSE; Start 01/04/17 at 18 :30 Aspirin (Aspirin) 325 mg DAILY PO Last administered on 01/09/17 10:06; Admin Dose 325 MG; Start 01/05/17 at 09:00 Atorvastatin Calcium (Lipitor) 40 mg HS PO Last administered on 01/08/17 20: 25; Admin Dose 40 MG; Start 01/04/17 at 21:00 Enoxaparin Sodium (Lovenox) 40 mg DAILY SC Last administered on 01/09/17 10: 08; Admin Dose 40 MG; Start 01/05/17 at 09:00 Diagnostic Test (Pha) (Accu-Chek) 1 ea 02 XX ; Start 01/06/17 at 02:00 Ferrous Sulfate (Ferrous Sulfate (Ec)) 325 mg DAILY PO Last administered on 10:08; Admin Dose 325 MG; Start 01/06/17 at 09:00 Docusate Sodium (Colace) 100 mg BID PO Last administered on 01/09/17 10:09; Admin Dose 100 MG; Start 01/05/17 at 21:00 Senna (Senokot) 1 tab DAILY PO Last administered on 01/09/17 10:07; Admin Dose 1 TAB; Start 01/06/17 at 09:00 Acetaminophen (Tylenol Tab) 650 mg Q4H PRN PO PAIN AND OR ELEVATED TEMP Last administered on 01/08/17 09:26; Admin Dose 650 MG; Start 01/05/17 at 15:30 Oxycodone/ Acetaminophen 2 tab 2 tab Q3H PRN PO PAIN LEVEL 6-10 Last administered on 01/08/17 21:18; Admin Dose 2 TAB; Start 01/06/17 at 12:30 Cefepime HCl (Maxipime 1gm/50 ml (Pmx)) 50 ml @ 100 mls/hr Q12 IVPB Last administered on 01/09/17 10:06; Admin Dose 100 MLS/HR; Start 01/06/17 at 21:00 Guaifenesin/ Dextromethorphan 10 ml 10 ml Q4H PRN PO cough Last administered on 01/09/17 06:00; Admin Dose 10 ML; Start 01/07/17 at 14:30 Sodium Chloride 1,000 ml @ 75 mls/hr [id number] IV Last administered on 11:57; Admin Dose 75 MLS/HR; Start 01/08/17 at 11:30 Vancomycin HCl/ Sodium Chloride (Vancocin/NS) 250 ml @ 83.333 mls/ hr Q8H IVPB Last administered on 01/09/17 04:08; Admin Dose 83.333 MLS/HR; Start at 20:00 MYKE RICKS NP Jan 09, 2017 11:00
[2017-01-09 17:05] VITALS: BP 169/89; RESP 20
[2017-01-09 20:00] VITALS: BP 137/77; RESP 18
[2017-01-09] MEDS: ATORVASTATIN 40 MG TAB PO SCH (20:08)
[2017-01-09] MEDS: VANCOMYCIN 1 GM in NS 250 ML IVPB SCH (21:45)
[2017-01-10 02:00] VITALS: BP 141/89; RESP 18
[2017-01-10] MEDS: ACCU-CHEK XX SCH (02:00)
[2017-01-10] MEDS: SOD CHLORIDE 0.9% 1,000 ML IV SCH ×3 (03:30→16:50)
[2017-01-10] MEDS: VANCOMYCIN 1 GM in NS 250 ML IVPB SCH (05:56)
[2017-01-10] MEDS: OXYCODONE/ACETAMINOPHEN (5/325) TAB PO PRN ×4 (06:54→20:57)
[2017-01-10] MEDS: GUAIFENESIN/DM 5ML CUP PO PRN ×4 (06:56→20:57)
[2017-01-10 07:00] VITALS: BP 139/80; RESP 18
[2017-01-10] MEDS: INSULIN ASPART [NOVOLOG] 3 ML PEN SC SCH ×7 (07:35→21:00)
[2017-01-10] MEDS: INSULIN GLARGINE [LANtus] 3 ML PEN SC SCH (07:48)
[2017-01-10 07:57] LABS: CREATININE 0.8 mg/dl (0.61-1.24)
[2017-01-10] MEDS: ENOXAPARIN 40 MG/0.4 ML SYG SC SCH (08:26)
[2017-01-10] MEDS: ASPIRIN 325 MG TAB PO SCH (08:26)
[2017-01-10] MEDS: METOPROLOL 25 MG TAB PO SCH ×2 (08:27→20:56)
[2017-01-10] MEDS: DOCUSATE SODIUM 100 MG CAP PO SCH ×2 (08:27→20:56)
[2017-01-10] MEDS: SENNA TAB PO SCH (08:27)
[2017-01-10] MEDS: LOSARTAN 50 MG TAB PO SCH (08:27)
[2017-01-10] MEDS: FERROUS SULFATE (EC) 325 MG TAB PO SCH (08:27)
[2017-01-10] MEDS: CEFEPIME 1GM/50 ML (PMX) 50 ML IVPB SCH ×2 (08:28→20:51)
--- NOTE | 2017-01-10 09:22 | RADRPT ---
PROCEDURE: XR Chest. CLINICAL INDICATION: Pneumonia TECHNIQUE: A single AP view of the chest was obtained. COMPARISON: Chest x-ray dated 01/06/2017 FINDINGS: There is near-complete left thorax. Lung volumes are low. There is prominence of the interstitial ma rkings. Pneumothorax is seen. The cardiomediastinal silhouette is obscured. There are post cardiac surgery changes with sternotomy wires. The osseous structures are unremarkable. IMPRESSION: 1. Near complete opacification of the left thorax, increased when compared to the prior examination . 2. Low lung volumes with prominent interstitial markings, not significantly changed. RPTAT: HH .Eli Morales MD, MD Date Time Electronically viewed and signed by .Eli Morales MD, on 01/10/2017 09:22 .G/
--- NOTE | 2017-01-10 11:13 | CONS ---
Date/Time of Note Date/Time of Note DATE: 01/10/17 TIME: 11:12 Consult Date/Type/Reason Admit Date/Time Jan 04, 2017 at 17:27 Objective Vital Signs Date Time Temp Pulse Resp B/P Pulse Ox O2 Delivery O2 Flow Rate FiO2 01/10/17 10:41 94 2.0 01/10/17 10:41 100 18 Nasal Cannula 01/10/17 07:00 98.7 139/80 Intake and Output 01/09/17 01/09/17 01/10/17 15:00 23:00 07:00 Intake Total 50 ml 2550 ml 1480 ml Output Total 1000 ml 2050 ml Balance 50 ml 1550 ml -570 ml INTERDISCIPLINARY TEAM CONFERENCE BOWEL- Cont BLADDER-Cont SKIN- intact OT- DRESSING-cga BATHING-cga TOILETING-cga PT- BED MOBILITY-cga TRANSFERS-cga AMBULATION-cga 100 SPEECH- COGNITION DYPHAGIA-mech soft A/P- Interdisciplinary team conference held today. Please see interdisciplinary sheet. Working toward d.c. on 01/18 with post discharge follow up of physical therapy, occupational therapy. Results/Medications Result Diagram: 01/09/17 0725 01/10/17 0619 Results 24 hrs Laboratory Tests Test 01/09/17 12:12 01/09/17 16:14 01/09/17 18:03 01/09/17 18:55 Bedside Glucose 156 95 151 Vancomycin Level Trough 19.7 Test 01/09/17 20:06 01/10/17 06:19 01/10/17 07:45 Bedside Glucose 177 136 Blood Urea Nitrogen 8 Creatinine 0.80 Medications Current Medications Magnesium Hydroxide (Milk Of Mag) 30 ml BID PRN PO CONSTIPATION Last administered on 01/08/17 00:47; Admin Dose 30 ML; Start 01/04/17 at 18:30 Bisacodyl (Dulcolax Supp) 10 mg DAILY PRN [place] CONSTIPATION; Start 01/04/17 at 18 :30 Lactulose (Enulose) 20 gm DAILY PRN PO CONSTIPATION Last administered on 09:25; Admin Dose 20 GM; Start 01/04/17 at 18:30 Ondansetron HCl (Zofran Inj) 4 mg Q6H PRN IV NAUSEA AND/OR VOMITING; Start 01/04/17 at 18:30 Oxycodone/ Acetaminophen (Percocet (5/ 325)) 1 tab Q3H PRN PO PAIN LEVEL 1-5 Last administered on 01/09/17 06:00; Admin Dose 1 TAB; Start 01/04/17 at 18:30 Insulin Glargine (Lantus) 12 unit DAILY@08 SC Last administered on 01/10/17 07:48; Admin Dose 12 UNIT; Start 01/05/17 at 08:00 Lorazepam (Ativan) 1 mg Q8H PRN PO ANXIETY; Start 01/04/17 at 18:30 Losartan Potassium (Cozaar) 50 mg DAILY PO Last administered on 01/10/17 08: 27; Admin Dose 50 MG; Start 01/05/17 at 09:00 Metoprolol Tartrate (Lopressor) 25 mg BID PO Last administered on 01/10/17 08 :27; Admin Dose 25 MG; Start 01/04/17 at 21:00 Miscellaneous Information 1 ea NOTE XX ; Start 01/04/17 at 18:30 Glucose (Glutose) 15 gm Q15M PRN PO DECREASED GLUCOSE; Start 01/04/17 at 18:30 Glucose (Glutose) 22.5 gm Q15M PRN PO DECREASED GLUCOSE; Start 01/04/17 at 18: 30 Dextrose (D50w Syringe) 25 ml Q15M PRN IV DECREASED GLUCOSE; Start 01/04/17 at 18:30 Dextrose (D50w Syringe) 50 ml Q15M PRN IV DECREASED GLUCOSE; Start 01/04/17 at 18:30 Glucagon (Glucagen) 1 mg Q15M PRN IM DECREASED GLUCOSE; Start 01/04/17 at 18:30 Glucose (Glutose) 15 gm Q15M PRN BUCCAL DECREASED GLUCOSE; Start 01/04/17 at 18 :30 Aspirin (Aspirin) 325 mg DAILY PO Last administered on 01/10/17 08:26; Admin Dose 325 MG; Start 01/05/17 at 09:00 Atorvastatin Calcium (Lipitor) 40 mg HS PO Last administered on 01/09/17 20: 08; Admin Dose 40 MG; Start 01/04/17 at 21:00 Enoxaparin Sodium (Lovenox) 40 mg DAILY SC Last administered on 01/10/17 08: 26; Admin Dose 40 MG; Start 01/05/17 at 09:00 Diagnostic Test (Pha) (Accu-Chek) 1 ea 02 XX ; Start 01/06/17 at 02:00 Ferrous Sulfate (Ferrous Sulfate (Ec)) 325 mg DAILY PO Last administered on 08:27; Admin Dose 325 MG; Start 01/06/17 at 09:00 Docusate Sodium (Colace) 100 mg BID PO Last administered on 01/10/17 08:27; Admin Dose 100 MG; Start 01/05/17 at 21:00 Senna (Senokot) 1 tab DAILY PO Last administered on 01/10/17 08:27; Admin Dose 1 TAB; Start 01/06/17 at 09:00 Acetaminophen (Tylenol Tab) 650 mg Q4H PRN PO PAIN AND OR ELEVATED TEMP Last administered on 01/08/17 09:26; Admin Dose 650 MG; Start 01/05/17 at 15:30 Oxycodone/ Acetaminophen 2 tab 2 tab Q3H PRN PO PAIN LEVEL 6-10 Last administered on 01/10/17 06:54; Admin Dose 2 TAB; Start 01/06/17 at 12:30 Cefepime HCl (Maxipime 1gm/50 ml (Pmx)) 50 ml @ 100 mls/hr Q12 IVPB Last administered on 01/10/17 08:28; Admin Dose 100 MLS/HR; Start 01/06/17 at 21:00 Guaifenesin/ Dextromethorphan 10 ml 10 ml Q4H PRN PO cough Last administered on 01/10/17 06:56; Admin Dose 10 ML; Start 01/07/17 at 14:30 Sodium Chloride 1,000 ml @ 75 mls/hr [id number] IV Last administered on 17:15; Admin Dose 75 MLS/HR; Start 01/08/17 at 11:30 Vancomycin HCl (Vancocin) 250 ml @ 125 mls/hr Q8H IVPB Last administered on 05:56; Admin Dose 125 MLS/HR; Start 01/09/17 at 21:30 JUSTIN SRINIVASAN MD Jan 10, 2017 11:13
--- NOTE | 2017-01-10 11:27 | CONS ---
Date/Time of Note Date/Time of Note DATE: 01/10/17 TIME: 11:25 Assessment/Plan Assessment/Plan Chief Complaint/Hosp Course This is a 56-year-old male with multivessel coronary artery disease, who apparently underwent CABG and postoperatively found to have acute CVA, transferred to ARU for further physical therapy and rehabilitation. 1. Acute CVA, involving posterior left frontal ,posterior right parietal lobe and right temporal occipital lobe infarct. - Continue aspirin. -PT/OT/ST eval and treatment. 2. Multivessel coronary artery disease. Status post coronary artery bypass graft on 12/28/2016. -Continue medical management. 3. Possible sepsis with pneumonia. Resolving. Cultures negative. -Continue IV fluids, antibiotics, cough suppressant, as needed bronchodilators -Repeat CBC in AM. 4. Dysphagia. -Continue with ST evaluation. Tolerates mechanical soft diet. 5. Hypertension. -Continue antihypertensives. 6. Hyperlipidemia. -Continue statin. 7. Type 2 Diabetes mellitus. -Continue Accu-Cheks/ISS/pre-meal/Lantus. 8. Transaminase elevation, likely concurrent. Patient asymptomatic. -Stable abdominal ultrasound. 9. Mild anemia with iron deficiency. -Continue iron replacement. Encourage incentive spirometry. Repeat CBC in AM Prophylaxis: Lovenox. Patient was seen in collaboration with . Problems: Consultation Date/Type/Reason Admit Date/Time Jan 04, 2017 at 17:27 24 HR Interval Summary Free Text/Dictation Patient with no further fevers. He is having occasional cough. Exam/Review of Systems Vital Signs Vitals Vital Signs Date Time Temp Pulse Resp B/P Pulse Ox O2 Delivery O2 Flow Rate FiO2 01/10/17 10:41 94 2.0 01/10/17 10:41 100 18 Nasal Cannula 01/10/17 07:00 98.7 139/80 Intake and Output 01/09/17 01/09/17 01/10/17 14:59 22:59 06:59 Intake Total 50 ml 2550 ml 1480 ml Output Total 1000 ml 2050 ml Balance 50 ml 1550 ml -570 ml Exam General: Well developed,adequately built, not in any acute distress . HEENT: Normocephalic, Atraumatic, No laceration or hematoma; Eyes: Reports blurred vision to left eye. PEERL, Conjunctiva clear, Anicteric sclera Neck: Supple without any lymphadenopathy, nontender, no JVD, no carotid bruits, trachea midline, no thyromegaly Cardiac: S1, S2 auscultated, regular rhythm and rate, no mumurs or gallop Pulmonary: Normal respiratory effort. Chest clear to auscultation bilaterally, no adventitious breath sounds GI: Abdomen normal to inspection. Soft, non tender, non- distended, no masses, no rebound tenderness or guarding. Bowel sounds active on all four quadrants Genitourinary: Deferred Extremities: No cyanosis, clubbing, or edema. Pulses [2+] bilaterally. Full ROM on all four extremities. No focal weakness appreciated. Neurologic: Alert to person, place, time, and situation. Affect appropriate, intact sensation. Skin: Mediastinal incision with SEROUS DRAINAGE circled on dressing. Graft site on lower extremity intact. Results Result Diagram: 01/09/17 0725 01/10/17 0619 Results 24 hrs Laboratory Tests Test 01/09/17 12:12 01/09/17 16:14 01/09/17 18:03 01/09/17 18:55 Bedside Glucose 156 95 151 Vancomycin Level Trough 19.7 Test 01/09/17 20:06 01/10/17 06:19 01/10/17 07:45 Bedside Glucose 177 136 Blood Urea Nitrogen 8 Creatinine 0.80 Medications Medications Current Medications Magnesium Hydroxide (Milk Of Mag) 30 ml BID PRN PO CONSTIPATION Last administered on 01/08/17 00:47; Admin Dose 30 ML; Start 01/04/17 at 18:30 Bisacodyl (Dulcolax Supp) 10 mg DAILY PRN [place] CONSTIPATION; Start 01/04/17 at 18 :30 Lactulose (Enulose) 20 gm DAILY PRN PO CONSTIPATION Last administered on 09:25; Admin Dose 20 GM; Start 01/04/17 at 18:30 Ondansetron HCl (Zofran Inj) 4 mg Q6H PRN IV NAUSEA AND/OR VOMITING; Start 01/04/17 at 18:30 Oxycodone/ Acetaminophen (Percocet (5/ 325)) 1 tab Q3H PRN PO PAIN LEVEL 1-5 Last administered on 01/09/17 06:00; Admin Dose 1 TAB; Start 01/04/17 at 18:30 Insulin Glargine (Lantus) 12 unit DAILY@08 SC Last administered on 01/10/17 07:48; Admin Dose 12 UNIT; Start 01/05/17 at 08:00 Lorazepam (Ativan) 1 mg Q8H PRN PO ANXIETY; Start 01/04/17 at 18:30 Losartan Potassium (Cozaar) 50 mg DAILY PO Last administered on 01/10/17 08: 27; Admin Dose 50 MG; Start 01/05/17 at 09:00 Metoprolol Tartrate (Lopressor) 25 mg BID PO Last administered on 01/10/17 08 :27; Admin Dose 25 MG; Start 01/04/17 at 21:00 Miscellaneous Information 1 ea NOTE XX ; Start 01/04/17 at 18:30 Glucose (Glutose) 15 gm Q15M PRN PO DECREASED GLUCOSE; Start 01/04/17 at 18:30 Glucose (Glutose) 22.5 gm Q15M PRN PO DECREASED GLUCOSE; Start 01/04/17 at 18: 30 Dextrose (D50w Syringe) 25 ml Q15M PRN IV DECREASED GLUCOSE; Start 01/04/17 at 18:30 Dextrose (D50w Syringe) 50 ml Q15M PRN IV DECREASED GLUCOSE; Start 01/04/17 at 18:30 Glucagon (Glucagen) 1 mg Q15M PRN IM DECREASED GLUCOSE; Start 01/04/17 at 18:30 Glucose (Glutose) 15 gm Q15M PRN BUCCAL DECREASED GLUCOSE; Start 01/04/17 at 18 :30 Aspirin (Aspirin) 325 mg DAILY PO Last administered on 01/10/17 08:26; Admin Dose 325 MG; Start 01/05/17 at 09:00 Atorvastatin Calcium (Lipitor) 40 mg HS PO Last administered on 01/09/17 20: 08; Admin Dose 40 MG; Start 01/04/17 at 21:00 Enoxaparin Sodium (Lovenox) 40 mg DAILY SC Last administered on 01/10/17 08: 26; Admin Dose 40 MG; Start 01/05/17 at 09:00 Diagnostic Test (Pha) (Accu-Chek) 1 ea 02 XX ; Start 01/06/17 at 02:00 Ferrous Sulfate (Ferrous Sulfate (Ec)) 325 mg DAILY PO Last administered on 08:27; Admin Dose 325 MG; Start 01/06/17 at 09:00 Docusate Sodium (Colace) 100 mg BID PO Last administered on 01/10/17 08:27; Admin Dose 100 MG; Start 01/05/17 at 21:00 Senna (Senokot) 1 tab DAILY PO Last administered on 01/10/17 08:27; Admin Dose 1 TAB; Start 01/06/17 at 09:00 Acetaminophen (Tylenol Tab) 650 mg Q4H PRN PO PAIN AND OR ELEVATED TEMP Last administered on 01/08/17 09:26; Admin Dose 650 MG; Start 01/05/17 at 15:30 Oxycodone/ Acetaminophen 2 tab 2 tab Q3H PRN PO PAIN LEVEL 6-10 Last administered on 01/10/17 06:54; Admin Dose 2 TAB; Start 01/06/17 at 12:30 Cefepime HCl (Maxipime 1gm/50 ml (Pmx)) 50 ml @ 100 mls/hr Q12 IVPB Last administered on 01/10/17 08:28; Admin Dose 100 MLS/HR; Start 01/06/17 at 21:00 Guaifenesin/ Dextromethorphan 10 ml 10 ml Q4H PRN PO cough Last administered on 01/10/17 11:20; Admin Dose 10 ML; Start 01/07/17 at 14:30 Sodium Chloride 1,000 ml @ 75 mls/hr [id number] IV Last administered on 17:15; Admin Dose 75 MLS/HR; Start 01/08/17 at 11:30 Vancomycin HCl (Vancocin) 250 ml @ 125 mls/hr Q8H IVPB Last administered on 05:56; Admin Dose 125 MLS/HR; Start 01/09/17 at 21:30 MYKE RICKS NP Jan 10, 2017 11:27 MYKE RICKS NP Jan 10, 2017 11:27
[2017-01-10 20:00] VITALS: BP 143/71; RESP 18
[2017-01-10] MEDS: ATORVASTATIN 40 MG TAB PO SCH (20:56)
[2017-01-11 02:00] VITALS: BP 144/92; RESP 18
[2017-01-11] MEDS: ACCU-CHEK XX SCH (02:00)
[2017-01-11] MEDS: OXYCODONE/ACETAMINOPHEN (5/325) TAB PO PRN ×3 (04:51→19:57)
[2017-01-11] MEDS: SOD CHLORIDE 0.9% 1,000 ML IV SCH ×2 (04:55→19:30)
[2017-01-11 07:26] LABS: BASOPHIL # 0.1 10^3/ul (0.0-0.1); BASOPHILS % 0.6 % (0.0-2.0); EOSINOPHILS # 0.2 10^3/ul (0.0-0.5); EOSINOPHILS % 1.7 % (0.0-7.0); HEMATOCRIT 28.5 % (42.0-52.0); HEMOGLOBIN 9.1 g/dl (14.0-18.0); LYMPHOCYTES # 1.3 10^3/ul (0.8-2.9); LYMPHOCYTES % 13.5 % (15.0-51.0); MEAN CORPUSCULAR HEMOGLOBIN 27.2 pg (29.0-33.0); MEAN CORPUSCULAR HGB CONC 31.9 g/dl (32.0-37.0); MEAN CORPUSCULAR VOLUME 85.3 fl (82.0-101.0); MEAN PLATELET VOLUME 8.9 fl (7.4-10.4); MONOCYTE # 0.6 10^3/ul (0.3-0.9); MONOCYTES % 6.3 % (0.0-11.0); NEUTROPHIL # 7.7 10^3/ul (1.6-7.5); NEUTROPHILS % 77.5 % (39.0-77.0); PLATELET COUNT 649 10^3/UL (140-415); RED BLOOD COUNT 3.34 10^6/ul (4.70-6.10); RED CELL DISTRIBUTION WIDTH 14.9 % (11.5-14.5); WHITE BLOOD COUNT 9.9 10^3/ul (4.8-10.8)
[2017-01-11 07:30] VITALS: BP 142/90; RESP 20
[2017-01-11] MEDS: INSULIN ASPART [NOVOLOG] 3 ML PEN SC SCH ×7 (07:35→21:00)
[2017-01-11] MEDS: INSULIN GLARGINE [LANtus] 3 ML PEN SC SCH (07:56)
[2017-01-11] MEDS: ASPIRIN 325 MG TAB PO SCH (08:26)
[2017-01-11] MEDS: LOSARTAN 50 MG TAB PO SCH (08:27)
[2017-01-11] MEDS: DOCUSATE SODIUM 100 MG CAP PO SCH ×2 (08:27→21:05)
[2017-01-11] MEDS: SENNA TAB PO SCH (08:27)
[2017-01-11] MEDS: METOPROLOL 25 MG TAB PO SCH ×2 (08:28→21:05)
[2017-01-11] MEDS: ENOXAPARIN 40 MG/0.4 ML SYG SC SCH (08:28)
[2017-01-11] MEDS: FERROUS SULFATE (EC) 325 MG TAB PO SCH (08:31)
[2017-01-11] MEDS: CEFEPIME 1GM/50 ML (PMX) 50 ML IVPB SCH (08:31)
[2017-01-11] MEDS: GUAIFENESIN/DM 5ML CUP PO PRN ×3 (09:21→19:57)
--- NOTE | 2017-01-11 10:30 | CONS ---
Date/Time of Note Date/Time of Note DATE: 01/11/17 TIME: 10:24 Consult Date/Type/Reason Admit Date/Time Jan 04, 2017 at 17:27 Objective Vital Signs Date Time Temp Pulse Resp B/P Pulse Ox O2 Delivery O2 Flow Rate FiO2 01/11/17 07:30 98.5 103 20 142/90 97 01/11/17 00:18 2.0 01/10/17 19:43 Nasal Cannula Intake and Output 01/10/17 01/10/17 01/11/17 15:00 23:00 07:00 Intake Total 450 ml 1310 ml 1540 ml Output Total 550 ml 800 ml 1150 ml Balance -100 ml 510 ml 390 ml Results/Medications Result Diagram: 01/11/17 0630 01/10/17 0619 Results 24 hrs Laboratory Tests Test 01/10/17 12:20 01/10/17 17:25 01/10/17 20:49 01/11/17 06:30 Bedside Glucose 166 106 143 White Blood Count 9.9 # Red Blood Count 3.34 L Hemoglobin 9.1 L Hematocrit 28.5 L Mean Corpuscular Volume 85.3 Mean Corpuscular Hemoglobin 27.2 L Mean Corpuscular Hemoglobin Concent 31.9 L Red Cell Distribution Width 14.9 H Platelet Count 649 H Mean Platelet Volume 8.9 Neutrophils % 77.5 H Lymphocytes % 13.5 L Monocytes % 6.3 Eosinophils % 1.7 Basophils % 0.6 Nucleated Red Blood Cells % 0.0 Neutrophils # 7.7 H Lymphocytes # 1.3 Monocytes # 0.6 Eosinophils # 0.2 Basophils # 0.1 Nucleated Red Blood Cells # 0.0 Test 01/11/17 07:48 Bedside Glucose 125 Medications Current Medications Magnesium Hydroxide (Milk Of Mag) 30 ml BID PRN PO CONSTIPATION Last administered on 01/08/17 00:47; Admin Dose 30 ML; Start 01/04/17 at 18:30 Bisacodyl (Dulcolax Supp) 10 mg DAILY PRN [place] CONSTIPATION; Start 01/04/17 at 18 :30 Lactulose (Enulose) 20 gm DAILY PRN PO CONSTIPATION Last administered on 09:25; Admin Dose 20 GM; Start 01/04/17 at 18:30 Ondansetron HCl (Zofran Inj) 4 mg Q6H PRN IV NAUSEA AND/OR VOMITING; Start 01/04/17 at 18:30 Oxycodone/ Acetaminophen (Percocet (5/ 325)) 1 tab Q3H PRN PO PAIN LEVEL 1-5 Last administered on 01/09/17 06:00; Admin Dose 1 TAB; Start 01/04/17 at 18:30 Insulin Glargine (Lantus) 12 unit DAILY@08 SC Last administered on 01/11/17 07:56; Admin Dose 12 UNIT; Start 01/05/17 at 08:00 Lorazepam (Ativan) 1 mg Q8H PRN PO ANXIETY; Start 01/04/17 at 18:30 Losartan Potassium (Cozaar) 50 mg DAILY PO Last administered on 01/11/17 08: 27; Admin Dose 50 MG; Start 01/05/17 at 09:00 Metoprolol Tartrate (Lopressor) 25 mg BID PO Last administered on 01/11/17 08 :28; Admin Dose 25 MG; Start 01/04/17 at 21:00 Miscellaneous Information 1 ea NOTE XX ; Start 01/04/17 at 18:30 Glucose (Glutose) 15 gm Q15M PRN PO DECREASED GLUCOSE; Start 01/04/17 at 18:30 Glucose (Glutose) 22.5 gm Q15M PRN PO DECREASED GLUCOSE; Start 01/04/17 at 18: 30 Dextrose (D50w Syringe) 25 ml Q15M PRN IV DECREASED GLUCOSE; Start 01/04/17 at 18:30 Dextrose (D50w Syringe) 50 ml Q15M PRN IV DECREASED GLUCOSE; Start 01/04/17 at 18:30 Glucagon (Glucagen) 1 mg Q15M PRN IM DECREASED GLUCOSE; Start 01/04/17 at 18:30 Glucose (Glutose) 15 gm Q15M PRN BUCCAL DECREASED GLUCOSE; Start 01/04/17 at 18 :30 Aspirin (Aspirin) 325 mg DAILY PO Last administered on 01/11/17 08:26; Admin Dose 325 MG; Start 01/05/17 at 09:00 Atorvastatin Calcium (Lipitor) 40 mg HS PO Last administered on 01/10/17 20: 56; Admin Dose 40 MG; Start 01/04/17 at 21:00 Enoxaparin Sodium (Lovenox) 40 mg DAILY SC Last administered on 01/11/17 08: 28; Admin Dose 40 MG; Start 01/05/17 at 09:00 Diagnostic Test (Pha) (Accu-Chek) 1 ea 02 XX ; Start 01/06/17 at 02:00 Ferrous Sulfate (Ferrous Sulfate (Ec)) 325 mg DAILY PO Last administered on 08:31; Admin Dose 325 MG; Start 01/06/17 at 09:00 Docusate Sodium (Colace) 100 mg BID PO Last administered on 01/11/17 08:27; Admin Dose 100 MG; Start 01/05/17 at 21:00 Senna (Senokot) 1 tab DAILY PO Last administered on 01/11/17 08:27; Admin Dose 1 TAB; Start 01/06/17 at 09:00 Acetaminophen (Tylenol Tab) 650 mg Q4H PRN PO PAIN AND OR ELEVATED TEMP Last administered on 01/08/17 09:26; Admin Dose 650 MG; Start 01/05/17 at 15:30 Oxycodone/ Acetaminophen 2 tab 2 tab Q3H PRN PO PAIN LEVEL 6-10 Last administered on 01/11/17 04:51; Admin Dose 2 TAB; Start 01/06/17 at 12:30 Cefepime HCl (Maxipime 1gm/50 ml (Pmx)) 50 ml @ 100 mls/hr Q12 IVPB Last administered on 01/11/17 08:31; Admin Dose 100 MLS/HR; Start 01/06/17 at 21:00 Guaifenesin/ Dextromethorphan 10 ml 10 ml Q4H PRN PO cough Last administered on 01/11/17 09:21; Admin Dose 10 ML; Start 01/07/17 at 14:30 Sodium Chloride (NS) 1,000 ml @ 75 mls/hr [id number] IV Last administered on 04:55; Admin Dose 75 MLS/HR; Start 01/08/17 at 11:30 Assessment/Plan Additional Assessment/Plan Rehab- Right occipital infarct cerebrovascular accident with left-sided weakness. Continue activities as tolerated. I spoke with Dr. Osorio for a peer to peer review today, and patient has been authorized for extension to 01/18 Coronary artery disease status post coronary artery bypass graft. ID- continue abx Integ- wound care Dysphagia. Hypertension. Hyperlipidemia. Diabetes mellitus. Coronary artery disease. JUSTIN SRINIVASAN MD Jan 11, 2017 10:29
--- NOTE | 2017-01-11 13:24 | PN ---
Date/Time of Note Date/Time of Note DATE: 01/11/17 TIME: 13:22 Assessment/Plan VTE Prophylaxis VTE Prophylaxis Intervention: ambulation Lines/Catheters IV [facility] Type [facility]from [facility]): Peripheral IV Urinary Cath still in place: No Assessment/Plan Chief Complaint/Hosp Course This is a 56-year-old male with multivessel coronary artery disease, who apparently underwent CABG and postoperatively found to have acute CVA, transferred to ARU for further physical therapy and rehabilitation. 1. Acute CVA, involving posterior left frontal ,posterior right parietal lobe and right temporal occipital lobe infarct. - Continue aspirin. -PT/OT/ST eval and treatment. 2. Multivessel coronary artery disease. Status post coronary artery bypass graft on 12/28/2016. -Continue medical management. 3. Possible sepsis with pneumonia. Resolved. Cultures negative. -Dc abx.Monitor. 4. Dysphagia. -Continue with ST evaluation. Tolerates mechanical soft diet. 5. Hypertension. -Continue antihypertensives. 6. Hyperlipidemia. -Continue statin. 7. Type 2 Diabetes mellitus. -Continue Accu-Cheks/ISS/pre-meal/Lantus. 8. Transaminase elevation, likely concurrent. Patient asymptomatic. -Stable abdominal ultrasound. 9. Mild anemia with iron deficiency. -Continue iron replacement. Encourage incentive spirometry. Prophylaxis: Lovenox. Patient was seen in collaboration with . Problems: Subjective 24 Hr Interval Summary Free Text/Dictation no acute distress. doing well. with good participation with PT. Exam/Review of Systems Vital Signs Vitals Vital Signs Date Time Temp Pulse Resp B/P Pulse Ox O2 Delivery O2 Flow Rate FiO2 01/11/17 07:30 98.5 103 20 142/90 97 01/11/17 00:18 2.0 01/10/17 19:43 Nasal Cannula Intake and Output 01/10/17 01/10/17 01/11/17 15:00 23:00 07:00 Intake Total 450 ml 1310 ml 1540 ml Output Total 550 ml 800 ml 1150 ml Balance -100 ml 510 ml 390 ml Exam General: Well developed,adequately built, not in any acute distress . HEENT: Normocephalic, Atraumatic, No laceration or hematoma; Eyes: Reports blurred vision to left eye. PEERL, Conjunctiva clear, Anicteric sclera Neck: Supple without any lymphadenopathy, nontender, no JVD, no carotid bruits, trachea midline, no thyromegaly Cardiac: S1, S2 auscultated, regular rhythm and rate, no mumurs or gallop Pulmonary: Normal respiratory effort. Chest clear to auscultation bilaterally, no adventitious breath sounds GI: Abdomen normal to inspection. Soft, non tender, non- distended, no masses, no rebound tenderness or guarding. Bowel sounds active on all four quadrants Genitourinary: Deferred Extremities: No cyanosis, clubbing, or edema. Pulses [2+] bilaterally. Full ROM on all four extremities. No focal weakness appreciated. Neurologic: Alert to person, place, time, and situation. Affect appropriate, intact sensation. Skin: Mediastinal incision with SEROUS DRAINAGE circled on dressing. Graft site on lower extremity intact. Results Result Diagram: 01/11/17 0630 01/10/17 0619 Results 24 hrs Laboratory Tests Test 01/10/17 17:25 01/10/17 20:49 01/11/17 06:30 01/11/17 07:48 Bedside Glucose 106 143 125 White Blood Count 9.9 # Red Blood Count 3.34 L Hemoglobin 9.1 L Hematocrit 28.5 L Mean Corpuscular Volume 85.3 Mean Corpuscular Hemoglobin 27.2 L Mean Corpuscular Hemoglobin Concent 31.9 L Red Cell Distribution Width 14.9 H Platelet Count 649 H Mean Platelet Volume 8.9 Neutrophils % 77.5 H Lymphocytes % 13.5 L Monocytes % 6.3 Eosinophils % 1.7 Basophils % 0.6 Nucleated Red Blood Cells % 0.0 Neutrophils # 7.7 H Lymphocytes # 1.3 Monocytes # 0.6 Eosinophils # 0.2 Basophils # 0.1 Nucleated Red Blood Cells # 0.0 Test 01/11/17 12:19 Bedside Glucose 148 Medications Medications Current Medications Magnesium Hydroxide (Milk Of Mag) 30 ml BID PRN PO CONSTIPATION Last administered on 01/08/17 00:47; Admin Dose 30 ML; Start 01/04/17 at 18:30 Bisacodyl (Dulcolax Supp) 10 mg DAILY PRN [place] CONSTIPATION; Start 01/04/17 at 18 :30 Lactulose (Enulose) 20 gm DAILY PRN PO CONSTIPATION Last administered on 09:25; Admin Dose 20 GM; Start 01/04/17 at 18:30 Ondansetron HCl (Zofran Inj) 4 mg Q6H PRN IV NAUSEA AND/OR VOMITING; Start 01/04/17 at 18:30 Oxycodone/ Acetaminophen (Percocet (5/ 325)) 1 tab Q3H PRN PO PAIN LEVEL 1-5 Last administered on 01/09/17 06:00; Admin Dose 1 TAB; Start 01/04/17 at 18:30 Insulin Glargine (Lantus) 12 unit DAILY@08 SC Last administered on 01/11/17 07:56; Admin Dose 12 UNIT; Start 01/05/17 at 08:00 Lorazepam (Ativan) 1 mg Q8H PRN PO ANXIETY; Start 01/04/17 at 18:30 Losartan Potassium (Cozaar) 50 mg DAILY PO Last administered on 01/11/17 08: 27; Admin Dose 50 MG; Start 01/05/17 at 09:00 Metoprolol Tartrate (Lopressor) 25 mg BID PO Last administered on 01/11/17 08 :28; Admin Dose 25 MG; Start 01/04/17 at 21:00 Miscellaneous Information 1 ea NOTE XX ; Start 01/04/17 at 18:30 Glucose (Glutose) 15 gm Q15M PRN PO DECREASED GLUCOSE; Start 01/04/17 at 18:30 Glucose (Glutose) 22.5 gm Q15M PRN PO DECREASED GLUCOSE; Start 01/04/17 at 18: 30 Dextrose (D50w Syringe) 25 ml Q15M PRN IV DECREASED GLUCOSE; Start 01/04/17 at 18:30 Dextrose (D50w Syringe) 50 ml Q15M PRN IV DECREASED GLUCOSE; Start 01/04/17 at 18:30 Glucagon (Glucagen) 1 mg Q15M PRN IM DECREASED GLUCOSE; Start 01/04/17 at 18:30 Glucose (Glutose) 15 gm Q15M PRN BUCCAL DECREASED GLUCOSE; Start 01/04/17 at 18 :30 Aspirin (Aspirin) 325 mg DAILY PO Last administered on 01/11/17 08:26; Admin Dose 325 MG; Start 01/05/17 at 09:00 Atorvastatin Calcium (Lipitor) 40 mg HS PO Last administered on 01/10/17 20: 56; Admin Dose 40 MG; Start 01/04/17 at 21:00 Enoxaparin Sodium (Lovenox) 40 mg DAILY SC Last administered on 01/11/17 08: 28; Admin Dose 40 MG; Start 01/05/17 at 09:00 Diagnostic Test (Pha) (Accu-Chek) 1 ea 02 XX ; Start 01/06/17 at 02:00 Ferrous Sulfate (Ferrous Sulfate (Ec)) 325 mg DAILY PO Last administered on 08:31; Admin Dose 325 MG; Start 01/06/17 at 09:00 Docusate Sodium (Colace) 100 mg BID PO Last administered on 01/11/17 08:27; Admin Dose 100 MG; Start 01/05/17 at 21:00 Senna (Senokot) 1 tab DAILY PO Last administered on 01/11/17 08:27; Admin Dose 1 TAB; Start 01/06/17 at 09:00 Acetaminophen (Tylenol Tab) 650 mg Q4H PRN PO PAIN AND OR ELEVATED TEMP Last administered on 01/08/17 09:26; Admin Dose 650 MG; Start 01/05/17 at 15:30 Oxycodone/ Acetaminophen 2 tab 2 tab Q3H PRN PO PAIN LEVEL 6-10 Last administered on 01/11/17 04:51; Admin Dose 2 TAB; Start 01/06/17 at 12:30 Cefepime HCl (Maxipime 1gm/50 ml (Pmx)) 50 ml @ 100 mls/hr Q12 IVPB Last administered on 01/11/17 08:31; Admin Dose 100 MLS/HR; Start 01/06/17 at 21:00 Guaifenesin/ Dextromethorphan 10 ml 10 ml Q4H PRN PO cough Last administered on 01/11/17 09:21; Admin Dose 10 ML; Start 01/07/17 at 14:30 Sodium Chloride (NS) 1,000 ml @ 75 mls/hr [id number] IV Last administered on 04:55; Admin Dose 75 MLS/HR; Start 01/08/17 at 11:30 MYKE RICKS NP Jan 11, 2017 13:24
[2017-01-11] MEDS: LACTULOSE 30ML CUP PO PRN (16:17)
[2017-01-11] MEDS: ATORVASTATIN 40 MG TAB PO SCH (21:05)
--- NOTE | 2017-01-11 22:49 | RADRPT ---
PROCEDURE: CT Chest without contrast. CLINICAL INDICATION: Left-sided effusion. Pneumothorax. Pneumonia. TECHNIQUE: CT scan of the chest without contrast was performed on a multidetector high-resolution C T scanner. Coronal and sagittal reformatted images were obtained from the axial source images. The total exam CTDI equals 16.62 mGy and the total exam DLP equals 568.86 mGy-cm. DICOM images are avail able. One or more of the following dose reduction techniques were used: - Automated exposure control. - Adjustment of the mA and/or kV according to patient size. - Use of iterative reconstruction technique. COMPARISON: Chest x-ray dated 01/10/2017. FINDINGS: Lungs, pleura, airways, and thoracic inlet: There is a large left pleural effusion with associated extensive compressive atelectasis throughout the left lung with minor sparing at the left lung apex. There is a small right pleural effusion. There is no pneumothorax. The tracheobronchial tree is pa tent and normal in course and caliber. Cardiovascular system, mediastinum, and lymphatics: There is four-chamber cardiac enlargement and t here is a trace pericardial effusion. There has been prior median sternotomy there is a retrosternal collection measuring 8.3 cm in length and 7.8 x 3.8 cm in greatest axial dimension at the cardiophr enic region. There are multivessel coronary artery calcifications. There are atherosclerotic changes of the aorta, which is nonaneurysmal. There is no axillary, hilar, or mediastinal adenopathy. Visualized upper abdomen: The visualized upper abdomen is grossly unremarkable. Musculoskeletal system and soft tissues: There are no concerning osseous lesions. There is inflamm atory change in the soft tissues anterior to the sternum and overlying the ventral left chest. There is no focal drainable collection within these regions. IMPRESSION: 1. Large left pleural effusion with associated extensive compressive atelectasis of the left lung w ith minor sparing at the left lung apex. Small right pleural effusion. 2. Four-chamber cardiac enlargement with a trace pericardial effusion. 3. Findings suggestive of recent median sternotomy with a retrosternal simple appearing collection measuring 8.3 x 7.8 x 3.8 cm. While this may reflect a seroma, underlying infection is not excluded. Inflammatory change and the soft tissues ventral to the sternum and overlying the ventral left ches t with no focal drainable collection in the superficial tissues. 4. Multivessel coronary artery calcifications and atherosclerotic changes of the aorta. RPTAT: HLBP .Saad Gomez MD, Date Time Electronically viewed and signed by .Saad Gomez MD, on 01/11/2017 22:49 .P/
--- NOTE | 2017-01-11 23:08 | RADRPT ---
PROCEDURE: XR Chest. CLINICAL INDICATION: Pneumothorax. TECHNIQUE: Single AP portable chest. COMPARISON: CT chest 01/11/2017 and 01/10/2017 Chest x-ray FINDINGS: The cardiac silhouette is enlarged but stable in size. Sternotomy wires in place. Persistent opacifi cation of the left mid and lower lung zones with pleural effusion compatible with known compressive atelectasis and/or consolidation. Minimal residual aeration of the left lung apex. No pneumothorax. Atherosclerotic calcification of the aorta. The right lung is clear. The osseous structures and so ft tissues are unremarkable. IMPRESSION: 1. Persistent large left pleural effusion and left lung atelectasis and/or consolidation. 2. Cardiomegaly. 3. Sternotomy wires in place. 4. No pneumothorax . RPTAT:AAJJ Physician Elisabeth Date Time Electronically viewed and signed by Physician Elisabeth on 01/11/2017 23:08 AKBAR/
--- NOTE | 2017-01-12 09:50 | DS ---
Date/Time of Note Date/Time of Note DATE: 01/12/17 TIME: 09:46 Discharge Summary Admission/Discharge Info Admit Date/Time Jan 04, 2017 at 17:27 Discharge Date/Time Jan 11, 2017 at 21:15 Discharge Diagnosis 1. Large Left pleural effusion and retrosternal fluid collection 2. Right occipital, R frontal parietal, L frontal infarct cerebrovascular accident with left-sided weakness. 3. Coronary artery disease status post coronary artery bypass graft. 4. Dysphagia. 5. Diabetes mellitus. 6. Coronary artery disease. 7. Hypertension. 8. Hyperlipidemia. 9. Impairments in self-care, mobility and cognition. Patient Condition: Serious Hospital Course Patient was admitted for comprehensive interdisciplinary acute rehabilitation. Patient made steady functional gains and improved from a mod/max level to a CGA/ Miin level for self care and mobility, including ambulating over 100 feet with the use of a front wheeled walker. Patient was noted to have worsenig cognition and medical status 01/08, which improved slightly with antibiotics. LAYNE revealed large Pleural Effusion and also a retrosternal fluid collection. Patient transferred to the acute hospital for further care and management. Home Meds Reported Medications Metformin Hcl* (Metformin Hcl*) 1,000 Mg Tablet, 1000 MG PO WITH BREAKFAST DINNE , #30 TAB 12/27/16 Aspirin (Low Dose Aspirin) 81 Mg Tablet.dr, 81 MG PO DAILY, #30 TAB 12/27/16 Losartan Potassium* (Losartan Potassium*) 50 Mg Tablet, 50 MG PO DAILY, TAB 12/27/16 Metoprolol Tartrate* (Lopressor*) 25 Mg Tab, 25 MG PO DAILY, #60 TAB 12/27/16 Insulin Lispro (Humalog Kwikpen) 200 Unit/1 Ml Insuln.pen, 5 UNIT SQ AC MEALS, EA 12/27/16 Insulin Glargine* (Lantus*) 100 Unit/Ml Soln, 15 UNIT SC QAM, #1 VIAL 12/27/16 Primary Care Provider Not On Staff Doctor Pending Labs Laboratory Tests Test 01/11/17 12:19 01/11/17 17:31 01/11/17 21:02 Bedside Glucose 148mg/dL (70-220) 141mg/dL (70-220) 97mg/dL (70-220) JUSTIN SRINIVASAN MD Jan 12, 2017 09:50
== END 2017-01-11 21:15 | disposition short-term general hospital (02) | DRG 56 ==
LOC: VRC 17:27
PROVIDERS: ADMIT Physical Medicine & Rehabilitation; ATTEND Internal Medicine Pulmonary Disease
PROC: F08Z0ZZ Bathing/Showering Techniques Treatment (ICD-10-PCS; principal; 2017-01-04)
PROC: F08Z1ZZ Dressing Techniques Treatment (ICD-10-PCS; 2017-01-04)
PROC: F08Z2ZZ Grooming/Personal Hygiene Treatment (ICD-10-PCS; 2017-01-04)
PROC: F07Z5ZZ Bed Mobility Treatment (ICD-10-PCS; 2017-01-04)
PROC: F07Z8ZZ Transfer Training Treatment (ICD-10-PCS; 2017-01-04)
PROC: F07Z9ZZ Gait Training/Functional Ambulation Treatment (ICD-10-PCS; 2017-01-04)
DX: I69.354 Hemiplegia and hemiparesis following cerebral infarction affecting left non-dominant side (principal); A41.9 Sepsis, unspecified organism; J90 Pleural effusion, not elsewhere classified; J18.9 Pneumonia, unspecified organism; I10 Essential (primary) hypertension; E11.9 Type 2 diabetes mellitus without complications; D50.9 Iron deficiency anemia, unspecified; R13.10 Dysphagia, unspecified; E78.5 Hyperlipidemia, unspecified; I25.10 Atherosclerotic heart disease of native coronary artery without angina pectoris; Z95.1 Presence of aortocoronary bypass graft; G31.84 Mild cognitive impairment of uncertain or unknown etiology; Z79.82 Long term (current) use of aspirin; Z79.4 Long term (current) use of insulin; R74.9 Abnormal serum enzyme level, unspecified; Z87.891 Personal history of nicotine dependence
CPT/HCPCS: 71010; 71250; 76700; 80048; 80053; 80202; 81001; 82565; 82962; 83540; 83605; 84520; 85025; 87040; 87081; 87086; 92523; 92526; 92610; 94664; 97110; 97112; 97116; 97150; 97163; 97167; 97530; 97535; J0692; J1650; J1815; J1956; J3370; J7030; J7040; J7050

== ENCOUNTER 2017-01-11 21:35 | Inpatient (IN) | payer MEDICAID ==
[~2017-01-11] VITALS: Ht 162.6 cm; Wt 81.3 kg
[2017-01-11 21:55] VITALS: BP 154/87; RESP 20
[2017-01-11 22:21] VITALS: Ht 162.6 cm; Wt 81.3 kg
--- NOTE | 2017-01-11 22:49 | HP ---
Date/Time of Note Date/Time of Note DATE: 01/11/17 TIME: 22:49 Assessment/Plan VTE Prophylaxis VTE Prophylaxis Intervention: SCD's Assessment/Plan Chief Complaint/Hosp Course This is a 56-year-old male being admitted to the telemetry floor for: #1 large left-sided pleural effusion: Cause unknown at this time will obtain pleural fluid sample, possibly secondary to recent surgery. Will obtain an ultrasound-guided thoracentesis. And obtain pleural fluid samples. Patient consented to have the ultrasound-guided thoracentesis procedure done he understands risks and benefits of the procedure. #[address]: In addition to the large left pleural effusion the chest CT also shows: retrosternal simple appearing collection measuring 8.3 x 7.8 x 3.8 cm. While this may reflect a seroma, underlying infection is not excluded. Inflammatory change and the soft tissues ventral to the sternum and overlying the ventral left chest with no focal drainable collection in the superficial tissues. CT surgery has been contacted, will appreciate their input. Pulmonology is also on board. #3 CVA: Patient still has the usual left-sided deficits however he has been showing improvement. He is tolerating a mechanical soft diet. Will continue PT OT and speech therapy. #4 CABG: Continue beta-shaggy and aspirin #5 Diabetes mellitus: We will hold metformin at this time. Continue insulin sliding scale as well as home insulin regimen. Diabetic diet. #6 DVT GI prophylaxis: SCDs, no GI prophylaxis indicated Procedure consent: The risks and benefits of the ultrasound-guided thoracentesis procedure were explained to the patient. The patient verbalized that he understands the risks and benefits and he is agreeable to proceeding with the procedure. Further treatment strategy will be implemented as per the clinical course. Problems: HPI/ROS Admit Date/Time Admit Date/Time Jan 11, 2017 at 21:35 Hx of Present Illness cc; shortness of breath This is a 56-year-old male with a recent history of CABG and CVA who was complaining of shortness of breath while at the [facility] rehab facility and so he was subsequently transferred to the inpatient unit. At the current time he states they feel short of breath he notices more on his left side. He denies any chest pain. Denies any cough or fevers. Initially he was admitted because he was noted to have chest pain and workup did reveal a multilevel coronary artery disease and the patient underwent 4- vessel CABG on 12/28/2016. His postoperative course was notable for visual disturbance in addition to weakness. A head CT did reveal recent acute right occipital lobe and posterior right temporal lobe infarct cerebrovascular accident. MRI of the brain also demonstrated small acute infarct in the posterior left frontal, right parietal, right temporal occipital lobe. The patient was also noted to have dysphagia, on pureed diet with nectar-thick liquids. He was cleared for transfer to the rehab unit where he underwent interdisciplinary rehab for his CVA. At the current time patient reports that he has been improving significantly. He speaks in full sentences. And he states that he is able to tolerate his mechanical soft diet and he has been improving in his left-sided weakness. Allergies: NKDA Medications: See DEJAN MONTES Const: As per HPI Eyes : No pain discharge or redness or change in visual acuity ENT: No pain, sore throat, congestion, congestion, dysphagia or discharge Respiratory: As per HPI Cardiovascular: No chest pain, palpitation, PND, or edema GI : no change in appetite, abdominal pain, nausea, vomiting, diarrhea, constipation, or change in the color his stool Genitourinary: No dysuria, hematuria, flank pain , discharge or CVA tenderness Musculoskeletal: No joint pain, back pain, neck pain, restricted range of motion in neck or joints Skin: No rash, bruising or hives Neuro: As per HPI Endocrine: No polyuria, polydipsia, temperature intolerance Psych: No hallucination, depression, anxiety or suicidal ideation PMH/Family/Social Past Medical History Diabetes mellitus, CAD, CABG, CVA with residual left-sided weakness Past Surgical History CABG Family History Significant Family History: no pertinent family hx Social History Alcohol Use: none Smoking Status: Former smoker Drug Use: none Exam/Review of Systems Vital Signs Vitals Vital Signs Date Time Temp Pulse Resp B/P Pulse Ox O2 Delivery O2 Flow Rate FiO2 01/11/17 21:55 98.8 100 20 154/87 96 Exam Exam General: Patient is well-developed well-nourished The patient is alert oriented -3 lying comfortably in bed. HEENT: Atraumatic, normocephalic. The pupils are equal, round and reactive. Extraocular motor are intact Neck: Supple with full range of motion. No rigidity or meningismus Chest: Nontender Lungs: Decreased breath sounds of the left lung davila, mild crackles of the left lung field, patient does not appear in any respiratory distress Heart: Normal S1-S2, Regular rhythm and rate. No murmur, S3, or S4 Abdomen: Soft , nontender, nondistended , bowel sounds are present. No guarding no rebound tenderness , No masses or organomegaly. No costovertebral temporal angle mass Extremities: Normal to inspection, no edema no cyanosis Neurologic: Normal mental status, speech normal, cranial nerves II through XII are intact, 5 out of 5 strength in right upper and lower extremities, approximately 4 out of 5 strength in left upper and lower extremities. Gait was not assessed Additional Comments PROCEDURE: XR Chest. CLINICAL INDICATION: Pneumothorax. TECHNIQUE: Single AP portable chest. COMPARISON: CT chest 01/11/2017 and 01/10/2017 Chest x-ray FINDINGS: The cardiac silhouette is enlarged but stable in size. Sternotomy wires in place. Persistent opacification of the left mid and lower lung zones with pleural effusion compatible with known compressive atelectasis and/or consolidation. Minimal residual aeration of the left lung apex. No pneumothorax. Atherosclerotic calcification of the aorta. The right lung is clear. The osseous structures and soft tissues are unremarkable. IMPRESSION: 1. Persistent large left pleural effusion and left lung atelectasis and/or consolidation. 2. Cardiomegaly. 3. Sternotomy wires in place. 4. No pneumothorax . RPTAT:AAJJ Physician Elisabeth Date Time Electronically viewed and signed by Physician Elisabeth on 01/11/2017 23:08 AKBAR/ CC: TAYLOR JACQUES MD PROCEDURE: CT Chest without contrast. CLINICAL INDICATION: Left-sided effusion. Pneumothorax. Pneumonia. TECHNIQUE: CT scan of the chest without contrast was performed on a multidetector high-resolution CT scanner. Coronal and sagittal reformatted images were obtained from the axial source images. The total exam CTDI equals 16.62 mGy and the total exam DLP equals 568.86 mGy-cm. DICOM images are available. One or more of the following dose reduction techniques were used: - Automated exposure control. - Adjustment of the mA and/or kV according to patient size. - Use of iterative reconstruction technique. COMPARISON: Chest x-ray dated 01/10/2017. FINDINGS: Lungs, pleura, airways, and thoracic inlet: There is a large left pleural effusion with associated extensive compressive atelectasis throughout the left lung with minor sparing at the left lung apex. There is a small right pleural effusion. There is no pneumothorax. The tracheobronchial tree is patent and normal in course and caliber. Cardiovascular system, mediastinum, and lymphatics: There is four-chamber cardiac enlargement and there is a trace pericardial effusion. There has been prior median sternotomy there is a retrosternal collection measuring 8.3 cm in length and 7.8 x 3.8 cm in greatest axial dimension at the cardiophrenic region. There are multivessel coronary artery calcifications. There are atherosclerotic changes of the aorta, which is nonaneurysmal. There is no axillary, hilar, or mediastinal adenopathy. Visualized upper abdomen: The visualized upper abdomen is grossly unremarkable. Musculoskeletal system and soft tissues: There are no concerning osseous lesions. There is inflammatory change in the soft tissues anterior to the sternum and overlying the ventral left chest. There is no focal drainable collection within these regions. IMPRESSION: 1. Large left pleural effusion with associated extensive compressive atelectasis of the left lung with minor sparing at the left lung apex. Small right pleural effusion. 2. Four-chamber cardiac enlargement with a trace pericardial effusion. 3. Findings suggestive of recent median sternotomy with a retrosternal simple appearing collection measuring 8.3 x 7.8 x 3.8 cm. While this may reflect a seroma, underlying infection is not excluded. Inflammatory change and the soft tissues ventral to the sternum and overlying the ventral left chest with no focal drainable collection in the superficial tissues. 4. Multivessel coronary artery calcifications and atherosclerotic changes of the aorta. RPTAT: HLBP .Saad Gomez MD, MD Date Time Electronically viewed and signed by .Saad Gomez MD, MD on 01/11/2017 22:49 .P/ CC: LISA MAYFIELD MD, [facility] Medications Medications Current Medications Pantoprazole (Protonix Iv) 40 mg DAILY@06 IV ; Start 01/12/17 at 06:00 Miscellaneous Information (* Miscellaneous Pharmacy Order) Discontinue current oral sulfonylur... ONCE ONCE XX ; Start 01/11/17 at 23:00; Stop 01/11/17 at 23:01 Diagnostic Test (Pha) (Accu-Chek) 1 ea 02 XX ; Start 01/12/17 at 02:00 Miscellaneous Information (* Miscellaneous Pharmacy Order) HYPOGLYCEMIA PROTOCOL w... ONCE ONCE XX ; Start 01/11/17 at 23:00; Stop 01/11/17 at 23:01 Miscellaneous Information (* Miscellaneous Pharmacy Order) Discontinue all previ... ONCE ONCE XX ; Start 01/11/17 at 23:00; Stop 01/11/17 at 23:01 Miscellaneous Information 1 ea NOTE XX ; Start 01/11/17 at 23:00 Glucose (Glutose) 15 gm Q15M PRN PO DECREASED GLUCOSE; Start 01/11/17 at 23:00 Glucose (Glutose) 22.5 gm Q15M PRN PO DECREASED GLUCOSE; Start 01/11/17 at 23: 00 Dextrose (D50w Syringe) 25 ml Q15M PRN IV DECREASED GLUCOSE; Start 01/11/17 at 23:00 Dextrose (D50w Syringe) 50 ml Q15M PRN IV DECREASED GLUCOSE; Start 01/11/17 at 23:00 Glucagon (Glucagen) 1 mg Q15M PRN IM DECREASED GLUCOSE; Start 01/11/17 at 23: 00 Glucose (Glutose) 15 gm Q15M PRN BUCCAL DECREASED GLUCOSE; Start 01/11/17 at 23:00 PATRICIA SALINAS Jan 11, 2017 22:49
[2017-01-11] MEDS ORDERED: DEXTROSE 50% 50 ML SYRINGE IV PRN ×2 (23:00)
[2017-01-11] MEDS ORDERED: GLUCOSE GEL 15 GRAM TUBE PO PRN ×2 (23:00)
[2017-01-11] MEDS ORDERED: NACL 0.9% 3 ML SYG IV SCH (23:00)
[2017-01-11] MEDS ORDERED: GLUCOSE GEL 15 GRAM TUBE BUCCAL PRN (23:00)
[2017-01-11] MEDS ORDERED: GLUCAGON 1 MG INJ IM PRN (23:00)
[2017-01-11 23:52] VITALS: BP 140/80; RESP 19
[2017-01-12] VITALS (11 sets, daily range): BP systolic 133–154; BP diastolic 64–78; PULSE 93–122; RESP 16–19
[2017-01-12] MEDS ORDERED: ACCU-CHEK XX SCH (02:00)
[2017-01-12] MEDS: ACCU-CHEK XX SCH (02:00)
[2017-01-12] MEDS ORDERED: PANTOPRAZOLE 40 MG INJ IV SCH (06:00)
[2017-01-12 07:41] LABS: BASOPHILS % 0.4 % (0.0-2.0); EOSINOPHILS # 0.2 10^3/ul (0.0-0.5); HEMATOCRIT 28.6 % (42.0-52.0); HEMOGLOBIN 9.3 g/dl (14.0-18.0); LYMPHOCYTES # 1.3 10^3/ul (0.8-2.9); LYMPHOCYTES % 14.8 % (15.0-51.0); MEAN CORPUSCULAR HEMOGLOBIN 27.4 pg (29.0-33.0); MEAN CORPUSCULAR HGB CONC 32.5 g/dl (32.0-37.0); MEAN CORPUSCULAR VOLUME 84.4 fl (82.0-101.0); MEAN PLATELET VOLUME 8.5 fl (7.4-10.4); MONOCYTE # 0.6 10^3/ul (0.3-0.9); MONOCYTES % 6.6 % (0.0-11.0); NEUTROPHIL # 6.4 10^3/ul (1.6-7.5); NEUTROPHILS % 75.7 % (39.0-77.0); PLATELET COUNT 730 10^3/UL (140-415); RED BLOOD COUNT 3.39 10^6/ul (4.70-6.10); RED CELL DISTRIBUTION WIDTH 14.5 % (11.5-14.5); WHITE BLOOD COUNT 8.5 10^3/ul (4.8-10.8)
[2017-01-12] MEDS: INSULIN ASPART [NOVOLOG] 3 ML PEN SC SCH ×6 (08:00→20:23)
[2017-01-12 08:04] LABS: ALBUMIN 3.2 g/dl (3.3-4.9); ALBUMIN/GLOBULIN RATIO 0.84; BILIRUBIN,INDIRECT 0.4 mg/dl (0-1.1); BILIRUBIN,TOTAL 0.4 mg/dl (0.2-1.3); CALCIUM 8.6 mg/dl (8.4-10.2); CREATININE 0.7 mg/dl (0.61-1.24); POTASSIUM 3.9 mmol/L (3.5-5.1)
[2017-01-12] MEDS: ASPIRIN (EC) 81 MG TAB PO SCH (08:37)
[2017-01-12] MEDS: LOSARTAN 50 MG TAB PO SCH (08:37)
[2017-01-12] MEDS: METOPROLOL 25 MG TAB PO SCH (08:38)
--- NOTE | 2017-01-12 08:38 | PN ---
Date/Time of Note Date/Time of Note DATE: 01/12/17 TIME: 08:37 Assessment/Plan VTE Prophylaxis VTE Prophylaxis Intervention: ambulation, LMWH Lines/Catheters IV [facility] Saline Lock Urinary Cath still in place: No Assessment/Plan Chief Complaint/Hosp Course This is a 56-year-old male with multivessel coronary artery disease, who apparently underwent CABG and postoperatively found to have acute CVA for which he was getting physical therapy at [facility] is now transferred back to inpatient telemetry for cough and shortness of breath and found to have large left pleural effusion. 1. Large left pleural effusion. Patient is status post CABG. -Proceed with ultrasound-guided thoracentesis. -Start [id number] and- PRN bronchodilators, incentive spirometry, oxygen as needed and cough suppressants. Will consider starting NSAIDs. -Pulmonary consult and cardiothoracic surgery follow-up. 2.CVA, involving posterior left frontal ,posterior right parietal lobe and right temporal occipital lobe infarct. -Continue aspirin. -PT eval and treatment. 3. Multivessel coronary artery disease. Status post coronary artery bypass graft on 12/28/2016. -Continue medical management. 4. Status post possible sepsis with pneumonia. Cultures negative. -We will start patient on prophylactic Levaquin to prevent superimposed pneumonia as he is currently symptomatic with large pleural effusion 5. Dysphagia, mild secondary to CVA. -Continue with ST evaluation. Tolerates mechanical soft diet. 6. Hypertension. -Continue antihypertensives. 7. Hyperlipidemia. -Continue statin. 8. Type 2 Diabetes mellitus. -We will resume patient's previous insulin regimen with ISS/pre-meals 5 units 3 times daily/Lantus 12 units every morning. 9. Transaminase elevation, likely concurrent. Patient asymptomatic. -Stable abdominal ultrasound. 10. Mild anemia with iron deficiency. -Continue iron replacement. Prophylaxis: Lovenox. Patient was seen in collaboration with Dr. Dyson. Problems: Subjective 24 Hr Interval Summary Free Text/Dictation Patient was transferred from acute rehabilitation to telemetry secondary to shortness of breath, left chest wall pain and dry cough. Patient chest x-ray and CT scan showed left large pleural effusion. A thoracentesis has been ordered for today. Currently he is having dry cough with mild shortness of breath. Exam/Review of Systems Vital Signs Vitals Vital Signs Date Time Temp Pulse Resp B/P Pulse Ox O2 Delivery O2 Flow Rate FiO2 11/15/17 07:37 99.8 108 16 135/64 95 01/12/17 04:08 2.0 Intake and Output 01/11/17 01/11/17 01/12/17 15:00 23:00 07:00 Intake Total 400 ml Output Total 1400 ml Balance -1000 ml Exam General: Well developed,adequately built, not in any acute distress . HEENT: Normocephalic, Atraumatic, No laceration or hematoma; Eyes: Reports blurred vision to left eye. PEERL, Conjunctiva clear, Anicteric sclera Neck: Supple without any lymphadenopathy, nontender, no JVD, no carotid bruits, trachea midline, no thyromegaly Cardiac: S1, S2 auscultated, regular rhythm and rate, no mumurs or gallop Pulmonary: Diminished breath sound left upper and lower lobes. Normal respiratory effort. No wheezing. GI: Abdomen normal to inspection. Soft, non tender, non- distended, no masses, no rebound tenderness or guarding. Bowel sounds active on all four quadrants Genitourinary: Deferred Extremities: No cyanosis, clubbing, or edema. Pulses [2+] bilaterally. Full ROM on all four extremities. No focal weakness appreciated. Neurologic: Alert to person, place, time, and situation. Affect appropriate, intact sensation. Skin: Mediastinal incision with SEROUS DRAINAGE circled on dressing. Graft site on lower extremity intact. Results Result Diagram: 01/12/17 0644 01/12/17 0644 Results 24 hrs Laboratory Tests Test 01/12/17 06:44 White Blood Count 8.5 Red Blood Count 3.39 L Hemoglobin 9.3 L Hematocrit 28.6 L Mean Corpuscular Volume 84.4 Mean Corpuscular Hemoglobin 27.4 L Mean Corpuscular Hemoglobin Concent 32.5 Red Cell Distribution Width 14.5 Platelet Count 730 H Mean Platelet Volume 8.5 Neutrophils % 75.7 Lymphocytes % 14.8 L Monocytes % 6.6 Eosinophils % 2.0 Basophils % 0.4 Nucleated Red Blood Cells % 0.0 Neutrophils # 6.4 Lymphocytes # 1.3 Monocytes # 0.6 Eosinophils # 0.2 Basophils # 0.0 Nucleated Red Blood Cells # 0.0 Sodium Level 140 Potassium Level 3.9 Chloride Level 105 Carbon Dioxide Level 22 Anion Gap 17 H Blood Urea Nitrogen 6 L Creatinine 0.70 Glucose Level 116 Calcium Level 8.6 Total Bilirubin 0.4 Direct Bilirubin 0.00 Indirect Bilirubin 0.4 Aspartate Amino Transf (AST/SGOT) 152 H Alanine Aminotransferase (ALT/SGPT) 258 H Alkaline Phosphatase 191 H Total Protein 7.0 Albumin 3.2 L Globulin 3.80 H Albumin/Globulin Ratio 0.84 Medications Medications Current Medications Pantoprazole (Protonix Iv) 40 mg DAILY@06 IV Last administered on 01/12/17t 06 :23; Admin Dose 40 MG; Start 01/12/17 at 06:00 Diagnostic Test (Pha) (Accu-Chek) 1 ea 02 XX ; Start 01/12/17 at 02:00 Miscellaneous Information 1 ea NOTE XX ; Start 01/11/17 at 23:00 Glucose (Glutose) 15 gm Q15M PRN PO DECREASED GLUCOSE; Start 01/11/17 at 23:00 Glucose (Glutose) 22.5 gm Q15M PRN PO DECREASED GLUCOSE; Start 01/11/17 at 23: 00 Dextrose (D50w Syringe) 25 ml Q15M PRN IV DECREASED GLUCOSE; Start 01/11/17 at 23:00 Dextrose (D50w Syringe) 50 ml Q15M PRN IV DECREASED GLUCOSE; Start 01/11/17 at 23:00 Glucagon (Glucagen) 1 mg Q15M PRN IM DECREASED GLUCOSE; Start 01/11/17 at 23: 00 Glucose (Glutose) 15 gm Q15M PRN BUCCAL DECREASED GLUCOSE; Start 01/11/17 at 23:00 Aspirin (Halfprin) 81 mg DAILY PO ; Start 01/12/17 at 09:00 Insulin Glargine (Lantus) 15 unit QAM SC ; Start 01/12/17 at 09:00 Losartan Potassium (Cozaar) 50 mg DAILY PO ; Start 01/12/17 at 09:00 Metoprolol Tartrate (Lopressor) 25 mg DAILY PO ; Start 01/12/17 at 09:00 MYKE RICKS NP Jan 12, 2017 08:37
[2017-01-12] MEDS ORDERED: ALBUTEROL/IPRATROPIUM (NEB) 3 ML AMP HHN PRN (09:00)
[2017-01-12] MEDS ORDERED: INSULIN GLARGINE [LANtus] 3 ML PEN SC SCH (09:00)
[2017-01-12] MEDS: ALBUTEROL/IPRATROPIUM (NEB) 3 ML AMP HHN SCH ×4 (09:00→20:00)
[2017-01-12 09:05] LABS: INR 1.3; PROTIME 16.3 Sec (12.2-14.2); PT RATIO 1.3
[2017-01-12] MEDS: INSULIN GLARGINE [LANtus] 3 ML PEN SC SCH (09:50)
[2017-01-12] MEDS: LEVOFLOXACIN 500MG/D5W (PMX) 100 ML IVPB SCH (10:45)
[2017-01-12] MEDS ORDERED: INSULIN LISPRO 5 UNIT SQ SCH (11:30)
[2017-01-12] MEDS ORDERED: LIDOCAINE 1% (MPF) 5 ML VIAL ONE (11:48)
--- NOTE | 2017-01-12 12:11 | RADRPT ---
PROCEDURE: Chest x-ray CLINICAL INDICATION: Post thoracentesis TECHNIQUE: Chest single view COMPARISON: 01/11/2017 FINDINGS: The patient is status post left thoracentesis. No pneumothorax is seen. There is extensive left lowe r lung volume loss. Right lung is clear. Right costophrenic angle sharp. There is stable cardiomegal y and an sclerotic aortic calcification. Bony vessels normal in caliber. There is post thoracotomy c hanges IMPRESSION: 1. Status post left thoracentesis. No pneumothorax seen. 2. The left pleural effusion is resolved. 3. Residual left lower lobe atelectasis and volume loss. 4. Stable mild cardiomegaly and atherosclerotic aortic sedation RPTAT: HH .Cesar Yoo MD, MD Date Time Electronically viewed and signed by .Cesar Yoo MD, on 01/12/2017 12:10 .W/
[2017-01-12 12:53] LABS: LACTATE DEHYDROGENASE 579 IU/L (313-618)
[2017-01-12] MEDS: morphine 2 MG INJ IV PRN ×2 (12:53→19:58)
[2017-01-12 12:54] LABS: FLUID TYPE PLEURAL FLUID
--- NOTE | 2017-01-12 13:10 | RADRPT ---
PROCEDURE: US guided left thoracentesis. CLINICAL INDICATION: Shortness of breath. Left pleural effusion. TECHNIQUE: Prior to the procedure, informed consent was obtained. The risks, benefits, and alternatives were e xplained to the patient or the patient's family, including but not limited to bleeding, infection, p ain, visceral or vascular damage, shock, pneumothorax, chest tube placement, air embolism, and . The patient or the patient's family understood the risks and the alternatives and wished to proce ed with the study. Informed written consent was obtained. A procedural pause was performed. The patient's name, date of , and procedure to be performed were verified. Ultrasound of the left hemithorax was performed in the axial and sagittal planes. A left pleural eff usion is noted. Utilizing ultrasound guidance, optimal location for entry to the pleural cavity was ascertained. The overlying skin was prepped and draped in the usual sterile fashion. Approximately 10 ml of 1% Xylocaine was injected locally for pain control. Using ultrasound guidance, a 5-Kazakh Yueh catheter was introduced into the left pleural space without difficulty. Fluid was aspirated. COMPARISON: Chest x-ray dated 01/11/2017. FINDINGS: Initial ultrasound demonstrates fluid in the left pleural space. Approximately 0.740 liters of sero us fluid was aspirated and sent to the laboratory. IMPRESSION: 1. Satisfactory ultrasound-guided left thoracentesis. RPTAT: QQ .Angel Luis Ta MD, Date Time Electronically viewed and signed by .Angel Luis Ta MD, on 01/12/2017 13:10 .R/
[2017-01-12 13:16] LABS: FLUID GLUCOSE 161 mg/dl; FLUID TOTAL PROTEIN 4.3 g/dl
--- NOTE | 2017-01-12 13:55 | PN ---
Date/Time of Note Date/Time of Note DATE: 01/12/17 TIME: 13:55 Assessment/Plan Lines/Catheters IV Catheter Type (from Nrsg): Saline Lock Vogel in Place (from Nrsg): No Assessment/Plan Chief Complaint/Hosp Course Left pleural effusion plan for Thorocentesis Problems: Subjective 24 Hr Interval Summary Constitutional: improved Pain Control: mild Exam/Review of Systems Vital Signs Vitals Vital Signs Date Time Temp Pulse Resp B/P Pulse Ox O2 Delivery O2 Flow Rate FiO2 01/12/17 13:40 95 2.0 01/12/17 13:40 112 18 Nasal Cannula 01/12/17 11:29 98.3 133/66 Intake and Output 01/11/17 01/11/17 01/12/17 15:00 23:00 07:00 Intake Total 400 ml Output Total 1400 ml Balance -1000 ml Exam ENMT: mucosa pink and moist, nl external ears & nose, nl lips & teeth, nl nasal mucosa & septum Neck: non-tender, supple Respiratory: clear to auscultation, normal air movement Cardiovascular: nl pulses, regular rate and rhythm Gastrointestinal: nl liver, spleen, non-tender, soft Results Result Diagram: 01/12/17 0644 01/12/17 0644 TAYLOR JACQUES MD Jan 12, 2017 13:55
[2017-01-12] MEDS ORDERED: GUAIFENESIN/DM 5ML CUP PO PRN (15:00)
--- NOTE | 2017-01-12 17:56 | CONS ---
DATE OF ADMISSION: 01/11/2017 DATE OF CONSULTATION: TYPE OF CONSULTATION: Pulmonary. REASON FOR CONSULTATION: Pleural effusion. Thank you, Dr. Fleming, for this consultation. HISTORY OF PRESENT ILLNESS: This is a 56-year-old gentleman with a history of CVA, recent coronary artery bypass graft surgery performed on 12/28/2016, transferred to [facility]. Th ere, he has had increasing dyspnea, cough. Repeat chest x-ray demonstrated a moderate left pleural effusion with compressive atelectasis. The patient transferred back to the acute side where he unde rwent thoracentesis of 700 mL of fluid removed today without complication. In addition to pleural e ffusion, the patient has transaminitis with an AST and ALT of 152 and 258, respectively. INR was 1. 3. Pleural fluid studies were consistent with an exudative process. Protein was 4.3. PAST MEDICAL HISTORY: As above. MEDICATIONS: Per chart. ALLERGIES: NONE. SOCIAL HISTORY: Nonsmoker, no alcohol, no history of drug use. FAMILY HISTORY: Noncontributory. REVIEW OF SYSTEMS: A 12-point review of systems was negative other than that mentioned above. PHYSICAL EXAMINATION: GENERAL: Elderly-appearing gentleman, comfortable at rest, no acute distress. VITAL SIGNS: Currently afebrile, pulse is 80, blood pressure 120/60, O2 saturation 96%, FiO2 of 2 l iters. NECK: Supple. No JVD or lymphadenopathy. CARDIAC: S1, S2, no added sounds or murmurs. CHEST: Diminished air entry bilaterally. ABDOMEN: Soft, nontender. No guarding or rebound. EXTREMITIES: No cyanosis, clubbing, edema. NEUROLOGIC: Generalized weakness. LABORATORIES: White count 8.5, hemoglobin 9.3, platelets of 730. BUN 6, creatinine 0.7. INR was 1 .3. IMPRESSION AND PLAN: 1. Recent coronary artery bypass graft surgery. 2. Left pleural effusion, likely postsurgical with exudative process noted. 3. History of cerebrovascular accident. 4. History of coronary artery disease. The patient will require: 1. Pleural fluid cultures. 2. Monitor transaminitis. Renal ultrasound if needed. 3. Supplemental O2. 4. DVT and GI prophylaxis. Dictated By: LISA SMITH/AI Conf#: [id number] DID#: [id number] CC: PATRICIA FLEMING MD;*[facility]
[2017-01-12] MEDS: PROMETHAZINE/CODEINE 5ML CUP PO PRN (17:59)
[2017-01-13] VITALS (12 sets, daily range): BP systolic 116–153; BP diastolic 65–85; PULSE 98–112; RESP 16–20
[2017-01-13] MEDS: ALBUTEROL/IPRATROPIUM (NEB) 3 ML AMP HHN SCH ×6 (00:15→21:00)
[2017-01-13] MEDS: ACCU-CHEK XX SCH (02:00)
[2017-01-13] MEDS: morphine 2 MG INJ IV PRN ×3 (02:15→17:25)
[2017-01-13] MEDS: PANTOPRAZOLE (EC) 40 MG TAB PO SCH (05:25)
[2017-01-13] MEDS: ASPIRIN (EC) 81 MG TAB PO SCH (08:25)
[2017-01-13] MEDS: LOSARTAN 50 MG TAB PO SCH (08:26)
[2017-01-13] MEDS: LEVOFLOXACIN 500MG/D5W (PMX) 100 ML IVPB SCH (08:26)
[2017-01-13] MEDS: METOPROLOL 25 MG TAB PO SCH (08:26)
[2017-01-13] MEDS: INSULIN ASPART [NOVOLOG] 3 ML PEN SC SCH ×7 (08:29→20:23)
[2017-01-13] MEDS: INSULIN GLARGINE [LANtus] 3 ML PEN SC SCH (08:31)
[2017-01-13 08:38] LABS: BASOPHIL # 0.1 10^3/ul (0.0-0.1); BASOPHILS % 0.7 % (0.0-2.0); EOSINOPHILS # 0.1 10^3/ul (0.0-0.5); EOSINOPHILS % 1.5 % (0.0-7.0); HEMOGLOBIN 9.8 g/dl (14.0-18.0); LYMPHOCYTES # 1.6 10^3/ul (0.8-2.9); LYMPHOCYTES % 18.2 % (15.0-51.0); MEAN CORPUSCULAR HEMOGLOBIN 27.5 pg (29.0-33.0); MEAN CORPUSCULAR HGB CONC 32.7 g/dl (32.0-37.0); MEAN CORPUSCULAR VOLUME 84.3 fl (82.0-101.0); MEAN PLATELET VOLUME 8.4 fl (7.4-10.4); MONOCYTE # 0.7 10^3/ul (0.3-0.9); MONOCYTES % 8.1 % (0.0-11.0); NEUTROPHIL # 6.1 10^3/ul (1.6-7.5); PLATELET COUNT 785 10^3/UL (140-415); RED BLOOD COUNT 3.56 10^6/ul (4.70-6.10); RED CELL DISTRIBUTION WIDTH 14.5 % (11.5-14.5); WHITE BLOOD COUNT 8.6 10^3/ul (4.8-10.8)
[2017-01-13 09:07] LABS: CALCIUM 8.6 mg/dl (8.4-10.2); CREATININE 0.73 mg/dl (0.61-1.24); MAGNESIUM 1.9 mg/dl (1.7-2.5); POTASSIUM 3.7 mmol/L (3.5-5.1)
--- NOTE | 2017-01-13 09:33 | RADRPT ---
PROCEDURE: XR Chest AP portable CLINICAL INDICATION: Follow-up pleural effusion TECHNIQUE: An AP portable radiograph of the chest was submitted. COMPARISON: 01/12/2017 FINDINGS: Support Hardware: None Cardiovascular: Metallic sternal wiring is again evident. The heart remains moderately enlarged wall pulmonary vasculature is upper normal. Lung Manning: Worsening air space opacification projects to the left lower lung zone and interstitial infiltrate is now seen within the left upper lung zone. Pleural Spaces: The left costophrenic angle is now obscured suspicious for a small left pleural flui d accumulation. No pneumothorax is evident. Osseous Structures: The osseous structures appear intact. Soft Tissues: The soft tissues appear generous. IMPRESSION: 1. Metallic sternal wiring with moderate cardiomegaly and with the pulmonary vasculature upper norm al. 2. Worsening airspace opacification seen within the left lower lung zone with development of inters titial infiltrate within the left upper lung zone. 3. Small left pleural fluid accumulation. Physician Michael Date Time Electronically viewed and signed by Physician Michael on 01/13/2017 09:33 /
[2017-01-13] MEDS: PROMETHAZINE/CODEINE 5ML CUP PO PRN ×2 (10:22→20:20)
--- NOTE | 2017-01-13 11:25 | PN ---
Date/Time of Note Date/Time of Note DATE: 01/13/17 TIME: 11:21 Assessment/Plan VTE Prophylaxis VTE Prophylaxis Intervention: ambulation Lines/Catheters [facility] Saline Lock Urinary Cath still in place: No Assessment/Plan Chief Complaint/Hosp Course This is a 56-year-old male with multivessel coronary artery disease, who apparently underwent CABG and postoperatively found to have acute CVA for which he was getting physical therapy at [facility] is now transferred back to inpatient telemetry for cough and shortness of breath and found to have large left pleural effusion. 1. Large left pleural effusion post CABG. 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 He is also complaining of pleuritic chest pain now. -Status post ultrasound-guided thoracentesis with 0.740 serous fluid was removed. Exudative process cannot be excluded at this time based on fluid analysis elevated protein and LDH . Follow-up with fluid studies. -Repeat echo. Start NSAIDs (Ibuprofen 600mg Q6H)+Colchicine prophylactically.Continue [id number] and- PRN bronchodilators, incentive spirometry, oxygen as needed and cough suppressants. -Follow-up with pulmonary/CT surgery recommendations. -Continue prophylactic Levaquin as there is suspicion for new pulmonary infiltrates. -Obtain CT chest in a.m. for follow-up. 2.CVA, involving posterior left frontal ,posterior right parietal lobe and right temporal occipital lobe infarct. -Continue aspirin. -PT eval and treatment. 3. Multivessel coronary artery disease. Status post coronary artery bypass graft on 12/28/2016. -Continue medical management. 4. Status post possible sepsis with pneumonia. Cultures negative. 5. Dysphagia, mild secondary to CVA. -Continue with ST evaluation. Tolerates mechanical soft diet. 6. Hypertension. -Continue antihypertensives. 7. Hyperlipidemia. -Continue statin. 8. Type 2 Diabetes mellitus. -Continue with ISS/pre-meals 5 units 3 times daily/Lantus 12 units every morning. 9. Transaminase elevation, likely concurrent. Patient asymptomatic. -Stable abdominal ultrasound. 10. Mild anemia with iron deficiency. -Continue iron replacement. Prophylaxis: Lovenox. Follow-up with consultants recommendations. Patient was seen in collaboration with Dr. Dyson. Problems: Subjective 24 Hr Interval Summary Free Text/Dictation Patient with left-sided chest wall pain with inspiration. Patient had thoracentesis yesterday with removal of 0.740 L fluids. Currently denies shortness of breath. With improved cough. Patient requires 2 L oxygen via nasal cannula. Exam/Review of Systems Vital Signs Vitals Vital Signs Date Time Temp Pulse Resp B/P Pulse Ox O2 Delivery O2 Flow Rate FiO2 01/13/17 11:14 99.7 99 16 117/65 97 01/13/17 09:36 2.0 01/13/17 09:36 Nasal Cannula Intake and Output 01/12/17 01/12/17 01/13/17 14:59 22:59 06:59 Intake Total 100 ml 750 ml 500 ml Balance 100 ml 750 ml 500 ml Exam General: Well developed,adequately built, not in any acute distress . HEENT: Normocephalic, Atraumatic, No laceration or hematoma; Eyes: Reports blurred vision to left eye. PEERL, Conjunctiva clear, Anicteric sclera Neck: Supple without any lymphadenopathy, nontender, no JVD, no carotid bruits, trachea midline, no thyromegaly Cardiac: S1, S2 auscultated, regular rhythm and rate, no mumurs or gallop Pulmonary: Diminished breath sound left upper and lower lobes. Normal respiratory effort. No wheezing. GI: Abdomen normal to inspection. Soft, non tender, non- distended, no masses, no rebound tenderness or guarding. Bowel sounds active on all four quadrants Genitourinary: Deferred Extremities: No cyanosis, clubbing, or edema. Pulses [2+] bilaterally. Full ROM on all four extremities. No focal weakness appreciated. Neurologic: Alert to person, place, time, and situation. Affect appropriate, intact sensation. Skin: Mediastinal incision with SEROUS DRAINAGE circled on dressing. Graft site on lower extremity intact. Results Result Diagram: 01/13/17 0739 01/13/17 0739 Results 24 hrs Laboratory Tests Test 01/12/17 11:35 01/12/17 12:52 01/12/17 20:01 01/13/17 02:18 Body Fluid Type PLEURAL FLUID Body Fluid Glucose 161 Body Fluid Total Protein 4.3 Lactate Dehydrogenase 579 Bedside Glucose 177 236 H 172 Test 01/13/17 07:39 White Blood Count 8.6 Red Blood Count 3.56 L Hemoglobin 9.8 L Hematocrit 30.0 L Mean Corpuscular Volume 84.3 Mean Corpuscular Hemoglobin 27.5 L Mean Corpuscular Hemoglobin Concent 32.7 Red Cell Distribution Width 14.5 Platelet Count 785 H Mean Platelet Volume 8.4 Neutrophils % 71.0 Lymphocytes % 18.2 Monocytes % 8.1 Eosinophils % 1.5 Basophils % 0.7 Nucleated Red Blood Cells % 0.0 Neutrophils # 6.1 Lymphocytes # 1.6 Monocytes # 0.7 Eosinophils # 0.1 Basophils # 0.1 Nucleated Red Blood Cells # 0.0 Sodium Level 140 Potassium Level 3.7 Chloride Level 105 Carbon Dioxide Level 26 Anion Gap 13 Blood Urea Nitrogen 5 L Creatinine 0.73 Glucose Level 141 Calcium Level 8.6 Magnesium Level 1.9 Medications Medications Current Medications Diagnostic Test (Pha) (Accu-Chek) 1 ea 02 XX ; Start 01/12/17 at 02:00 Miscellaneous Information 1 ea NOTE XX ; Start 01/11/17 at 23:00 Glucose (Glutose) 15 gm Q15M PRN PO DECREASED GLUCOSE; Start 01/11/17 at 23:00 Glucose (Glutose) 22.5 gm Q15M PRN PO DECREASED GLUCOSE; Start 01/11/17 at 23: 00 Dextrose (D50w Syringe) 25 ml Q15M PRN IV DECREASED GLUCOSE; Start 01/11/17 at 23:00 Dextrose (D50w Syringe) 50 ml Q15M PRN IV DECREASED GLUCOSE; Start 01/11/17 at 23:00 Glucagon (Glucagen) 1 mg Q15M PRN IM DECREASED GLUCOSE; Start 01/11/17 at 23: 00 Glucose (Glutose) 15 gm Q15M PRN BUCCAL DECREASED GLUCOSE; Start 01/11/17 at 23:00 Aspirin (Halfprin) 81 mg DAILY PO Last administered on 01/13/17 08:25; Admin Dose 81 MG; Start 01/12/17 at 09:00 Losartan Potassium (Cozaar) 50 mg DAILY PO Last administered on 01/13/17 08: 26; Admin Dose 50 MG; Start 01/12/17 at 09:00 Metoprolol Tartrate 25 mg 25 mg DAILY PO Last administered on 01/13/17 08:26 ; Admin Dose 25 MG; Start 01/12/17 at 09:00 Levofloxacin/ Dextrose (Levaquin 500mg/ D5W 100 ml (Pmx)) 100 ml @ 100 mls/hr Q24H IVPB Last administered on 01/13/17 08:26; Admin Dose 100 MLS/HR; Start 01/12/17 at 09:00 Morphine Sulfate (morphine) 2 mg Q4H PRN IV PAIN Last administered on 02:15; Admin Dose 2 MG; Start 01/12/17 at 09:00 Promethazine HCl/ Codeine (Phenergan/ Codeine) 10 ml Q4H PRN PO COUGH Last administered on 01/13/17 10:22; Admin Dose 10 ML; Start 01/12/17 at 09:00 Insulin Glargine (Lantus) 12 unit QAM SC Last administered on 01/13/17 08:31 ; Admin Dose 12 UNIT; Start 01/12/17 at 09:00 Pantoprazole (Protonix Tab) 40 mg DAILY@06 PO Last administered on 01/13/17 05:25; Admin Dose 40 MG; Start 01/13/17 at 06:00 MYKE RICKS NP Jan 13, 2017 11:25
--- NOTE | 2017-01-13 11:49 | CONS ---
Date/Time of Note Date/Time of Note DATE: 01/13/17 TIME: 11:45 Assessment/Plan Assessment/Plan Additional Assessment/Plan Chest x-ray was reviewed from today which is showing significant cardiomegaly with mild vascular congestion. No pneumothorax. Assessment and recommendations; 1. Patient admitted with acute OK status post CABG surgery. 2. Status post thoracentesis with mild chest pain at procedure site. No evidence of any pneumothorax. 3. History of diabetes and hypertension. Continue current supportive care. Consultation Date/Type/Reason Admit Date/Time Jan 11, 2017 at 21:35 Initial Consult Date Type of Consultation: Pulmonary 24 HR Interval Summary Free Text/Dictation Patient's condition is fair. He is complaining of mild left sided chest pain at the paracentesis site. Denies any chest pain, coughing or wheezing. General exam; middle-aged male, awake and alert. Currently in no distress. Exam/Review of Systems Vital Signs Vitals Vital Signs Date Time Temp Pulse Resp B/P Pulse Ox O2 Delivery O2 Flow Rate FiO2 01/13/17 11:14 99.7 99 16 117/65 97 01/13/17 09:36 2.0 01/13/17 09:36 Nasal Cannula Intake and Output 01/12/17 01/12/17 01/13/17 15:00 23:00 07:00 Intake Total 100 ml 750 ml 500 ml Balance 100 ml 750 ml 500 ml Exam HEENT exam; supple neck, positive JVD. No lymphadenopathy. Midline trachea. No thyromegaly. Patient has fair dentition. Chest exam; diminished but clear breath sounds. There is dressing applied over sternum. S1-S2 audible, no murmurs. Regular rhythm. Abdomen exam; soft, nondistended. Protuberant. Bowel sounds audible. No organomegaly. Extremity exam; no peripheral edema. CHIEF OF ANESTHESIOLOGY exam; no focal deficit. Results Result Diagram: 01/13/17 0739 01/13/17 0739 Results 24 hrs Laboratory Tests Test 01/12/17 12:52 01/12/17 20:01 01/13/17 02:18 01/13/17 07:39 Bedside Glucose 177 236 H 172 White Blood Count 8.6 Red Blood Count 3.56 L Hemoglobin 9.8 L Hematocrit 30.0 L Mean Corpuscular Volume 84.3 Mean Corpuscular Hemoglobin 27.5 L Mean Corpuscular Hemoglobin Concent 32.7 Red Cell Distribution Width 14.5 Platelet Count 785 H Mean Platelet Volume 8.4 Neutrophils % 71.0 Lymphocytes % 18.2 Monocytes % 8.1 Eosinophils % 1.5 Basophils % 0.7 Nucleated Red Blood Cells % 0.0 Neutrophils # 6.1 Lymphocytes # 1.6 Monocytes # 0.7 Eosinophils # 0.1 Basophils # 0.1 Nucleated Red Blood Cells # 0.0 Sodium Level 140 Potassium Level 3.7 Chloride Level 105 Carbon Dioxide Level 26 Anion Gap 13 Blood Urea Nitrogen 5 L Creatinine 0.73 Glucose Level 141 Calcium Level 8.6 Magnesium Level 1.9 Medications Medications Current Medications Diagnostic Test (Pha) (Accu-Chek) 1 ea 02 XX ; Start 01/12/17 at 02:00 Miscellaneous Information 1 ea NOTE XX ; Start 01/11/17 at 23:00 Glucose (Glutose) 15 gm Q15M PRN PO DECREASED GLUCOSE; Start 01/11/17 at 23:00 Glucose (Glutose) 22.5 gm Q15M PRN PO DECREASED GLUCOSE; Start 01/11/17 at 23: 00 Dextrose (D50w Syringe) 25 ml Q15M PRN IV DECREASED GLUCOSE; Start 01/11/17 at 23:00 Dextrose (D50w Syringe) 50 ml Q15M PRN IV DECREASED GLUCOSE; Start 01/11/17 at 23:00 Glucagon (Glucagen) 1 mg Q15M PRN IM DECREASED GLUCOSE; Start 01/11/17 at 23: 00 Glucose (Glutose) 15 gm Q15M PRN BUCCAL DECREASED GLUCOSE; Start 01/11/17 at 23:00 Aspirin (Halfprin) 81 mg DAILY PO Last administered on 01/13/17 08:25; Admin Dose 81 MG; Start 01/12/17 at 09:00 Losartan Potassium (Cozaar) 50 mg DAILY PO Last administered on 01/13/17 08: 26; Admin Dose 50 MG; Start 01/12/17 at 09:00 Metoprolol Tartrate 25 mg 25 mg DAILY PO Last administered on 01/13/17 08:26 ; Admin Dose 25 MG; Start 01/12/17 at 09:00 Levofloxacin/ Dextrose (Levaquin 500mg/ D5W 100 ml (Pmx)) 100 ml @ 100 mls/hr Q24H IVPB Last administered on 01/13/17 08:26; Admin Dose 100 MLS/HR; Start 01/12/17 at 09:00 Morphine Sulfate (morphine) 2 mg Q4H PRN IV PAIN Last administered on 11:28; Admin Dose 2 MG; Start 01/12/17 at 09:00 Promethazine HCl/ Codeine (Phenergan/ Codeine) 10 ml Q4H PRN PO COUGH Last administered on 01/13/17 10:22; Admin Dose 10 ML; Start 01/12/17 at 09:00 Insulin Glargine (Lantus) 12 unit QAM SC Last administered on 01/13/17 08:31 ; Admin Dose 12 UNIT; Start 01/12/17 at 09:00 Pantoprazole (Protonix Tab) 40 mg DAILY@06 PO Last administered on 01/13/17 05:25; Admin Dose 40 MG; Start 01/13/17 at 06:00 Colchicine (Colchicine) 0.3 mg DAILY PO ; Start 01/13/17 at 12:00 Ibuprofen (Motrin) 800 mg Q6 PO ; Start 01/13/17 at 12:00 BETH JENSEN Jan 13, 2017 11:49
[2017-01-13] MEDS ORDERED: COLCHICINE 0.6 MG TAB PO SCH (12:00)
[2017-01-13] MEDS: FUROSEMIDE 40 MG INJ IV SCH (12:37)
[2017-01-13] MEDS: IBUPROFEN 800 MG TAB PO SCH ×2 (14:38→20:20)
[2017-01-14] VITALS (11 sets, daily range): BP systolic 110–144; BP diastolic 61–97; PULSE 98–114; RESP 16–18
[2017-01-14] MEDS: ALBUTEROL/IPRATROPIUM (NEB) 3 ML AMP HHN SCH ×6 (00:28→20:58)
[2017-01-14] MEDS: ACCU-CHEK XX SCH (00:36)
[2017-01-14] MEDS: PANTOPRAZOLE (EC) 40 MG TAB PO SCH (05:19)
[2017-01-14] MEDS: IBUPROFEN 800 MG TAB PO SCH ×4 (05:19→19:00)
[2017-01-14 08:27] LABS: BASOPHIL # 0.1 10^3/ul (0.0-0.1); BASOPHILS % 0.8 % (0.0-2.0); EOSINOPHILS # 0.2 10^3/ul (0.0-0.5); EOSINOPHILS % 2.8 % (0.0-7.0); HEMATOCRIT 31.5 % (42.0-52.0); HEMOGLOBIN 10.2 g/dl (14.0-18.0); LYMPHOCYTES # 1.5 10^3/ul (0.8-2.9); LYMPHOCYTES % 20.1 % (15.0-51.0); MEAN CORPUSCULAR HEMOGLOBIN 27.3 pg (29.0-33.0); MEAN CORPUSCULAR HGB CONC 32.4 g/dl (32.0-37.0); MEAN CORPUSCULAR VOLUME 84.2 fl (82.0-101.0); MEAN PLATELET VOLUME 8.4 fl (7.4-10.4); MONOCYTE # 0.6 10^3/ul (0.3-0.9); MONOCYTES % 8.1 % (0.0-11.0); NEUTROPHIL # 4.9 10^3/ul (1.6-7.5); NEUTROPHILS % 67.8 % (39.0-77.0); RED BLOOD COUNT 3.74 10^6/ul (4.70-6.10); RED CELL DISTRIBUTION WIDTH 14.4 % (11.5-14.5); WHITE BLOOD COUNT 7.3 10^3/ul (4.8-10.8)
[2017-01-14 08:29] LABS: PLATELET COUNT 736 10^3/UL (140-415)
[2017-01-14] MEDS: LEVOFLOXACIN 500MG/D5W (PMX) 100 ML IVPB SCH (08:58)
[2017-01-14] MEDS: COLCHICINE 0.6 MG TAB PO SCH (08:59)
[2017-01-14 09:00] LABS: CALCIUM 9.2 mg/dl (8.4-10.2); CREATININE 0.77 mg/dl (0.61-1.24); POTASSIUM 3.9 mmol/L (3.5-5.1)
[2017-01-14] MEDS: LOSARTAN 50 MG TAB PO SCH (09:00)
[2017-01-14] MEDS: ASPIRIN (EC) 81 MG TAB PO SCH (09:00)
[2017-01-14] MEDS: METOPROLOL 25 MG TAB PO SCH (09:01)
[2017-01-14] MEDS: FUROSEMIDE 40 MG INJ IV SCH (09:01)
[2017-01-14] MEDS: INSULIN GLARGINE [LANtus] 3 ML PEN SC SCH (09:06)
[2017-01-14] MEDS: INSULIN ASPART [NOVOLOG] 3 ML PEN SC SCH ×7 (09:07→21:43)
--- NOTE | 2017-01-14 09:21 | PN ---
Date/Time of Note Date/Time of Note DATE: 01/14/17 TIME: 09:21 Assessment/Plan VTE Prophylaxis VTE Prophylaxis Intervention: ambulation Lines/Catheters IV [facility] Type [facility]from [facility] Saline Lock Urinary Cath still in place: No Assessment/Plan Chief Complaint/Hosp Course This is a 56-year-old male with multivessel coronary artery disease, who apparently underwent CABG and postoperatively found to have acute CVA for which he was getting [facility] is now transferred back to inpatient telemetry for cough and shortness of breath and found to have large left pleural effusion. 1. 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 Pleuritic chest pain improving. -Status post ultrasound-guided thoracentesis with 0.740 serous fluid was removed. Exudative process cannot be excluded at this time based on fluid analysis elevated protein and LDH . Follow-up with fluid studies. -Repeat echocardiogram revealed small pleural effusion. Currently there is no signs to suggest tamponade. We will continue patient on NSAIDs (Ibuprofen 600mg Q6H)+Colchicine prophylactically. -Continue [id number] and- PRN bronchodilators, incentive spirometry, oxygen as needed and cough suppressants. -Follow-up with pulmonary/CT surgery recommendations. -Continue prophylactic Levaquin as there is suspicion for new pulmonary infiltrates. -Follow-up CT chest 2.CVA, involving posterior left frontal ,posterior right parietal lobe and right temporal occipital lobe infarct-currently patient does not have any residual deficit -Continue aspirin. -PT eval and treatment. 3. Multivessel coronary artery disease. Status post coronary artery bypass graft on 12/28/2016. -Continue medical management. 4. Status post possible sepsis with pneumonia. Cultures negative. 5. Dysphagia, mild secondary to CVA. -Continue with ST evaluation. Tolerates mechanical soft diet. 6. Hypertension. -Continue antihypertensives. 7. Hyperlipidemia. -Continue statin. 8. Type 2 Diabetes mellitus. -Continue with ISS/pre-meals 5 units 3 times daily/Lantus 12 units every morning. 9. Transaminase elevation, likely concurrent. Patient asymptomatic. -Stable abdominal ultrasound. 10. Mild anemia with iron deficiency. -Continue iron replacement. Prophylaxis: Lovenox. Overall patient with improvement in symptoms. Most likely, patient can be discharged in next 24-48 hours. Would recommend continuation of NSAIDs for at least 4-6 weeks upon discharge. Follow-up with CT chest findings. Patient was seen in collaboration with Dr. Dyson. Problems: Subjective 24 Hr Interval Summary Free Text/Dictation Today patient doing well. He has been ambulating in hallway without any shortness of breath. Left pleuritic chest pain is improving. Remains afebrile. Exam/Review of Systems Vital Signs Vitals Vital Signs Date Time Temp Pulse Resp B/P Pulse Ox O2 Delivery O2 Flow Rate FiO2 01/14/17 08:55 106 01/14/17 07:23 98.0 18 113/63 95 01/14/17 04:32 21 01/13/17 17:18 2.0 01/13/17 17:18 Nasal Cannula Intake and Output 01/13/17 01/13/17 01/14/17 15:00 23:00 07:00 Intake Total 820 ml 250 ml Output Total 1100 ml Balance -280 ml 250 ml Exam General: Well developed,adequately built, not in any acute distress . HEENT: Normocephalic, Atraumatic, No laceration or hematoma; Eyes: Reports blurred vision to left eye. PEERL, Conjunctiva clear, Anicteric sclera Neck: Supple without any lymphadenopathy, nontender, no JVD, no carotid bruits, trachea midline, no thyromegaly Cardiac: S1, S2 auscultated, regular rhythm and rate, no mumurs or gallop Pulmonary: Chest clear to auscultation. Normal respiratory effort. No wheezing. GI: Abdomen normal to inspection. Soft, non tender, non- distended, no masses, no rebound tenderness or guarding. Bowel sounds active on all four quadrants Genitourinary: Deferred Extremities: No cyanosis, clubbing, or edema. Pulses [2+] bilaterally. Full ROM on all four extremities. No focal weakness appreciated. Neurologic: Alert to person, place, time, and situation. Affect appropriate, intact sensation. Skin: Mediastinal incision with SEROUS DRAINAGE circled on dressing. Graft site on lower extremity intact. Results Result Diagram: 01/14/17 0711 01/14/17 0711 Results 24 hrs Laboratory Tests Test 01/13/17 12:39 01/13/17 17:24 01/13/17 20:21 01/14/17 07:11 Bedside Glucose 179 123 169 White Blood Count 7.3 Red Blood Count 3.74 L Hemoglobin 10.2 L Hematocrit 31.5 L Mean Corpuscular Volume 84.2 Mean Corpuscular Hemoglobin 27.3 L Mean Corpuscular Hemoglobin Concent 32.4 Red Cell Distribution Width 14.4 Platelet Count 736 H Mean Platelet Volume 8.4 Neutrophils % 67.8 Lymphocytes % 20.1 Monocytes % 8.1 Eosinophils % 2.8 Basophils % 0.8 Nucleated Red Blood Cells % 0.0 Neutrophils # 4.9 Lymphocytes # 1.5 Monocytes # 0.6 Eosinophils # 0.2 Basophils # 0.1 Nucleated Red Blood Cells # 0.0 Sodium Level 141 Potassium Level 3.9 Chloride Level 106 Carbon Dioxide Level 27 Anion Gap 12 Blood Urea Nitrogen 10 Creatinine 0.77 Glucose Level 131 Calcium Level 9.2 Test 01/14/17 08:41 Bedside Glucose 151 Medications Medications Current Medications Diagnostic Test (Pha) (Accu-Chek) 1 ea 02 XX ; Start 01/12/17 at 02:00 Miscellaneous Information 1 ea NOTE XX ; Start 01/11/17 at 23:00 Glucose (Glutose) 15 gm Q15M PRN PO DECREASED GLUCOSE; Start 01/11/17 at 23:00 Glucose (Glutose) 22.5 gm Q15M PRN PO DECREASED GLUCOSE; Start 01/11/17 at 23: 00 Dextrose (D50w Syringe) 25 ml Q15M PRN IV DECREASED GLUCOSE; Start 01/11/17 at 23:00 Dextrose (D50w Syringe) 50 ml Q15M PRN IV DECREASED GLUCOSE; Start 01/11/17 at 23:00 Glucagon (Glucagen) 1 mg Q15M PRN IM DECREASED GLUCOSE; Start 01/11/17 at 23: 00 Glucose (Glutose) 15 gm Q15M PRN BUCCAL DECREASED GLUCOSE; Start 01/11/17 at 23:00 Aspirin (Halfprin) 81 mg DAILY PO Last administered on 01/14/17 09:00; Admin Dose 81 MG; Start 01/12/17 at 09:00 Losartan Potassium (Cozaar) 50 mg DAILY PO Last administered on 01/14/17 09: 00; Admin Dose 50 MG; Start 01/12/17 at 09:00 Metoprolol Tartrate 25 mg 25 mg DAILY PO Last administered on 01/14/17 09:01 ; Admin Dose 25 MG; Start 01/12/17 at 09:00 Levofloxacin/ Dextrose (Levaquin 500mg/ D5W 100 ml (Pmx)) 100 ml @ 100 mls/hr Q24H IVPB Last administered on 01/14/17 08:58; Admin Dose 100 MLS/HR; Start 01/12/17 at 09:00 Morphine Sulfate (morphine) 2 mg Q4H PRN IV PAIN Last administered on 17:25; Admin Dose 2 MG; Start 01/12/17 at 09:00 Promethazine HCl/ Codeine (Phenergan/ Codeine) 10 ml Q4H PRN PO COUGH Last administered on 01/13/17 20:20; Admin Dose 10 ML; Start 01/12/17 at 09:00 Insulin Glargine (Lantus) 12 unit QAM SC Last administered on 01/14/17 09:06 ; Admin Dose 12 UNIT; Start 01/12/17 at 09:00 Pantoprazole (Protonix Tab) 40 mg DAILY@06 PO Last administered on 01/14/17 05:19; Admin Dose 40 MG; Start 01/13/17 at 06:00 Ibuprofen (Motrin) 800 mg Q6 PO Last administered on 01/14/17 05:19; Admin Dose 800 MG; Start 01/13/17 at 12:00 Furosemide (Lasix) 40 mg DAILY IV Last administered on 01/14/17 09:01; Admin Dose 40 MG; Start 01/13/17 at 12:00 Colchicine (Colchicine) 0.3 mg DAILY PO Last administered on 01/14/17 08:59; Admin Dose 0.3 MG; Start 01/14/17 at 09:00 MYKE RICKS NP Jan 14, 2017 09:21
--- NOTE | 2017-01-14 09:35 | CONS ---
Date/Time of Note Date/Time of Note DATE: 01/14/17 TIME: 09:33 Assessment/Plan Assessment/Plan Additional Assessment/Plan Assessment and recommendations; 1. Patient admitted with acute [place] status post CABG. 2. Status post left thoracentesis with significant improvement. 3. Cardiomyopathy. 4. History of hypertension and diabetes. Continue current treatment. Continue Lasix for now. Consultation Date/Type/Reason Admit Date/Time Jan 11, 2017 at 21:35 Type of Consultation: Pulmonary 24 HR Interval Summary Free Text/Dictation Patient's condition is stable. Patient is resting comfortably. Denies any further left-sided chest pain. Denies any shortness of breath, chest pain. General exam; middle-aged male, awake alert, currently in no distress. Exam/Review of Systems Vital Signs Vitals Vital Signs Date Time Temp Pulse Resp B/P Pulse Ox O2 Delivery O2 Flow Rate FiO2 01/14/17 08:55 106 01/14/17 07:23 98.0 18 113/63 95 01/14/17 04:32 21 01/13/17 17:18 2.0 01/13/17 17:18 Nasal Cannula Intake and Output 01/13/17 01/13/17 01/14/17 15:00 23:00 07:00 Intake Total 820 ml 250 ml Output Total 1100 ml Balance -280 ml 250 ml Exam HEENT exam; supple neck, positive JVD. No lymphadenopathy. Midline trachea. No thyromegaly. No neck masses. Pharynx is clear. Chest exam; diminished but clear breath sounds. S1-S2 audible, no murmurs. Regular rhythm. There is a dressing applied over the sternum. Abdomen exam; protuberant. Nontender. No organomegaly. Bowel sounds audible. Extremity exam; trace edema. Pulses 1+ bilaterally. No clubbing. 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 Results Result Diagram: 01/14/17 0711 01/14/17 0711 Results 24 hrs Laboratory Tests Test 01/13/17 12:39 01/13/17 17:24 01/13/17 20:21 01/14/17 07:11 Bedside Glucose 179 123 169 White Blood Count 7.3 Red Blood Count 3.74 L Hemoglobin 10.2 L Hematocrit 31.5 L Mean Corpuscular Volume 84.2 Mean Corpuscular Hemoglobin 27.3 L Mean Corpuscular Hemoglobin Concent 32.4 Red Cell Distribution Width 14.4 Platelet Count 736 H Mean Platelet Volume 8.4 Neutrophils % 67.8 Lymphocytes % 20.1 Monocytes % 8.1 Eosinophils % 2.8 Basophils % 0.8 Nucleated Red Blood Cells % 0.0 Neutrophils # 4.9 Lymphocytes # 1.5 Monocytes # 0.6 Eosinophils # 0.2 Basophils # 0.1 Nucleated Red Blood Cells # 0.0 Sodium Level 141 Potassium Level 3.9 Chloride Level 106 Carbon Dioxide Level 27 Anion Gap 12 Blood Urea Nitrogen 10 Creatinine 0.77 Glucose Level 131 Calcium Level 9.2 Test 01/14/17 08:41 Bedside Glucose 151 Medications Medications Current Medications Diagnostic Test (Pha) (Accu-Chek) 1 ea 02 XX ; Start 01/12/17 at 02:00 Miscellaneous Information 1 ea NOTE XX ; Start 01/11/17 at 23:00 Glucose (Glutose) 15 gm Q15M PRN PO DECREASED GLUCOSE; Start 01/11/17 at 23:00 Glucose (Glutose) 22.5 gm Q15M PRN PO DECREASED GLUCOSE; Start 01/11/17 at 23: 00 Dextrose (D50w Syringe) 25 ml Q15M PRN IV DECREASED GLUCOSE; Start 01/11/17 at 23:00 Dextrose (D50w Syringe) 50 ml Q15M PRN IV DECREASED GLUCOSE; Start 01/11/17 at 23:00 Glucagon (Glucagen) 1 mg Q15M PRN IM DECREASED GLUCOSE; Start 01/11/17 at 23: 00 Glucose (Glutose) 15 gm Q15M PRN BUCCAL DECREASED GLUCOSE; Start 01/11/17 at 23:00 Aspirin (Halfprin) 81 mg DAILY PO Last administered on 01/14/17 09:00; Admin Dose 81 MG; Start 01/12/17 at 09:00 Losartan Potassium (Cozaar) 50 mg DAILY PO Last administered on 01/14/17 09: 00; Admin Dose 50 MG; Start 01/12/17 at 09:00 Metoprolol Tartrate 25 mg 25 mg DAILY PO Last administered on 01/14/17 09:01 ; Admin Dose 25 MG; Start 01/12/17 at 09:00 Levofloxacin/ Dextrose (Levaquin 500mg/ D5W 100 ml (Pmx)) 100 ml @ 100 mls/hr Q24H IVPB Last administered on 01/14/17 08:58; Admin Dose 100 MLS/HR; Start 01/12/17 at 09:00 Morphine Sulfate (morphine) 2 mg Q4H PRN IV PAIN Last administered on 17:25; Admin Dose 2 MG; Start 01/12/17 at 09:00 Promethazine HCl/ Codeine (Phenergan/ Codeine) 10 ml Q4H PRN PO COUGH Last administered on 01/13/17 20:20; Admin Dose 10 ML; Start 01/12/17 at 09:00 Insulin Glargine (Lantus) 12 unit QAM SC Last administered on 01/14/17 09:06 ; Admin Dose 12 UNIT; Start 01/12/17 at 09:00 Pantoprazole (Protonix Tab) 40 mg DAILY@06 PO Last administered on 01/14/17 05:19; Admin Dose 40 MG; Start 01/13/17 at 06:00 Ibuprofen (Motrin) 800 mg Q6 PO Last administered on 01/14/17 05:19; Admin Dose 800 MG; Start 01/13/17 at 12:00 Furosemide (Lasix) 40 mg DAILY IV Last administered on 01/14/17 09:01; Admin Dose 40 MG; Start 01/13/17 at 12:00 Colchicine (Colchicine) 0.3 mg DAILY PO Last administered on 01/14/17 08:59; Admin Dose 0.3 MG; Start 01/14/17 at 09:00 BETH JENSEN Jan 14, 2017 09:35
[2017-01-14] MEDS ORDERED: MAGNESIUM HYDROXIDE 30ML CUP PO PRN (10:00)
[2017-01-14] MEDS ORDERED: DOCUSATE SODIUM 100 MG CAP PO PRN (10:00)
--- NOTE | 2017-01-14 11:31 | RADRPT ---
Echocardiogram Report Patient Name: MARGE LAWRENCE Gender: Male Date: 1960 Study Date: 13-Jan-2017 [employer] Supervisor: Jasmin [facility] Location: [address] Ref. Physician: MYKE RICKS Quality: Technically Difficult Study Procedures: Transthoracic echocardiogram with complete 2D, M-Mode, and doppler examination. Indications: R/O pericardial effusion/pericarditis. 2D/M Mode Doppler Measurement Value Normal Ranges Measurement Value Normal Ranges LVIDd 2D 3.8 3.5 - 5.6 cm AV Peak [place] 1.5 m/sec LVIDs 2D 2.4 2.1 - 4.1 cm AV Peak PG 9.0 mmHg FS 2D 36.7 % LVOT Peak [place] 1.0 m/sec LVPWd 2D 1.5 0.6 - 1.1 cm LVOT Peak PG 4.0 mmHg IVSd 2D 1.5 0.6 - 1.1 cm MV E Peak [place] 1.1 m/sec IVS/LVPW 2D 1.0 MV A Peak [place] 1.2 m/sec AoR Diam 2D 3.0 2.0 - 3.7 cm MV E/A 0.9 LA/Ao 2D 1 0 - 1 MV Decel Time 155 msec EDV 2D 55.3 cm3 MV E/A 0.9 ESV 2D 14.0 cm3 TR Peak [place] 2.9 m/sec LA Dimen 2D 4.2 2.3 - 4.0 cm TR Peak PG 34.0 mmHg RVSP 37.0 mmHg Findings Left Ventricle: Lower limits of normal systolic function. Normal left ventricular cavity size. Moderate concentric left ventricular hypertrophy. Ejection fraction is visually estimated at 50 %. Tissue Doppler/Mitral Doppler indices are consistent with impaired relaxation (Stage I diastolic dysfunction). Abnromal septal motion secondary to cardiac surgery. Right Ventricle: Normal right ventricular size. Normal right ventricular systolic function. Left Atrium: There is moderate enlargement of left atrium. Right Atrium: There is mild enlargement of right atrium. Mitral Valve: Mild mitral leaflet calcification. Mild mitral annular calcification. Trace mitral regurgitation. Aortic Valve: Normal appearance of the aortic valve. No significant aortic stenosis or insufficiency. Tricuspid Valve: Normal appearance of the tricuspid valve. Estimated peak PA systolic pressure 34 mmHg. There is trace to mild tricuspid regurgitation. Pulmonic Valve: Pulmonic valve not well visualized. There is trace pulmonic regurgitation. Pericardium: Small pericardial effusion. There is echogenic material in the pericardial space which may represent a small layer of thrombus. No obvious evidence of echocardiographic tamponade but this was not well assessed. Correlate clinically for clinical tamponade if appropriate. Aorta: Normal aortic root. IVC: The IVC is not well visualized. Conclusions 1.Lower limits of normal systolic function. Normal left ventricular cavity size. Moderate concentric left ventricular hypertrophy. Ejection fraction is visually estimated at 50 %. Tissue Doppler/Mitral Doppler indices are consistent with impaired relaxation (Stage I diastolic dysfunction). Abnormal septal motion secondary to cardiac surgery. 2.Small pericardial effusion. There is echogenic material in the pericardial space which may represent a small layer of thrombus. No obvious evidence of echocardiographic tamponade but this was not well assessed. Correlate clinically for clinical tamponade if appropriate. 3.No significant valvular stenosis or regurgitation seen. 4.Estimated peak PA systolic pressure 34 mmHg plus RA pressure. Electronically Signed By: Be Linares 14-Jan-2017 11:31:18 -0800 Patient Name: MARGE LAWRENCE Study Date: 13-Jan-2017 [id number]
[2017-01-14] MEDS: PROMETHAZINE/CODEINE 5ML CUP PO PRN ×2 (12:57→19:00)
--- NOTE | 2017-01-14 13:52 | RADRPT ---
PROCEDURE: CT Chest without contrast. CLINICAL INDICATION: Pleural effusion. TECHNIQUE: Volumetrically acquired images of the thorax without intravenous contrast were reformat clint in the axial, sagittal, and coronal planes. DICOM images are available. Radiation dose: CTDIvol (mGy) = 15.2; total DLP mGy-cm = 597. One or more of the following radiation dose techniques were used: -Automated exposure control. -Adjust of the mA and/or kV according to patient size. -Use of iterative reconstruction technique. COMPARISON: 01/11/2017. FINDINGS: Lungs: Decreased but persistent small left pleural effusion with extension into the oblique fissures . There is associated atelectasis of the left lower lobe and lingula. Ill-defined ground-glass schultz es are demonstrated in the left upper and 9 consolidated left lower lobe. There is no pneumothorax. Mediastinum: Unchanged cardiomegaly with postoperative changes compatible with prior CABG. There is mild decrease in size of previously noted loculated retrosternal fluid collection, measuring 1.7 x 5 .1 cm in the coronal plane, previously measuring approximately 2.5 x 6.6 cm. Upper Abdomen: Tiny 2 mm nonobstructive calculus in the right kidney. Musculoskeletal: No concerning bone lesions. Other: None. IMPRESSION: Decreased size of small left pleural effusion with persistent atelectasis of the left lower lobe and lingula and ipsilateral edema; superimposed consolidation is not excluded without intravenous contr ast. Previously noted nonspecific retrosternal fluid collection is mildly decreased in size. RPTAT: EE .Christian Dawson MD, MD Date Time Electronically viewed and signed by .Christian Dawson MD, on 01/14/2017 13:57 .C/
[2017-01-14] MEDS: DOCUSATE SODIUM 100 MG CAP PO SCH (21:39)
[2017-01-14] MEDS: FERROUS SULFATE (EC) 325 MG TAB PO SCH (21:39)
[2017-01-15] VITALS (12 sets, daily range): BP systolic 108–141; BP diastolic 60–84; PULSE 102–117; RESP 15–20
[2017-01-15] MEDS: IBUPROFEN 800 MG TAB PO SCH ×4 (00:53→17:19)
[2017-01-15] MEDS: ALBUTEROL/IPRATROPIUM (NEB) 3 ML AMP HHN SCH ×6 (01:28→21:40)
[2017-01-15] MEDS: ACCU-CHEK XX SCH (02:00)
[2017-01-15] MEDS: PANTOPRAZOLE (EC) 40 MG TAB PO SCH (06:09)
[2017-01-15] MEDS: INSULIN ASPART [NOVOLOG] 3 ML PEN SC SCH ×7 (07:55→20:16)
[2017-01-15] MEDS: INSULIN GLARGINE [LANtus] 3 ML PEN SC SCH (08:21)
[2017-01-15] MEDS: ASPIRIN (EC) 81 MG TAB PO SCH (08:23)
[2017-01-15] MEDS: COLCHICINE 0.6 MG TAB PO SCH (08:23)
[2017-01-15] MEDS: DOCUSATE SODIUM 100 MG CAP PO SCH ×2 (08:23→20:13)
[2017-01-15] MEDS: METOPROLOL 25 MG TAB PO SCH (08:23)
[2017-01-15] MEDS: FUROSEMIDE 40 MG INJ IV SCH (08:24)
[2017-01-15] MEDS: LOSARTAN 50 MG TAB PO SCH (08:24)
[2017-01-15] MEDS: FERROUS SULFATE (EC) 325 MG TAB PO SCH ×2 (08:24→20:13)
[2017-01-15] MEDS: LEVOFLOXACIN 500MG/D5W (PMX) 100 ML IVPB SCH (09:10)
--- NOTE | 2017-01-15 10:03 | CONS ---
Date/Time of Note Date/Time of Note DATE: 01/15/17 TIME: 10:01 Assessment/Plan Assessment/Plan Additional Assessment/Plan Assessment and recommendations; 1. Patient admitted with acute [place] status post CABG surgery. 2. Cardiomyopathy. 3. Hypertension and diabetes. 4. Status post left thoracentesis. 5. CT imaging of the chest from yesterday showing very small left pleural effusion with some element of compressive atelectasis. Continue current treatment. Consider transfer to rehab. Consultation Date/Type/Reason Admit Date/Time Jan 11, 2017 at 21:35 Type of Consultation: Pulmonary 24 HR Interval Summary Free Text/Dictation Patient's condition is stable. Sitting in a chair by bedside. Denies any further chest pain. Still complains of dyspnea on moderate exertion. General exam; middle-aged male, awake and alert. Currently in no distress. Exam/Review of Systems Vital Signs Vitals Vital Signs Date Time Temp Pulse Resp B/P Pulse Ox O2 Delivery O2 Flow Rate FiO2 01/15/17 08:13 108 01/15/17 07:15 98.0 16 112/60 97 01/15/17 01:38 21 01/13/17 17:18 2.0 01/13/17 17:18 Nasal Cannula Intake and Output 01/14/17 01/14/17 01/15/17 14:59 22:59 06:59 Intake Total 1230 ml 900 ml Output Total 1200 ml Balance 1230 ml -300 ml Exam HEENT exam; supple neck, positive JVD. No lymphadenopathy. Midline trachea. No thyromegaly. Pharynx is clear. Patient has fair dentition. Pupils are small bilaterally. Chest exam; diminished but clear breath sounds. S1-S2 audible, no murmurs. Regular rhythm. Dressing applied over sternum. Abdomen exam; soft, nontender. No organomegaly. Bowel sounds audible. Extremity exam; no edema. 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 Results Result Diagram: 01/14/17 0711 01/14/17 0711 Results 24 hrs Laboratory Tests Test 01/14/17 12:53 01/14/17 18:04 01/14/17 21:38 01/15/17 07:53 Bedside Glucose 150 138 184 138 Medications Medications Current Medications Diagnostic Test (Pha) (Accu-Chek) 1 02 XX ; Start 01/12/17 at 02:00 Miscellaneous Information 1 ea NOTE XX ; Start 01/11/17 at 23:00 Glucose (Glutose) 15 gm Q15M PRN PO DECREASED GLUCOSE; Start 01/11/17 at 23:00 Glucose (Glutose) 22.5 gm Q15M PRN PO DECREASED GLUCOSE; Start 01/11/17 at 23: 00 Dextrose (D50w Syringe) 25 ml Q15M PRN IV DECREASED GLUCOSE; Start 01/11/17 at 23:00 Dextrose (D50w Syringe) 50 ml Q15M PRN IV DECREASED GLUCOSE; Start 01/11/17 at 23:00 Glucagon (Glucagen) 1 mg Q15M PRN IM DECREASED GLUCOSE; Start 01/11/17 at 23: 00 Glucose (Glutose) 15 gm Q15M PRN BUCCAL DECREASED GLUCOSE; Start 01/11/17 at 23:00 Aspirin (Halfprin) 81 mg DAILY PO Last administered on 01/15/17 08:23; Admin Dose 81 MG; Start 01/12/17 at 09:00 Losartan Potassium (Cozaar) 50 mg DAILY PO Last administered on 01/15/17 08: 24; Admin Dose 50 MG; Start 01/12/17 at 09:00 Metoprolol Tartrate 25 mg 25 mg DAILY PO Last administered on 01/15/17 08:23 ; Admin Dose 25 MG; Start 01/12/17 at 09:00 Levofloxacin/ Dextrose (Levaquin 500mg/ D5W 100 ml (Pmx)) 100 ml @ 100 mls/hr Q24H IVPB Last administered on 01/15/17 09:10; Admin Dose 100 MLS/HR; Start 01/12/17 at 09:00 Morphine Sulfate (morphine) 2 mg Q4H PRN IV PAIN Last administered on 17:25; Admin Dose 2 MG; Start 01/12/17 at 09:00 Promethazine HCl/ Codeine (Phenergan/ Codeine) 10 ml Q4H PRN PO COUGH Last administered on 01/14/17 19:00; Admin Dose 10 ML; Start 01/12/17 at 09:00 Insulin Glargine (Lantus) 12 unit QAM SC Last administered on 01/15/17 08:21 ; Admin Dose 12 UNIT; Start 01/12/17 at 09:00 Pantoprazole (Protonix Tab) 40 mg DAILY@06 PO Last administered on 01/15/17 06:09; Admin Dose 40 MG; Start 01/13/17 at 06:00 Ibuprofen (Motrin) 800 mg Q6 PO Last administered on 01/15/17 06:09; Admin Dose 800 MG; Start 01/13/17 at 12:00 Furosemide (Lasix) 40 mg DAILY IV Last administered on 01/15/17 08:24; Admin Dose 40 MG; Start 01/13/17 at 12:00 Colchicine (Colchicine) 0.3 mg DAILY PO Last administered on 01/15/17 08:23; Admin Dose 0.3 MG; Start 01/14/17 at 09:00 Magnesium Hydroxide (Milk Of Mag) 30 ml DAILY PRN PO CONSTIPATION; Start 01/14 at 10:00 Docusate Sodium (Colace) 100 mg BID PO Last administered on 01/15/17 08:23; Admin Dose 100 MG; Start 01/14/17 at 21:00 Ferrous Sulfate (Ferrous Sulfate (Ec)) 325 mg BID PO Last administered on 01/15 08:24; Admin Dose 325 MG; Start 01/14/17 at 21:00 BETH JENSEN Jan 15, 2017 10:03
--- NOTE | 2017-01-15 10:53 | PN ---
Date/Time of Note Date/Time of Note DATE: 01/15/17 TIME: 10:51 Assessment/Plan VTE Prophylaxis VTE Prophylaxis Intervention: SCD's Lines/Catheters IV Catheter Type (from [facility]): Saline Lock Urinary Cath still in place: No Assessment/Plan Problems: (1) Iron deficiency anemia (2) Abnormal liver function tests Status: Acute Comment: Ration is unknown. We will check appropriate serologies but this may be nonalcoholic fatty liver disease. (3) Status post coronary artery bypass grafting Onset Date: ~ 12/28/2016 Status: Acute Comment: He is postop and now doing better. As per the recommendation from the pulmonary consult rehabilitation consult for the acute rehabilitation unit (4) Hyperlipidemia associated with type 2 diabetes mellitus Status: Chronic Comment: Continue statin therapy (5) Diabetes mellitus type 2 in obese Status: Chronic Comment: Good control on present regimen (6) Essential hypertension Status: Chronic Comment: Stable on present regimen. Please note usage of angiotensin II receptor shaggy with beta shaggy is appropriate here (7) Diastolic dysfunction Status: Chronic Comment: Beta-blockade therapy Subjective 24 Hr Interval Summary Free Text/Dictation Patient is doing well and ambulating. He reports he wants his IV out. Constitutional: no complaints Respiratory: no complaints Cardiovascular: no complaints Gastrointestinal: no complaints Genitourinary: no complaints Exam/Review of Systems Vital Signs Vitals Vital Signs Date Time Temp Pulse Resp B/P Pulse Ox O2 Delivery O2 Flow Rate FiO2 01/15/17 08:13 108 01/15/17 07:15 98.0 16 112/60 97 01/15/17 01:38 21 01/13/17 17:18 2.0 01/13/17 17:18 Nasal Cannula Intake and Output 01/14/17 01/14/17 01/15/17 15:00 23:00 07:00 Intake Total 1230 ml 900 ml Output Total 1200 ml Balance 1230 ml -300 ml Exam Constitutional: alert, oriented Respiratory: clear to auscultation, normal air movement Cardiovascular: nl pulses, regular rate and rhythm Gastrointestinal: nl liver, spleen, non-tender, soft Results Result Diagram: 01/14/17 0711 01/14/17 0711 Results 24 hrs Laboratory Tests Test 01/14/17 12:53 01/14/17 18:04 01/14/17 21:38 01/15/17 07:53 Bedside Glucose 150 138 184 138 Medications Medications Current Medications Diagnostic Test (Pha) (Accu-Chek) 1 ea 02 XX ; Start 01/12/17 at 02:00 Miscellaneous Information 1 ea NOTE XX ; Start 01/11/17 at 23:00 Glucose (Glutose) 15 gm Q15M PRN PO DECREASED GLUCOSE; Start 01/11/17 at 23:00 Glucose (Glutose) 22.5 gm Q15M PRN PO DECREASED GLUCOSE; Start 01/11/17 at 23: 00 Dextrose (D50w Syringe) 25 ml Q15M PRN IV DECREASED GLUCOSE; Start 01/11/17 at 23:00 Dextrose (D50w Syringe) 50 ml Q15M PRN IV DECREASED GLUCOSE; Start 01/11/17 at 23:00 Glucagon (Glucagen) 1 mg Q15M PRN IM DECREASED GLUCOSE; Start 01/11/17 at 23: 00 Glucose (Glutose) 15 gm Q15M PRN BUCCAL DECREASED GLUCOSE; Start 01/11/17 at 23:00 Aspirin (Halfprin) 81 mg DAILY PO Last administered on 01/15/17 08:23; Admin Dose 81 MG; Start 01/12/17 at 09:00 Losartan Potassium (Cozaar) 50 mg DAILY PO Last administered on 01/15/17 08: 24; Admin Dose 50 MG; Start 01/12/17 at 09:00 Metoprolol Tartrate 25 mg 25 mg DAILY PO Last administered on 01/15/17 08:23 ; Admin Dose 25 MG; Start 01/12/17 at 09:00 Levofloxacin/ Dextrose (Levaquin 500mg/ D5W 100 ml (Pmx)) 100 ml @ 100 mls/hr Q24H IVPB Last administered on 01/15/17 09:10; Admin Dose 100 MLS/HR; Start 01/12/17 at 09:00 Morphine Sulfate (morphine) 2 mg Q4H PRN IV PAIN Last administered on 17:25; Admin Dose 2 MG; Start 01/12/17 at 09:00 Promethazine HCl/ Codeine (Phenergan/ Codeine) 10 ml Q4H PRN PO COUGH Last administered on 01/14/17 19:00; Admin Dose 10 ML; Start 01/12/17 at 09:00 Insulin Glargine (Lantus) 12 unit QAM SC Last administered on 01/15/17 08:21 ; Admin Dose 12 UNIT; Start 01/12/17 at 09:00 Pantoprazole (Protonix Tab) 40 mg DAILY@06 PO Last administered on 01/15/17 06:09; Admin Dose 40 MG; Start 01/13/17 at 06:00 Ibuprofen (Motrin) 800 mg Q6 PO Last administered on 01/15/17 06:09; Admin Dose 800 MG; Start 01/13/17 at 12:00 Furosemide (Lasix) 40 mg DAILY IV Last administered on 01/15/17 08:24; Admin Dose 40 MG; Start 01/13/17 at 12:00 Colchicine (Colchicine) 0.3 mg DAILY PO Last administered on 01/15/17 08:23; Admin Dose 0.3 MG; Start 01/14/17 at 09:00 Magnesium Hydroxide (Milk Of Mag) 30 ml DAILY PRN PO CONSTIPATION; Start 01/14 at 10:00 Docusate Sodium (Colace) 100 mg BID PO Last administered on 01/15/17 08:23; Admin Dose 100 MG; Start 01/14/17 at 21:00 Ferrous Sulfate (Ferrous Sulfate (Ec)) 325 mg BID PO Last administered on 01/15 08:24; Admin Dose 325 MG; Start 01/14/17 at 21:00 CARLA HOLLAND MD Jan 15, 2017 10:53
[2017-01-15] MEDS ORDERED: SOD FERRIC GLUC COMPLX 125 MG in SOD CHLORIDE 0.9% 100 ML IVPB SCH (12:00)
[2017-01-15] MEDS: PROMETHAZINE/CODEINE 5ML CUP PO PRN (17:20)
[2017-01-15] MEDS: SOD FERRIC GLUC COMPLX 125 MG in SOD CHLORIDE 0.9% 100 ML IVPB SCH (17:46)
[2017-01-16] VITALS (12 sets, daily range): BP systolic 97–139; BP diastolic 56–81; PULSE 93–115; RESP 15–20
[2017-01-16] MEDS: IBUPROFEN 800 MG TAB PO SCH ×4 (00:27→17:33)
[2017-01-16] MEDS: ALBUTEROL/IPRATROPIUM (NEB) 3 ML AMP HHN SCH ×6 (01:30→20:38)
[2017-01-16] MEDS: ACCU-CHEK XX SCH (02:00)
[2017-01-16] MEDS: PANTOPRAZOLE (EC) 40 MG TAB PO SCH (06:05)
[2017-01-16] MEDS: ASPIRIN (EC) 81 MG TAB PO SCH (08:06)
[2017-01-16] MEDS: DOCUSATE SODIUM 100 MG CAP PO SCH ×2 (08:06→20:17)
[2017-01-16] MEDS: FERROUS SULFATE (EC) 325 MG TAB PO SCH ×2 (08:06→20:17)
[2017-01-16] MEDS: LOSARTAN 50 MG TAB PO SCH (08:07)
[2017-01-16] MEDS: METOPROLOL 25 MG TAB PO SCH (08:07)
[2017-01-16] MEDS: COLCHICINE 0.6 MG TAB PO SCH (08:07)
[2017-01-16] MEDS: FUROSEMIDE 40 MG INJ IV SCH (08:07)
[2017-01-16] MEDS: LEVOFLOXACIN 500MG/D5W (PMX) 100 ML IVPB SCH (08:08)
[2017-01-16] MEDS: INSULIN ASPART [NOVOLOG] 3 ML PEN SC SCH ×7 (08:11→20:18)
[2017-01-16] MEDS: INSULIN GLARGINE [LANtus] 3 ML PEN SC SCH (08:12)
--- NOTE | 2017-01-16 12:30 | PN ---
Date/Time of Note Date/Time of Note DATE: 01/16/17 TIME: 12:28 Assessment/Plan VTE Prophylaxis VTE Prophylaxis Intervention: heparin Lines/Catheters IV [facility] Saline Lock Urinary Cath still in place: No Assessment/Plan Problems: (1) Status post coronary artery bypass grafting Onset Date: ~ 12/28/2016 Status: Acute Comment: He is recuperating and should be a consideration for the acute rehab unit. Will try and get that consultation arranged (2) Abnormal liver function tests Status: Acute Comment: This is most likely nonalcoholic fatty liver disease; he does not have hemochromatosis and his hepatitis viral serologies are negative. (3) Iron deficiency anemia Status: Chronic Comment: This is being repleted with IV iron. He will need an outpatient investigation of his GI tract in the future Qualifiers: Iron deficiency anemia type: chronic blood loss Qualified Code: D50.0 - Iron deficiency anemia due to chronic blood loss (4) Hyperlipidemia associated with type 2 diabetes mellitus Status: Chronic Comment: He is on statin therapy appropriately (5) Diabetes mellitus type 2 in obese Status: Chronic Comment: Adequate control under the current regimen (6) Essential hypertension Status: Chronic Comment: Good control on with her current regimen (7) Diastolic dysfunction Status: Chronic Comment: Beta-blockade is useful and effective in the setting Subjective 24 Hr Interval Summary Free Text/Dictation Patient has been moving around the unit and reports that with the appropriate expected postoperative pain he is doing well Constitutional: no complaints Respiratory: no complaints Cardiovascular: no complaints Gastrointestinal: no complaints Genitourinary: no complaints Exam/Review of Systems Vital Signs Vitals Vital Signs Date Time Temp Pulse Resp B/P Pulse Ox O2 Delivery O2 Flow Rate FiO2 01/16/17 12:07 98.6 107 18 124/74 98 01/16/17 10:17 21 01/13/17 17:18 2.0 01/13/17 17:18 Nasal Cannula Intake and Output 01/15/17 01/15/17 01/16/17 15:00 23:00 07:00 Intake Total 1250 ml 1000 ml Output Total 1400 ml 1100 ml Balance -150 ml -100 ml Exam Constitutional: alert, oriented Neck: non-tender, supple Respiratory: clear to auscultation, normal air movement Cardiovascular: nl pulses, other (Median sternotomy scar), regular rate and rhythm Gastrointestinal: nl liver, spleen, non-tender, soft Results Result Diagram: 01/14/17 0711 01/14/17 0711 Results 24 hrs Laboratory Tests Test 01/15/17 17:24 01/15/17 20:12 01/16/17 07:56 01/16/17 11:44 Bedside Glucose 103 164 154 203 Medications Medications Current Medications Diagnostic Test (Pha) (Accu-Chek) 1 ea 02 XX ; Start 01/12/17 at 02:00 Miscellaneous Information 1 ea NOTE XX ; Start 01/11/17 at 23:00 Glucose (Glutose) 15 gm Q15M PRN PO DECREASED GLUCOSE; Start 01/11/17 at 23:00 Glucose (Glutose) 22.5 gm Q15M PRN PO DECREASED GLUCOSE; Start 01/11/17 at 23: 00 Dextrose (D50w Syringe) 25 ml Q15M PRN IV DECREASED GLUCOSE; Start 01/11/17 at 23:00 Dextrose (D50w Syringe) 50 ml Q15M PRN IV DECREASED GLUCOSE; Start 01/11/17 at 23:00 Glucagon (Glucagen) 1 mg Q15M PRN IM DECREASED GLUCOSE; Start 01/11/17 at 23: 00 Glucose (Glutose) 15 gm Q15M PRN BUCCAL DECREASED GLUCOSE; Start 01/11/17 at 23:00 Aspirin (Halfprin) 81 mg DAILY PO Last administered on 01/16/17 08:06; Admin Dose 81 MG; Start 01/12/17 at 09:00 Losartan Potassium (Cozaar) 50 mg DAILY PO Last administered on 01/16/17 08: 07; Admin Dose 50 MG; Start 01/12/17 at 09:00 Metoprolol Tartrate 25 mg 25 mg DAILY PO Last administered on 01/16/17 08:07 ; Admin Dose 25 MG; Start 01/12/17 at 09:00 Levofloxacin/ Dextrose (Levaquin 500mg/ D5W 100 ml (Pmx)) 100 ml @ 100 mls/hr Q24H IVPB Last administered on 01/16/17 08:08; Admin Dose 100 MLS/HR; Start 01/12/17 at 09:00 Morphine Sulfate (morphine) 2 mg Q4H PRN IV PAIN Last administered on 17:25; Admin Dose 2 MG; Start 01/12/17 at 09:00 Promethazine HCl/ Codeine (Phenergan/ Codeine) 10 ml Q4H PRN PO COUGH Last administered on 01/15/17 17:20; Admin Dose 10 ML; Start 01/12/17 at 09:00 Insulin Glargine (Lantus) 12 unit QAM SC Last administered on 01/16/17 08:12 ; Admin Dose 12 UNIT; Start 01/12/17 at 09:00 Pantoprazole (Protonix Tab) 40 mg DAILY@06 PO Last administered on 01/16/17 06:05; Admin Dose 40 MG; Start 01/13/17 at 06:00 Ibuprofen (Motrin) 800 mg Q6 PO Last administered on 01/16/17 11:55; Admin Dose 800 MG; Start 01/13/17 at 12:00 Furosemide (Lasix) 40 mg DAILY IV Last administered on 01/16/17 08:07; Admin Dose 40 MG; Start 01/13/17 at 12:00 Colchicine (Colchicine) 0.3 mg DAILY PO Last administered on 01/16/17 08:07; Admin Dose 0.3 MG; Start 01/14/17 at 09:00 Magnesium Hydroxide (Milk Of Mag) 30 ml DAILY PRN PO CONSTIPATION; Start 01/14 at 10:00 Docusate Sodium (Colace) 100 mg BID PO Last administered on 01/16/17 08:06; Admin Dose 100 MG; Start 01/14/17 at 21:00 Ferrous Sulfate 325 mg 325 mg BID PO Last administered on 01/16/17 08:06; Admin Dose 325 MG; Start 01/14/17 at 21:00 Ferric Sodium Gluconate Complex/ Sodium Chloride (Ferrlecit/NS) 110 ml @ 110 mls/hr Q24H IVPB Last administered on 01/15/17 17:46; Admin Dose 110 MLS/HR; Start 01/15/17 at 18:00; Stop 01/19/17 at 18:59 CARLA HOLLAND MD Jan 16, 2017 12:30
[2017-01-16] MEDS: PROMETHAZINE/CODEINE 5ML CUP PO PRN (20:16)
[2017-01-16] MEDS: SOD FERRIC GLUC COMPLX 125 MG in SOD CHLORIDE 0.9% 100 ML IVPB SCH (20:17)
[2017-01-17] VITALS (11 sets, daily range): BP systolic 110–153; BP diastolic 78–87; PULSE 99–107; RESP 16–19
[2017-01-17] MEDS: IBUPROFEN 800 MG TAB PO SCH ×4 (00:16→17:16)
[2017-01-17] MEDS: ALBUTEROL/IPRATROPIUM (NEB) 3 ML AMP HHN SCH ×6 (00:50→21:00)
[2017-01-17] MEDS: ACCU-CHEK XX SCH (02:00)
[2017-01-17] MEDS: PANTOPRAZOLE (EC) 40 MG TAB PO SCH (06:01)
[2017-01-17] MEDS: INSULIN ASPART [NOVOLOG] 3 ML PEN SC SCH ×6 (08:00→17:22)
[2017-01-17] MEDS: FUROSEMIDE 40 MG INJ IV SCH (08:17)
[2017-01-17] MEDS: LEVOFLOXACIN 500MG/D5W (PMX) 100 ML IVPB SCH (08:17)
[2017-01-17] MEDS: ASPIRIN (EC) 81 MG TAB PO SCH (08:18)
[2017-01-17] MEDS: LOSARTAN 50 MG TAB PO SCH (08:18)
[2017-01-17] MEDS: COLCHICINE 0.6 MG TAB PO SCH (08:18)
[2017-01-17] MEDS: FERROUS SULFATE (EC) 325 MG TAB PO SCH (08:18)
[2017-01-17] MEDS: DOCUSATE SODIUM 100 MG CAP PO SCH (08:18)
[2017-01-17] MEDS: INSULIN GLARGINE [LANtus] 3 ML PEN SC SCH (08:25)
[2017-01-17] MEDS: METOPROLOL 25 MG TAB PO SCH (08:32)
--- NOTE | 2017-01-17 09:53 | PDOCDIS ---
Discharge Instructions CONDITION Patient Condition: Stable HOME CARE INSTRUCTIONS: Special Diet: carb controlYour diet recommendation is: carbohydrate-controlled FOLLOW UP/APPOINTMENTS Follow-up Plan 1.Follow-up with [facility] cardiac rehabilitation unit. 2.Follow-up with cardiothoracic surgeon, Dr. Chavez in 2 weeks. [address] [facility] [place] [address] Office 3. Follow-up with burglar alarm installer in 2 weeks [id number] [facility] [address] [place] [address] Office 4.Follow up with primary care physician in 1 week If you don't have one please let someone know, we can give you resources that may help you pick one. You may also call your insurance company to assign one to you. Review your medication list with your nurse before leaving and if you need new prescriptions please let your nurse know. I may have made changes to your home medications or given you new prescriptions, please let your primary doctor know as well. Stay compliant with your medications and report any side effects to your PCP or pharmacist. Return to the ER if you have any concerns and cannot reach your doctors or call your insurance company, they usually have a nurse that can help you. 5. Call 911 or go to the nearest emergency room if experiencing loss of consciousness, dizziness, chest pain, shortness of breath, vomiting/abdominal pain, speech difficulties, motor weakness or any unusual symptoms. MYKE RICKS NP Jan 17, 2017 09:53
[2017-01-17] MEDS ORDERED: FER325 PO (10:03)
[2017-01-17] MEDS ORDERED: COLC0.6T6 PO (10:03)
[2017-01-17] MEDS ORDERED: IBUP800T25 PO (10:03)
[2017-01-17] MEDS ORDERED: DOCU-216 PO (10:03)
--- NOTE | 2017-01-17 10:04 | DS ---
Date/Time of Note Date/Time of Note DATE: 01/17/17 TIME: 10:04 Discharge Summary Admission/Discharge Info Admit Date/Time Jan 11, 2017 at 21:35 Discharge Date/Time Discharge Diagnosis 1. 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 Stable. Status post thoracentesis. 2.CVA, involving posterior left frontal ,posterior right parietal lobe and right temporal occipital lobe infarct 3. Multivessel coronary artery disease. Status post coronary artery bypass graft on 12/28/2016. 4. Possible pneumonia. Treated. 5. Dysphagia, mild secondary to CVA. Tolerates mechanical soft diet. 6. Hypertension. 7. Hyperlipidemia. 8. Type 2 Diabetes mellitus. 9. Transaminase elevation, likely concurrent. Patient asymptomatic. 10. Mild anemia with iron deficiency. Patient Condition: Stable Consults , pulmonary Dr. Chavez, CT surgery Dr. Landry, cardiology Procedures 12/29/2016. Coronary artery bypass grafting, PELAEZ to LAD, SVG to OM circumflex. SVG to PDA. 01/12/2017. Ultrasound-guided left thoracentesis. 0.740 L of serous fluid was aspirated. 01/13/2017. Echocardiogram. Conclusions 1. Lower limits of normal systolic function. Normal left ventricular cavity size. Moderate concentric left ventricular hypertrophy. Ejection fraction is visually estimated at 50 %. Tissue Doppler/Mitral Doppler indices are consistent with impaired relaxation (Stage I diastolic dysfunction). Abnormal septal motion secondary to cardiac surgery. 2. Small pericardial effusion. There is echogenic material in the pericardial space which may represent a small layer of thrombus. No obvious evidence of echocardiographic tamponade but this was not well assessed. Correlate clinically for clinical tamponade if appropriate. 3. No significant valvular stenosis or regurgitation seen. 4. Estimated peak PA systolic pressure 34 mmHg plus RA pressure. Hospital Course This is a 56-year-old male with a past medical history of hypertension, hyperlipidemia, type 2 diabetes, who initially presented to [facility] for evaluation of chest pain and found to have multivessel coronary artery disease, who apparently underwent CABG . Postoperatively patient had acute CVA which is managed medically. Patient did not have any residual deficit. He continued to have some dysphagia for which he was evaluated by speech therapy and was able to tolerate a mechanical soft diet. Patient was then transferred to acute rehabilitation unit for further physical therapy. As patient was doing well with PT and rehab activities, suddenly he developed cough , low-grade fevers with shortness of breath. Patient did not have any positive cultures. However, patient was noted with large left pleural effusion . Therefore, he was transferred back to telemetry for further management. Patient had thoracentesis with 0.740 fluid removal. His fluid analysis with elevated protein and LDH suggestive of exudate. Patient also was evaluated by pulmonary and cardiothoracic surgery. A complete fluid analysis with Gram stain and culture was ordered, however for whatsoever reason, this was not performed. Patient also had small pericardial effusion for which he was also treated with colchicine and Motrin. Patient did not have any cardiac tamponade or other complications. Pleural effusion remained stable. He did not have any further symptoms. He was able to tolerate diet and activities well. Patient did not require any oxygen. Patient was continued on maximal medical management for underlying comorbid conditions. Patient was also treated with prophylactic Levaquin as there was suspicion for new pulmonary infiltrates. He was also continued on insulin regimen for underlying diabetes and his blood sugar remained stable. At this time, patient is feeling back to his baseline. Patient was also treated with an replacement for his and deficiency anemia. He did not require any blood transfusion. Patient is medically stable for discharge with outpatient follow-up at this time. His labs and vital signs remained stable. Disposition: Patient will be discharged home with outpatient follow-up. Patient verbalized discharge instructions. Approximately 60 minutes was spent in coordinating the discharge on this patient. Patient was seen in collaboration with Dr. Lucia. Home Meds Reported Medications Metformin Hcl* (Metformin Hcl*) 1,000 Mg Tablet, 1000 MG PO WITH BREAKFAST DINNE , #30 TAB 12/27/16 Aspirin (Low Dose Aspirin) 81 Mg Tablet., 81 MG PO DAILY, #30 TAB 12/27/16 Losartan Potassium* (Losartan Potassium*) 50 Mg Tablet, 50 MG PO DAILY, TAB 12/27/16 Metoprolol Tartrate* (Lopressor*) 25 Mg Tab, 25 MG PO DAILY, #60 TAB 12/27/16 Insulin Lispro (Humalog Kwikpen) 200 Unit/1 Ml Insuln.pen, 5 UNIT SQ AC MEALS, EA 12/27/16 Insulin Glargine* (Lantus*) 100 Unit/Ml Soln, 15 UNIT SC QAM, #1 VIAL 12/27/16 Follow-up Plan 1.Follow-up with [facility] cardiac rehabilitation unit. 2.Follow-up with cardiothoracic surgeon, Dr. Chavez in [address] [place] [address] Office 3. Follow-up with dolphin trainer in 2 weeks [id number] [facility] [address] [place] [address] Office 4.Follow up with primary care physician in 1 week If you don't have one please let someone know, we can give you resources that may help you pick one. You may also call your insurance company to assign one to you. Review your medication list with your nurse before leaving and if you need new prescriptions please let your nurse know. I may have made changes to your home medications or given you new prescriptions, please let your primary doctor know as well. Stay compliant with your medications and report any side effects to your PCP or pharmacist. Return to the ER if you have any concerns and cannot reach your doctors or call your insurance company, they usually have a nurse that can help you. 5. Call 911 or go to the nearest emergency room if experiencing loss of consciousness, dizziness, chest pain, shortness of breath, vomiting/abdominal pain, speech difficulties, motor weakness or any unusual symptoms. Primary Care Provider Not On Staff Doctor Pending Labs Laboratory Tests Test 01/16/17 11:44 01/16/17 17:27 01/16/17 20:11 01/17/17 07:59 Bedside Glucose 203mg/dL (70-220) 162mg/dL (70-220) 123mg/dL (70-220) 132mg/dL (70-220) MYKE RICKS NP Jan 17, 2017 10:04 (70-220) 123mg/dL (70-220) 132mg/dL (70-220) MYKE RICKS NP Jan 17, 2017 10:04
[2017-01-17] MEDS: SOD FERRIC GLUC COMPLX 125 MG in SOD CHLORIDE 0.9% 100 ML IVPB SCH (17:23)
== END 2017-01-17 21:36 | disposition home or self-care (01) | DRG 314 ==
LOC: MS4 21:35
PROVIDERS: ADMIT Family Medicine; ATTEND Family Medicine
PROC: 0W9B3ZZ Drainage of Left Pleural Cavity, Percutaneous Approach (ICD-10-PCS; principal; 2017-01-12)
DX: I97.0 Postcardiotomy syndrome (principal); J18.9 Pneumonia, unspecified organism; J90 Pleural effusion, not elsewhere classified; I69.354 Hemiplegia and hemiparesis following cerebral infarction affecting left non-dominant side; E11.69 Type 2 diabetes mellitus with other specified complication; I10 Essential (primary) hypertension; D50.9 Iron deficiency anemia, unspecified; Z95.1 Presence of aortocoronary bypass graft; I25.10 Atherosclerotic heart disease of native coronary artery without angina pectoris; I69.991 Dysphagia following unspecified cerebrovascular disease; E78.5 Hyperlipidemia, unspecified; R74.0 Nonspecific elevation of levels of transaminase and lactic acid dehydrogenase [LDH]; Y83.8 Other surgical procedures as the cause of abnormal reaction of the patient, or of later complication, without mention of misadventure at the time of the procedure; E66.9 Obesity, unspecified; Z68.30 Body mass index [BMI] 30.0-30.9, adult; R94.5 Abnormal results of liver function studies
CPT/HCPCS: 32555; 71010; 71250; 80048; 80053; 82042; 82945; 82962; 83615; 83735; 84157; 85025; 85610; 86803; 87081; 87340; 92526; 92610; 93306; 94640; 94664; 97110; 97116; 97162; 97166; 97530; C9113; J1815; J1940; J1956; J2270; J2916